=== PATIENT | female | born 1940 | race Two or more races ===

== ENCOUNTER → 2016-06-13 | Outpatient (CLI) | payer OTHER, MEDICAID ==
[~2016-06-13] MED LIST: IOPAMIDOL (ISOVUE 370) 75 ML BTL IV ONE
--- NOTE | 2016-06-13 10:14 | CT ---
CT Pulmonary Angiogram History: Chest pain. Comparison: PA and lateral chest, April 17, 2016, CT angiogram chest, July 29, 2015 and September 12, 2014. Technique: Axial contrast-enhanced images were obtained through the chest following the uneventful in travenous administration of 95 mL Isovue-370. Creatinine is 0.9. Multiplanar reformations were perfo rmed through the pulmonary arteries. Dose reduction techniques were utilized. Findings: This is a good quality study with visualization of the vessels to the subsegmental level. T here is no pulmonary embolus. Mild centrilobular emphysema, diffuse peribronchial thickening, scatter ed peripheral linear opacities suggesting scarring/atelectasis, with volume loss in the left lung, pl eural thickening and pleural calcifications, most prominent in the left lung, are again noted. A 5 mm noncalcified left lower lobe nodule (series 5 image 112) is unchanged since 2008. Heart size is uppe r normal. Coronary artery atherosclerosis is again noted. Dense mitral annular calcifications are pre sent. The aorta is normal caliber without dissection. Scattered mildly prominent mediastinal lymph no vandana are minimally increased in size since the comparison, including a 1.0 x 1.3 cm AP window node (se carmine 5 image 54). The bones are normal. Visualized structures in the upper abdomen are normal. Impression: 1. No visible pulmonary embolus. 2. Minimal increase in size of mildly prominent mediastinal lymph nodes, which may be reactive but ar e nonspecific. Follow up chest CT could be performed at 3-6 months. 3. Stable pleural thickening and pleural calcifications which could be related to previous asbestos e xposure, trauma, or pleurodesis. 4. Additional findings, as above. Findings discussed with Dana Rodgers today at 0954 hours.
== END ==
LOC: FIMAGING 08:37
PROVIDERS: ATTEND Family Medicine
DX: J94.8 Other specified pleural conditions (principal); R91.1 Solitary pulmonary nodule; I25.10 Atherosclerotic heart disease of native coronary artery without angina pectoris
CPT/HCPCS: Q9967

== ENCOUNTER → 2016-08-24 | Outpatient (CLI) | payer OTHER, MEDICAID | LOC: FIMAGING 09:02 | PROVIDERS: ATTEND Internal Medicine Gastroenterology | DX: R10.84 Generalized abdominal pain (principal); I70.0 Atherosclerosis of aorta ==

== ENCOUNTER 2016-09-07 00:40 | Observation (INO) | payer OTHER, MEDICAID ==
[2016-09-07] MEDS ORDERED: NS 1,000 ML IV ONE (00:51)
--- NOTE | 2016-09-07 00:56 | EDPHY ---
H & P HPI/ROS: HPI CHIEF COMPLAINT: Lightheadedness, nausea, slurring of her speech HISTORY OF PRESENT ILLNESS: This patient very pleasant 76-year-old female significant medical history for asthma, GERD, migraine headaches, TIA, sleep apnea, hypertension arthritis carotid endarterectomy on the left, and cardiac ablation, she presents emergency room at 1 o'clock in the morning by ambulance after she woke up this evening and felt very lightheaded no dizziness. No chest pain or shortness of breath. However she felt lightheaded as if she was going to pass out. Her took her blood pressure blood pressure was in the systolic of 70s/50s. She decided to take caffeine pills which she normally does of her blood pressure gets low she took multiple caffeine pills this did not help her blood pressure. 911 was called after she was talking to her daughter. On the 2nd phone call to her daughter daughter noticed that her speech was slightly off. Upon arrival to the emergency room the patient appears well nontoxic in no acute distress blood pressure is currently 103/81. Heart rate 65. Pulse ox 94% on room air. She did take her lisinopril and metoprolol around 8:00 p.m. this evening. She recently had an EGD and colonoscopy yesterday. She has not been vomiting. She has been eating appropriately. Currently at this time in the emergency room upon arrival 1:00 a.m. she has no chest pain or shortness of breath denies headache. Does complain of lightheadedness. Does complain of nausea. Upon arrival to the emergency room due to complain of slight slurred speech described as a "heavy tongue" by the daughter I did call a stroke alert. Time of stroke alert 100AM. Time of onset of Symptoms 1200AM, or one hour prior NIHSS Upon arrival 1.0 (due to slight slurr in speech) 0103AM: I did speak with [facility] specifically spoke with Dr. Saab we did go over this case extensively. He does not feel this patient is a tPA candidate. Reason for not giving tPA is very low NIH stroke scale, very mild symptoms. Risk would outweigh the benefit. Also patient has other acute medical conditions going on and lightheadedness and hypotension prior to arrival. Most likely cause of lightheadedness and hypertension is volume depletion from recent colonoscopy and EGD and taking her nightly blood pressure medications however patient be worked up extensively in the emergency room. Past Medical History: Includes asthma, hypertension, sleep apnea my gastritis, arthritis, TIA, SVT, carotid endarterectomy 2016, migraine headaches Past Surgical History: Left-sided carotid artery inject me in 2016, cardiac ablation bunion surgery, appendicitis, hysterectomy Social History: lives in [facility], at bedside, daughter at bedside, patient is Cambodian-speaking only, daughter speaks Lebanese and Cambodian. Family History: Noncontributory ROS REVIEW OF SYSTEMS: A comprehensive 10 point review of systems is otherwise negative aside from elements mentioned in the history of present illness. Exam Constitutional appears well nontoxic, triage nursing summary reviewed, vital signs reviewed, awake/alert. ( vital signs are stable with a normotensive blood pressure) Eyes normal conjunctivae and sclera, EOMI, PERRLA. HENT normal inspection, atraumatic, moist mucus membranes, no epistaxis, neck supple/ no meningismus, no raccoon eyes. Respiratory clear to auscultation bilaterally, normal breath sounds, no respiratory distress, no wheezing. Cardiovascular rate normal, regular rhythm, no murmur, no edema, distal pulses normal. Gastrointestinal soft, non-tender, no rebound, no guarding, normal bowel sounds, no distension, no pulsatile mass. Genitourinary no CVA tenderness. Musculoskeletal no midline vertebral tenderness, full range of motion, no calf swelling, no tenderness of extremities, no meningismus, good pulses, neurovascularly intact. Skin pink, warm, & dry, no rash, skin atraumatic. Neurologic no focal neuro deficit appreciate on exam however, awake, alert and oriented x 3, AAOx3, moves all 4 extremities equally, motor intact, sensory intact, CN II-XII intact, normal cerebellar, normal vision, speech according to daughter at bedside is slightly slurred minimal. Psychiatric normal mood/affect. Heme/Lymph/Immune no lymphadenopathy. Differential Diagnosis: Includes but is not limited to in a particular order electrolyte disturbance, dehydration, volume depletion, hypotension from volume depletion given recent endoscopy colonoscopy and taking her nightly blood pressure medication including metoprolol and lisinopril, ACS, CVA, TIA Medical Decision Making: Plan for this patient workup for lightheadedness and hypotension, IV hydration, check EKG, troponin, blood work, CT scan head without contrast for slurred speech placed on full telemetry monitor. And most likely patient will need admission for TIA versus CVA workup and monitoring of hypotension. Re-evaluation: EKG interpretation by me on record in [facility] system. Impression time of EKG 10/05/1999 this is sinus rhythm rate of 65 MS interval noted to be 204 otherwise no acute ischemic seen on EKG. Specifically no ST elevation, ST depression T-wave abnormalities. when compared to previous EKGs dated 01/03/[address] scan of the head without IV contrast The results of the study are negative for acute infarct or bleed. Unremarkable noncontrast head CT The study was read by Dr. Hawley. I viewed the images myself on the PACS system. 0149AM: Spoke with Dr. Duran who agrees to admit this patient. Reason for admission: dehydration, acute kidney injury, possible TIA, transient hypertension 0150AM: Re-evaluation at this time I did update the family daughter at bedside understands patient is agreeable for admission for observation IV hydration. She understands 1 she has an acute kidney injury 2 is dehydrated, 3 had transient hypertension and possible TIA. Currently this time when I speak to her daughter at bedside and patient they tell me the slurred speech has resolved. The patient is feeling much better after 1 L of fluid and bolused. She is hemodynamically stable I will admit her to the hospitalist service. Source: Patient, EMS - Personal History Tetanus Vaccine Date: 3 years - Medical/Surgical History Hx Asthma: Yes Hx Chronic Respiratory Disease: Yes Hx Diabetes: No Hx Cardiac Disease: Yes Hx Renal Disease: No Hx Cirrhosis: No Hx Alcoholism: No Hx HIV/AIDS: No Hx Splenectomy or Spleen Trauma: No Other PMH: Hysterectomy, appendectomy, foot surgery CARDIAC ABLATION/?SVT,sleep apnea,hypertension, L sided carotid endarterectomy, TIA, asthma, - Social History Smoking Status: Former smoker Constitutional: Initial Vital Signs Temperature (C) 36.5 C 09/07/16 00:53 Heart Rate 69 09/07/16 00:53 Respiratory Rate 17 09/07/16 00:53 Blood Pressure 103/61 09/07/16 00:53 O2 Sat (%) 95 09/07/16 00:53 O2 Delivery Mode Room Air Allergies/Adverse Reactions: Penicillins Allergy (Severe, Verified 08/29/15 15:38) Swelling/neck,face,throat Home Medications: Medication Instructions Recorded Aspirin [Aspir-Low] 81 mg PO DAILY 12/04/11 Cyclobenzaprine [Flexeril 10 MG 10 mg PO BID 12/04/11 (*)] Diclofenac Sodium [Voltaren Gel 1 clyde TP DAILY PRN 12/04/11 (*)] Fluticasone Nasal [Flonase Nasal 1 sprays NASAL DAILY 12/04/11 [place]] Furosemide [Lasix] 20 mg PO DAILY PRN 12/04/11 Hydrocodone Bit/Acetaminophen 0.5 - 1 tab PO Q4 PRN 12/04/11 [Vicodin 5/500] Ibuprofen [Motrin (*)] 600 mg PO Q8H PRN 12/04/11 Omeprazole [Prilosec 20 mg] 40 mg PO DAILY 12/04/11 Sucralfate 1 gm PO HS 12/04/11 Budesonide/Formoterol 160/4.5 2 inh IH BID 09/11/14 [Symbicort 160-4.5 Mcg Inh (*)] Montelukast Sodium [Singulair 10 10 mg PO HS 09/11/14 mg (*)] Acyclovir 5% [Zovirax 5% Cream 2gm 1 clyde TP Q3WA PRN 07/29/15 (RX)] Albuterol [Proventil Inhaler HFA 2 puffs IH BID PRN 07/29/15 (*)] Albuterol [Proventil Neb] 3 ml IH QID PRN 07/29/15 Polyethylene Glycol 3350 [Miralax 17 gm PO TID 07/29/15 17 gm (*)] SUMAtriptan [Imitrex 50 MG (*)] 50 mg PO DAILY PRN 07/29/15 Topiramate [Topamax 25MG (*)] 50 mg PO BID 07/29/15 Valacyclovir HCl [Valtrex] 2,000 mg PO Q12 PRN 07/29/15 Gabapentin [Neurontin 400 MG (*)] 800 mg PO HS 09/12/15 Lubiprostone [Amitiza 24 mcg (*)] 24 mcg PO BID 09/12/15 Atorvastatin Calcium [Lipitor 20 20 mg PO HS 01/03/16 mg (*)] Herbals/Supplements -Info Only 1 ea PO DAILY 01/03/16 Metoprolol Succinate 50 mg PO HS 01/03/16 oxyCODONE IR [Oxycodone Ir (*)] 5 mg PO Q3 PRN 01/03/16 Amlodipine Besylate 09/07/16 Klor-Con 20 meq (*) 09/07/16 Lipitor 20 mg (*) 09/07/16 Losartan Potassium 09/07/16 Metamucil Powder 09/07/16 Medical Decision Making - Data Points Laboratory Results: Laboratory Results 09/07/16 00:45 09/07/16 00:45 09/07/16 09/07/16 09/07/16 01:04 00:45 00:45 WBC RBC Hgb POC Hgb 13.9 gm/dL gm/dL (12.3-15.9) Hct POC Hct 41 % % (35.5-47.5) MCV MCH MCHC RDW Plt Count MPV Neut % (Auto) Lymph % (Auto) [place] % (Auto) Eos % (Auto) Baso % (Auto) Nucleat RBC Rel Count Absolute Neuts (auto) Absolute Lymphs (auto) Absolute Monos (auto) Absolute Eos (auto) Absolute Basos (auto) Absolute Nucleated RBC Immature Gran % Immature Gran # RBC/WBC/PLT Morphology Platelet Estimate PT 14.4 SEC SEC (12.0-15.0) INR 1.13 (0.83-1.16) APTT 30.6 SEC SEC (23.0-38.0) POC Sodium 139 mEq/L mEq/L (134-144) Sodium 137 mEq/L mEq/L (134-144) POC Potassium 3.9 mEq/L mEq/L (3.3-5.0) Potassium 4.4 mEq/L mEq/L (3.5-5.2) POC Chloride 106 mEq/L mEq/L (96-108) Chloride 106 mEq/L mEq/L (97-110) Carbon Dioxide 21 mEq/l L mEq/l (22-31) Anion Gap 10 mEq/L mEq/L (8-16) POC BUN 20 mg/dL mg/dL (7-23) BUN 20 mg/dL mg/dL (7-23) Creatinine 2.4 mg/dL H mg/dL (0.6-1.0) POC Creatinine 2.3 mg/dL H mg/dL (0.6-1.2) Estimated GFR 20 Glucose 107 mg/dL H mg/dL (70-100) POC Glucose 105 mg/dL H mg/dL (70-100) Calcium 9.6 mg/dL mg/dL (8.5-10.4) Troponin I < 0.012 ng/mL ng/mL (0-0.034) 09/07/16 00:45 WBC 13.83 10^3/uL H 10^3/uL (3.80-9.50) RBC 4.99 10^6/uL 10^6/uL (4.18-5.33) Hgb 13.6 g/dL g/dL (12.6-16.3) POC Hgb Hct 43.6 % % (38.0-47.0) POC Hct MCV 87.4 fL fL (81.5-99.8) MCH 27.3 pg L pg (27.9-34.1) MCHC 31.2 g/dL L g/dL (32.4-36.7) RDW 21.8 % H % (11.5-15.2) Plt Count 197 10^3/uL 10^3/uL (150-400) MPV 12.4 fL H fL (8.7-11.7) Neut % (Auto) 48.1 % % (39.3-74.2) Lymph % (Auto) 32.1 % % (15.0-45.0) [place] % (Auto) 11.3 % % (4.5-13.0) Eos % (Auto) 7.3 % % (0.6-7.6) Baso % (Auto) 0.9 % % (0.3-1.7) Nucleat RBC Rel Count 0.0 % % (0.0-0.2) Absolute Neuts (auto) 6.66 10^3/uL H 10^3/uL (1.70-6.50) Absolute Lymphs (auto) 4.44 10^3/uL H 10^3/uL (1.00-3.00) Absolute Monos (auto) 1.56 10^3/uL H 10^3/uL (0.30-0.80) Absolute Eos (auto) 1.01 10^3/uL H 10^3/uL (0.03-0.40) Absolute Basos (auto) 0.12 10^3/uL H 10^3/uL (0.02-0.10) Absolute Nucleated RBC 0.00 10^3/uL 10^3/uL (0-0.01) Immature Gran % 0.3 % % (0.0-1.1) Immature Gran # 0.04 10^3/uL 10^3/uL (0.00-0.10) RBC/WBC/PLT Morphology NORMAL (NORMAL) Platelet Estimate ADEQUATE (ADEQ) PT INR APTT POC Sodium Sodium POC Potassium Potassium POC Chloride Chloride Carbon Dioxide Anion Gap POC BUN BUN Creatinine POC Creatinine Estimated GFR Glucose POC Glucose Calcium Troponin I Point of Care Test Results: 09/07/16 01:04 POC Sodium 139 POC Potassium 3.9 POC Chloride 106 POC BUN 20 POC Creatinine 2.3 H POC Glucose 105 H Departure - Departure Disposition: [facility] Inpatient Acute Clinical Impression: Transient hypotension, ALICIA (acute kidney injury) TIA (transient ischemic attack) Qualifiers: Transient cerebral ischemia type: unspecified Qualified Code(s): G45.9 - Transient cerebral ischemic attack, unspecified Condition: Good Referrals: Patient,NotPresent [Unknown] - As per Instructions
[2016-09-07 00:57] LABS: % IMMATURE GRANULYOCYTES 0.3 % (0.0-1.1); ABSOLUTE IMMATURE GRANULOCYTES 0.04 10^3/uL (0.00-0.10); ADD DIFF? NO; ADD MORPH? YES; ADD SCAN? NO; ATYPICAL LYMPHOCYTE FLAG 20 (0-99); FRAGMENT RBC FLAG 40 (0-99); HEMATOCRIT 43.6 % (38.0-47.0); HEMOGLOBIN 13.6 g/dL (12.6-16.3); LEFT SHIFT FLG 0 (0-99); LIPEMIA HEMOLYSIS FLAG 80 (0-99); MEAN CELL HEMOGLOBIN 27.3 pg (27.9-34.1); MEAN CELL HEMOGLOBIN CONCENTR. 31.2 g/dL (32.4-36.7); MEAN CELL VOLUME 87.4 fL (81.5-99.8); MEAN PLATELET VOLUME 12.4 fL (8.7-11.7); PLATELET CLUMPS FLAG 0 (0-99); PLATELET COUNT 197 10^3/uL (150-400); RED BLOOD CELL COUNT 4.99 10^6/uL (4.18-5.33)
[2016-09-07 00:58] LABS: RED CELL DISTRIBUTION WIDTH 21.8 % (11.5-15.2)
[2016-09-07 01:02] LABS: ANION GAP 10 mEq/L (8-16); CALCIUM 9.6 mg/dL (8.5-10.4); CARBON DIOXIDE 21 mEq/l (22-31); CHLORIDE 106 mEq/L (97-110); CREATININE 2.4 mg/dL (0.6-1.0); GLOMERULAR FILTRATION RATE 20; GLUCOSE 107 mg/dL (70-100); POTASSIUM 4.4 mEq/L (3.5-5.2); SODIUM 137 mEq/L (134-144)
[2016-09-07 01:05] LABS: APTT 30.6 SEC (23.0-38.0); INR 1.13 (0.83-1.16); PROTIME(PATIENT) 14.4 SEC (12.0-15.0)
[2016-09-07 01:14] LABS: TROPONIN I < 0.012 ng/mL (0-0.034)
[2016-09-07 01:25] LABS: PLATELET ESTIMATE ADEQUATE (ADEQ)
[2016-09-07 02:12] VITALS: RESP 16
[2016-09-07] MEDS ORDERED: ACETAMINOPHEN 325 MG TAB PO PRN (02:16)
[2016-09-07] MEDS ORDERED: ALBUTEROL 60 PUFFS/8 GM MDI IH PRN ×2 (02:16→09:30)
[2016-09-07] MEDS ORDERED: ONDANSETRON 4 MG/2 ML VIAL IVP PRN (02:16)
[2016-09-07] MEDS ORDERED: HYDROCODONE/APAP 5/325 TAB PO PRN (02:16)
[2016-09-07] MEDS ORDERED: ONDANSETRON DISINTEGRATING 4 MG TAB PO PRN (02:16)
--- NOTE | 2016-09-07 02:28 | PDGENHP ---
History and Physical - Chief Complaint dizziness, hypotension - History of Present Illness Patient is a 76 year old female with HTN, diastolic CHF, history of a TIA due to carotid artery stenosis, asthma who presented to the ED with complaint of dizziness and low BP. The day prior to presentation, the patient underwent EGD/ colonoscopy. She did not have any major complications from this procedure, came home and ate dinner without event. The following morning, however, she felt fatigued and slept longer than she normally does. She then did not eat or drink much the rest of the day, took her BP meds at 8pm and then went to bed. She woke up at around midnight and felt dizzy and nauseous, without chest pain, palpitations or headache. She then measured her BP and it was in the 70/50 range. She reports she occasionally suffers from low BP and so she took a caffeine tablet, but she continued to feel unwell, so she called her daughter. Daughter states her mother sounded slightly dysarthric and was complaining of feeling dizzy, so she called EMS and the patient was transported to the ED. Patient denies any recent fevers, chills, cough, congestion, abdominal pain, vomiting, diarrhea or dysuria. On arrival to the ED, patient was afebrile and hemodynamically stable. Patient still had some dysarthria noticed by her daughter, but this improved and symptoms completely subsided over ED course. CT head did not show any acute abnormalities. She was ruled out of tPA given her minimal symptoms (NIH stroke scale 1) and due to normalization of symptoms. Labs revealed acute elevated Cr, but were largely unremarkable and EKG showed normal sinus rhythm. She was given NS hydration and admitted to the hospitalist service for further management. History Information - Allergies/Home Medication List Allergies/Adverse Reactions: Penicillins Allergy (Severe, Verified 08/29/15 15:38) Swelling/neck,face,throat Home Medications: Aspirin [Aspir-Low] 81 mg PO DAILY 12/04/11 [Last Taken 01/03/16 08:00] Cyclobenzaprine [Flexeril 10 MG (*)] 10 mg PO BID 12/04/11 [Last Taken 01/03/16 08:00] Diclofenac Sodium [Voltaren Gel (*)] 1 clyde TP DAILY PRN 12/04/11 [Last Taken 03/18] Fluticasone Nasal [Flonase Nasal Novice] 1 sprays NASAL DAILY 12/04/11 [Last Taken 01/03/16] Furosemide [Lasix] 20 mg PO DAILY PRN 12/04/11 [Last Taken 09/11/15] Hydrocodone Bit/Acetaminophen [Vicodin 5/500] 0.5 - 1 tab PO Q4 PRN 12/04/11 [ Last Taken 12/03/11] Ibuprofen [Motrin (*)] 600 mg PO Q8H PRN 12/04/11 [Last Taken 09/11/15] Omeprazole [Prilosec 20 mg] 40 mg PO DAILY 12/04/11 [Last Taken 01/03/16] Sucralfate 1 gm PO HS 12/04/11 [Last Taken 01/02/16] Budesonide/Formoterol 160/4.5 [Symbicort 160-4.5 Mcg Inh (*)] 2 inh IH BID 09/11 [Last Taken 01/03/16 08:00] Montelukast Sodium [Singulair 10 mg (*)] 10 mg PO HS 09/11/14 [Last Taken ] Acyclovir 5% [Zovirax 5% Cream 2gm (RX)] 1 clyde TP Q3WA PRN 07/29/15 [Last Taken 09/11/15] Albuterol [Proventil Inhaler HFA (*)] 2 puffs IH BID PRN 07/29/15 [Last Taken ] Albuterol [Proventil Neb] 3 ml IH QID PRN 07/29/15 [Last Taken 01/03/16] Polyethylene Glycol 3350 [Miralax 17 gm (*)] 17 gm PO TID 07/29/15 [Last Taken 01/03/16 12:00] SUMAtriptan [Imitrex 50 MG (*)] 50 mg PO DAILY PRN 07/29/15 [Last Taken 01/02/16 ] Topiramate [Topamax 25MG (*)] 50 mg PO BID 07/29/15 [Last Taken 01/03/16 08:00] Valacyclovir HCl [Valtrex] 2,000 mg PO Q12 PRN 07/29/15 [Last Taken 09/11/15] Gabapentin [Neurontin 400 MG (*)] 800 mg PO HS 09/12/15 [Last Taken 01/02/16] Lubiprostone [Amitiza 24 mcg (*)] 24 mcg PO BID 09/12/15 [Last Taken 01/03/16 08 :00] Atorvastatin Calcium [Lipitor 20 mg (*)] 20 mg PO HS 01/03/16 [Last Taken ] Herbals/Supplements -Info Only 1 ea PO DAILY 01/03/16 [Last Taken Unknown] Metoprolol Succinate 50 mg PO HS 01/03/16 [Last Taken 01/02/16] oxyCODONE IR [Oxycodone Ir (*)] 5 mg PO Q3 PRN 01/03/16 [Last Taken Unknown] Amlodipine Besylate 09/07/16 [Last Taken Unknown] Klor-Con 20 meq (*) 09/07/16 [Last Taken Unknown] Lipitor 20 mg (*) 09/07/16 [Last Taken Unknown] Losartan Potassium 09/07/16 [Last Taken Unknown] Metamucil Powder 09/07/16 [Last Taken Unknown] I have personally reviewed and updated: family history, medical history, social history, surgical history - Past Medical History Additional medical history: hypertension. diastolic CHF. moderate mitral regurgitation, mitral stenosis. h/o TIA, 09/2015. carotid stenosis s/p CEA. Asthma. THUY. h/o SVT s/p ablation. chronic leukocytosis - Surgical History Additional surgical history: appendectomy. hysterectomy. SVT ablation. sinus surgery - Family History Additional family history: M, sisters: CVAs in 70s - Social History Smoking Status: Former smoker (quit 30 yrs ago) Alcohol Use: None Drug Use: None Additional social history: Patient lives with her in [place], has daughter who is active in her care. Walks independently, independent in ADLs. Review of Systems ROS: 10pt was reviewed & negative except for what was stated in HPI & below Physical Exam Temp Pulse Resp BP Pulse Ox 36.5 C 79 16 141/78 H 97 09/07/16 00:53 09/07/16 02:10 09/07/16 02:10 09/07/16 02:10 09/07/16 02:10 Constitutional: no apparent distress, appears nourished, not in pain Eyes: PERRL, anicteric sclera, EOMI Ears, Nose, Mouth, Throat: moist mucous membranes, hearing normal, ears appear normal, no oral mucosal ulcers Cardiovascular: regular rate and rhythym, no murmur, rub, or gallop, pulses symmetric bilaterally, No JVD, No edema Peripheral Pulses: 2+: dorsalis-pedis (R), dorsalis-pedis (L) Respiratory: no respiratory distress, no rales or rhonchi, clear to auscultation Gastrointestinal: normoactive bowel sounds, soft, non-tender abdomen, no palpable masses, No guarding, No rebound Genitourinary: no bladder fullness, no bladder tenderness Skin: warm, normal color, no rashes or abrasions, no fluctuance, no induration, No mottled Musculoskeletal: full muscle strength, no muscle tenderness, normal joint ROM, no joint effusions Neurologic: AAOx3, sensation intact bilaterally, CN II-XII Intact, No weakness, No numbness Psychiatric: interacting appropriately, not anxious, not encephalopathic, thought process linear Lab Data & Imaging Review 09/07/16 00:45 09/07/16 00:45 WBC 13.83 10^3/uL (3.80-9.50) H 09/07/16 00:45 RBC 4.99 10^6/uL (4.18-5.33) 09/07/16 00:45 Hgb 13.6 g/dL (12.6-16.3) 04 00:45 POC Hgb 13.9 gm/dL (12.3-15.9) 09/07/16 01:04 Hct 43.6 % (38.0-47.0) 09/07/16 00:45 POC Hct 41 % (35.5-47.5) 09/07/16 01:04 MCV 87.4 fL (81.5-99.8) 09/07/16 00:45 MCH 27.3 pg (27.9-34.1) L 09/07/16 00:45 MCHC 31.2 g/dL (32.4-36.7) L 09/07/16 00:45 RDW 21.8 % (11.5-15.2) H 09/07/16 00:45 Plt Count 197 10^3/uL (150-400) 09/07/16 00:45 MPV 12.4 fL (8.7-11.7) H 09/07/16 00:45 Neut % (Auto) 48.1 % (39.3-74.2) 09/07/16 00:45 Lymph % (Auto) 32.1 % (15.0-45.0) 09/07/16 00:45 Laporte % (Auto) 11.3 % (4.5-13.0) 09/07/16 00:45 Eos % (Auto) 7.3 % (0.6-7.6) 09/07/16 00:45 Baso % (Auto) 0.9 % (0.3-1.7) 09/07/16 00:45 Nucleat RBC Rel Count 0.0 % (0.0-0.2) 09/07/16 00:45 Absolute Neuts (auto) 6.66 10^3/uL (1.70-6.50) H 09/07/16 00:45 Absolute Lymphs (auto) 4.44 10^3/uL (1.00-3.00) H 09/07/16 00:45 Absolute Monos (auto) 1.56 10^3/uL (0.30-0.80) H 09/07/16 00:45 Absolute Eos (auto) 1.01 10^3/uL (0.03-0.40) H 09/07/16 00:45 Absolute Basos (auto) 0.12 10^3/uL (0.02-0.10) H 09/07/16 00:45 Absolute Nucleated RBC 0.00 10^3/uL (0-0.01) 09/07/16 00:45 Immature Gran % 0.3 % (0.0-1.1) 09/07/16 00:45 Immature Gran # 0.04 10^3/uL (0.00-0.10) 09/07/16 00:45 RBC/WBC/PLT Morphology NORMAL (NORMAL) 09/07/16 00:45 Platelet Estimate ADEQUATE (ADEQ) 09/07/16 00:45 PT 14.4 SEC (12.0-15.0) 09/07/16 00:45 INR 1.13 (0.83-1.16) 09/07/16 00:45 APTT 30.6 SEC (23.0-38.0) 09/07/16 00:45 POC Sodium 139 mEq/L (134-144) 09/07/16 01:04 Sodium 137 mEq/L (134-144) 09/07/16 00:45 POC Potassium 3.9 mEq/L (3.3-5.0) 09/07/16 01:04 Potassium 4.4 mEq/L (3.5-5.2) 09/07/16 00:45 POC Chloride 106 mEq/L (96-108) 09/07/16 01:04 Chloride 106 mEq/L (97-110) 09/07/16 00:45 Carbon Dioxide 21 mEq/l (22-31) L 09/07/16 00:45 Anion Gap 10 mEq/L (8-16) 09/07/16 00:45 POC BUN 20 mg/dL (7-23) 09/07/16 01:04 BUN 20 mg/dL (7-23) 09/07/16 00:45 Creatinine 2.4 mg/dL (0.6-1.0) H 09/07/16 00:45 POC Creatinine 2.3 mg/dL (0.6-1.2) H 09/07/16 01:04 Estimated GFR 20 09/07/16 00:45 Glucose 107 mg/dL (70-100) H 09/07/16 00:45 POC Glucose 105 mg/dL (70-100) H 09/07/16 01:04 Calcium 9.6 mg/dL (8.5-10.4) 09/07/16 00:45 Troponin I < 0.012 ng/mL (0-0.034) 09/07/16 00:45 Visualized and Interpreted Chest x-ray results: Yes Chest X-Ray results: no infiltrate Visualized and Interpreted imaging results: Yes Interpretation: CT head: no acute changes Visualized and Interpreted EKG results: Yes EKG Interpretation: Positive for: normal sinsus rhythm (no st/t wave changes) Assessment & Plan Assessment: Patient is a 76 year old female with previous history of TIA, HTN, diastolic CHF, valvular heart disease who presents to the ED after an episode of hypotension, dizziness and dysarthria, all of which have resolved over ED course. Symptoms appear consistent with TIA vs pre-syncope and labs revealed evidence of dehydration with ALICIA. Plan: # acute encephalopathy Patient presented to the ED with complaint of dizziness, hypotension and dysarthria. Initial ED VS showed normal BP and dysarthria symptoms resolved over ED course. Episode appears consistent with a TIA vs a pre-syncopal episode. Will also rule out infection, CXR is unremarkable, will check UA. CT head did not show any acute abnormalities. Labs did show acute kidney injury. Will complete TIA work up with TTE, carotid dopplers, lipid and TSH check. Will also obtain neurology consult and monitor telemetry for any arrhythmia. # acute renal failure Likely prerenal in etiology given recent colonoscopy/NPO status and decreased PO intake after procedure. Patient did receive 1 L of NS in the ED, will continue gentle IV hydration overnight and reassess BMP in AM. If no improvement in Cr, will check US kidney/bladder. Patient denies any excessive NSAID use recently. # leukocytosis Patient appears to have chronic leukocytosis and current levels are near her previous baseline. Patient is afebrile and without any complaint of infectious symptoms. Will check UA to complete infectious work up and continue to trend CBC. # chronic hypertension Patient reports hypotension when BP measured at home, has been normotensive since arrival to the ED. Given the ALICIA, will hold ARB and restart other antihypertensives as needed. # diastolic CHF, valvular heart disease, h/o SVT Patient denies any chest pain or palpitations associated with presenting symptoms. EKG shows normal sinus rhythm. Patient also is clinically hypovolemic , no evidence of edema on exam or in CXR. Will continue gentle IVF hydration, monitor volume status closely. # Asthma, THUY Respiratory status stable on presentation. Will cont home meds and provide nebs prn. # GERD Cont PPI. # dispo: admit to observation status for TIA work up # gen: Cardiac diet DVT ppx: HSQ q8h Full code
[2016-09-07] MEDS ORDERED: NS 1,000 ML IV SCH (02:30)
--- NOTE | 2016-09-07 02:42 | CPEKG ---
Heart Rate: 65 RR Interval: 923 P-R Interval: 204 QRSD Interval: 78 QT Interval: 468 QTC Interval: 487 P Jeane[place]: 41 QRS [place]: -2 T Wave [place]: 27 EKG Severity - BORDERLINE ECG - EKG Impression: SINUS RHYTHM Electronically Signed By: Jean Pace 07-Sep-2016 11:56:00
[2016-09-07] MEDS ORDERED: LIDOCAINE 2% VISCOUS 15 ML UDCUP PO ONE (02:48)
[2016-09-07] MEDS ORDERED: MAG HYDROX/AL HYDROX/SIMETH 30 ML UDCUP PO PRN (02:49)
[2016-09-07 04:21] LABS: COLOR COLORLESS; LEUKOCYTE ESTERASE,URINE NEGATIVE (NEGATIVE); NITRITE,URINE NEGATIVE (NEGATIVE)
[2016-09-07 05:22] LABS: % IMMATURE GRANULYOCYTES 0.3 % (0.0-1.1); ABSOLUTE IMMATURE GRANULOCYTES 0.04 10^3/uL (0.00-0.10); ADD DIFF? NO; ADD MORPH? YES; ADD SCAN? NO; ATYPICAL LYMPHOCYTE FLAG 20 (0-99); FRAGMENT RBC FLAG 40 (0-99); HEMATOCRIT 44.7 % (38.0-47.0); LEFT SHIFT FLG 0 (0-99); LIPEMIA HEMOLYSIS FLAG 80 (0-99); MEAN CELL HEMOGLOBIN 27.7 pg (27.9-34.1); MEAN CELL HEMOGLOBIN CONCENTR. 31.3 g/dL (32.4-36.7); MEAN CELL VOLUME 88.5 fL (81.5-99.8); MEAN PLATELET VOLUME 12.1 fL (8.7-11.7); PLATELET CLUMPS FLAG 30 (0-99); PLATELET COUNT 182 10^3/uL (150-400); RED BLOOD CELL COUNT 5.05 10^6/uL (4.18-5.33)
[2016-09-07 05:31] LABS: APTT 31.3 SEC (23.0-38.0); INR 1.15 (0.83-1.16); PROTIME(PATIENT) 14.6 SEC (12.0-15.0)
[2016-09-07 05:32] LABS: ANION GAP 9 mEq/L (8-16); CALCIUM 9.1 mg/dL (8.5-10.4); CARBON DIOXIDE 22 mEq/l (22-31); CHLORIDE 109 mEq/L (97-110); CHOLESTEROL 105 mg/dL (140-220); CHOLESTEROL/HDL RATIO 2.69 RATIO (1.00-4.44); CREATININE 1.9 mg/dL (0.6-1.0); GLOMERULAR FILTRATION RATE 26; GLUCOSE 125 mg/dL (70-100); HIGH DENSITY LIPOPROTEIN 39 mg/dL (40-85); LOW DENSITY LIPOPROTEIN 39 mg/dL (80-100); NON-HIGH DENSITY LIPOPROTEIN 66 mg/dL (90-129); POTASSIUM 4.5 mEq/L (3.5-5.2); SODIUM 140 mEq/L (134-144); TRIGLYCERIDE 138 mg/dL (35-135); VERY LOW DENSITY LIPOPROTEINS 27 mg/dL (8-25)
[2016-09-07 05:35] LABS: RED CELL DISTRIBUTION WIDTH 21.6 % (11.5-15.2)
[2016-09-07 05:41] LABS: TROPONIN I < 0.012 ng/mL (0-0.034)
[2016-09-07] MEDS ORDERED: HEPARIN 5,000 UNIT/0.5 ML SYR SC SCH (06:00)
[2016-09-07 06:45] LABS: LARGE PLATELETS PRESENT; MACROCYTES 1+; MICROCYTES 1+; PLATELET ESTIMATE ADEQUATE (ADEQ)
[2016-09-07 07:17] VITALS: BP 156/79; PULSE 72; TEMP 98.4; O2SAT 98
--- NOTE | 2016-09-07 08:57 | CPEKG ---
Heart Rate: 67 RR Interval: 896 P-R Interval: 204 QRSD Interval: 80 QT Interval: 452 QTC Interval: 478 P [place]: 43 QRS [place]: -1 T Wave [place]: 31 EKG Severity - NORMAL ECG - EKG Impression: SINUS RHYTHM Electronically Signed By: Jean Pace 07-Sep-2016 11:55:48
[2016-09-07] MEDS ORDERED: ENOXAPARIN 40 MG/0.4 ML SYR SC SCH (09:00)
[2016-09-07] MEDS ORDERED: oxyCODONE IR 5 MG TAB PO PRN (09:30)
[2016-09-07] MEDS ORDERED: POLYETHYLENE GLYCOL 3350 17 GM PKT PO PRN (09:30)
[2016-09-07] MEDS ORDERED: ACYCLOVIR 5% TP PRN (09:30)
[2016-09-07] MEDS ORDERED: ALBUTEROL 3 ML DEYVIAL IH PRN (09:30)
[2016-09-07] MEDS ORDERED: VALACYCLOVIR HCL 2000 MG PO PRN (09:30)
[2016-09-07] MEDS ORDERED: Diclofenac Sodium [Voltaren Gel (*)] 1 APP) TP PRN (09:30)
[2016-09-07] MEDS ORDERED: valACYclovir 500 MG TAB PO PRN (10:04)
--- NOTE | 2016-09-07 11:54 | ECHO ---
[id number] + + [address] : : [place] [address] : : [phone] + Adult Echocardiographic Report + ---+ :Name: Lori VILCHIS Date: 09/07/2016 08:14 AM : : Hospital Admission Number: [id number] Location: 340: :: 1940 Gender: Female Height: 64 in : :Age: 76 yrs Race: [facility] Weight: 173 lb : :Reason For Study: Eval for LV Fx : : BSA: 1.8 meters2 : :History: Near Syncope, Possible TIA : + ---+ MMode/2D Measurements \T\ Calculations IVSd: 1.1 cm LVIDd: 3.0 cm FS: 38.6 % MV Diam: 3.0 cm LVPWd: 1.3 cm LVIDs: 1.8 cm EDV(Teich): 34.8 ml ESV(Teich): 10.2 ml EF(Teich): 70.6 % Ao root diam: 3.1 cm LVOT diam: 1.9 cm ACS: 1.8 cm LVOT area: 2.8 cm2 Normal Measurement Values: + + :LVIDd (3.5-5.7cm) IVSd (0.6-1.1cm) LVPWd (0.6-1.1cm) Aortic Root (2.0-3.7cm)Left Atrium (1.5-4.0cm): :LV Vol(d) (76-115ml) LV Vol(s) (29-48ml) Ejec Fraction (50-65%)PV Philip (0.6- 1.2m/s) TV Philip (0.4-1.0m/s) : :MV E Philip (0.8-1.0m/s)MV A Philip (0.3-1.0m/s)LVOT Philip (0.7-1.2m/s) Asc Ao Philip ( 0.9-1.8m/s) : + + Doppler Measurements \T\ Calculations MV E max philip: MV V2 mean: MV P1/2t max philip: Ao V2 max: 205.4 cm/sec 145.5 cm/sec 230.8 cm/sec 173.7 cm/sec MV A max philip: MV mean PG: MV P1/2t: 115.2 msec Ao max P.2 cm/sec 9.6 mmHg 12.1 mmHg MV E/A: 1.2 MV V2 VTI: 67.8 cm MVA(P1/2t): 1.9 cm2 Ao mean PG: MV dec time: MV area (1 diam): MV dec slope: 8.1 mmHg 0.38 sec 586.8 cm/sec2 Ao V2 mean: 7.1 cm2 133.7 cm/sec MVA(VTI): 1.3 cm2 Ao V2 VTI: 43.3 cm MV Flow area (1diam): 7.1 cm2 YOHANA(I,D): 2.1 cm2 YOHANA(V,D): 2.2 cm2 LV V1 max: MR max philip: MR(RF 1 diam): 2.8 % SV(MV 1 diam): 135.0 cm/sec 482.0 cm/sec 480.1 ml LV V1 max PG: MR max PG: SI(MV 1 diam): 7.3 mmHg 92.9 mmHg 261.0 ml/m2 LV V1 mean PG: SV(LVOT): 90.2 ml 4.5 mmHg LV V1 mean: 97.1 cm/sec LV V1 VTI: 31.8 cm PA V2 max: RF(MV,Ao)(1 diam): 78.7 cm/sec 0.33 PA max PG: RF(MV,LVOT)(1diam): 2.5 mmHg 0.81 Left Ventricle The left ventricle is normal in size. There is moderate concentric left ventricular hypertrophy. An intracavitary gradient is suspected. The left ventricular ejection fraction is normal. Ejection Fraction = 75%. There is Doppler evidence for diastolic dysfunction. The LV mid gradient is 23 mmHg. Right Ventricle The right ventricle is normal size. Atria The left atrium is mildly dilated. Right atrial size is normal. Mitral Valve There is moderate to severe mitral annular calcification. There is moderate to severe mitral stenosis. There is mild to moderate mitral regurgitation. The mean PG is 9 mmHg. Aortic Valve The aortic valve is trileaflet. Mild valvular aortic stenosis. There is no aortic insufficiency. Pulmonic Valve The pulmonic valve is not well visualized. There is no pulmonic valvular regurgitation. Great Vessels The aortic root is normal size. Pericardium/Pleural There is no pericardial effusion. Conclusion A complete two-dimensional transthoracic echocardiogram was performed (2D, M-mode, Doppler and color flow Doppler). 1. The left ventricle is normal in size. There is moderate concentric left ventricular hypertrophy. The Ejection Fraction = 75%. There is an intracavitary gradient of 23 mmHg. 2. The left atrium is mildly dilated. 3. There is moderate to severe mitral annular calcification. There is moderate to severe mitral stenosis. The mean PG is 9 mmHg. There is mild to moderate mitral regurgitation. 4. The aortic valve is trileaflet. Mild valvular aortic stenosis. There is no aortic insufficiency. 5. Compared to the 01/04/16 study. There is no significant change. Final Reading Physician: Attila Ray MD electronically signed on 09/07/2016 11:52 AM Ordering Physician: Angeles Duran Performed By: Osmany Falcon, RDCS
--- NOTE | 2016-09-07 20:30 | GDS ---
[f rep st] DISCHARGE SUMMARY DISCHARGE DIAGNOSES: 1. Hypotension and dizziness to due to hypovolemia. 2. Resolved acute encephalopathy due to hypovolemia. 3. Improving acute renal failure due to hypovolemia. 4. History of chronic diastolic congestive heart failure with valvular heart disease, compensated. 5. Controlled asthma. 6. Gastroesophageal reflux disease. CONSULTANTS: None. HOSPITAL COURSE AND STAY BY PROBLEM: Hypotension with resulting dizziness and confusion: The patie nt was placed on observation, initially out of concerns for TIA. The patient tells me that she was noted to be extremely hypotensive which she attributes to taking her multiple blood pressure medicat ions and undergoing an EGD and colonoscopy the day prior to admission. During the patient's stay, she received 2 L of saline. On the morning of discharge, she tells me sh luis feels well and denies any further dizziness. She has not had any focal neurologic deficits. PHYSICAL EXAMINATION: VITAL SIGNS: On day of discharge, blood pressure 156/79. GENERAL: No acute d istress. HEART: S1, S2. LUNGS: Clear. ABDOMEN: Soft. NEUROLOGIC: Face is symmetric. Cranial ne rves 2-12 grossly intact. No pronator drift. No focal motor or sensory deficits. DIAGNOSTICS DONE THIS HOSPITAL STAY: Echocardiogram done 09/07/2016: Ejection fraction was 75% wit h moderate concentric LVH. There was moderate to severe mitral annular calcification, as well as mo derate to severe mitral stenosis. Refer to report for full details. Head CT done 09/07/2016: Refer to report. Carotid Doppler done 09/07/2016: Refer to report. DISCHARGE MEDICATIONS: Please refer to discharge medication reconciliation in [facility] for full det ails. Below is a preliminary list. Home medications that were held: 1. Motrin. 2. Cozaar 25 mg daily. All other home medications were continued at her usual home dosages. DISCHARGE INSTRUCTIONS: The patient was discharged from the hospital where she was instructed to fo llow up with her primary care provider, Dr. Rodgers, next week. She was given a slip to have her metabo lic panel checked on September 10 or to ensure her creatinine is normalizing. She was instructed to seek medical attention if her symptoms return. /[id number]/MODL
[2016-09-07] MEDS ORDERED: METOPROLOL SUCCINATE XR 25 MG TAB PO SCH (21:00)
[2016-09-07] MEDS ORDERED: GABAPENTIN 400 MG CAP PO SCH (21:00)
[2016-09-07] MEDS ORDERED: SUCRALFATE 1 GM TAB PO SCH (21:00)
[2016-09-07] MEDS ORDERED: PSYLLIUM METAMUCIL 1 PKT PO SCH (21:00)
[2016-09-07] MEDS ORDERED: LUBIPROSTONE 24 MCG CAP PO SCH (21:00)
[2016-09-07] MEDS ORDERED: TOPIRAMATE 25 MG TAB PO SCH (21:00)
[2016-09-07] MEDS ORDERED: MONTELUKAST SODIUM 10 MG TAB PO SCH (21:00)
[2016-09-07] MEDS ORDERED: BUDESONIDE/FORMOTEROL 160/4.5 60 PUFFS/MDI IH SCH (21:00)
[2016-09-07] MEDS ORDERED: FLUTICASONE NASAL 120 SPRAYS/16 GM MDI EACHNARE SCH (21:00)
[2016-09-07] MEDS ORDERED: POTASSIUM CL 20 MEQ TAB PO SCH (21:00)
[2016-09-07] MEDS ORDERED: ATORVASTATIN CALCIUM 20 MG TAB PO SCH (21:00)
[2016-09-08] MEDS ORDERED: PANTOPRAZOLE SODIUM 40 MG TAB PO SCH (09:00)
[2016-09-08] MEDS ORDERED: LOSARTAN POTASSIUM 25 MG TAB PO SCH (09:00)
[2016-09-08] MEDS ORDERED: NON-FORMULARY NEW DRUG (Omeprazole [Prilosec 20 Mg] 40 MG) PO SCH (09:00)
[2016-09-08] MEDS ORDERED: ASPIRIN EC 81 MG TAB PO SCH (09:00)
== END 2016-09-07 12:33 | disposition home or self-care (01) ==
LOC: EDUNIT# → INTOOBSV 01:50 → F3N 03:27
PROVIDERS: ADMIT Internal Medicine; ATTEND Family Medicine
DX: E86.1 Hypovolemia (principal); G93.40 Encephalopathy, unspecified; N17.9 Acute kidney failure, unspecified; I10 Essential (primary) hypertension; I50.32 Chronic diastolic (congestive) heart failure; I38 Endocarditis, valve unspecified; J45.909 Unspecified asthma, uncomplicated; K21.9 Gastro-esophageal reflux disease without esophagitis; G43.909 Migraine, unspecified, not intractable, without status migrainosus
CPT/HCPCS: 70450; 71010; 93005; 93306; 93880; G0378; 82947-QW

== ENCOUNTER 2016-11-02 01:03 | Emergency (ER) | payer OTHER, MEDICAID ==
[2016-11-02] MEDS ORDERED: NS 1,000 ML IV ONE ×2 (01:12→02:52)
--- NOTE | 2016-11-02 01:19 | EDPHY ---
H & P HPI/ROS: HPI CHIEF COMPLAINT: Lightheadedness, dizziness, low blood pressure, chest palpitations HISTORY OF PRESENT ILLNESS: This patient very pleasant 76-year-old female she presents emergency room by EMS with a multitude of symptoms and complaints. She states that she was seen by her pin drafter today for acute asthma attack and was started on prednisone as well as DuoNeb breathing treatments as well as ciprofloxacin, she has had all these medications in the past, she presents emergency room at 1 o'clock in the morning after she states she felt lightheaded , dizzy, chest palpitations after she gave herself a breathing treatment at home. Her daughter reports that after she gave herself a breathing treatment she got lightheaded, had some chest palpitations, and took her blood pressure noticed it was 90s over 50s. Upon arrival here to the emergency room she is hemodynamically stable no acute distress her main complaint is dry mouth at this time, and lightheadedness. Past Medical History: Multiple medical problems including recent hospitalization for hypovolemia causing dizziness, acute kidney injury, she does have asthma she has had a TIA in the past migraine headaches obstructive sleep apnea, valvular heart disease, diastolic heart failure Past Surgical History: No recent surgical history Social History: Denies daily use of drugs alcohol tobacco Family History: Noncontributory ROS REVIEW OF SYSTEMS: A comprehensive 10 point review of systems is otherwise negative aside from elements mentioned in the history of present illness. Exam Constitutional appears well nontoxic, does appear dry, triage nursing summary reviewed, vital signs reviewed, awake/alert. Eyes normal conjunctivae and sclera, EOMI, PERRLA. HENT normal inspection, atraumatic, dry mucous membranes , no epistaxis, neck supple/ no meningismus, no raccoon eyes. Respiratory clear to auscultation bilaterally, normal breath sounds, no respiratory distress, no wheezing. Cardiovascular rate normal, regular rhythm, no murmur, no edema, distal pulses normal. Gastrointestinal soft, non-tender, no rebound, no guarding, normal bowel sounds, no distension, no pulsatile mass. Genitourinary no CVA tenderness. Musculoskeletal no midline vertebral tenderness, full range of motion, no calf swelling, no tenderness of extremities, no meningismus, good pulses, neurovascularly intact. Skin pink, warm, & dry, no rash, skin atraumatic. Neurologic awake, alert and oriented x 3, AAOx3, moves all 4 extremities equally, motor intact, sensory intact, CN II-XII intact, normal cerebellar, normal vision, normal speech. Psychiatric normal mood/affect. Heme/Lymph/Immune no lymphadenopathy. Differential Diagnosis: Includes but is not limited to in a particular order dehydration, electrolyte disturbance, adverse medication reaction including prednisone Cipro DuoNeb breathing treatment, cardiac arrhythmia, acute coronary syndrome, pneumonia, infection Medical Decision Making: Plan for this patient she will have an EKG should be placed on full threat monitoring analyst will check a troponin, check a BNP, she will need a chest x-ray, will hydrate her with IV fluids as clinically on exam she appears dehydrated. Her constellation of symptoms of lightheadedness, dizziness , low blood pressure and chest palpitations may be medication induced in the setting of dehydration hypovolemia. Re-evaluation: EKG interpretation by me on record in [facility] system. Impression time of EKG 1:40 a.m., this is sinus rhythm rate of 78 no acute ischemic changes appreciated this EKG looks very similar to previous EKGs dated back 10/07/16 ED x-ray chest one view: Negative for acute cardiopulmonary disease. Image interpreted by myself. Stable chest when compared to previous x-rays. 0354: Re-examination at this time patient feels much better after IV fluids. She did receive 1.5 L of normal saline. She has been up to the bathroom multiple times urinating without any difficulty she denies any chest pain or shortness of breath denies dizziness. It is noted that when she arrived her blood pressure was somewhat soft in the 90 systolic she is afebrile no evidence of sepsis. Most likely she has hypovolemic and dehydrated. Her blood pressure has normalized after IV fluids. Plan for her she would like to go home. Again she has no chest pain or shortness of breath she denies abdominal pain nausea vomiting or dizziness at this time. Plan will be repeat troponin repeat EKG if these are unchanged I will allow her to go home. I do encourage her to increase her p.o. intake of fluids especially why she has been dealing with a recent illness of asthma. She does understand as well as her daughter at bedside to return emergency room if she has any worsening symptoms includes chest pain, shortness of breath, syncope, dizziness or lightheadedness. Repeat EKG time: 4 3:00 a.m., this is sinus rhythm rate of 62 no acute ischemia appreciated specifically no ST elevation, ST depression. EKG is similar to previous EKG. Repeat troponin is normal. It is 2-troponins 2 nonischemic EKGs. She has no chest pain or shortness of breath she feels well she would like to go home family is in agreement. Feels much better after IV fluids soft blood pressures improved with IV fluids. She does understand return if she has worsening symptoms questions or concerns. Final diagnosis dehydration, hypovolemia. Source: Patient, Family, EMS - Personal History Tetanus Vaccine Date: 3 years - Medical/Surgical History Hx Asthma: Yes Hx Chronic Respiratory Disease: Yes Hx Diabetes: No Hx Cardiac Disease: Yes Hx Renal Disease: No Hx Cirrhosis: No Hx Alcoholism: No Hx HIV/AIDS: No Hx Splenectomy or Spleen Trauma: No Other PMH: Hysterectomy, appendectomy, foot surgery, CARDIAC ABLATION/?SVT, sleep apnea, hypertension, L sided carotid endarterectomy, TIA, asthma, migraine - Social History Smoking Status: Former smoker (quit 30 yrs ago) Constitutional: Initial Vital Signs O2 Sat (%) 96 11/02/16 01:12 O2 Delivery Mode Nasal Cannula O2 (L/minute) 2 Allergies/Adverse Reactions: Penicillins Allergy (Severe, Verified 08/29/15 15:38) Swelling/neck,face,throat Home Medications: Medication Instructions Recorded Aspirin [Aspir-Low] 81 mg PO DAILY 12/04/11 Cyclobenzaprine [Flexeril 10 MG 10 mg PO BID 12/04/11 (*)] Diclofenac Sodium [Voltaren Gel 1 clyde TP DAILY PRN 12/04/11 (*)] Fluticasone Nasal [Flonase Nasal 2 sprays NASAL BID 12/04/11 [place]] Furosemide [Lasix] 20 mg PO DAILY PRN 12/04/11 Hydrocodone Bit/Acetaminophen 1 tab PO DAILY PRN 12/04/11 [Vicodin 5/500] Omeprazole [Prilosec 20 mg] 40 mg PO DAILY 12/04/11 Sucralfate 1 gm PO HS 12/04/11 Budesonide/Formoterol 160/4.5 2 inh IH BID 09/11/14 [Symbicort 160-4.5 Mcg Inh (*)] Montelukast Sodium [Singulair 10 10 mg PO HS 09/11/14 mg (*)] Acyclovir 5% [Zovirax 5% Cream 2gm 1 clyde TP Q2H PRN 07/29/15 (RX)] Albuterol [Proventil Inhaler HFA 2 puffs IH BID PRN 07/29/15 (*)] Albuterol [Proventil Neb] 3 ml IH QID PRN 07/29/15 Polyethylene Glycol 3350 [Miralax 17 gm PO TID PRN 07/29/15 17 gm (*)] SUMAtriptan [Imitrex 50 MG (*)] 50 mg PO DAILY PRN 07/29/15 Topiramate [Topamax 25MG (*)] 50 mg PO BID 07/29/15 Valacyclovir HCl [Valtrex] 2,000 mg PO Q12 PRN 07/29/15 Gabapentin [Neurontin 400 MG (*)] 800 mg PO HS 09/12/15 Lubiprostone [Amitiza 24 mcg (*)] 24 mcg PO BID 09/12/15 Atorvastatin Calcium [Lipitor 20 20 mg PO HS 01/03/16 mg (*)] Herbals/Supplements -Info Only 1 ea PO DAILY 01/03/16 oxyCODONE IR [Oxycodone Ir (*)] 5 mg PO Q3 PRN 01/03/16 Metoprolol Succinate 50 mg PO HS 09/07/16 Potassium Cl [Klor-Con 20 meq (*)] 20 meq PO HS 09/07/16 Psyllium Husk (with Sugar) 1 each PO BID 09/07/16 [Metamucil Packet] amLODIPine BESYLATE [Norvasc 2.5 2.5 mg PO DAILY 09/07/16 mg (*)] Medical Decision Making - Data Points Laboratory Results: Laboratory Results 11/02/16 01:00 11/02/16 01:00 11/02/16 11/02/16 11/02/16 04:00 01:00 01:00 WBC RBC Hgb Hct MCV MCH MCHC RDW Plt Count MPV Neut % (Auto) Lymph % (Auto) [place] % (Auto) Eos % (Auto) Baso % (Auto) Nucleat RBC Rel Count Absolute Neuts (auto) Absolute Lymphs (auto) Absolute Monos (auto) Absolute Eos (auto) Absolute Basos (auto) Absolute Nucleated RBC Immature Gran % Immature Gran # PT 14.7 SEC SEC (12.0-15.0) INR 1.15 (0.83-1.16) APTT 29.8 SEC SEC (23.0-38.0) Sodium 141 mEq/L mEq/L (134-144) Potassium 4.5 mEq/L mEq/L (3.5-5.2) Chloride 110 mEq/L mEq/L (97-110) Carbon Dioxide 19 mEq/l L mEq/l (22-31) Anion Gap 12 mEq/L mEq/L (8-16) BUN 17 mg/dL mg/dL (7-23) Creatinine 0.7 mg/dL mg/dL (0.6-1.0) Estimated GFR > 60 Glucose 279 mg/dL H mg/dL (70-100) Calcium 9.6 mg/dL mg/dL (8.5-10.4) Magnesium 2.2 mg/dL mg/dL (1.6-2.3) Total Bilirubin 0.5 mg/dL mg/dL (0.1-1.4) Conjugated Bilirubin 0.4 mg/dL mg/dL (0.0-0.5) Unconjugated Bilirubin 0.1 mg/dL mg/dL (0.0-1.1) AST 22 IU/L IU/L (14-46) ALT 23 IU/L IU/L (9-52) Alkaline Phosphatase 80 IU/L IU/L (38-126) Creatine Kinase 118 IU/L IU/L (0-156) CK-MB (CK-2) Fraction 2.46 ng/mL ng/mL (0-3.19) Troponin I 0.025 ng/mL ng/mL < 0.012 ng/mL ng/mL (0-0.034) (0-0.034) NT-Pro-B Natriuret Pep 703 pg/mL H pg/mL (0-125) Total Protein 6.9 g/dL g/dL (6.3-8.2) Albumin 4.0 g/dL g/dL (3.5-5.0) Lipase 104.0 IU/L IU/L (23-300) 11/02/16 01:00 WBC 10.21 10^3/uL H 10^3/uL (3.80-9.50) RBC 4.50 10^6/uL 10^6/uL (4.18-5.33) Hgb 13.6 g/dL g/dL (12.6-16.3) Hct 40.8 % % (38.0-47.0) MCV 90.7 fL fL (81.5-99.8) MCH 30.2 pg pg (27.9-34.1) MCHC 33.3 g/dL g/dL (32.4-36.7) RDW 14.6 % % (11.5-15.2) Plt Count 159 10^3/uL 10^3/uL (150-400) MPV 13.4 fL H fL (8.7-11.7) Neut % (Auto) 83.8 % H % (39.3-74.2) Lymph % (Auto) 12.9 % L % (15.0-45.0) [place] % (Auto) 2.3 % L % (4.5-13.0) Eos % (Auto) 0.0 % L % (0.6-7.6) Baso % (Auto) 0.4 % % (0.3-1.7) Nucleat RBC Rel Count 0.0 % % (0.0-0.2) Absolute Neuts (auto) 8.56 10^3/uL H 10^3/uL (1.70-6.50) Absolute Lymphs (auto) 1.32 10^3/uL 10^3/uL (1.00-3.00) Absolute Monos (auto) 0.23 10^3/uL L 10^3/uL (0.30-0.80) Absolute Eos (auto) 0.00 10^3/uL L 10^3/uL (0.03-0.40) Absolute Basos (auto) 0.04 10^3/uL 10^3/uL (0.02-0.10) Absolute Nucleated RBC 0.00 10^3/uL 10^3/uL (0-0.01) Immature Gran % 0.6 % % (0.0-1.1) Immature Gran # 0.06 10^3/uL 10^3/uL (0.00-0.10) PT INR APTT Sodium Potassium Chloride Carbon Dioxide Anion Gap BUN Creatinine Estimated GFR Glucose Calcium Magnesium Total Bilirubin Conjugated Bilirubin Unconjugated Bilirubin AST ALT Alkaline Phosphatase Creatine Kinase CK-MB (CK-2) Fraction Troponin I NT-Pro-B Natriuret Pep Total Protein Albumin Lipase Medications Given: Discontinued Medications Sodium Chloride (Ns) 1,000 mls @ 0 mls/hr IV ONCE ONE PRN Reason: Wide Open Stop: 11/02/16 01:13 Last Admin: 11/02/16 01:45 Dose: 1,000 mls Sodium Chloride (Ns) 1,000 mls @ 0 mls/hr IV ONCE ONE PRN Reason: Wide Open Stop: 11/02/16 02:53 Last Admin: 11/02/16 02:54 Dose: Not Given Departure - Departure Disposition: Home, Routine, Self-Care Clinical Impression: Dehydration, Hypovolemia Condition: Good Instructions: Dehydration (ED) Additional Instructions: 1. I encouraged her to drink more fluids. 2. Return to the emergency room immediately if he develops worsening symptoms includes chest pain, shortness of breath, syncope, dizziness or vomiting. Referrals: Patient,NotPresent [Unknown] - As per Instructions
[2016-11-02 01:23] LABS: % IMMATURE GRANULYOCYTES 0.6 % (0.0-1.1); ABSOLUTE IMMATURE GRANULOCYTES 0.06 10^3/uL (0.00-0.10); ADD DIFF? NO; ADD MORPH? NO; ADD SCAN? NO; ATYPICAL LYMPHOCYTE FLAG 10 (0-99); FRAGMENT RBC FLAG 20 (0-99); HEMATOCRIT 40.8 % (38.0-47.0); HEMOGLOBIN 13.6 g/dL (12.6-16.3); LEFT SHIFT FLG 10 (0-99); LIPEMIA HEMOLYSIS FLAG 80 (0-99); MEAN CELL HEMOGLOBIN 30.2 pg (27.9-34.1); MEAN CELL HEMOGLOBIN CONCENTR. 33.3 g/dL (32.4-36.7); MEAN CELL VOLUME 90.7 fL (81.5-99.8); MEAN PLATELET VOLUME 13.4 fL (8.7-11.7); PLATELET CLUMPS FLAG 0 (0-99); PLATELET COUNT 159 10^3/uL (150-400); RED CELL DISTRIBUTION WIDTH 14.6 % (11.5-15.2)
[2016-11-02 01:39] LABS: ALANINE AMINOTRANSFERASE 23 IU/L (9-52); ALKALINE PHOSPHATASE 80 IU/L (38-126); ANION GAP 12 mEq/L (8-16); ASPARTATE AMINOTRANSFERASE 22 IU/L (14-46); BILIRUBIN,TOTAL 0.5 mg/dL (0.1-1.4); BILIRUBIN-CONJUGATED 0.4 mg/dL (0.0-0.5); BILIRUBIN-UNCONJUGATED 0.1 mg/dL (0.0-1.1); CALCIUM 9.6 mg/dL (8.5-10.4); CARBON DIOXIDE 19 mEq/l (22-31); CHLORIDE 110 mEq/L (97-110); CREATININE 0.7 mg/dL (0.6-1.0); GLOMERULAR FILTRATION RATE > 60; GLUCOSE 279 mg/dL (70-100); INR 1.15 (0.83-1.16); MAGNESIUM 2.2 mg/dL (1.6-2.3); POTASSIUM 4.5 mEq/L (3.5-5.2); PROTIME(PATIENT) 14.7 SEC (12.0-15.0); SODIUM 141 mEq/L (134-144); TOTAL PROTEIN 6.9 g/dL (6.3-8.2)
[2016-11-02 01:40] LABS: APTT 29.8 SEC (23.0-38.0)
--- NOTE | 2016-11-02 01:42 | CPEKG ---
Heart Rate: 78 RR Interval: 769 P-R Interval: 188 QRSD Interval: 82 QT Interval: 440 QTC Interval: 502 P [place]: 44 QRS [place]: -1 T Wave [place]: 31 EKG Severity - BORDERLINE ECG - EKG Impression: SINUS RHYTHM EKG Impression: BORDERLINE R WAVE PROGRESSION, ANTERIOR LEADS EKG Impression: BORDERLINE PROLONGED QT INTERVAL Electronically Signed By: José Fields 02-Nov-2016 07:11:53
[2016-11-02 01:49] LABS: CREATINE KINASE-MB FRACTION 2.46 ng/mL (0-3.19); TROPONIN I < 0.012 ng/mL (0-0.034)
--- NOTE | 2016-11-02 04:52 | CPEKG ---
Heart Rate: 62 RR Interval: 968 P-R Interval: 196 QRSD Interval: 94 QT Interval: 452 QTC Interval: 459 P [place]: 39 QRS [place]: 9 T Wave [place]: 45 EKG Severity - OTHERWISE NORMAL ECG - EKG Impression: SINUS RHYTHM EKG Impression: ATRIAL PREMATURE COMPLEX Electronically Signed By: José Fields 02-Nov-2016 07:11:53
[2016-11-02 05:05] VITALS: BP 101/55; PULSE 66; RESP 14; TEMP 97.9; O2SAT 92
== END 2016-11-02 05:05 | disposition home or self-care (01) ==
LOC: EDUNIT#
DX: E86.1 Hypovolemia (principal); E86.0 Dehydration; J45.909 Unspecified asthma, uncomplicated; I10 Essential (primary) hypertension; Z79.82 Long term (current) use of aspirin; Z87.891 Personal history of nicotine dependence

== ENCOUNTER → 2017-01-24 | Outpatient (CLI) | payer OTHER, MEDICAID | LOC: CIMAGING 15:05 | PROVIDERS: ATTEND Family Medicine | DX: M51.36 Other intervertebral disc degeneration, lumbar region (principal); M43.16 Spondylolisthesis, lumbar region | CPT/HCPCS: 72100-PO ==

== ENCOUNTER → 2017-03-18 | Outpatient (CLI) | payer OTHER, MEDICAID | LOC: CIMAGING 13:46 | PROVIDERS: ATTEND Family Medicine | DX: Z12.31 Encounter for screening mammogram for malignant neoplasm of breast (principal) | CPT/HCPCS: G0202 ==

== ENCOUNTER 2017-05-29 14:49 | Inpatient (IN) | payer OTHER, MEDICAID ==
--- NOTE | 2017-05-29 15:15 | EDPHY ---
H & P Time Seen by Provider: 05/29/17 15:15 HPI/ROS: Chief complaint. Chest pain HPI. Patient is a 76-year-old female with 4 days of intermittent chest discomfort and trouble breathing. She has a cough. Really no fever. Cough is productive green sputum. She has chest pressure that comes and goes and is worse especially with walking. She also gets shortness of breath with walking. She has been using her 's oxygen which has helped her quite a bit and relieve sore chest pressure. There is no radiation of the chest pressure. Her symptoms are also relieved by deep breathing. No increased pain with deep breathing. She saw her pad machine feeder several days ago and has been on Zithromax and prednisone for 4 days without improvement. She has had similar symptoms in the past and this combination of prednisone Zithromax as always helped her however this time she says it is not helping. She has no unusual leg pain or swelling. No recent travel. ROS Constitutional. no fever/chills, no weakness Eyes. no problems with vision ENT. no sore throat, no nasal drainage Cardiovascular. Chest pressure Respiratory. Shortness of breath especially with exertion and productive cough Abdominal. no abdominal pain, no nausea/vomiting, no diarrhea . no problems urinating MS. no calf pain/swelling, no neck/back pain, no joint pain Skin. no rash Lymph. no swollen glands Neuro. no headache, no dizziness, no difficulty walking or with speech Past Medical/Surgical History: Past medical history is significant for hysterectomy, appendectomy, cardiac ablation for probable SVT. She has had sleep apnea, hypertension, left-sided carotid endarterectomy, TIA, asthma, coronary artery disease, mitral stenosis Social History: Patient is . She speaks [place] and is from [place]. Nonsmoker. No alcohol Smoking Status: Former smoker Physical Exam: General Appearance: Alert well-developed female moderate distress vital signs show temp 37.3degrees and heart rate 101 Eyes: Pupils equal and round no pallor or injection. ENT, Mouth: Mucous membranes are moist. Respiratory: No retractions. Inspiratory expiratory rhonchi and end-expiratory wheezing Cardiovascular: Regular rate and rhythm. Gastrointestinal: Abdomen is soft and nontender, no masses, bowel sounds normal. Neurological: Awake and alert, sensory and motor exams grossly normal. Skin: Warm and dry, no rashes. Musculoskeletal: Neck is supple nontender. Extremities symmetrical, full range of motion. Psychiatric: Patient is oriented X 3, there is no agitation. Constitutional: Initial Vital Signs Temperature (C) 37.3 C 05/29/17 15:05 Heart Rate 101 H 05/29/17 15:05 Respiratory Rate 16 05/29/17 15:05 Blood Pressure 153/93 H 05/29/17 15:05 O2 Sat (%) 93 05/29/17 15:05 O2 Delivery Mode Nasal Cannula O2 (L/minute) 2 Allergies/Adverse Reactions: Penicillins Allergy (Severe, Verified 05/29/17 15:04) Swelling/neck,face,throat Home Medications: Medication Instructions Recorded Aspirin [Aspir-Low] 81 mg PO DAILY 12/04/11 Cyclobenzaprine [Flexeril 10 MG 10 mg PO BID 12/04/11 (*)] Diclofenac Sodium 1% [Voltaren Gel 1 clyde TP DAILY PRN 12/04/11 (*)] Fluticasone Nasal [Flonase Nasal 2 sprays NASAL BID 12/04/11 [place]] Furosemide [Lasix] 20 mg PO DAILY PRN 12/04/11 Hydrocodone Bit/Acetaminophen 1 tab PO DAILY PRN 12/04/11 [Vicodin 5/500] Omeprazole [Prilosec 20 mg] 40 mg PO DAILY 12/04/11 Sucralfate 1 gm PO HS 12/04/11 Budesonide/Formoterol 160/4.5 2 inh IH BID 09/11/14 [Symbicort 160-4.5 Mcg Inh (*)] Montelukast Sodium [Singulair 10 10 mg PO HS 09/11/14 mg (*)] Acyclovir 5% [Zovirax 5% Cream 2gm 1 clyde TP Q2H PRN 07/29/15 (RX)] Albuterol [Proventil Inhaler HFA 2 puffs IH BID PRN 07/29/15 (*)] Albuterol [Proventil Neb] 3 ml IH QID PRN 07/29/15 Polyethylene Glycol 3350 [Miralax 17 gm PO TID PRN 07/29/15 17 gm (*)] SUMAtriptan [Imitrex 50 MG (*)] 50 mg PO DAILY PRN 07/29/15 Topiramate [Topamax 25MG (*)] 50 mg PO BID 07/29/15 Valacyclovir HCl [Valtrex] 2,000 mg PO Q12 PRN 07/29/15 Gabapentin [Neurontin 400 MG (*)] 800 mg PO HS 09/12/15 Lubiprostone [Amitiza 24 mcg (*)] 24 mcg PO BID 09/12/15 Atorvastatin Calcium [Lipitor 20 20 mg PO HS 01/03/16 mg (*)] Herbals/Supplements -Info Only 1 ea PO DAILY 01/03/16 oxyCODONE IR [Oxycodone Ir (*)] 5 mg PO Q3 PRN 01/03/16 Metoprolol Succinate 50 mg PO HS 09/07/16 Potassium Cl [Klor-Con 20 meq (*)] 20 meq PO HS 09/07/16 Psyllium Husk (with Sugar) 1 each PO BID 09/07/16 [Metamucil Packet] amLODIPine BESYLATE [Norvasc 2.5 2.5 mg PO DAILY 09/07/16 mg (*)] Medical Decision Making - Diagnostics EKG Interpretation: EKG interpreted by me shows normal sinus rhythm normal interval. There is left axis deviation. QRS is normal. No significant ST elevation or depression. There is some flattening of the T-waves in aVL. No arrhythmia. The rate is 84 There appears to be more T-wave flattening in the lateral leads then comparing with previous EKG in November 2016 Imaging Results: Imaging Impressions Chest X-Ray 05/29/17 15:19 Impression: 1. Findings suggestive of acute congestive heart failure. 2. Increasing left pleural density, pleural effusion versus pleural scar. Chest x-ray reviewed by me consistent with acute congestive heart failure Procedures: IV normal saline, monitor . Aspirin in the emergency department. [facility] Course/Re-evaluation: IV Lasix in the emergency department The patient, her , and I discussed imaging lab EKG findings. We discussed treatment plan including recommendation for admission. She expresses understanding and agreement foreign language interpreter is Nelson I consulted and discussed the case with Dr. Felix, hospitalist, who agrees to the admission Differential Diagnosis: I considered pneumonia, influenza, acute coronary syndrome. Patient has evidence of acute congestive heart failure - Data Points Laboratory Results: Laboratory Results 05/29/17 15:49 05/29/17 15:49 05/29/17 05/29/17 05/29/17 16:10 15:49 15:49 WBC RBC Hgb Hct MCV MCH MCHC RDW Plt Count MPV Neut % (Auto) Lymph % (Auto) [place] % (Auto) Eos % (Auto) Baso % (Auto) Nucleat RBC Rel Count Absolute Neuts (auto) Absolute Lymphs (auto) Absolute Monos (auto) Absolute Eos (auto) Absolute Basos (auto) Absolute Nucleated RBC Immature Gran % Immature Gran # Sodium 146 mEq/L H mEq/L (134-144) Potassium 4.0 mEq/L mEq/L (3.5-5.2) Chloride 110 mEq/L mEq/L (97-110) Carbon Dioxide 23 mEq/l mEq/l (22-31) Anion Gap 13 mEq/L mEq/L (8-16) BUN 10 mg/dL mg/dL (7-23) Creatinine 0.7 mg/dL mg/dL (0.6-1.0) Estimated GFR > 60 Glucose 110 mg/dL H mg/dL (70-100) Calcium 9.2 mg/dL mg/dL (8.5-10.4) Troponin I < 0.012 ng/mL ng/mL (0.000-0.034) NT-Pro-B Natriuret Pep Pending Nasal Influenza A PCR NEGATIVE FOR FLU A (NEGATIVE) Nasal Influenza B PCR NEGATIVE FOR FLU B (NEGATIVE) 05/29/17 15:49 WBC 18.83 10^3/uL H 10^3/uL (3.80-9.50) RBC 3.48 10^6/uL L 10^6/uL (4.18-5.33) Hgb 8.4 g/dL L g/dL (12.6-16.3) Hct 28.7 % L % (38.0-47.0) MCV 82.5 fL fL (81.5-99.8) MCH 24.1 pg L pg (27.9-34.1) MCHC 29.3 g/dL L g/dL (32.4-36.7) RDW 16.4 % H % (11.5-15.2) Plt Count 163 10^3/uL 10^3/uL (150-400) MPV 11.9 fL H fL (8.7-11.7) Neut % (Auto) 72.1 % % (39.3-74.2) Lymph % (Auto) 17.2 % % (15.0-45.0) [place] % (Auto) 8.1 % % (4.5-13.0) Eos % (Auto) 1.2 % % (0.6-7.6) Baso % (Auto) 0.6 % % (0.3-1.7) Nucleat RBC Rel Count 0.2 % % (0.0-0.2) Absolute Neuts (auto) 13.58 10^3/uL H 10^3/uL (1.70-6.50) Absolute Lymphs (auto) 3.23 10^3/uL H 10^3/uL (1.00-3.00) Absolute Monos (auto) 1.52 10^3/uL H 10^3/uL (0.30-0.80) Absolute Eos (auto) 0.23 10^3/uL 10^3/uL (0.03-0.40) Absolute Basos (auto) 0.12 10^3/uL H 10^3/uL (0.02-0.10) Absolute Nucleated RBC 0.03 10^3/uL H 10^3/uL (0-0.01) Immature Gran % 0.8 % % (0.0-1.1) Immature Gran # 0.15 10^3/uL H 10^3/uL (0.00-0.10) Sodium Potassium Chloride Carbon Dioxide Anion Gap BUN Creatinine Estimated GFR Glucose Calcium Troponin I NT-Pro-B Natriuret Pep Nasal Influenza A PCR Nasal Influenza B PCR Medications Given: Discontinued Medications Albuterol/Ipratropium (Duoneb) 3 ml IH EDNOW ONE Stop: 05/29/17 15:29 Last Admin: 05/29/17 16:05 Dose: 3 ml Aspirin (Aspirin) 324 mg PO EDNOW ONE Stop: 05/29/17 15:20 Last Admin: 05/29/17 16:05 Dose: 324 mg Furosemide (Lasix Injection) 40 mg IVP EDNOW ONE Stop: 05/29/17 17:00 Last Admin: 05/29/17 17:06 Dose: 40 mg Sodium Chloride (Ns) 500 mls @ 0 mls/hr IV EDNOW ONE; Wide Open PRN Reason: Protocol Stop: 05/29/17 15:20 Last Admin: 05/29/17 16:05 Dose: 500 mls Morphine Sulfate (Morphine) 2 mg IVP EDNOW ONE Stop: 05/29/17 17:03 Last Admin: 05/29/17 17:06 Dose: 2 mg Departure - Departure Disposition: [facility] Inpatient Acute Clinical Impression: Congestive heart failure Qualifiers: Congestive heart failure type: unspecified congestive heart failure type Congestive heart failure chronicity: acute Qualified Code(s): I50.9 - Heart failure, unspecified Condition: Fair Referrals: Dana Rodgers MD [Primary Care Provider] - As per Instructions
[2017-05-29] MEDS ORDERED: NS 500 ML IV ONE (15:19)
[2017-05-29] MEDS ORDERED: ASPIRIN 81 MG CHEWABLE TAB PO ONE (15:19)
--- NOTE | 2017-05-29 15:26 | CPEKG ---
Heart Rate: 84 RR Interval: 714 P-R Interval: 148 QRSD Interval: 78 QT Interval: 356 QTC Interval: 421 P [place]: 53 QRS [place]: 13 T Wave [place]: 86 EKG Severity - ABNORMAL ECG - EKG Impression: SINUS RHYTHM EKG Impression: NONSPECIFIC T ABNORMALITIES, LATERAL LEADS Electronically Signed By: Sergey Agosto 29-May-2017 15:47:14
[2017-05-29] MEDS ORDERED: IPRATROPIUM/ALBUTEROL 3 ML DEYVIAL IH ONE (15:28)
[2017-05-29 15:56] LABS: PLATELET COUNT 163 10^3/uL (150-400)
[2017-05-29] MEDS ORDERED: FUROSEMIDE 40 MG/4 ML VIAL IVP ONE (16:59)
[2017-05-29] MEDS ORDERED: ONDANSETRON 4 MG/2 ML VIAL IVP PRN (18:23)
[2017-05-29] MEDS ORDERED: ONDANSETRON DISINTEGRATING 4 MG TAB PO PRN (18:23)
[2017-05-29] MEDS ORDERED: TEMAZEPAM 15 MG CAP PO PRN (18:23)
[2017-05-29] MEDS ORDERED: POLYETHYLENE GLYCOL 3350 17 GM PKT PO PRN (18:28)
[2017-05-29] MEDS ORDERED: DICLOFENAC SODIUM 1% 100 GM GEL TP PRN ×2 (18:28→21:02)
[2017-05-29] MEDS ORDERED: ACYCLOVIR 5% TP PRN (18:28)
--- NOTE | 2017-05-29 18:59 | GHP ---
[f rep st] HISTORY AND PHYSICAL DATE OF ADMISSION: 05/29/2017 CHIEF COMPLAINT: Shortness of breath. HISTORY OF PRESENT ILLNESS: This is a 76-year-old female with a 4-day history of shortness of breath . She has a prior known history of valvular heart disease with mitral stenosis and mitral regurgitat ion. Diastolic CHF, a history of a TIA due to a carotid artery stenosis, and a long history of asthm a. 4 days [employer]OR [employer], she noted increasing shortness of breath with chest heaviness and some chest pain without the pain radiating to the back, shoulders, neck, or arms. The shortness of breath was worse with dy spnea and she used her 's oxygen with some relief but not complete relief. The pain was rated at about a 3 to 4/10 and would gain intensity and slightly worsen with exertion. At no time was she diaphoretic, did she have nausea or vomiting. She did have a cough which was nonproductive. Nay smith she has a long history of asthma and probably COPD, treated by Dr. Jaison Evans, she began a prescr iption 4 days ago of prednisone and azithromycin. This did not improve her symptoms. She has now pr esented for shortness of breath. PAST MEDICAL HISTORY: Known hypertension, diastolic CHF. History of a TIA with carotid stenosis and a long history of asthma. Additionally, she has some low back pain for which she takes antispasmodi cs and a history of migraine headaches. There was additionally a history of obstructive sleep apnea syndrome and she is status post a cardiac ablation for an SVT. Noted in the chart that she has a chr onic leukocytosis. PAST SURGICAL HISTORY: Appendectomy, hysterectomy, SVT ablation, and sinus surgery. FAMILY HISTORY: She has sisters who had CVAs in 70s. SOCIAL HISTORY: She is a former smoker. Quit 30 years ago. Alcohol: None. Drugs: None. The patient lives with her here in [place]. Has a daughter who is active in her care. She normally walks independently, is independent of ADLs. The daughter was present during the ED visit a nd interpreted along with the proof plate maker for me. REVIEW OF SYSTEMS: A 10-point review of systems is otherwise negative. PHYSICAL EXAM: GENERAL: She is well-developed, alert, slightly overweight and at this time appears in no distress. VITAL SIGNS: Her blood pressure was elevated initially at 153/93, with an elevated heart rate of 101. She is afebrile at 37.3. HEENT: TMs are gupta bilaterally. The throat is not in jected. Showing no purulence or erythema. Tongue and buccal mucosa are normal. NECK: Supple witho ut meningismus. CHEST WALL: Nontender to palpation and the anterior sternum is nontender. She has normal inspiratory excursion. LUNGS: Diminished breath sounds overall with also a few scattered ral es and harsh breath sounds overall without inspiratory or expiratory wheezing. HEART: Singular S1 a nd S2. No murmur could be appreciated, although the body habitus is large and would diminish her hea rt sounds. JVP could not be assessed. ABDOMEN: Overweight. Normoactive bowel sounds. No masses, tenderness, organomegaly. EXTREMITIES: No edema, cyanosis, or clubbing. LABORATORY: WBC is elevated at 18,800. Hemoglobin low at 8.4 with a hematocrit of 28.8. Chemistry panel shows slight hypernatremia with a sodium of 146 with normal renal function and initial troponi n normal and BNP elevated at 1170. Her influenza A and B by PCR are negative. Chest x-ray shows cardiomegaly and pulmonary congestion, to my reading. It was reviewed on the PACS system. The ECG showed normal sinus rhythm at 84. CA and QRS intervals were normal. There is a nonspecific T-wave abnormality noted in the lateral leads, yet no acute changes. ASSESSMENT: 1. Acute congestive heart failure with evidence of pulmonary congestion on chest x-ray. There could be a pneumonia behind the congestion which would account for her leukocytosis at 18,000, although th e patient has been afebrile and does not describe any signs or symptoms of a febrile illness. It is more likely this represents decompensation of her diastolic dysfunction. Thus, she will receive 1 do se of Levaquin here in the emergency department. I will obtain a procalcitonin but also treat her wi th Lasix to obtain some diuresis. We can then clinically assess whether diuresis has improved matter s and then follow her vital signs for fever and her leukocytosis. In addition, of course, she will b e treated for her pulmonary care with bronchodilators and continued dose of steroids that she started herself. 2. Acute asthma with chronic obstructive pulmonary disease. It is possible there is a concomitant e xacerbation. She does have harsh breath sounds overall and certainly congestive heart failure will e xacerbate her underlying asthma condition. Thus, we will treat also with bronchodilators and continu e her steroids. She will receive 1 dose of Levaquin and that can be assessed after 24 hours as to wh ether it should be continued. 3. Valvular heart disease with known mitral stenosis and mitral regurgitation. The exact quantitati on of this is unclear at this dictation, though I will obtain another echocardiogram to follow this a nd assess if there has been any significant anatomical changes to account for her acute exacerbation of congestive heart failure. 4. Anemia with a hemoglobin of 8.4. This is new for this lady and we will recheck her hemoglobin as it may just simply represent dilution but also check stools. She does have a history of gastroesoph ageal reflux disease symptoms and her medications include sucralfate, so it is likely there is some d egree of either esophagitis or reflux. 5. Deep venous thrombosis prophylaxis will be done with Lovenox and sequential compression devices. 6. Code status is full. 7. Her billing status will be inpatient as it will require greater than 2 midnights' to resolve her multiple medical problems and sort out congestive heart failure versus asthma exacerbation. 8. Patient's power of civil rights attorney will be her at this time. Time this admission required: 55 minutes. /[id number]/MODL
[2017-05-29] MEDS ORDERED: valACYclovir 500 MG TAB PO PRN (19:00)
[2017-05-29] MEDS: LOSARTAN POTASSIUM 25 MG TAB PO SCH (20:00)
[2017-05-29] MEDS: PSYLLIUM METAMUCIL 1 PKT PO SCH (20:05)
[2017-05-29] MEDS: ATORVASTATIN CALCIUM 20 MG TAB PO SCH (20:09)
[2017-05-29] MEDS: MONTELUKAST SODIUM 10 MG TAB PO SCH (20:10)
[2017-05-29] MEDS: GABAPENTIN 400 MG CAP PO SCH (20:10)
[2017-05-29] MEDS: SUCRALFATE 1 GM TAB PO SCH (20:11)
[2017-05-29] MEDS: IPRATROPIUM/ALBUTEROL 3 ML DEYVIAL IH SCH (20:25)
[2017-05-29] MEDS ORDERED: BUDESONIDE/FORMOTEROL 160/4.5 60 PUFFS/MDI IH SCH (21:00)
[2017-05-29] MEDS ORDERED: METOPROLOL SUCCINATE XR 25 MG TAB PO SCH (21:00)
[2017-05-29] MEDS ORDERED: POTASSIUM CL 20 MEQ TAB PO SCH (21:00)
[2017-05-29] MEDS: LUBIPROSTONE 24 MCG CAP PO SCH (21:18)
[2017-05-29] MEDS: TOPIRAMATE 25 MG TAB PO SCH (21:18)
[2017-05-29] MEDS: FLUTICASONE NASAL 120 SPRAYS/16 GM MDI EACHNARE SCH (21:19)
[2017-05-30 04:04] LABS: PLATELET COUNT 145 10^3/uL (150-400)
[2017-05-30] MEDS: ACETAMINOPHEN 325 MG TAB PO PRN ×2 (04:45→17:09)
[2017-05-30] MEDS: SUMAtriptan 50 MG TAB PO PRN ×2 (04:45→17:20)
[2017-05-30] MEDS: IPRATROPIUM/ALBUTEROL 3 ML DEYVIAL IH SCH ×4 (05:30→20:55)
[2017-05-30] MEDS ORDERED: FUROSEMIDE 100 MG/10 ML VIAL IVP SCH (09:00)
--- NOTE | 2017-05-30 09:26 | ASMTCASEMG ---
Living Arrangements What is your living Answers: With Spouse arrangement? Who do you live with? Type Of Residence What kind of residence do Answers: House you live in? Discharge Plan Comments Coordination Status Comments Notes: Pt is a 76 y/o female admitted for shortness of breath. Therapies have been ordered and awaiting recommendations. Needs are TBD at this time. CM to follow. Plan: TBD Date Signed: 05/30/2017 09:26 AM Electronically Signed By:DORYS Hood
[2017-05-30] MEDS: BUDESONIDE/FORMOTEROL 160/4.5 60 PUFFS/MDI IH SCH ×2 (09:35→20:56)
--- NOTE | 2017-05-30 09:39 | PDMN ---
Medical Necessity Medical necessity: Pt meets IP criteria per MD; est los >2 mn for eval/tx of acute CHF w/evidence of pulmonary congestion possibly r/t pneumonia, acute asthma exacerbation w/COPD & anemia; admit for further workup/monitoring, Cardiology consult, IV diuresis, blood cxs, bronchodilators & steroids; hx valvular heart disease w/mitral stenosis/mitral regurgitation, HTN, diastolic CHF, TIA w/carotid stenosis, asthma, THUY, SVT ablation, chronic leukocytosis, GERD; per H&P & order 05/29/17
[2017-05-30] MEDS: POTASSIUM CL 20 MEQ TAB PO SCH (09:51)
[2017-05-30] MEDS: SUCRALFATE 1 GM TAB PO SCH ×2 (09:51→20:08)
[2017-05-30] MEDS: ASPIRIN EC 81 MG TAB PO SCH (09:51)
[2017-05-30] MEDS: LUBIPROSTONE 24 MCG CAP PO SCH ×2 (09:51→20:17)
[2017-05-30] MEDS: TOPIRAMATE 25 MG TAB PO SCH ×2 (09:51→20:10)
[2017-05-30] MEDS: LOSARTAN POTASSIUM 25 MG TAB PO SCH (09:52)
[2017-05-30] MEDS: ENOXAPARIN 40 MG/0.4 ML SYR SC SCH (09:52)
[2017-05-30] MEDS: predniSONE 20 MG TAB PO SCH ×2 (09:53→17:10)
[2017-05-30] MEDS: PSYLLIUM METAMUCIL 1 PKT PO SCH ×2 (09:54→20:07)
--- NOTE | 2017-05-30 09:58 | ECHO ---
[email or web address] [address] [address] Main: [phone] Fax: Transthoracic Echocardiogram Name: THOMPSON VILCHIS MR#: [id number] Study Date: 05/30/2017 Study Time: 08:24 AM Date of : 1940 Age: 76 year(s) Height: 165.1 cm (65 in.) Weight: 77.11 kg (170 lb.) BSA: 1.85 m2 Gender: Female Examination: Echo Indication: new onset CHF, Shortness of breath Image Quality: Adequate Contrast: Requested by: Ismael Felix BP: 140 mmHg/77 mmHg Heart Rate: Rhythm: Normal sinus rhythm Indication: new onset CHF, Shortness of breath Procedure Staff Optical Sales Associate: Hillary Turner Physician: Sergio Balderrama Requesting Provider: Conclusions: No pericardial effusion. Concentric left ventricular hypertrophy with preserved systolic function. Ejection fraction 67%. Left atrial enlargement with moderate to severe mitral regurgitation. Right ventricular systolic pressure of 30 mm of mercury. Measurements: Chambers Valvular Assessment AV/MV Valvular Assessment TV/PV Normal Normal Normal Name Value Range Name Value Range Name Value Range Ao Bianca (MM): 2.4 cm (2.2 cm-3.7 AV Vmax: 1.48 m/s (1 m/s-1.7 TR Vmax: 2.52 mm/s ( - ) cm) m/s) TR PGmax: 25 mmHg ( - ) IVSd (2D): 1.3 cm (0.6 cm-1.1 AV maxP mmHg ( - ) syst. PAP: 30 mmHg ( - ) cm) AV meanP mmHg ( - ) PV Vmax: 0.94 m/s (0.6 m/s-0.9 LVDd (2D): 4.2 cm (3.9 cm-5.3 LVOT Vmax: 1.17 m/s (0.7 m/s-1.1 m/s) cm) m/s) PV PGmax: 4 mmHg ( - ) LVDs (2D): 2.4 cm (2.1 cm-4 YOHANA (Vmax): 2.2 cm2 ( - ) cm) YOHANA (VTI): 2.5 cm ( - ) LVPWd (2D): 1.1 cm ( - ) MV meanP mmHg ( - ) LVOTd 1.9 cm 1.9 cm mm MV PHT: 0.110 s ( - ) LVEF (BP): 67 % (>=55 %) MVA (Vmax): 1.3 m/s ( - ) RVDd(2D): 3.5 cm (1.9 cm-3.8 MVA (PHT): 2.0 s ( - ) cmmm) Continued Measurements: Chambers Valvular Assessment AV/MV Valvular Assessment TV/PV Name Value Name Value Name Value LADs Lon.9 cm MV VTI: 62.60 cm CVP (est.): 5 mmHg LA Area: 26.7 cm2 MR Vena Contracta: 0.6 cm LA Volume: 90 ml LA Volume Index: 48.6 ml/m2 Patient: THOMPSON VILCHIS Study Date: 05/30/2017 Page 1 of 2 08:24 AM RA Area: 16.2 cm2 Additional Vessels Name Value Ao Ascendin.5 cm Findings: Left Ventricle: Normal size left ventricle. Mild to moderate LVH. Normal global systolic LV function. EF is 67 %. No regional wall motion abnormality. Unable to assess diastolic dysfunction. There is a LVOT gradient of 9mmHg at rest and 51mmHg with valsalva.. Right Ventricle: Normal size right ventricle. Normal RV function. Left Atrium: The left atrium is moderately to severely dilated. Right Atrium: The right atrium is borderline dilated. Mitral Valve: Severe mitral annular calcification. There is moderate thickening of the mitral valve leaflets. Moderate to severe mitral regurgitation. Aortic Valve: The aortic valve is tri-leaflet and functions normally. Mild aortic cusp calcification is noted. There is no aortic valve regurgitation. No aortic valve stenosis is present. Tricuspid Valve: The tricuspid valve appears normal. The pulmonary artery pressure is mildly increased. Right ventricular systolic pressure measures 30mmHg. Pulmonic Valve: Pulmonary valve not well visualized. Aorta: Normal size aortic root measuring 2.4 cm. Normal size ascending aorta measuring 3.5 cm. IVC: The IVC is normal sized. Pericardium: No pericardial effusion. (No Signature Object) Patient: THOMPSON VILCHIS Study Date: 05/30/2017 Page 2 of 2 08:24 AM [id number]
--- NOTE | 2017-05-30 10:32 | HOSPPROG ---
Hospitalist Progress Note Assessment/Plan: This is 76 y/o female with h/o of DHF and asthma presening with #AHRF (improving) suspect multifactorial in the setting Acute Diastolic HF and asthma exacerbation -cont diuresis and prednisone -cards consult pending #valvular heart disease with mod to severe mitral regurg on echo #Possible PNA -She received one dose of Levaquin in the ED. Will send PCT prior to continuing abx. #leukocytosis -possibly secondary to demargination in the setting of outpatient prednisone use vs active infection (see plan as per above) #Anemia with worsening h/h -no obvious active bleeding -check iron studies and await stool guaiac continue inpatient status. Will need further hospitalization given persistent hypoxemia and wheezing Subjective: improving shortness of breath, but still wheezing. No chest pain Objective: Vital Signs Temp Pulse Resp BP Pulse Ox 36.9 C 81 13 140/77 H 100 05/30/17 08:02 05/30/17 08:02 05/30/17 08:02 05/30/17 08:02 05/30/17 08:02 Laboratory Results 05/30/17 03:46 05/30/17 03:46 05/29/17 05/30/17 05/31/17 05:59 05:59 05:59 Intake Total 600 Output Total 2500 Balance -1900 - Physical Exam Constitutional: no apparent distress, appears nourished, not in pain Ears, Nose, Mouth, Throat: moist mucous membranes, hearing normal, ears appear normal, no oral mucosal ulcers Cardiovascular: regular rate and rhythym, no murmur, rub, or gallop Respiratory: no respiratory distress, reduced air movement, expiratory wheeze, No rhonchi Gastrointestinal: normoactive bowel sounds, soft, non-tender abdomen, no palpable masses, No guarding, No rebound Skin: no rashes or abrasions, no fluctuance, no induration ICD10 Worksheet Patient Problems: Problems Problem Status Onset Sinus tachycardia Acute Chest pain Acute Pre-syncope Acute Hypotension Acute Dyspnea Acute Transient hypotension Acute TIA (transient ischemic attack) Acute ALICIA (acute kidney injury) Acute Congestive heart failure Acute
[2017-05-30] MEDS: KETOROLAC 0.5% 5 ML OPHT.BTL EACHEYE SCH (10:43)
[2017-05-30] MEDS: FLUTICASONE NASAL 120 SPRAYS/16 GM MDI EACHNARE SCH ×2 (10:44→20:13)
[2017-05-30] MEDS ORDERED: CAFFEINE 200 MG PO PRN (13:37)
[2017-05-30] MEDS: FUROSEMIDE 40 MG/4 ML VIAL IVP SCH (15:49)
[2017-05-30] MEDS: GABAPENTIN 400 MG CAP PO SCH (20:07)
[2017-05-30] MEDS: METOPROLOL SUCCINATE XR 25 MG TAB PO SCH (20:08)
[2017-05-30] MEDS: MONTELUKAST SODIUM 10 MG TAB PO SCH (20:09)
[2017-05-30] MEDS: ATORVASTATIN CALCIUM 20 MG TAB PO SCH (20:10)
--- NOTE | 2017-05-30 20:40 | GCON ---
[f rep st] CONSULTATION DATE OF CONSULTATION: 05/30/2017 PRIMARY CARE PHYSICIAN: Dana Rodgers MD PRIMARY CONSUMER MARKETING ANALYST: Sergio Balderrama MD. REFERRING PHYSICIAN: Harry Santos DO for evaluation of diastolic heart failure. HISTORY OF PRESENT ILLNESS: The patient is a 76-year-old female, well known to us from previous clinic visits, who presents with worsening shortness of breath and chest pain. She has a past medical history of SVT, status post ablation in 2014; hypertension; asthma; COPD; previous stroke, status post left carotid endarterectomy; moderate MR; hypoxemia on CPAP and nocturnal oxygen; nonobstructive CAD; known left subclavian artery stenosis and occlusion, who reports 4 days of worsening shortness of breath and chest pain She describes having heaviness in her chest and then very severe pressure in her chest, worsened with minimal exertion. This is associated with dyspnea. She has not noted any nausea, diaphoresis or vomiting. The symptoms would resolve with using her 's oxygen. Over the past 2 days, her symptoms became severe enough that she presented to the emergency department and has now been admitted. She reports no symptoms today but yesterday when she got up to the bathroom she did have her symptoms. Prior to admission, she assumed that she was having a COPD exacerbation, and so she did self-treat at home with prednisone and some antibiotics. She did not get any significant relief and therefore is currently admitted. PAST MEDICAL HISTORY: 1. Carotid artery disease. 2. Nonobstructive CAD. 3. Mitral stenosis and mitral regurgitation. 4. Hypertension. 5. Fibromyalgia. 6. History of headaches. 7. COPD/asthma. 8. Sleep apnea. 9. SVT, status post ablation. 10. PVD, status post carotid endarterectomy and known left subclavian stenosis. PAST SURGICAL HISTORY: Appendectomy, bunion surgery, cardiac ablation, carotid endarterectomy, hysterectomy, sinus surgery. FAMILY HISTORY: Asthma, CVA, and heart disease. SOCIAL HISTORY: Patient is . She has 4 adult children. She is a former smoker. She does not consume alcohol. OUTPATIENT MEDICATIONS: These include Neurontin, diclofenac, Losartan, Symbicort, albuterol, Valtrex, Topamax, sucralfate, Imitrex, Metamucil, potassium, MiraLax, Oxy IR, Singulair, metoprolol succinate, Amitiza, amlodipine , atorvastatin, aspirin, and albuterol. ALLERGIES: Penicillins. REVIEW OF SYSTEMS: As per HPI. The only other Review of Systems is she has noted a mild nonproductive cough. PHYSICAL EXAM: VITAL SIGNS: BP of 99/55, heart rate of 85, respirations 14, O2 saturation 100% on 2 L/minute, temp of 98.6 degrees Fahrenheit. GENERAL: She is a very pleasant female in no apparent distress. HEENT: Normocephalic, atraumatic. Eyes are without scleral icterus. NECK: Without JVD. HEART: Regular rate and rhythm with a 2/6 systolic ejection murmur heard best at the left sternal border. LUNGS: With significant wheezing in the bilateral bases. ABDOMEN: Soft with normoactive bowel sounds. SKIN: Warm and dry. PSYCH: Normal mood and affect for given situation. NEURO: No focal deficits detected. LABORATORY DATA: CBC with WBC 15.85, hemoglobin 7.4, hematocrit 25, platelet count 145. BMP with sodium 146, potassium 4.3, chloride 111, CO2 23, BUN 14, creatinine 0.7, glucose 92. Iron of 17. NT proBNP of 1170. TSH of 0.468. Telemetry review shows sinus rhythm. Echo from today shows EF of 67 with concentric LVH, left atrial enlargement, [id number] MR, RVSP of 30. EKG from 05/29/2017, personally interpreted, demonstrates sinus rhythm with mild nonspecific ST-T wave abnormalities. Chest x-ray: Suggestive of CHF, personally reviewed images. I have discussed the case with Dr. Santos and Dr. Balderrama. IMPRESSION AND PLAN: The patient is a 76-year-old female admitted with chest pain and shortness of breath. 1. Chest pain. Her enzymes have been negative x3. EKG does not show any significant ischemic changes. We will defer further workup pending clinical course. 2. Dyspnea. Likely related to her chronic obstructive pulmonary disease and asthma. This is being addressed by our internal medicine service. 3. Diastolic heart failure. She has responded well to intravenous Lasix with an output of negative 1900 overnight. However, she is having some low blood pressure currently which is causing her to feel dizzy. We will decrease her metoprolol dosing to allow for more blood pressure in order to be able to continue diuresis. 4. Known coronary artery disease. Last cardiac catheterization from 2014 reviewed. This does not show any obstructive disease. She can be medically managed. 5. Anemia. This may certainly be contributing to her current symptoms. 6. Leukocytosis. This is in the setting of recent prednisone but may also indicate possible infectious etiology. /[id number]/MODL MTDD
[2017-05-31 04:07] LABS: PLATELET COUNT 156 10^3/uL (150-400)
[2017-05-31] MEDS: IPRATROPIUM/ALBUTEROL 3 ML DEYVIAL IH SCH ×4 (06:10→20:34)
[2017-05-31] MEDS: FUROSEMIDE 40 MG/4 ML VIAL IVP SCH ×2 (07:58→17:11)
[2017-05-31] MEDS: POTASSIUM CL 20 MEQ TAB PO SCH (08:02)
[2017-05-31] MEDS: TOPIRAMATE 25 MG TAB PO SCH ×2 (08:02→20:15)
[2017-05-31] MEDS: SUCRALFATE 1 GM TAB PO SCH ×2 (08:02→20:14)
[2017-05-31] MEDS: ENOXAPARIN 40 MG/0.4 ML SYR SC SCH (08:02)
[2017-05-31] MEDS: GABAPENTIN 300 MG CAP PO SCH (08:02)
[2017-05-31] MEDS: ASPIRIN EC 81 MG TAB PO SCH (08:02)
[2017-05-31] MEDS: predniSONE 20 MG TAB PO SCH ×2 (08:02→17:11)
[2017-05-31] MEDS: PSYLLIUM METAMUCIL 1 PKT PO SCH ×2 (08:03→20:13)
[2017-05-31] MEDS: LUBIPROSTONE 24 MCG CAP PO SCH ×2 (08:04→20:59)
[2017-05-31] MEDS: FLUTICASONE NASAL 120 SPRAYS/16 GM MDI EACHNARE SCH ×2 (08:05→20:17)
[2017-05-31] MEDS: KETOROLAC 0.5% 5 ML OPHT.BTL EACHEYE SCH (08:05)
[2017-05-31] MEDS: BUDESONIDE/FORMOTEROL 160/4.5 60 PUFFS/MDI IH SCH ×2 (08:12→20:34)
[2017-05-31] MEDS: ACETAMINOPHEN 325 MG TAB PO PRN (08:23)
[2017-05-31] MEDS: SUMAtriptan 50 MG TAB PO PRN (08:29)
[2017-05-31] MEDS: LOSARTAN POTASSIUM 25 MG TAB PO SCH ×2 (09:54→10:03)
--- NOTE | 2017-05-31 10:45 | HOSPPROG ---
Hospitalist Progress Note Assessment/Plan: This is 76 y/o female with h/o of DHF and asthma presening with #AHRF (improving) suspect multifactorial in the setting Acute Diastolic HF and asthma exacerbation -cont diuresis and prednisone -cards consult appreciated #valvular heart disease with mod to severe mitral regurg on echo #Doubtful PNA -She received one dose of Levaquin in the ED. PCT was normal. continue to monitor off antibiotics #leukocytosis -likely secondary to demargination in the setting of outpatient prednisone #Anemia of chronic disease (symptomatic) -no obvious active bleeding -transfuse 1 units of prbc -stool guaiac positive. reports being scoped within the past 6 months. -start ppi continue inpatient status. Will need further hospitalization given persistent hypoxemia and wheezing Subjective: episode of chest discomfort with exertion. improved work of brathing and wheezing today. denies obvious bleeding Objective: Vital Signs Temp Pulse Resp BP Pulse Ox 36.9 C 72 18 114/53 L 100 05/31/17 07:27 05/31/17 07:27 05/31/17 07:27 05/31/17 07:27 05/31/17 07:27 Laboratory Results 05/31/17 03:14 05/31/17 03:14 05/30/17 05/31/17 06/01/17 05:59 05:59 05:59 Intake Total 600 1100 320 Output Total 2500 2300 600 Balance -1900 -1200 -280 - Physical Exam Constitutional: no apparent distress, appears nourished, not in pain Cardiovascular: regular rate and rhythym, no murmur, rub, or gallop, No edema Respiratory: no respiratory distress, no rales or rhonchi, clear to auscultation Gastrointestinal: normoactive bowel sounds, soft, non-tender abdomen, no palpable masses, No guarding, No rebound Musculoskeletal: full muscle strength, no muscle tenderness, normal joint ROM ICD10 Worksheet Patient Problems: Problems Problem Status Onset Sinus tachycardia Acute Chest pain Acute Pre-syncope Acute Hypotension Acute Dyspnea Acute Transient hypotension Acute TIA (transient ischemic attack) Acute ALICIA (acute kidney injury) Acute Congestive heart failure Acute
[2017-05-31] MEDS: HYDROCODONE/APAP 5/325 TAB PO PRN ×4 (13:10→21:33)
[2017-05-31] MEDS: PANTOPRAZOLE SODIUM 40 MG TAB PO SCH (17:11)
[2017-05-31] MEDS: MONTELUKAST SODIUM 10 MG TAB PO SCH (20:14)
[2017-05-31] MEDS: GABAPENTIN 400 MG CAP PO SCH (20:14)
[2017-05-31] MEDS: METOPROLOL SUCCINATE XR 25 MG TAB PO SCH (20:15)
[2017-05-31] MEDS: ATORVASTATIN CALCIUM 20 MG TAB PO SCH (20:16)
[2017-06-01 04:18] LABS: PLATELET COUNT 162 10^3/uL (150-400)
[2017-06-01] MEDS: IPRATROPIUM/ALBUTEROL 3 ML DEYVIAL IH SCH ×4 (05:29→20:35)
[2017-06-01] MEDS: ACETAMINOPHEN 325 MG TAB PO PRN (08:04)
[2017-06-01] MEDS: PANTOPRAZOLE SODIUM 40 MG TAB PO SCH (08:09)
[2017-06-01] MEDS: LOSARTAN POTASSIUM 25 MG TAB PO SCH (08:09)
[2017-06-01] MEDS: GABAPENTIN 300 MG CAP PO SCH (08:09)
[2017-06-01] MEDS: ASPIRIN EC 81 MG TAB PO SCH (08:09)
[2017-06-01] MEDS: POTASSIUM CL 20 MEQ TAB PO SCH (08:09)
[2017-06-01] MEDS: TOPIRAMATE 25 MG TAB PO SCH ×2 (08:10→20:01)
[2017-06-01] MEDS: SUCRALFATE 1 GM TAB PO SCH ×2 (08:10→20:01)
[2017-06-01] MEDS: ENOXAPARIN 40 MG/0.4 ML SYR SC SCH (08:10)
[2017-06-01] MEDS: PSYLLIUM METAMUCIL 1 PKT PO SCH ×2 (08:10→20:07)
[2017-06-01] MEDS: predniSONE 20 MG TAB PO SCH (08:10)
[2017-06-01] MEDS: FUROSEMIDE 40 MG/4 ML VIAL IVP SCH (08:11)
[2017-06-01] MEDS: LUBIPROSTONE 24 MCG CAP PO SCH ×2 (08:11→20:05)
[2017-06-01] MEDS: SUMAtriptan 50 MG TAB PO PRN (08:31)
[2017-06-01] MEDS: FLUTICASONE NASAL 120 SPRAYS/16 GM MDI EACHNARE SCH ×2 (09:00→20:02)
[2017-06-01] MEDS: BUDESONIDE/FORMOTEROL 160/4.5 60 PUFFS/MDI IH SCH ×2 (09:16→20:35)
[2017-06-01] MEDS ORDERED: FUROSEMIDE 20 MG TAB PO PRN (10:39)
--- NOTE | 2017-06-01 10:45 | HOSPPROG ---
Hospitalist Progress Note Assessment/Plan: This is 76 y/o female with h/o of DHF and asthma presening with #AHRF (improving) suspect multifactorial in the setting Acute Diastolic HF and asthma exacerbation (wheezing resolved) -will hold iv diuretics today and resume home dose of lasix tomorrow -decrease prednisone to 20mg daily for 2 days then 10mg x 2 days then off -cards consult appreciated #Headache possibly due to fluid shits from diuretics and possibly caffeine withdrawal -take 1/2 tab of caffeine today #resolved chest pain possibly angina in the setting of anemia/hypoxemia vs gerd -ppi started yesterday #Anemia of chronic disease (symptomatic) s/p 1 unit of PRBCs 05/31 -no obvious active bleeding (stool guaiac was positive but reports recent scope) -cont ppi -recommend further monitoring and outpt gi followup #valvular heart disease with mod to severe mitral regurg on echo #Doubtful PNA -She received one dose of Levaquin in the ED. PCT was normal. continue to monitor off antibiotics #leukocytosis -likely secondary to demargination in the setting of outpatient prednisone may dc later today if headache resolves and feels well. Other pineda will keep in house until headache is resolved and feels ready for DC Subjective: feels better after blood transfusion yesterday. no chest pain. does have a throbbing 6/10 headache today. Improved wheezing Objective: Vital Signs Temp Pulse Resp BP Pulse Ox 37.0 C 70 16 113/60 100 06/01/17 07:30 06/01/17 07:30 06/01/17 07:30 06/01/17 07:30 06/01/17 07:30 Laboratory Results 06/01/17 03:08 06/01/17 03:08 05/31/17 06/01/17 06/02/17 05:59 05:59 05:59 Intake Total 1100 2680 Output Total 2300 2200 Balance -1200 480 - Physical Exam Constitutional: no apparent distress, appears nourished, not in pain Ears, Nose, Mouth, Throat: moist mucous membranes, hearing normal, ears appear normal, no oral mucosal ulcers Cardiovascular: regular rate and rhythym, no murmur, rub, or gallop Respiratory: no respiratory distress, no rales or rhonchi, clear to auscultation , No expiratory wheeze Gastrointestinal: normoactive bowel sounds, soft, non-tender abdomen, no palpable masses, No guarding, No rebound Neurologic: AAOx3, sensation intact bilaterally ICD10 Worksheet Patient Problems: Problems Problem Status Onset chronic disease mgmt/transitional Care Acute Sinus tachycardia Acute Chest pain Acute Pre-syncope Acute Hypotension Acute Dyspnea Acute Transient hypotension Acute TIA (transient ischemic attack) Acute ALICIA (acute kidney injury) Acute Congestive heart failure Acute
--- NOTE | 2017-06-01 13:32 | SOAPPROG ---
[facility] Progress Note Assessment/Plan: Assessment: Number heart failure with preserved ejection fraction 2. Headache 3. Chest pain 4. Anemia 5. Valvular heart disease 6. Nonobstructive coronary disease. She is feeling stronger today. She has had a recent angiogram less than 2 years ago that showed nonobstructive coronary disease. She has not been here to do another angiogram at this point. She does have some chest discomfort with exertion and she is going to try walking around today to see what is going on with the nature of her pain. Her troponins have been negative and she has had nothing to suggest an acute coronary syndrome. On she is feeling better and looking better and would like to stay in the hospital 1 more night but feels stronger. Her blood pressure is controlled and her Lasix is going to be held she has had good diuresis on the IV Lasix and we will push quite hard right now. We can add a beta-rodger at a stronger dose if we think that would help her chest pain but let's see what happens today and then we can do that tomorrow. I have answered all her questions. I have discussed her with her nursing staff. Patient is happy with this plan as of now. Plan: 06/01/17 13:33 Subjective: She tells me she is feeling much better. She has had some chest pain when she walked around and she is going to try again today. She is not having chest pain at rest. She has had this pain for quite a while and is not getting worse. It actually appears that her pain is improving. She has no cough or sputum production she has no jaw tightness arm tightness. She has no radiation of the pain. She has no chills. At time she feels warm. Objective: Vital Signs Temp Pulse Resp BP Pulse Ox 36.8 C 70 16 127/63 H 100 06/01/17 11:15 06/01/17 11:15 06/01/17 11:15 06/01/17 12:30 06/01/17 12:30 Laboratory Results 06/01/17 03:08 06/01/17 03:08 05/31/17 06/01/17 06/02/17 05:59 05:59 05:59 Intake Total 1100 2680 320 Output Total 2300 2200 Balance -1200 480 320 Physical Exam - Physical Exam General Appearance: alert, no apparent distress ([facility] Werner cardiology surgery just call me amy a day cervical spine procedure on and on day 2 ICM happening about) Neck: non-tender, full range of motion Respiratory: chest non-tender, lungs clear, decreased breath sounds, rhonchi Cardiac/Chest: regular rate, rhythm, systolic murmur, No JVD, No friction rub Abdomen: non-tender, soft, No organomegaly Skin: warm/dry Extremities: non-tender, No pedal edema, No calf tenderness ICD10 Worksheet Patient Problems: Problems Problem Status Onset Congestive heart failure Acute chronic disease mgmt/transitional Care Acute ALICIA (acute kidney injury) Acute Chest pain Acute Dyspnea Acute Hypotension Acute Pre-syncope Acute Sinus tachycardia Acute TIA (transient ischemic attack) Acute Transient hypotension Acute
[2017-06-01] MEDS ORDERED: HYOSCYAMINE SULFATE 0.125 MG TAB PO ONE (15:00)
[2017-06-01] MEDS ORDERED: MAG HYDROX/AL HYDROX/SIMETH 30 ML UDCUP PO ONE (15:00)
[2017-06-01] MEDS ORDERED: LIDOCAINE 2% VISCOUS 15 ML UDCUP PO ONE (15:00)
--- NOTE | 2017-06-01 15:28 | CPEKG ---
Heart Rate: 81 RR Interval: 741 P-R Interval: 156 QRSD Interval: 82 QT Interval: 376 QTC Interval: 437 P Villanova: 43 QRS Villanova: 14 T Wave Villanova: 38 EKG Severity - NORMAL ECG - EKG Impression: SINUS RHYTHM Electronically Signed By: Iam Rosen 02-Jun-2017 07:29:29
[2017-06-01] MEDS: KETOROLAC 0.5% 5 ML OPHT.BTL EACHEYE SCH (15:31)
[2017-06-01] MEDS ORDERED: NITROGLYCERIN 0.4 MG BTL SL ONE (15:40)
[2017-06-01] MEDS ORDERED: NITROGLYCERIN 0.4 MG BTL SL PRN (15:47)
[2017-06-01] MEDS: HYDROCODONE/APAP 5/325 TAB PO PRN (19:59)
[2017-06-01] MEDS: GABAPENTIN 400 MG CAP PO SCH (20:00)
[2017-06-01] MEDS: METOPROLOL SUCCINATE XR 25 MG TAB PO SCH (20:01)
[2017-06-01] MEDS: MONTELUKAST SODIUM 10 MG TAB PO SCH (20:01)
[2017-06-01] MEDS: ATORVASTATIN CALCIUM 20 MG TAB PO SCH (20:02)
[2017-06-02] MEDS: IPRATROPIUM/ALBUTEROL 3 ML DEYVIAL IH SCH ×3 (06:15→10:43)
[2017-06-02 07:49] LABS: PLATELET COUNT 150 10^3/uL (150-400)
[2017-06-02] MEDS: BUDESONIDE/FORMOTEROL 160/4.5 60 PUFFS/MDI IH SCH ×2 (08:54→20:38)
[2017-06-02] MEDS ORDERED: REGADENOSON 0.4 MG/5 ML SYR IVP ONE (09:01)
--- NOTE | 2017-06-02 09:04 | SOAPPROG ---
[facility] Progress Note Assessment/Plan: Assessment: Plan: 06/01/17 13:33 06/02/17 09:23 1. Heart failure with preserved ejection fraction 2. Chest pain 3. Anemia 4. Nonobstructive coronary disease 5. Valvular heart disease The patient has now had 6 troponins are negative in the face of ongoing 4 to 6/ 10 chest pain and EKGs did that do not change. She is known to have nonobstructive coronary disease. I do not feel that her pain is secondary to acute ischemia. She is getting a Lexiscan today and can follow up with her own parts washer afterwards unless it shows very high risk scan result. Her daughter tells me that she has frightening to go home because she feels she is going to get her pain again. I have told her that since we do not know what the pain is caused by she certainly might be getting again she needs to follow with her primary care doctors as well as her GI physicians. She has been ruled out for significant pulmonary embolic disease with a negative D-dimer. I have not checked her for pancreatitis but there does not seem to be much that goes along with that diagnosis at this time. All her questions have been answered. Her Lexiscan is pending Subjective: she is feeling well. She had a good sleep last night. She is having no fever chills or cough She is having no chest pain or abdominal pain. She has a history of GI issues in she has told that her anemia is due to her GI problems. Daughter thinks the GI problems and the anemia are due to the medications mother is taking. She has no headache no stiff neck is no sore throat no pleuritic chest pain no orthopnea PND No cough no sputum production no palpitations. No new weakness. Objective: Vital Signs Temp Pulse Resp BP Pulse Ox 36.6 C 78 15 107/58 L 100 06/02/17 08:00 06/02/17 08:00 06/02/17 08:00 06/02/17 08:00 06/02/17 08:00 Laboratory Results 06/02/17 07:43 06/02/17 07:43 06/01/17 06/02/17 06/03/17 05:59 05:59 05:59 Intake Total 2680 2020 Output Total 2200 1700 Balance 480 320 Laboratory Tests 05/29/17 05/29/17 05/29/17 15:49 15:49 15:49 WBC 18.83 H Hct 28.7 L Plt Count 163 Absolute Neuts (auto) Absolute Lymphs (auto) Absolute Monos (auto) D-Dimer Sodium Potassium Chloride Carbon Dioxide BUN Creatinine Troponin I < 0.012 NT-Pro-B Natriuret Pep 1170 H Procalcitonin 05/29/17 05/30/17 05/30/17 23:30 03:46 03:46 WBC 15.85 H Hct Plt Count Absolute Neuts (auto) Absolute Lymphs (auto) Absolute Monos (auto) D-Dimer Sodium Potassium Chloride Carbon Dioxide BUN Creatinine Troponin I < 0.012 < 0.012 NT-Pro-B Natriuret Pep Procalcitonin 05/30/17 05/31/17 06/01/17 03:57 03:14 03:08 WBC 14.05 H 15.02 H Hct Plt Count Absolute Neuts (auto) Absolute Lymphs (auto) Absolute Monos (auto) D-Dimer Sodium Potassium Chloride Carbon Dioxide BUN Creatinine Troponin I NT-Pro-B Natriuret Pep Procalcitonin 0.07 06/01/17 06/01/17 06/01/17 15:30 17:23 19:35 WBC Hct Plt Count Absolute Neuts (auto) Absolute Lymphs (auto) Absolute Monos (auto) D-Dimer < 0.27 Sodium Potassium Chloride Carbon Dioxide BUN Creatinine Troponin I < 0.012 < 0.012 NT-Pro-B Natriuret Pep Procalcitonin 06/02/17 06/02/17 07:43 07:43 WBC 15.91 H Hct 29.6 L Plt Count 150 Absolute Neuts (auto) 7.18 H Absolute Lymphs (auto) 6.73 H Absolute Monos (auto) 1.73 H D-Dimer Sodium 144 Potassium 4.1 Chloride 108 Carbon Dioxide 25 BUN 21 Creatinine 0.7 Troponin I < 0.012 NT-Pro-B Natriuret Pep Procalcitonin Physical Exam - Physical Exam General Appearance: alert, no apparent distress Neck: supple Respiratory: rhonchi Cardiac/Chest: systolic murmur Abdomen: non-tender, soft, No organomegaly Skin: pallor Extremities: No pedal edema, No calf tenderness ICD10 Worksheet Patient Problems: Problems Problem Status Onset Congestive heart failure Acute chronic disease mgmt/transitional Care Acute ALICIA (acute kidney injury) Acute Chest pain Acute Dyspnea Acute Hypotension Acute Pre-syncope Acute Sinus tachycardia Acute TIA (transient ischemic attack) Acute Transient hypotension Acute
[2017-06-02] MEDS: ENOXAPARIN 40 MG/0.4 ML SYR SC SCH (09:51)
[2017-06-02] MEDS: SUCRALFATE 1 GM TAB PO SCH ×2 (09:51→20:48)
[2017-06-02] MEDS: FLUTICASONE NASAL 120 SPRAYS/16 GM MDI EACHNARE SCH ×2 (09:54→20:53)
[2017-06-02] MEDS: KETOROLAC 0.5% 5 ML OPHT.BTL EACHEYE SCH (09:55)
--- NOTE | 2017-06-02 09:55 | CPIP ---
[f rep st] INVASIVE CARDIAC PROCEDURE The patient received Lexiscan protocol, had no problems with that. Had a little chest discomfort at the end of the test. Went away very quickly. She had no diagnostic EKG changes. Nuclear images pending. COMPLICATIONS: None. CONDITION AT END OF STUDY: Excellent. All questions have been answered. /[id number]/MODL
[2017-06-02] MEDS: PSYLLIUM METAMUCIL 1 PKT PO SCH ×2 (09:56→20:50)
[2017-06-02] MEDS: PANTOPRAZOLE SODIUM 40 MG TAB PO SCH (10:28)
[2017-06-02] MEDS: TOPIRAMATE 25 MG TAB PO SCH ×2 (10:28→20:48)
[2017-06-02] MEDS: LOSARTAN POTASSIUM 25 MG TAB PO SCH (10:29)
[2017-06-02] MEDS: POTASSIUM CL 20 MEQ TAB PO SCH (10:29)
[2017-06-02] MEDS: GABAPENTIN 300 MG CAP PO SCH (10:29)
[2017-06-02] MEDS: ASPIRIN EC 81 MG TAB PO SCH (10:29)
[2017-06-02] MEDS: LUBIPROSTONE 24 MCG CAP PO SCH ×2 (12:27→21:14)
[2017-06-02] MEDS: HYDROCODONE/APAP 5/325 TAB PO PRN ×2 (13:21→20:51)
--- NOTE | 2017-06-02 15:26 | HOSPPROG ---
Hospitalist Progress Note Assessment/Plan: * Acute on chronic diastolic CHF -improved - back to PO lasix * Asthma/COPD - suspect cardiac asthma -rapid prednisone taper - now off * Chest pain -stress test - rest images needed in am -ddimer negative * Anemia s/p 1 units PRBC -guaiac positive - outpatient GI work-up (iron deficient anemia) -empiric PPI * Chronic leukocytosis * THUY * TIA with carotid stenosis * s/p SVT ablation Subjective: NO new complaints Objective: Vital Signs Temp Pulse Resp BP Pulse Ox 36.8 C 75 16 122/68 H 100 06/02/17 14:39 06/02/17 14:39 06/02/17 14:39 06/02/17 14:39 06/02/17 14:39 Laboratory Results 06/02/17 07:43 06/02/17 07:43 06/01/17 06/02/17 06/03/17 05:59 05:59 05:59 Intake Total 2680 2020 Output Total 2200 1700 Balance 480 320 CXR viewed, my personal interpretation is - CHF with CM ECHO - EF 67% - Physical Exam Constitutional: no apparent distress, appears nourished, not in pain Cardiovascular: regular rate and rhythym, no murmur, rub, or gallop Respiratory: no respiratory distress, no rales or rhonchi, clear to auscultation Gastrointestinal: normoactive bowel sounds, soft, non-tender abdomen, no palpable masses Skin: no rashes or abrasions, no fluctuance, no induration Neurologic: AAOx3, sensation intact bilaterally Psychiatric: interacting appropriately, not anxious, not encephalopathic, thought process linear ICD10 Worksheet Patient Problems: Problems Problem Status Onset Congestive heart failure Acute chronic disease mgmt/transitional Care Acute ALICIA (acute kidney injury) Acute Chest pain Acute Dyspnea Acute Hypotension Acute Pre-syncope Acute Sinus tachycardia Acute TIA (transient ischemic attack) Acute Transient hypotension Acute
--- NOTE | 2017-06-02 16:14 | ASMTCMCOM ---
CM Note CM Note Notes: 06/02/2017 Case Management Note Pt declined PT eval today d/t pending stress test. Case Management d/c poc: TBD. Previous hospital stays pt has d/c independent. Anticipating independent d/c with family support but will wait for PT evals for guidance before determing final d/c plan. Case Management to follow. Date Signed: 06/02/2017 04:13 PM Electronically Signed By:Chayito Adams RN
[2017-06-02] MEDS: ATORVASTATIN CALCIUM 20 MG TAB PO SCH (20:48)
[2017-06-02] MEDS: GABAPENTIN 400 MG CAP PO SCH (20:49)
[2017-06-02] MEDS: METOPROLOL SUCCINATE XR 25 MG TAB PO SCH (20:49)
[2017-06-02] MEDS: MONTELUKAST SODIUM 10 MG TAB PO SCH (20:49)
[2017-06-03 04:07] LABS: PLATELET COUNT 160 10^3/uL (150-400)
--- NOTE | 2017-06-03 08:50 | SOAPPROG ---
[facility] Progress Note Assessment/Plan: Assessment: Plan: 06/01/17 13:33 06/02/17 09:23 Her Lexiscan is pending 06/03/17 08:48 1. Heart failure with preserved ejection fraction 2. Chest pain 3. Anemia 4. Nonobstructive coronary disease 5. Valvular heart disease She does seem to be feeling better today. We are waiting for nuclear resting images. Unless her stress test is markedly abnormal and a high risk test I would say that she does not need to have coronary angiography today. We will await those studies and she will follow up with her own primary care doctor and her artificial fly tier. She has very big issue about being anxious about leaving the hospital could she think she is going to just have pain again she comes in the hospital her daughter said quite frequently and they tell her in the emergency room it is not her heart and send her home she also has been told that maybe it is her stomach and nothing seems to help her pain so she feels very isolated and scared and the pain is quite uncomfortable. She is going to try to address this with her other providers. All their questions have been answered. Case discussed with hospitalist Subjective: She feels well today. By 8 o'clock she had had no chest pain and she has been up for a while. She has no other significant complaints No nausea vomiting She is not short of breath Objective: Vital Signs Temp Pulse Resp BP Pulse Ox 36.8 C 84 15 115/55 L 99 06/03/17 08:00 06/03/17 08:00 06/03/17 08:00 06/03/17 08:00 06/03/17 08:00 Laboratory Results 06/03/17 03:40 06/03/17 03:40 06/02/17 06/03/17 06/04/17 05:59 05:59 05:59 Intake Total 2019 250 Output Total 0961 322 3249 Balance 320 -250 -1400 Physical Exam - Physical Exam General Appearance: alert, no apparent distress Neuro/Psych: alert (I have spoken with the patient and seen her however I have not done a cardiovascular exam on her today as she was predisposed on multiple occasions.), normal mood/affect ICD10 Worksheet Patient Problems: Problems Problem Status Onset Congestive heart failure Acute chronic disease mgmt/transitional Care Acute ALICIA (acute kidney injury) Acute Chest pain Acute Dyspnea Acute Hypotension Acute Pre-syncope Acute Sinus tachycardia Acute TIA (transient ischemic attack) Acute Transient hypotension Acute
[2017-06-03] MEDS: ENOXAPARIN 40 MG/0.4 ML SYR SC SCH (09:56)
[2017-06-03] MEDS: SUCRALFATE 1 GM TAB PO SCH ×2 (09:57→21:20)
[2017-06-03] MEDS: KETOROLAC 0.5% 5 ML OPHT.BTL EACHEYE SCH (09:59)
[2017-06-03] MEDS: FLUTICASONE NASAL 120 SPRAYS/16 GM MDI EACHNARE SCH ×2 (09:59→21:26)
[2017-06-03] MEDS: PSYLLIUM METAMUCIL 1 PKT PO SCH ×2 (10:24→21:21)
[2017-06-03] MEDS: LUBIPROSTONE 24 MCG CAP PO SCH ×2 (10:24→21:22)
[2017-06-03] MEDS: TOPIRAMATE 25 MG TAB PO SCH ×2 (10:25→21:21)
[2017-06-03] MEDS: ASPIRIN EC 81 MG TAB PO SCH (10:25)
[2017-06-03] MEDS: PANTOPRAZOLE SODIUM 40 MG TAB PO SCH (10:25)
[2017-06-03] MEDS: POTASSIUM CL 20 MEQ TAB PO SCH (10:26)
[2017-06-03] MEDS: GABAPENTIN 300 MG CAP PO SCH (10:26)
[2017-06-03] MEDS: FUROSEMIDE 20 MG TAB PO SCH (10:31)
[2017-06-03] MEDS: BUDESONIDE/FORMOTEROL 160/4.5 60 PUFFS/MDI IH SCH ×2 (11:20→20:05)
[2017-06-03] MEDS: LOSARTAN POTASSIUM 25 MG TAB PO SCH (11:23)
[2017-06-03] MEDS: SUMAtriptan 50 MG TAB PO PRN (14:29)
[2017-06-03] MEDS: ACETAMINOPHEN 325 MG TAB PO PRN ×2 (14:29→23:28)
--- NOTE | 2017-06-03 16:15 | HOSPPROG ---
Hospitalist Progress Note Assessment/Plan: * Acute on chronic diastolic CHF -improved - back to PO lasix * CAD - cath 2014 with 50% left main disease * Chest pain - positive stress test -cardiac cath in am * Asthma/COPD - suspect cardiac asthma due to pulmonary edema -rapid prednisone taper - now off * Anemia s/p 1 units PRBC -guaiac positive - outpatient GI work-up (iron deficient anemia) -empiric PPI * Chronic leukocytosis * THUY * TIA with carotid stenosis * s/p SVT ablation Subjective: Chest pain today during PT after walking 20 feet, better with rest Objective: Vital Signs Temp Pulse Resp BP Pulse Ox 36.8 C 85 16 102/53 L 100 06/03/17 15:24 06/03/17 15:24 06/03/17 15:24 06/03/17 15:24 06/03/17 15:24 Laboratory Results 06/03/17 03:40 06/03/17 03:40 06/02/17 06/03/17 06/04/17 05:59 05:59 05:59 Intake Total 2019 Output Total 9779 340 1750 Balance 320 -250 -700 d/w Dr. Wilder - stress test abnormal - cath in am Nuc med stress - increased reversible ischemia anterior wall - Physical Exam Constitutional: no apparent distress, appears nourished, not in pain Cardiovascular: regular rate and rhythym, no murmur, rub, or gallop Respiratory: no respiratory distress, no rales or rhonchi, clear to auscultation Gastrointestinal: normoactive bowel sounds, soft, non-tender abdomen, no palpable masses Skin: no rashes or abrasions, no fluctuance, no induration Neurologic: AAOx3, sensation intact bilaterally Psychiatric: interacting appropriately, not anxious, not encephalopathic, thought process linear ICD10 Worksheet Patient Problems: Problems Problem Status Onset Congestive heart failure Acute chronic disease mgmt/transitional Care Acute ALICIA (acute kidney injury) Acute Chest pain Acute Dyspnea Acute Hypotension Acute Pre-syncope Acute Sinus tachycardia Acute TIA (transient ischemic attack) Acute Transient hypotension Acute
--- NOTE | 2017-06-03 16:22 | ASMTCMCOM ---
CM Note CM Note Notes: CM met w/ pt for dispo planning. PT is recommending HC at this time. Pt reports that she will decide if she needs it after her procedure tomorrow. Pt is having a CATH. CM to follow. Plan: TBD Date Signed: 06/03/2017 04:22 PM Electronically Signed By:DORYS Hood
[2017-06-03] MEDS: ATORVASTATIN CALCIUM 20 MG TAB PO SCH (21:20)
[2017-06-03] MEDS: METOPROLOL SUCCINATE XR 25 MG TAB PO SCH (21:20)
[2017-06-03] MEDS: MONTELUKAST SODIUM 10 MG TAB PO SCH (21:20)
[2017-06-03] MEDS: GABAPENTIN 400 MG CAP PO SCH (21:21)
[2017-06-04] MEDS: SUMAtriptan 50 MG TAB PO PRN (00:07)
[2017-06-04] MEDS: BUDESONIDE/FORMOTEROL 160/4.5 60 PUFFS/MDI IH SCH ×2 (08:38→22:03)
[2017-06-04] MEDS: TOPIRAMATE 25 MG TAB PO SCH ×2 (09:25→21:00)
[2017-06-04] MEDS: GABAPENTIN 300 MG CAP PO SCH (09:25)
[2017-06-04] MEDS: SUCRALFATE 1 GM TAB PO SCH ×2 (09:26→21:00)
[2017-06-04] MEDS: POTASSIUM CL 20 MEQ TAB PO SCH (09:26)
[2017-06-04] MEDS: ASPIRIN EC 81 MG TAB PO SCH (09:26)
[2017-06-04] MEDS: PANTOPRAZOLE SODIUM 40 MG TAB PO SCH (09:26)
[2017-06-04] MEDS: KETOROLAC 0.5% 5 ML OPHT.BTL EACHEYE SCH (09:38)
[2017-06-04] MEDS: FLUTICASONE NASAL 120 SPRAYS/16 GM MDI EACHNARE SCH ×2 (09:39→21:08)
--- NOTE | 2017-06-04 09:53 | PDPROPOC ---
Sedation Plan of Care ASA Classification: ASA 1 Planned drugs: fentanyl, midazolam Mallampati Score: Class 1 Mallampati Reference Image: Patient passed 3-3-2 rule?: Yes
[2017-06-04] MEDS ORDERED: diphenhydrAMINE 25 MG CAP PO ONE ×2 (09:57→09:58)
[2017-06-04] MEDS ORDERED: FAMOTIDINE 20 MG TAB PO ONE (09:58)
[2017-06-04] MEDS ORDERED: DIAZEPAM 5 MG TAB PO ONE (09:58)
[2017-06-04] MEDS ORDERED: ASPIRIN 81 MG CHEWABLE TAB ONE (09:58)
[2017-06-04] MEDS ORDERED: ASPIRIN EC 325 MG TAB PO ONE (09:58)
[2017-06-04] MEDS ORDERED: DIAZEPAM 5 MG TAB ONE (09:58)
[2017-06-04] MEDS ORDERED: NS 1,000 ML IV ONE (09:58)
[2017-06-04] MEDS ORDERED: fentaNYL 100 MCG/2 ML INJ ONE (09:59)
[2017-06-04] MEDS ORDERED: MIDAZOLAM 2 MG/2 ML VIAL ONE (09:59)
[2017-06-04] MEDS ORDERED: LIDOCAINE 1% 300 MG/30 ML SDV ONE (09:59)
[2017-06-04] MEDS ORDERED: IOPAMIDOL (ISOVUE-370) 150 ML BTL IV ONE (09:59)
--- NOTE | 2017-06-04 10:16 | SOAPPROG ---
[facility] Progress Note Assessment/Plan: Assessment: Plan: 06/01/17 13:33 06/02/17 09:23 Her Lexiscan is pending 06/03/17 08:48 1. Heart failure with preserved ejection fraction 2. Chest pain 3. Anemia 4. Nonobstructive coronary disease 5. Valvular heart disease 06/04/17 10:17 She has an abnormal nuclear stress test and we will proceed with coronary angiography she understands the options and risks and wants to proceed at this time. Her questions have been answered I have talked Subjective: she feels well today. The she has no chest pain She wants a coronary angiogram she knows all the risks and options and wants to proceed. She has an abnormal nuke. We can certainly fine coronary disease watch her closely. Objective: Vital Signs Temp Pulse Resp BP Pulse Ox 37.1 C 80 12 110/53 L 99 06/04/17 08:48 06/04/17 08:48 06/04/17 08:48 06/04/17 08:48 06/04/17 08:48 Microbiology 05/29/17 18:20 Blood Culture - Final Blood 05/29/17 18:05 Blood Culture - Final Blood Laboratory Results 06/03/17 03:40 06/03/17 03:40 06/03/17 06/04/17 06/05/17 05:59 05:59 05:59 Intake Total 250 1400 Output Total 500 3500 Balance -250 -2100 Physical Exam - Physical Exam General Appearance: no apparent distress Neck: supple Respiratory: rhonchi Cardiac/Chest: regular rate, rhythm, systolic murmur Abdomen: non-tender, soft, No organomegaly Extremities: normal range of motion, non-tender ICD10 Worksheet Patient Problems: Problems Problem Status Onset Congestive heart failure Acute chronic disease mgmt/transitional Care Acute ALICIA (acute kidney injury) Acute Chest pain Acute Dyspnea Acute Hypotension Acute Pre-syncope Acute Sinus tachycardia Acute TIA (transient ischemic attack) Acute Transient hypotension Acute
[2017-06-04] MEDS: LOSARTAN POTASSIUM 25 MG TAB PO SCH (10:54)
[2017-06-04] MEDS ORDERED: ONDANSETRON 4 MG/2 ML VIAL IVP PRN (11:25)
[2017-06-04] MEDS ORDERED: NITROGLYCERIN 0.4 MG BTL SL PRN (11:25)
[2017-06-04] MEDS ORDERED: HYDROCODONE/APAP 5/325 TAB PO PRN (11:25)
[2017-06-04] MEDS ORDERED: ATROPINE SULFATE 1 MG/10 ML SYR IVP PRN (11:25)
[2017-06-04] MEDS ORDERED: OXYCODONE/APAP 5/325 TAB PO PRN (11:25)
--- NOTE | 2017-06-04 12:13 | CPIP ---
[f rep st] INVASIVE CARDIAC PROCEDURE PROCEDURE: Left heart catheterization, left ventriculogram, right and left coronary arteriogram. INDICATIONS FOR PROCEDURE: The patient had this left heart catheterization, left ventriculogram, rig ht and left coronary arteriogram via the right femoral artery after giving informed consent. The indication is a significant abnormal defect on her nuclear medicine scan, and chest pain. The patient gave informed consent. She knew the options and risks and wanted to proceed. FINDINGS: ANGIOGRAPHY: Left main coronary artery appears to have a shelf and a significant stenosis present right at the ost ium. I have reviewed the old S[facility] with the Interventional Service and it looks like there was signif icant disease there 2 years ago. The left anterior descending artery then has calcified plaque present and there is some dilatation of the vessel and a 40% proximal stenosis at least, that could be 65%. The mid LAD has 35% to 40% stenosis present. The 1st high diagonal branch of the LAD, which could be a ramus intermedius, has a 95% complex stenosis involving the proximal segment and has good distal v essel that is wide and long. The circumflex coronary artery has a good-sized OM1, an OM2, and no significant obstructive disease. The right coronary artery has an 80% PDA lesion and is dominant. LEFT VENTRICULOGRAM: Normal left ventricular systolic function with no regional wall motion abnormalities and an ejection fraction over 70%. Left heart catheterization, left ventricular end-diastolic pressure 12 mmHg. No aortic stenosis. CONCLUSION: Left main coronary artery disease, left anterior descending artery disease, high diagona l/ramus significant obstructive stenosis. Distal right coronary artery disease. Preserved LV systolic function. DISCUSSION: The sheath was placed using the ultrasound-guided needle placement, which was especially helpful because of the patient's significant adiposity. It was an excellent clean stick and significant blood flow returned. However, in the iliac artery, t here seemed to be some difficulty passing the wire and so we did some imaging and then passed with a J-tipped Glidewire up into the aorta without any complications. So, at the end of study, we had Dr. Attila Ray from the peripheral service come and do an abdominal aortic injection which was obtained and he is going to dictate that result. The patient has significant iliac disease on the right side and some infrarenal aortic disease. COMPLICATIONS: None. The recommendation from Dr. Ray and myself is that she undergo coronary artery bypass grafting and the bypass surgery team has been notified. /[id number]/MODL
--- NOTE | 2017-06-04 12:33 | CPIP ---
[f rep st] INVASIVE CARDIAC PROCEDURE DATE OF PROCEDURE: 06/04/2017 PROCEDURE: Abdominal aortography. INDICATION: 1. Probable peripheral vascular disease resulting in difficulty passing catheters up during diagnost ic coronary angiography. 2. Potential need for intra-aortic balloon pump placement with open heart surgery. 3. Access and coronary angiography were performed by Dr. Ramu Moss. During coronary angiograph y, there was some difficulty passing catheters from the right common femoral artery through the right common iliac artery. I was asked to perform peripheral angiography to further evaluate this area. ABDOMINAL AORTOGRAPHY: Following left ventriculography, the 6-Malawian pigtail catheter was placed in the distal abdominal aorta and position verified by angiography. Images were obtained via [employer] via the [employer] system. The distal abdominal aorta was diffusely diseased. The aorta gave rise to a single right renal artery and a single left renal artery. The right renal artery appeared free of any significant disease. The left renal artery was not well visualized but appeared to have an o stial 50% stenosis present. In the abdominal aorta at the level of the renal arteries, there was an eccentric plaque surrounding the left renal artery, superior and inferior to it. The inferior segmen t was much more severely diseased and approached 50% in severity. There was [id number] plaque burden below the renal arteries. The distal abdominal aorta then bifurcated into the left and right common iliac arteries. The right common iliac artery appeared to have an ostial 50% stenosis present . The mid right common iliac artery appeared to have a 70% stenosis present. The left common iliac artery had mild plaque burden but appeared free of any significant disease. COMPLICATIONS: None. CONCLUSIONS: 1. Eccentric plaque superior and inferior to the left renal artery. The inferior portion of the suman que approaches 50% in severity. 2. The left renal artery is not well visualized but appears to have an ostial 50% stenosis present. 3. The right common iliac artery is diffusely diseased. There is a 50% ostial stenosis as well as a 70% mid stenosis. 4. There is mild plaque burden of the left common iliac artery. 5. If intra-aortic balloon pump or support equipment is needed with surgery, would use a left common femoral artery approach. /[id number]/MODL
--- NOTE | 2017-06-04 13:46 | ASMTCMCOM ---
CM Note CM Note Notes: 06/04/2017 Case Management Note Pt to have bypass tomorrow. Case Management d/c poc: to be determined. Case Management will continue to follow. Date Signed: 06/04/2017 01:45 PM Electronically Signed By:Chayito Adams RN
--- NOTE | 2017-06-04 14:05 | ASMTCMCOM ---
CM Note CM Note Notes: 06/04/[address] Victoria Arrieta's PA, bypass is planned for . Date Signed: 06/04/2017 02:05 PM Electronically Signed By:Chayito Adams RN
[2017-06-04] MEDS: PSYLLIUM METAMUCIL 1 PKT PO SCH ×2 (14:10→21:00)
[2017-06-04] MEDS: FUROSEMIDE 20 MG TAB PO SCH (14:11)
[2017-06-04] MEDS: ACETAMINOPHEN 325 MG TAB PO PRN ×2 (14:15→21:05)
[2017-06-04] MEDS: LUBIPROSTONE 24 MCG CAP PO SCH ×2 (14:17→21:07)
--- NOTE | 2017-06-04 15:52 | HOSPPROG ---
Hospitalist Progress Note Assessment/Plan: * Acute on chronic diastolic CHF -PO lasix * CAD with unstable angina - left main disease + tight ramus -needs CABG - CT surgery to see * Asthma/COPD - suspect cardiac asthma due to pulmonary edema -rapid prednisone taper - now off * Anemia s/p 1 units PRBC -guaiac positive - outpatient GI work-up (iron deficient anemia) -empiric PPI * Chronic leukocytosis * THUY * TIA with carotid stenosis * PVD - significant stenosis of iliac and renal artery * s/p SVT ablation Subjective: No new complaints. Objective: Vital Signs Temp Pulse Resp BP Pulse Ox 36.7 C 93 12 109/68 98 06/04/17 15:15 06/04/17 15:15 06/04/17 15:15 06/04/17 15:15 06/04/17 15:15 Microbiology 05/29/17 18:20 Blood Culture - Final Blood 05/29/17 18:05 Blood Culture - Final Blood Laboratory Results 06/03/17 03:40 06/03/17 03:40 06/03/17 06/04/17 06/05/17 05:59 05:59 05:59 Intake Total 250 1400 300 Output Total 500 3500 Balance -250 -2100 300 d/w Dr. Moss - CABG recommended cath report reviewed - left main dz + 90% ramus intermedius off LAD -significant PVD of renal artery and iliac - Physical Exam Constitutional: no apparent distress, appears nourished, not in pain Cardiovascular: regular rate and rhythym, no murmur, rub, or gallop Respiratory: no respiratory distress, no rales or rhonchi, clear to auscultation Gastrointestinal: normoactive bowel sounds, soft, non-tender abdomen, no palpable masses Skin: no rashes or abrasions, no fluctuance, no induration Neurologic: AAOx3, sensation intact bilaterally Psychiatric: interacting appropriately, not anxious, not encephalopathic, thought process linear ICD10 Worksheet Patient Problems: Problems Problem Status Onset Congestive heart failure Acute chronic disease mgmt/transitional Care Acute ALICIA (acute kidney injury) Acute Chest pain Acute Dyspnea Acute Hypotension Acute Pre-syncope Acute Sinus tachycardia Acute TIA (transient ischemic attack) Acute Transient hypotension Acute
[2017-06-04] MEDS: SUMAtriptan 25 MG TAB PO PRN (16:04)
[2017-06-04] MEDS ORDERED: NS 500 ML IV PRN (16:57)
[2017-06-04] MEDS: GABAPENTIN 400 MG CAP PO SCH (21:00)
[2017-06-04] MEDS: METOPROLOL SUCCINATE XR 25 MG TAB PO SCH (21:00)
[2017-06-04] MEDS: MONTELUKAST SODIUM 10 MG TAB PO SCH (21:00)
[2017-06-04] MEDS: ATORVASTATIN CALCIUM 20 MG TAB PO SCH (21:00)
[2017-06-04] MEDS: HYDROCODONE/APAP 5/325 TAB PO PRN (21:05)
[2017-06-05 04:28] LABS: PLATELET COUNT 179 10^3/uL (150-400)
[2017-06-05] MEDS: POTASSIUM CL 20 MEQ TAB PO SCH (09:23)
[2017-06-05] MEDS: ASPIRIN EC 81 MG TAB PO SCH (09:23)
[2017-06-05] MEDS: LOSARTAN POTASSIUM 25 MG TAB PO SCH (09:23)
[2017-06-05] MEDS: SUCRALFATE 1 GM TAB PO SCH ×2 (09:24→21:32)
[2017-06-05] MEDS: PANTOPRAZOLE SODIUM 40 MG TAB PO SCH (09:24)
[2017-06-05] MEDS: TOPIRAMATE 25 MG TAB PO SCH ×2 (09:24→21:31)
[2017-06-05] MEDS: FUROSEMIDE 20 MG TAB PO SCH (09:24)
[2017-06-05] MEDS: GABAPENTIN 300 MG CAP PO SCH (09:24)
[2017-06-05] MEDS: PSYLLIUM METAMUCIL 1 PKT PO SCH ×2 (09:24→21:38)
[2017-06-05] MEDS: FLUTICASONE NASAL 120 SPRAYS/16 GM MDI EACHNARE SCH ×2 (09:28→21:36)
[2017-06-05] MEDS: HYDROCODONE/APAP 5/325 TAB PO PRN (09:31)
[2017-06-05] MEDS: LUBIPROSTONE 24 MCG CAP PO SCH ×2 (09:32→21:37)
[2017-06-05] MEDS: KETOROLAC 0.5% 5 ML OPHT.BTL EACHEYE SCH (09:33)
[2017-06-05] MEDS: BUDESONIDE/FORMOTEROL 160/4.5 60 PUFFS/MDI IH SCH ×2 (09:39→20:41)
--- NOTE | 2017-06-05 10:29 | SOAPPROG ---
[facility] Progress Note Assessment/Plan: Assessment: Plan: 06/01/17 13:33 06/02/17 09:23 Her Lexiscan is pending 06/03/17 08:48 06/05/17 10:27 1 heart failure with preserved ejection fraction 2 chest pain 3 anemia 4. Coronary artery disease 5. Mitral regurgitation She was found to have very significant coronary disease at catheterization that is not amenable to percutaneous intervention. She is going to have her undergo bypass surgery as soon as that is available to her. she is not having any chest pain today her groin is excellent. She did have very significant peripheral vascular disease with significant iliac stenosis and some moderate disease below the renal arteries as well as a disease involving the left renal artery. Her right iliac it is in good shape. At this point time I will do a carotid study. will watch her closely. all her questions have been answered talked to her and her daughter today and their nurse. 06/05/17 10:29 Subjective: She is doing well today. she has no chest pain or shortness of breath she is not having orthopnea. the right groin is excellent She has no nausea vomiting diarrhea she has no fever chills She is tolerating her medications. Objective: Vital Signs Temp Pulse Resp BP Pulse Ox 36.6 C 82 12 103/56 L 100 06/05/17 08:00 06/05/17 09:41 06/05/17 09:41 06/05/17 08:00 06/05/17 09:41 Microbiology 05/29/17 18:20 Blood Culture - Final Blood 05/29/17 18:05 Blood Culture - Final Blood Laboratory Results 06/05/17 03:06 06/03/17 03:40 06/04/17 06/05/17 06/06/17 05:59 05:59 05:59 Intake Total 1400 2500 Output Total 3500 1875 Balance -2100 625 Physical Exam - Physical Exam General Appearance: alert, no apparent distress Neck: supple Respiratory: normal breath sounds Cardiac/Chest: regular rate, rhythm, systolic murmur Abdomen: non-tender, soft Skin: warm/dry Extremities: non-tender, No swelling Neuro/Psych: alert, normal mood/affect, oriented x 3 ICD10 Worksheet Patient Problems: Problems Problem Status Onset Congestive heart failure Acute chronic disease mgmt/transitional Care Acute ALICIA (acute kidney injury) Acute Chest pain Acute Dyspnea Acute Hypotension Acute Pre-syncope Acute Sinus tachycardia Acute TIA (transient ischemic attack) Acute Transient hypotension Acute
--- NOTE | 2017-06-05 13:43 | GCON ---
[f rep st] CONSULTATION DATE OF CONSULTATION: 06/05/2017 REFERRING PHYSICIAN: Ramu Moss MD Patient is seen at the request of Dr. Moss with the patient's permission. IMPRESSION: 1. Class IV congestive heart failure on admission secondary to hypertrophic cardiomyopathy. 2. Diastolic dysfunction. 3. Moderate mitral insufficiency with calcified mitral annular calcification. 4. Arteriosclerotic heart disease with severe 3-vessel disease. 5. History of occluded left subclavian. 6. History of severe peripheral vascular disease. a. Occluded left subclavian. b. Status post left carotid endarterectomy. c. Right iliac artery stenosis. 7. Fibromyalgia. 8. Hypertension. 9. Chronic obstructive pulmonary disease. 10. Sleep apnea. 11. Supraventricular tachycardia status post ablation. 12. Recent evaluation for Hemoccult-positive stools as an outpatient revealed gastritis. Medication resumed in hospital. RECOMMENDATIONS: This patient represents a moderate to high risk for surgical intervention. She has left main and severe 3-vessel disease with preserved LV function with severe left ventricular hypert rophy. She has a heavily calcified mitral anulus with minimal stenosis, but moderate to severe insuf ficiency. Given her comorbidities with peripheral vascular disease, her risk for stroke approaches 3 % to 5%. Risk of mortality approaches 5% or 6%. Particularly in light of her mitral annular calcifi cation, this may present challenges for mitral valve repair or replacement. Detailed with the family , is that in rare circumstances we are unable to address the mitral valve and given the fact that it is moderate MR, we may leave that alone. However, with her presentation of congestive heart failure, I believe it warrants replacement. She also has some evidence of outflow tract obstruction with vas odilation on echo and again I feel that her best option would be mitral valve replacement with a low- profile valve. Family were present. The daughter and sons were all present, understood, and detaile d at length with the mother. All questions were answered. We will proceed with surgery in the [facility]. HISTORY: 76-year-old female, known to the medical practice, and presented with congestive heart fail ure. She has previous medical history as stated. She underwent diagnostic left heart catheterizatio n after being diuresed and heart failure was controlled; is noted to have severe 3-vessel disease. E cho suggested moderate to severe mitral insufficiency with heavy MAC. PAST SURGICAL HISTORY: Includes appendectomy, bunion surgery, cardiac ablation, carotid endarterecto my, hysterectomy, and sinus surgery. FAMILY HISTORY: Noncontributory. SOCIAL HISTORY: She is a former smoker. She does not drink. REVIEW OF SYSTEMS: At the present time she is sitting comfortably in a chair. She has no further sh ortness of breath since being medically stabilized. OUTPATIENT MEDICATIONS: Neurontin, diclofenac, losartan, Symbicort, albuterol, Valtrex, Topamax, suc ralfate, Imitrex, Metamucil, potassium, MiraLAX, Oxy IR, Singulair, metoprolol succinate, Amitiza, am lodipine, atorvastatin, aspirin, and albuterol. ALLERGIES: Penicillins. PHYSICAL EXAMINATION: GENERAL: This is a moderately overweight elderly female, quite pleasant, aler t, sitting in a chair, in no apparent distress. VITAL SIGNS: 100/60, pulse 80, respirations 14, O2 s aturation was 98% on 2 L. HEENT: Normocephalic. PERRLA. EOMI. NECK: Bilateral carotid bruits. H EART: Rate is regular with a murmur of mitral regurg in the left apex. LUNGS: Clear. ABDOMEN: Pr otuberant, nontender. Bowel sounds are active. RECTAL AND GENITAL: Exams were deferred. EXTREMITI ES: Pedal pulses are 1+ and symmetrical. She has 1+ edema. No varicosities. LABORATORY DATA: Hemoglobin was 7.4. She since has received 1 transfusion. Hemoccult of stool was positive. And again, she had a complete GI workup. Her gastritis medications were resumed. /[id number]/MODL
[2017-06-05] MEDS ORDERED: *INFUSION*TRANEX ACID 1,000 MG/NS 100 ML IV ONE ×2 (14:30→15:00)
--- NOTE | 2017-06-05 16:29 | HOSPPROG ---
Hospitalist Progress Note Assessment/Plan: * Acute on chronic diastolic CHF -PO lasix * CAD with unstable angina - left main disease + 3 vessel dz -needs CABG + MVR - possible surgery in am * Hypotension -not tolerating usual BP meds - holding * Asthma/COPD - suspect cardiac asthma due to pulmonary edema -rapid prednisone taper - now off * Anemia s/p 1 units PRBC -guaiac positive - recent outpatient GI work-up (iron deficient anemia) - negative -empiric PPI * Chronic leukocytosis * THUY * TIA with carotid stenosis * PVD - significant stenosis of iliac and renal artery * s/p SVT ablation Possible CT surgery in am. Hospitalist medicine will sign off when she goes to surgery. Subjective: Feels well Objective: Vital Signs Temp Pulse Resp BP Pulse Ox 36.9 C 82 16 80/40 L 100 06/05/17 11:13 06/05/17 11:13 06/05/17 11:13 06/05/17 11:13 06/05/17 11:13 Laboratory Results 06/05/17 03:06 06/03/17 03:40 06/04/17 06/05/17 06/06/17 05:59 05:59 05:59 Intake Total 1400 2500 Output Total 3500 1875 Balance -2100 625 d/w Dr. Kessler - timing of surgery being determined Carotid us - no stenosis - Physical Exam Constitutional: no apparent distress, appears nourished, not in pain Cardiovascular: regular rate and rhythym, no murmur, rub, or gallop Respiratory: no respiratory distress, no rales or rhonchi, clear to auscultation Gastrointestinal: normoactive bowel sounds, soft, non-tender abdomen, no palpable masses Skin: no rashes or abrasions, no fluctuance, no induration Neurologic: AAOx3, sensation intact bilaterally Psychiatric: interacting appropriately, not anxious, not encephalopathic, thought process linear ICD10 Worksheet Patient Problems: Problems Problem Status Onset Congestive heart failure Acute chronic disease mgmt/transitional Care Acute ALICIA (acute kidney injury) Acute Chest pain Acute Dyspnea Acute Hypotension Acute Pre-syncope Acute Sinus tachycardia Acute TIA (transient ischemic attack) Acute Transient hypotension Acute
[2017-06-05] MEDS ORDERED: CHLORHEXIDINE GLUC HIBICLENS 118 ML BTL TP SCH (21:00)
[2017-06-05] MEDS: METOPROLOL SUCCINATE XR 25 MG TAB PO SCH (21:32)
[2017-06-05] MEDS: ATORVASTATIN CALCIUM 20 MG TAB PO SCH (21:32)
[2017-06-05] MEDS: GABAPENTIN 400 MG CAP PO SCH (21:32)
[2017-06-05] MEDS: MONTELUKAST SODIUM 10 MG TAB PO SCH (21:32)
[2017-06-05] MEDS: SENNOSIDES/DOCUSATE SODIUM TAB PO SCH (21:32)
[2017-06-05] MEDS: MUPIROCIN 2% 22 GM OINT NS SCH (21:36)
[2017-06-06 04:35] LABS: PLATELET COUNT 167 10^3/uL (150-400)
[2017-06-06] MEDS ORDERED: VANCOMYCIN PHARMACY TO DOSE MISC ONE (06:00)
[2017-06-06] MEDS ORDERED: SODIUM BICARBONATE 20 MEQ, LIDOCAINE 1% 10 ML in NORMOSOL-R 1,000 ML MISC ONE (06:00)
[2017-06-06] MEDS ORDERED: VANCOMYCIN 1.25 GM in D5W 250 ML IV ONE (06:00)
[2017-06-06] MEDS ORDERED: NOREPINEPHRINE BITARTRATE 16 MG in NS 250 ML IV ONE (06:00)
[2017-06-06] MEDS ORDERED: AMINOCAPROIC ACID 5 GM/20 ML VIAL IV ONE (06:00)
[2017-06-06] MEDS ORDERED: PHENYLEPHRINE HCL 50 MG in NS 250 ML IV ONE (06:00)
[2017-06-06] MEDS ORDERED: DOBUTamine/DEXTROSE 250 ML IV ONE (06:00)
[2017-06-06] MEDS ORDERED: INSULIN REGULAR HUMAN 100 UNIT in NS 100 ML IV ONE (06:00)
[2017-06-06] MEDS ORDERED: *INFUSION*TRANEX ACID 1,000 MG/NS 100 ML IV ONE ×2 (06:00)
[2017-06-06] MEDS ORDERED: CITRATE DEXTROSE SOLN 500 ML BAG MISC ONE (06:00)
[2017-06-06] MEDS ORDERED: MANNITOL 25% 12.5 GM/50 ML VIAL IVP ONE (06:00)
[2017-06-06] MEDS ORDERED: VERAPAMIL 5 MG, NITROGLYCERIN 2.5 MG, HEPARIN 500 UNIT, SODIUM BICARBONATE 0.2 MEQ in L... MISC ONE (06:00)
[2017-06-06] MEDS ORDERED: PROTAMINE SULFATE 50 MG/5 ML VIAL IVP ONE (06:37)
[2017-06-06] MEDS ORDERED: ALBUMIN 5% 250 ML BOTTLE IV ONE ×2 (06:38→14:47)
[2017-06-06] MEDS ORDERED: MILRINONE/DEXTROSE/100 ML BAG IV ONE (06:38)
[2017-06-06] MEDS ORDERED: NA BICARBONATE 50 MEQ/50 ML VIAL ONE (06:38)
[2017-06-06] MEDS ORDERED: LIDOCAINE 2% 100 MG/5 ML SYR ONE (06:38)
[2017-06-06] MEDS ORDERED: CALCIUM CHLORIDE 1 GM/10 ML INJ ONE (06:38)
[2017-06-06] MEDS ORDERED: CITRATE DEXTROSE SOLN 500 ML BAG ONE (06:39)
[2017-06-06] MEDS ORDERED: HEPARIN 10,000 UNIT/10 ML MDV (1,000 UNIT/ML) ONE (06:39)
[2017-06-06] MEDS ORDERED: ceFAZolin 1 GM VIAL ONE (06:39)
[2017-06-06] MEDS ORDERED: methylPREDNISolone SOD SUCC 1 GM/8 ML VIAL ONE (06:39)
[2017-06-06] MEDS ORDERED: AMIODARONE HCL 150 MG/3 ML VIAL ONE (06:39)
[2017-06-06] MEDS ORDERED: niCARdipine/NACL/200 ML BAG IV ONE (06:39)
[2017-06-06] MEDS ORDERED: DOPamine/DEXTROSE/250 ML BAG IV ONE (06:39)
[2017-06-06] MEDS ORDERED: ADENOSINE 6 MG/2 ML VIAL ONE (06:39)
[2017-06-06] MEDS ORDERED: MAGNESIUM SULFATE 1 GM/2 ML VIAL ONE (06:39)
[2017-06-06] MEDS ORDERED: VERAPAMIL 5 MG/2 ML VIAL ONE (07:17)
[2017-06-06] MEDS ORDERED: MINERAL OIL 10 ML VIAL ONE (07:17)
[2017-06-06] MEDS ORDERED: PAPAVERINE HCL 60 MG/2 ML SDV ONE (07:17)
[2017-06-06] MEDS ORDERED: LIDOCAINE 1% 2 ML INJ ID PRN (07:25)
[2017-06-06] MEDS ORDERED: LR 1,000 ML IV ONE (07:25)
[2017-06-06] MEDS ORDERED: ceFAZolin 2 GM/SWFI 20 ML SYR IVP ONE (08:11)
[2017-06-06] MEDS ORDERED: MIDAZOLAM 2 MG/2 ML VIAL IVP ONE (08:16)
--- NOTE | 2017-06-06 08:16 | PDANEPAE ---
ANE History of Present Illness 76 yo for cabg/mvr ANE Past Medical History - Cardiovascular History Hx Hypertension: Yes Hx Chest Pain: Yes Hx Coronary Artery / Peripheral Vascular Disease: Yes Hx CHF / Valvular Disease: Yes - Pulmonary History Hx Oxygen in Use at Home: Yes O2 in Use at Home (L/minute): 2.5 Hx Sleep Apnea: Yes Sleep Apnea Screening Result - Last Documented: Positive - Endocrine History Hx Diabetes: No - Chronic Pain History Chronic Pain: Yes (back) ANE Review of Systems Review of Systems: ANE Patient History - Allergies Allergies/Adverse Reactions: Penicillins Allergy (Severe, Verified 05/29/17 15:04) Swelling/neck,face,throat - Home Medications Home medications: home medication list seen and reviewed Home Medications: Aspirin [Aspir-Low] 81 mg PO DAILY 12/04/11 [Last Taken 09/06/16] Diclofenac Sodium 1% [Voltaren Gel (*)] 1 clyde TP DAILY PRN 12/04/11 [Last Taken 09/11/15] Fluticasone Nasal [Flonase Nasal [place]] 2 sprays NASAL BID 12/04/11 [Last Taken 01/03/16] Furosemide [Lasix] 20 mg PO DAILY PRN 12/04/11 [Last Taken 09/11/15] Hydrocodone Bit/Acetaminophen [Vicodin 5/500] 1 tab PO DAILY PRN 12/04/11 [Last Taken 12/03/11] Sucralfate 1 gm PO BID 12/04/11 [Last Taken 09/06/16] Budesonide/Formoterol 160/4.5 [Symbicort 160-4.5 Mcg Inh (*)] 2 inh IH BID 09/11 [Last Taken 09/06/16] Montelukast Sodium [Singulair 10 mg (*)] 10 mg PO HS 09/11/14 [Last Taken ] Acyclovir 5% [Zovirax 5% Cream 2gm (RX)] 1 clyde TP Q2H PRN 07/29/15 [Last Taken 09/11/15] Albuterol [Proventil Inhaler HFA (*)] 2 puffs IH BID PRN 07/29/15 [Last Taken ] Albuterol [Proventil Neb] 3 ml IH QID PRN 07/29/15 [Last Taken 01/03/16] Polyethylene Glycol 3350 [Miralax 17 gm (*)] 17 gm PO TID PRN 07/29/15 [Last Taken 01/03/16 12:00] SUMAtriptan [Imitrex 50 MG (*)] 50 mg PO DAILY PRN 07/29/15 [Last Taken 01/02/16 ] Topiramate [Topamax 25MG (*)] 25 - 50 mg PO BID 07/29/15 [Last Taken 09/06/16] Valacyclovir HCl [Valtrex] 2,000 mg PO Q12 PRN 07/29/15 [Last Taken 09/11/15] Gabapentin [Neurontin 400 MG (*)] 800 mg PO HS 09/12/15 [Last Taken 09/06/16] Lubiprostone [Amitiza 24 mcg (*)] 24 mcg PO BID 09/12/15 [Last Taken 09/06/16] Atorvastatin Calcium [Lipitor 20 mg (*)] 20 mg PO HS 01/03/16 [Last Taken ] Herbals/Supplements -Info Only 1 ea PO DAILY 01/03/16 [Last Taken 09/06/16] oxyCODONE IR [Oxycodone Ir (*)] 5 mg PO Q3 PRN 01/03/16 [Last Taken Unknown] Metoprolol Succinate 50 mg PO HS 09/07/16 [Last Taken 09/06/16] Potassium Cl [Klor-Con 20 meq (*)] 20 meq PO HS 09/07/16 [Last Taken 09/06/16] Psyllium Husk (with Sugar) [Metamucil Packet] 1 each PO BID 09/07/16 [Last Taken 09/06/16] amLODIPine BESYLATE [Norvasc 2.5 mg (*)] 2.5 mg PO DAILY 09/07/16 [Last Taken ] Diclofenac Sodium [Diclofenac Sodium] 1 clyde TD QID PRN 05/29/17 [Last Taken Unknown] Diclofenac Sodium [Diclofenac Sodium] 4 gm TP QID PRN 05/29/17 [Last Taken Unknown] Ketorolac 0.5% [Acular 0.5% Opht Drops (*)] 1 drops EACHEYE DAILY 05/29/17 [ Last Taken Unknown] Losartan Potassium [Cozaar 25 mg (*)] 12.5 mg PO DAILY 05/29/17 [Last Taken Unknown] Caffeine 200 mg PO BID PRN 05/30/17 [Last Taken Unknown] Gabapentin [Neurontin 300 MG (*)] 300 mg PO DAILY 05/30/17 [Last Taken Unknown] - NPO status NPO Status: no food or drink >8 hours NPO Since - Liquids (Date): 06/06/17 NPO Since - Liquids (Time): 00:00 NPO Since - Solids (Date): 06/06/17 NPO Since - Solids (Time): 00:00 - Anes Hx Anes Hx: no prior problems - Smoking Hx Smoking Status: Former smoker ANE Labs/Vital Signs - Labs Result Diagrams: 06/06/17 04:20 06/06/17 04:20 - Vital Signs Blood Pressure: 104/46 Heart Rate: 69 Respiratory Rate: 16 O2 Sat (%): 100 Height: 5 ft 5 in Weight: 78.3 kg ANE Physical Exam - Airway Neck exam: FROM Mallampati Score: Class 2 - Pulmonary Pulmonary: no respiratory distress - Cardiovascular Cardiovascular: regular rate and rhythym - ASA Status ASA Status: IV ANE Anesthesia Plan Anesthesia Plan: general endotracheal anesthesia Lines/Monitors: arterial line, central line, SILVIA
[2017-06-06] MEDS ORDERED: MIDAZOLAM 2 MG/2 ML VIAL ONE (08:18)
[2017-06-06] MEDS ORDERED: PROPOFOL/EMULSION 500 MG/50 ML BOTTLE IV ONE ×2 (08:24→12:11)
[2017-06-06] MEDS ORDERED: REMIFENTANIL HCL 1 MG VIAL ONE (08:24)
[2017-06-06] MEDS ORDERED: fentaNYL 250 MCG/5 ML INJ ONE (08:24)
[2017-06-06] MEDS: BUDESONIDE/FORMOTEROL 160/4.5 60 PUFFS/MDI IH SCH (09:41)
[2017-06-06] MEDS ORDERED: HYDROmorphONE/DILAUDID 2 MG/ML INJ ONE (12:39)
[2017-06-06] MEDS ORDERED: MAGNESIUM SULF 1 GM/DEXTROSE 100 ML BAG IV ONE (13:42)
[2017-06-06] MEDS ORDERED: MAGNESIUM SULF 2 GM/WATER 50 ML IV ONE (14:31)
[2017-06-06] MEDS ORDERED: POTASSIUM Cl (KCl) 50 ML IV PRN (14:31)
[2017-06-06] MEDS ORDERED: BISACODYL 10 MG SUPP PR PRN (14:31)
[2017-06-06] MEDS ORDERED: MEPERIDINE 25 MG/ML SYR IVP PRN (14:31)
[2017-06-06] MEDS ORDERED: MAGNESIUM HYDROXIDE 30 ML UDCUP PO PRN (14:31)
[2017-06-06] MEDS ORDERED: ONDANSETRON 4 MG/2 ML VIAL IVP PRN (14:31)
[2017-06-06] MEDS ORDERED: PANTOPRAZOLE SODIUM 40 MG VIAL IVP ONE (14:31)
[2017-06-06] MEDS ORDERED: D50W 25 GM/50 ML SYR IVP PRN (14:31)
[2017-06-06] MEDS ORDERED: METOCLOPRAMIDE 10 MG/2 ML VIAL IVP PRN (14:31)
[2017-06-06] MEDS ORDERED: CEPACOL LOZENGE PO PRN (14:31)
[2017-06-06] MEDS ORDERED: SODIUM CL NASAL 45 ML BTL EACHNARE PRN (14:31)
[2017-06-06] MEDS ORDERED: LACTULOSE 20 GM/30 ML UDCUP PO PRN (14:31)
[2017-06-06] MEDS ORDERED: ACETAMINOPHEN 650 MG SUPP PR PRN (14:31)
[2017-06-06] MEDS ORDERED: ONDANSETRON DISINTEGRATING 4 MG TAB PO PRN (14:31)
[2017-06-06] MEDS ORDERED: POLYETHYLENE GLYCOL 3350 17 GM PKT PO PRN (14:31)
[2017-06-06] MEDS ORDERED: fentaNYL 100 MCG/2 ML INJ IVP PRN (14:31)
[2017-06-06] MEDS ORDERED: NS 1,000 ML IV SCH (14:45)
[2017-06-06] MEDS ORDERED: INSULIN REGULAR HUMAN 100 UNIT in NS 100 ML IV SCH (15:00)
--- NOTE | 2017-06-06 15:08 | CPEKG ---
Heart Rate: 85 RR Interval: 706 P-R Interval: 164 QRSD Interval: 86 QT Interval: 428 QTC Interval: 509 P [place]: -52 QRS Morris: 80 T Wave Morris: 54 EKG Severity - ABNORMAL ECG - EKG Impression: SINUS OR ECTOPIC ATRIAL RHYTHM EKG Impression: Diffuse ST segment elevation EKG Impression: BORDERLINE PROLONGED QT INTERVAL Electronically Signed By: Ramu Moss 06-Jun-2017 16:02:05
[2017-06-06] MEDS: GABAPENTIN 300 MG CAP PO SCH (15:29)
[2017-06-06] MEDS: FLUTICASONE NASAL 120 SPRAYS/16 GM MDI EACHNARE SCH (15:29)
[2017-06-06] MEDS: ASPIRIN EC 81 MG TAB PO SCH (15:29)
[2017-06-06] MEDS: POTASSIUM CL 20 MEQ TAB PO SCH (15:30)
[2017-06-06] MEDS: KETOROLAC 0.5% 5 ML OPHT.BTL EACHEYE SCH (15:30)
[2017-06-06] MEDS: LUBIPROSTONE 24 MCG CAP PO SCH (15:30)
[2017-06-06] MEDS: MUPIROCIN 2% 22 GM OINT NS SCH ×2 (15:30→21:00)
[2017-06-06] MEDS: SUCRALFATE 1 GM TAB PO SCH (15:31)
[2017-06-06] MEDS: TOPIRAMATE 25 MG TAB PO SCH (15:31)
[2017-06-06] MEDS: PSYLLIUM METAMUCIL 1 PKT PO SCH (15:31)
[2017-06-06] MEDS: ALBUMIN 5% 250 ML IV PRN ×2 (15:32→19:45)
[2017-06-06] MEDS: PANTOPRAZOLE SODIUM 40 MG TAB PO SCH (15:39)
[2017-06-06] MEDS: SENNOSIDES/DOCUSATE SODIUM TAB PO SCH ×2 (15:39→23:47)
--- NOTE | 2017-06-06 15:48 | GOP ---
[f rep st] OPERATIVE REPORT DATE OF OPERATION: 06/06/2017 SURGEON: Salvador Kessler DO GEOLOGICAL ENGINEERING TEACHER: 1. Kim Heredia, PAC. 2. Jean Feldman PA-C. ANESTHESIA: Intravenous. ANESTHESIOLOGIST: Dr. Alicia PREOPERATIVE DIAGNOSIS: 1. Congestive heart failure, class 4 with severe 3-vessel coronary artery disease. 2. Hypertensive heart disease. 3. Calcific mitral stenosis, mitral regurgitation. 4. Obesity. 5. Chronic obstructive pulmonary disease with bronchospasm. POSTOPERATIVE DIAGNOSIS: 1. Congestive heart failure, class 4 with severe 3-vessel coronary artery disease. 2. Hypertensive heart disease. 3. Calcific mitral stenosis, mitral regurgitation. 4. Obesity. 5. Chronic obstructive pulmonary disease with bronchospasm. PROCEDURE PERFORMED: 1. Coronary artery bypass grafting x4 with the saphenous vein graft to the left anterior descending, 1st diagonal, 2nd diagonal, and the posterior descending artery. 2. Atrial clip to the left atrial appendage. 3. Endoscopic vein harvest of both legs. 4. Mitral valve exploration with debridement. No replacement made because of circumferential calcif ication extending into the posterior myocardium, and the aortic root felt to be inoperable. FINDINGS: DESCRIPTION OF PROCEDURE: Patient was brought to the operating room, intubated and monitoring lines were placed. Transesophageal echo was placed. Endoscopic vein was harvested from both legs, being u tilized was 3.5 mm, excellent quality vein. The patient had a known left subclavian occlusion; there fore, mammary was not harvested. She had a previous left carotid endarterectomy and had high-grade i liac artery disease, as well as evidence of three-vessel coronary disease. Sternotomy was performed. The aorta was interrogated. There was no significant calcification. It was mildly enlarged at 3.5 cm. She was cannulated in the standard fashion with bicaval cannulas. Cardiopulmonary bypass was b egun. The cross-clamp was applied with retrograde and antegrade cardioplegia administered. We then proceeded with grafting the distal targets. The 1st OM/ramus/1st diagonal was a 2.5 to 2.7 m m good quality, deeply intramuscular vessel which was grafted end-to-side with excellent vein, porfirio t off the ascending aorta with a cross-clamp on. We then grafted the second diagonal which was a 1.5 mm to 1.7 mm vessel with diffuse disease, with a proximal anastomosis brought off the ascending aort a. We then grafted the distal 3rd of the LAD, which was a 2.5 mm to 2.7 mm vessel with significant p osterior plaquing. The proximal anastomosis was completed to the ascending aorta as well. We then g rafted the proximal PDA which was a 1.5 mm vessel with excellent quality vein graft. That anastomosi s proximally was not completed at that time. The patient was noted to have severe hypertrophic cardiomyopathy with an obliterative chamber on corley sesophageal echo pre pump, with some evidence of outflow tract obstruction with vasodilation during e cho. As stated, she had a heavily calcified mitral annular calcification which was circumferential, extending into the mitral leaflet/aortic anulus junction and deep into the posterior wall of the left ventricle, which I felt was not resectable. For that reason, we did explore the mitral valve throug h the right superior pulmonary vein, we went inner atrial septal, extending onto the dome of the left atrium, exposing the mitral valve and as per echo and fluoro findings, I felt that the muscle bar wa s far too extended into the left ventricle to be safely repairable with patch. For that reason, as I discussed with the family, I aborted any mitral valve replacement. I did debride heavy calcificatio n on the anterior leaflet in the initial attempt to try to identify whether it was repairable or repl aceable. However, again, the entire anterior leaflet was calcified, extending into the septum and in to the aortic anulus, and involving all the fibrous skeleton. I therefore aborted replacing the valv e. The interatrial septum and the right atrium were closed. We then completed the proximal right coronary anastomosis. A 35 mm clip was placed across the base o f the left atrial appendage. The cross-clamp was removed with suction on the ascending aortic vent. Spontaneous cardiac activity was noted to resume. The patient was weaned from bypass after being de-aired through the apex and as cending aorta in Trendelenburg, when no further air was identified; she was easily weaned from bypass . The heparin was reversed with protamine. Cannula was removed and oversewn. The echo revealed goo d LV wall function, which was again noted to be extremely thick and with an obliterative cavity, and moderate to severe mitral regurgitation, unchanged. The heparin was reversed with protamine. The ca nnula was removed and oversewn. Two ventricular pacing wires, 1 left pleural and 2 mediastinal drain s were placed. We partially closed the pericardium, although because of her air trapping underlying COPD, I was concerned about tamponade physiology with the lungs as they were, so I left the lower por tion of the pericardium open to the right, to avoid any cardiac compromise. She remained stable. Th e chest was closed in standard fashion. She was returned to ICU in stable condition. /[id number]/MODL
[2017-06-06] MEDS ORDERED: SODIUM BICARBONATE 50 MEQ/50 ML SYR ONE (17:08)
[2017-06-06] MEDS ORDERED: NA BICARBONATE 50 MEQ/50 ML VIAL IV ONE (17:15)
--- NOTE | 2017-06-06 17:19 | POSTANESTH ---
Post Anesthetic Evaluation Cardiovascular Status: Normal, Stable Respiratory Status: Other, See Comment Level of Consciousness/Mental Status: Moderately Sleepy Pain Control: Adequate, Prn Tx Ordered Nausea/Vomiting Control: Adequate, Prn Tx Ordered Complications Possibly Related to Anesthesia: None Noted (on vent/sedated)
[2017-06-06] MEDS ORDERED: ALBUTEROL 200 PUFFS/18 GM MDI IH PRN (17:24)
[2017-06-06] MEDS ORDERED: IPRATROPIUM/ALBUTEROL 3 ML DEYVIAL IH PRN (17:25)
[2017-06-06] MEDS: VANCOMYCIN HCL/NORMAL SALINE 250 ML IV SCH (17:36)
[2017-06-06] MEDS ORDERED: DEXMEDETOMIDINE IN 0.9 % NACL 50 ML IV SCH (18:00)
[2017-06-07] MEDS: VANCOMYCIN HCL/NORMAL SALINE 250 ML IV SCH ×2 (05:38→18:15)
[2017-06-07] MEDS: HEPARIN 5,000 UNIT/0.5 ML SYR SC SCH ×3 (05:38→20:37)
[2017-06-07 06:06] LABS: PLATELET COUNT 77 10^3/uL (150-400)
--- NOTE | 2017-06-07 06:57 | SOAPPROG ---
SOAP Progress Note Assessment/Plan: Assessment: POD#1 CABG x 4 (SV-LAD, SV-RI, SV-D2, SV-PDA), EVH bilat LEs, mitral annular debridement, prophylactic AtriClip LLAA Sx multivessel CAD with preserved LV systolic fx - Known occl of left subclavian artery with poor SAL pulse intraop resulting in all vein revascularization. Secondary prevention with ASA as allowed by plt count, BB as allowed by BP, and statin when eating well. Acute on chronic dCHF - Class IV at admission. Echo notable for moderate concentric LVH. Off CPB without pressor support. No tachyarrhythmias, prolonged backup pacing or sig fluid overload. Staggered reintro of HF meds when appropriate. 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 Degree of calcification too extensive for consideration MVR. Eccentric plaques debrided. No significant change post revasc. Surveillance per cards. Acute on chronic respiratory insufficiency - Hx RAD/COPD, THUY/CPAP w O2. Rested overnoc on vent. Min support this am and extubation anticipated. Acute expected blood loss anemia with thrombocytopenia - Stable s/p 4u PRBC. Care with VTE prophylaxis while platelets depressed. Chronic leukocytosis - Stable. PVD - Carotid, subclavian and aortoiliac disease. No apparent postop neurologic or vascular deficits. BP cks RUE only. Secondary prevention as per CAD. Plan: Routine POD#1 orders re lines and TCPWs. Extubation per pulm. Convert blakes to bulb if no air leak once extubated and OOB. GLAZING DEPARTMENT SUPERVISOR clearance for orals. 06/07/17 06:51 Subjective: Lightly sedated on vent. Eyes open, nodding head and following commands appropriately. MAEE. Endorses adequate analgesia. Objective: Vital Signs Temp Pulse Resp BP Pulse Ox 37.9 C 85 13 113/53 L 40 L 06/07/17 06:00 06/07/17 06:00 06/07/17 06:00 06/07/17 06:00 06/07/17 06:00 Laboratory Results 06/07/17 05:55 06/07/17 05:55 06/06/17 06/07/17 06/08/17 05:59 05:59 05:59 Intake Total 900 1369.2 Output Total 2075 1790 40 Balance -1175 -420.8 -40 NSR, MAPs generally > 70 overnoc. Stable sats on vent/CPAP FIO2 40%. CXR -> No PTX, mild pulm vasc congestion, small residual left pleural effusion, suboptimal course of left pl tube secondary to adhesions. No sig CTOP. Adequate fluid balance. Labs as expected. Physical Exam - Physical Exam General Appearance: alert, no apparent distress Respiratory: lungs clear (vent), other (blakes x 3 y-d to pleurovac, serosang drainage, no air leak) Cardiac/Chest: regular rate, rhythm, other (Sternotomy CDI. Vwires intact. ) Abdomen: normal bowel sounds, non-tender, soft Skin: warm/dry Extremities: swelling (1+ gen), other (leg wraps intact) ICD10 Worksheet Patient Problems: Problems Problem Status Onset Acute blood loss anemia Acute CAD in hoopa artery Acute Congestive heart failure Acute Mitral valve regurgitation Acute S/P CABG x 4 Acute ~06/06/17 chronic disease mgmt/transitional Care Acute ALICIA (acute kidney injury) Acute Chest pain Acute Dyspnea Acute Hypotension Acute Pre-syncope Acute Sinus tachycardia Acute TIA (transient ischemic attack) Acute Transient hypotension Acute
[2017-06-07] MEDS: MUPIROCIN 2% 22 GM OINT NS SCH ×2 (08:35→20:36)
[2017-06-07] MEDS: SENNOSIDES/DOCUSATE SODIUM TAB PO SCH ×2 (08:43→20:34)
[2017-06-07] MEDS: ASPIRIN EC 81 MG TAB PO SCH (08:43)
[2017-06-07] MEDS ORDERED: ASPIRIN 81 MG CHEWABLE TAB PO SCH (09:00)
[2017-06-07] MEDS ORDERED: PANTOPRAZOLE SODIUM 40 MG TAB PO SCH (09:00)
[2017-06-07] MEDS ORDERED: ASPIRIN 81 MG CHEWABLE TAB TUBE PRN (09:00)
[2017-06-07] MEDS: HYDROCODONE/APAP 5/325 TAB PO PRN ×4 (09:50→22:42)
[2017-06-07] MEDS: KETOROLAC 0.5% 5 ML OPHT.BTL EACHEYE SCH (10:14)
--- NOTE | 2017-06-07 15:03 | ASMTCMCOM ---
CM Note CM Note Notes: Patient underwent coronary artery bypass grafting x4 yesterday. OT/PT were ordered. Both are recommending home care. Patient was asleep and unable to talk. Notified [facility] to keep patient on their referral list. Patient will most likely need the weekend for recovery and will be ready for d/c Saturday-Saturday. CM will follow. Date Signed: 06/07/2017 03:03 PM Electronically Signed By:Ashleigh Ahmadi LCSW
--- NOTE | 2017-06-07 15:47 | CPEKG ---
Heart Rate: 103 RR Interval: 583 P-R Interval: 184 QRSD Interval: 74 QT Interval: 348 QTC Interval: 456 P [place]: -39 QRS [place]: 55 T Wave [place]: 9 EKG Severity - BORDERLINE ECG - EKG Impression: SINUS TACHYCARDIA EKG Impression: BORDERLINE R WAVE PROGRESSION, ANTERIOR LEADS EKG Impression: BORDERLINE T WAVE ABNORMALITIES Electronically Signed By: Hayes Trevino 08-Jun-2017 12:03:07
[2017-06-07] MEDS: MONTELUKAST SODIUM 10 MG TAB PO SCH (15:51)
--- NOTE | 2017-06-07 16:33 | PDINTPN ---
Director Of Events Progress Note Assessment/Plan: Assessment: Asthma: Clinically quiescent. THUY: Severe. On CPAP, and she has her unit here. Anemia: Likely due to expected acute blood loss. Hyperglycemia: Controlled with insulin Gtt. Plan: Wean off insulin gtt. Advance diet as tolerated. Increase activity. Resume Symbicort. CPAP/oxygen with sleep. 06/07/17 16:39 Subjective: Feels very minimal dyspnea. Doesn't feel that her asthma is active. Objective: Vital Signs Temp Pulse Resp BP Pulse Ox 37.8 C 97 18 129/63 H 95 06/07/17 14:00 06/07/17 15:57 06/07/17 15:57 06/07/17 15:57 06/07/17 15:57 Laboratory Results 06/07/17 05:55 06/07/17 14:30 06/06/17 06/07/17 06/08/17 05:59 05:59 05:59 Intake Total 900 1369.2 350 Output Total 2075 1790 500 Balance -1175 -420.8 -150 CXR: ETT OK. Pulmonary edema. Images reviewed by me. Physical Exam - Physical Exam General Appearance: alert, no apparent distress EENT: normal ENT inspection Neck: normal inspection Respiratory: lungs clear, normal breath sounds Cardiac/Chest: regular rate, rhythm, edema Abdomen: normal bowel sounds, non-tender Skin: normal color, warm/dry Extremities: normal inspection Neuro/Psych: no motor/sensory deficits, alert, normal mood/affect ICD10 Worksheet Patient Problems: Problems Problem Status Onset Acute blood loss anemia Acute CAD in [place] artery Acute Congestive heart failure Acute Mitral valve regurgitation Acute S/P CABG x 4 Acute ~06/06/17 chronic disease mgmt/transitional Care Acute ALICIA (acute kidney injury) Acute Chest pain Acute Dyspnea Acute Hypotension Acute Pre-syncope Acute Sinus tachycardia Acute TIA (transient ischemic attack) Acute Transient hypotension Acute
--- NOTE | 2017-06-07 17:09 | GCON ---
[f rep st] CONSULTATION PULMONARY/CRITICAL CARE CONSULTATION DATE OF CONSULTATION: 06/06/2017 REFERRING PHYSICIAN: Salvador Kessler DO REASON FOR REFERRAL: Evaluation and management of respiratory failure, asthma, and sleep apnea histo ry. The patient is a 76-year-old woman with a longstanding history of asthma and obstructive sleep a pnea. She sees Dr. Evans for her asthma and is currently treated with Singulair and Symbicort. She has both a fixed and reversible obstructive component, with a most recent FEV1 of 55% of predicted. She was admitted to the hospital on 05/29 with increased shortness of breath, and was felt to be in c ongestive heart failure. She was treated with diuresis and a left heart catheterization was performe d, and she was found to have severe 3-vessel disease with preserved LV systolic function with severe left ventricular hypertrophy. She also had a heavily calcified mitral valve. She was referred to Dr Ramon Kessler, who performed a 4-vessel CABG. Her mitral valve was debrided but calcifications were too ex tensive to safely proceed with replacement. Intraoperatively, she had hyperinflation of her lungs. She remains intubated. PAST MEDICAL HISTORY: 1. Hypertension. 2. Diastolic congestive heart failure. 3. Severe obstructive sleep apnea with an AHI of 33. She is treated with CPAP and supplemental oxyg en. 4. Asthma. As above, her most recent FEV1 was 55% of predicted. 5. Chronic low back pain. 6. Carotid stenosis. MEDICATIONS: At the time of admission include furosemide, Vicodin, aspirin, Flonase, Singulair, Symb icort 160 two puffs twice daily, albuterol nebulizer, Imitrex, albuterol inhaler, Topamax, Valtrex, g abapentin, Amitiza, atorvastatin, oxycodone, amlodipine, metoprolol, losartan. ALLERGIES: Penicillin. SOCIAL HISTORY: The patient is a former smoker who stopped 30 years ago. She denies alcohol or drug s. FAMILY HISTORY: Positive for CVAs in her sisters. REVIEW OF SYSTEMS: Unobtainable. PHYSICAL EXAMINATION: GENERAL: The patient is intubated and sedated. VITAL SIGNS: A blood pressur e is 131/58. Her heart rate is 88. She is afebrile. Oxygen saturations are 100% on the ventilator, 40% oxygen. HEENT: Normocephalic and atraumatic. No icterus. NECK: No adenopathy. Trachea is m idline. CHEST: Clear to auscultation. CARDIAC: Regular rate and rhythm, without murmur. ABDOMEN: Soft, nontender. Bowel sounds are pres ent. EXTREMITIES: No clubbing, cyanosis, or edema. NEURO: The patient weakly moves all extremitie s to noxious stimuli. She is not following commands. LABORATORY: Hemoglobin is 8.8. White blood count is 13.8 this morning. A chemistry group is unrema rkable. Her glucose is 173. A chest x-ray shows a small left pleural effusion and pulmonary edema. The endotracheal tube is in t he appropriate position. Images are reviewed by me. ASSESSMENT: 1. Status post coronary artery bypass grafting. The patient is hemodynamically stable, not on any p ressors. 2. Asthma. This delayed extubation, the patient had hyperinflation of her lungs intraoperatively. Currently, her airway pressures are not significantly elevated, and she is oxygenating/ventilating we ll. 3. Obstructive sleep apnea. The patient uses continuous positive airway pressure and oxygen at home . This will need to be continued in the hospital once she is extubated. 4. Hyperglycemia. 5. Hypertrophic cardiomyopathy. RECOMMENDATIONS: Continue intubation for now. If the patient wakes up more, she can be extubated la ter today but certainly I would expect her to be extubated by tomorrow. CPAP and oxygen will be used with sleep when she is extubated. Symbicort and Singulair will be continued. The patient will be g iven bronchodilators as needed for wheezing/dyspnea. /[id number]/MODL
[2017-06-07] MEDS: oxyCODONE IR 5 MG TAB PO PRN (20:34)
[2017-06-07] MEDS: METOPROLOL TARTRATE 25 MG TAB PO SCH (20:34)
[2017-06-07] MEDS: LUBIPROSTONE 24 MCG CAP PO SCH (21:19)
[2017-06-07] MEDS: GABAPENTIN 400 MG CAP PO SCH (21:20)
[2017-06-07] MEDS: TOPIRAMATE 25 MG TAB PO SCH (21:20)
[2017-06-07] MEDS: FLUTICASONE NASAL 120 SPRAYS/16 GM MDI EACHNARE SCH (21:21)
[2017-06-07] MEDS: SUCRALFATE 1 GM TAB PO SCH (21:22)
[2017-06-07] MEDS: BUDESONIDE/FORMOTEROL 160/4.5 60 PUFFS/MDI IH SCH (21:42)
[2017-06-08] MEDS: HYDROCODONE/APAP 5/325 TAB PO PRN ×2 (04:41→20:29)
[2017-06-08] MEDS: HEPARIN 5,000 UNIT/0.5 ML SYR SC SCH ×3 (06:11→23:44)
--- NOTE | 2017-06-08 08:26 | SOAPPROG ---
SOAP Progress Note Assessment/Plan: Assessment: POD#2 CABG x 4 (SV-LAD, SV-RI, SV-D2, SV-PDA), EVH bilat LEs, mitral annular debridement, prophylactic AtriClip LLAA Sx multivessel CAD with preserved LV systolic fx - Known occl of left subclavian artery with poor SAL pulse intraop resulting in all vein revascularization. Secondary prevention with ASA as allowed by plt count, BB as allowed by BP, and statin when eating well. Acute on chronic dCHF - Class IV at admission. Echo notable for moderate concentric LVH. Off CPB without pressor support. No tachyarrhythmias, prolonged backup pacing or sig fluid overload. Staggered reintro of HF meds when appropriate. 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 Degree of calcification too extensive for consideration MVR. Eccentric plaques debrided. No significant change post revasc. Surveillance per cards. Acute on chronic respiratory insufficiency - Hx RAD/COPD, THUY/CPAP w O2. Rested overnoc on vent. Min support this am and extubation anticipated. Acute expected blood loss anemia with thrombocytopenia - Stable s/p 4u PRBC. Care with VTE prophylaxis while platelets depressed. Chronic leukocytosis - Stable. PVD - Carotid, subclavian and aortoiliac disease. No apparent postop neurologic or vascular deficits. BP cks RUE only. Secondary prevention as per CAD. Plan: Cont metoprolol 12.5 mg BID with conservative hold parameters. Begin gentle diuresis. Remove TCPWs and mediastinal drains. Inc activity as tolerated. Dispo - Anticipate SNF in 2-3 days. 06/08/17 08:26 Subjective: Feels weak. Fatigues easily. Agrees will likely need SNF at discharge. Objective: Vital Signs Temp Pulse Resp BP Pulse Ox 37.9 C 102 H 18 93/53 L 93 06/08/17 04:00 06/08/17 04:00 06/08/17 04:00 06/08/17 04:00 06/08/17 04:00 Laboratory Results 06/08/17 06:20 06/08/17 06:20 06/07/17 06/08/17 06/09/17 05:59 05:59 05:59 Intake Total 1369.2 1400 Output Total 1790 1225 280 Balance -420.8 175 -280 Holding SR/ST. No hypotension. Stable sats on 2 Lpm O2. CXR -> improved aeration, mild pulm vasc congestion, small left pl eff. Mediastinal CTOP below removal criteria. Balanced I/Os. +8 kg overall. Plt rebounding. Other labs as expected. Physical Exam - Physical Exam General Appearance: alert, no apparent distress Respiratory: decreased breath sounds (bases), other (blakes x 3 to bulb suction , serosang drainage) Cardiac/Chest: regular rate, rhythm, other (Sternotomy and LLE venotomy CDI. Vwires intact.) Abdomen: non-tender, soft Skin: warm/dry Extremities: swelling (1-2+) ICD10 Worksheet Patient Problems: Problems Problem Status Onset Acute blood loss anemia Acute CAD in [place] artery Acute Congestive heart failure Acute Mitral valve regurgitation Acute S/P CABG x 4 Acute ~06/06/17 chronic disease mgmt/transitional Care Acute ALICIA (acute kidney injury) Acute Chest pain Acute Dyspnea Acute Hypotension Acute Pre-syncope Acute Sinus tachycardia Acute TIA (transient ischemic attack) Acute Transient hypotension Acute
[2017-06-08] MEDS ORDERED: FUROSEMIDE 20 MG TAB PO SCH (09:00)
[2017-06-08] MEDS: BUDESONIDE/FORMOTEROL 160/4.5 60 PUFFS/MDI IH SCH ×2 (09:13→21:37)
[2017-06-08] MEDS: oxyCODONE IR 5 MG TAB PO PRN (10:26)
[2017-06-08] MEDS: TOPIRAMATE 25 MG TAB PO SCH ×2 (10:27→20:30)
[2017-06-08] MEDS: SUCRALFATE 1 GM TAB PO SCH ×2 (10:27→20:31)
[2017-06-08] MEDS: METOPROLOL TARTRATE 25 MG TAB PO SCH ×3 (10:27→23:59)
[2017-06-08] MEDS: ASPIRIN EC 81 MG TAB PO SCH (10:27)
[2017-06-08] MEDS: SENNOSIDES/DOCUSATE SODIUM TAB PO SCH ×2 (10:28→20:30)
[2017-06-08] MEDS: LUBIPROSTONE 24 MCG CAP PO SCH ×2 (10:29→20:30)
[2017-06-08] MEDS: GABAPENTIN 300 MG CAP PO SCH (10:30)
[2017-06-08] MEDS: FLUTICASONE NASAL 120 SPRAYS/16 GM MDI EACHNARE SCH ×2 (10:31→20:35)
[2017-06-08] MEDS: MUPIROCIN 2% 22 GM OINT NS SCH (10:31)
[2017-06-08] MEDS: KETOROLAC 0.5% 5 ML OPHT.BTL EACHEYE SCH (10:32)
[2017-06-08] MEDS: POTASSIUM CL 20 MEQ TAB PO SCH (10:40)
[2017-06-08] MEDS: PSYLLIUM METAMUCIL 1 PKT PO SCH ×2 (10:40→20:30)
--- NOTE | 2017-06-08 16:34 | ASMTCMCOM ---
CM Note CM Note Notes: Reviewed chart regarding discharge plan, pt's progress. Per MD notes, pt POD # 2 s/p CABG x 4 w/ mitral annular debridement. CT's disrupted while working w/ OT today; drains out. Pt transferred from ICU. Per MD, pt will likely need SNF in 2-3 days. OT recommend home care, PT recommend home care w/ front wheel walker. CM will discuss discharge plan w/ doctor and pt on Saturday06/09/17; will cont to follow. Current discharge plan: To be determined Date Signed: 06/08/2017 04:34 PM Electronically Signed By:Florence Montgomery RN
[2017-06-08] MEDS: GABAPENTIN 400 MG CAP PO SCH (20:30)
[2017-06-08] MEDS ORDERED: NS BOLUS 500 ML IV PRN (23:10)
[2017-06-08] MEDS ORDERED: ALBUMIN 5% 250 ML IV ONE (23:24)
[2017-06-08] MEDS ORDERED: AMIODARONE A.FIB-6HR INFSN (ORDER 2/3) PREMIX IV ONE (23:30)
[2017-06-08] MEDS ORDERED: AMIODARONE A.FIB-LOAD DOSE(ORDER 1/3) PREMIX IV ONE (23:30)
[2017-06-09] MEDS ORDERED: AMIODARONE A.FIB-18HR INFSN (ORDER 3/3) IV ONE (06:00)
[2017-06-09] MEDS: HEPARIN 5,000 UNIT/0.5 ML SYR SC SCH ×3 (06:10→22:41)
[2017-06-09] MEDS: METOPROLOL TARTRATE 25 MG TAB PO SCH ×2 (07:53→20:06)
[2017-06-09] MEDS: ASPIRIN EC 81 MG TAB PO SCH (07:53)
[2017-06-09] MEDS: TOPIRAMATE 25 MG TAB PO SCH ×2 (07:54→20:05)
[2017-06-09] MEDS: SENNOSIDES/DOCUSATE SODIUM TAB PO SCH ×2 (07:55→20:05)
[2017-06-09] MEDS: LUBIPROSTONE 24 MCG CAP PO SCH ×2 (07:55→20:26)
[2017-06-09] MEDS: SUCRALFATE 1 GM TAB PO SCH ×2 (07:55→20:06)
[2017-06-09] MEDS: POTASSIUM CL 20 MEQ TAB PO SCH (07:55)
[2017-06-09] MEDS: GABAPENTIN 300 MG CAP PO SCH (07:56)
[2017-06-09] MEDS: PSYLLIUM METAMUCIL 1 PKT PO SCH ×2 (07:56→20:06)
[2017-06-09] MEDS: FLUTICASONE NASAL 120 SPRAYS/16 GM MDI EACHNARE SCH ×2 (07:58→20:21)
[2017-06-09] MEDS: BUDESONIDE/FORMOTEROL 160/4.5 60 PUFFS/MDI IH SCH ×2 (08:00→20:00)
--- NOTE | 2017-06-09 08:31 | SOAPPROG ---
SOAP Progress Note Assessment/Plan: Assessment: POD#3 CABG x 4 (SV-LAD, SV-RI, SV-D2, SV-PDA), EVH bilat LEs, mitral annular debridement, prophylactic AtriClip LLAA Sx multivessel CAD with preserved LV systolic fx - Known occl of left subclavian artery with poor SAL pulse intraop resulting in all vein revascularization. Secondary prevention with ASA, statin, and BB as allowed by BP. Acute on chronic dCHF - Class IV at admission. Echo notable for moderate concentric LVH. Off CPB without pressor support. Gradually diuresing sig fluid overload w stable renal fx. Chest tubes out. Staggered reintro of HF meds when appropriate. Cont care with preload. 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 Degree of calcification too extensive for consideration MVR. Eccentric plaques debrided. No significant change post revasc. Surveillance per cards. Acute on chronic respiratory insufficiency - Hx RAD/COPD, THUY/CPAP w O2. Extubated POD#1 without incident. Chronic MDIs and CPAP resumed. Acute expected blood loss anemia with thrombocytopenia - Stable s/p 6u PRBC. Platelet rebound noted. Postoperative paroxysmal atrial fibrillation - Converted to SR on amio. Adjunctive BB as allowed by BP. Antithrombotic prophylaxis with DOAC if recurrent or persistent. Chronic leukocytosis - Stable. PVD - Carotid, subclavian and aortoiliac disease. No apparent postop neurologic or vascular deficits. BP cks RUE only. Secondary prevention as per CAD. Plan: Cont metoprolol 12.5 mg BID with conservative hold parameters. Transition IV to oral amiodarone. Switch oral to IV lasix for now. Consider removal TCPWs tomorrow. Cont inc activity as tolerated. Dispo - Anticipate SNF in 2-3 days if medically stable. 06/09/17 08:27 Subjective: Generally tired. Improving mobility and stamina. Mobilizing thick secretions. Unaware of palpitations or irreg heart beat. Objective: Vital Signs Temp Pulse Resp BP Pulse Ox 37.3 C 87 18 122/67 H 95 06/09/17 08:00 06/09/17 08:00 06/09/17 08:00 06/09/17 08:00 06/09/17 08:00 Laboratory Results 06/08/17 06:20 06/09/17 06:15 06/08/17 06/09/1718 05:59 05:59 05:59 Intake Total 1400 1640 Output Total 1225 615 100 Balance 175 1025 -100 In and out of AF overnoc. Improved rate control on amio, BB. Stable suppl O2 req. Positive fluid balance. +9kg overall. CXR-> small bilat pl eff, L>R Physical Exam - Physical Exam General Appearance: alert, no apparent distress Respiratory: crackles (bilat bases, o/w CTA), other Cardiac/Chest: regular rate, rhythm, other (Sternum grossly stable. Sternotomy and LE venots CDI) Abdomen: non-tender, soft Skin: warm/dry Extremities: swelling (2+ generalized) ICD10 Worksheet Patient Problems: Problems Problem Status Onset Acute blood loss anemia Acute CAD in [place] artery Acute Congestive heart failure Acute Mitral valve regurgitation Acute S/P CABG x 4 Acute ~06/06/17 chronic disease mgmt/transitional Care Acute ALICIA (acute kidney injury) Acute Chest pain Acute Dyspnea Acute Hypotension Acute Pre-syncope Acute Sinus tachycardia Acute TIA (transient ischemic attack) Acute Transient hypotension Acute
[2017-06-09] MEDS ORDERED: FUROSEMIDE 20 MG/2 ML VIAL IVP ONE (09:00)
[2017-06-09 10:48] LABS: INR 1.22 (0.83-1.16); PROTIME(PATIENT) 15.6 SEC (12.0-15.0)
[2017-06-09] MEDS ORDERED: LIDOCAINE 1% 300 MG/30 ML SDV ONE (12:39)
--- NOTE | 2017-06-09 16:09 | ASMTCMCOM ---
CM Note CM Note Notes: Met with patient's daughter Ev who reports the plan has been for her mother to go for some rehab post hospitalization after her CABG. They live in [place] and would prefer a facility in that general area. Referrals [facility] to [facility]. Family has been invited to go for drop in tours to see facilities. CM to follow. Date Signed: 06/09/2017 04:09 PM Electronically Signed By:Devorah Baptiste RN
[2017-06-09] MEDS: HYDROCODONE/APAP 5/325 TAB PO PRN (20:05)
[2017-06-09] MEDS: AMIODARONE HCL 200 MG TAB PO SCH (20:06)
[2017-06-09] MEDS: GABAPENTIN 400 MG CAP PO SCH (20:06)
[2017-06-10] MEDS: ATORVASTATIN CALCIUM 20 MG TAB PO SCH ×2 (03:14→20:28)
[2017-06-10] MEDS: MONTELUKAST SODIUM 10 MG TAB PO SCH ×2 (03:14→20:28)
[2017-06-10] MEDS: HYDROCODONE/APAP 5/325 TAB PO PRN ×2 (05:35→10:15)
[2017-06-10] MEDS: HEPARIN 5,000 UNIT/0.5 ML SYR SC SCH (05:37)
--- NOTE | 2017-06-10 06:31 | SOAPPROG ---
SOAP Progress Note Assessment/Plan: POD#4 CABG x 4 (SV-LAD, SV-RI, SV-D2, SV-PDA), EVH bilat LEs, mitral annular debridement, prophylactic AtriClip LLAA Sx multivessel CAD with preserved LV systolic fx - Known occl of left subclavian artery with poor SAL pulse intraop resulting in all vein revascularization. Secondary prevention with ASA, statin, and BB as allowed by BP. Acute on chronic dCHF - Class IV at admission. Echo notable for moderate concentric LVH. Staggered reintro of HF meds when appropriate. Cont care with preload. 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 Degree of calcification too extensive for consideration MVR. Eccentric plaques debrided. No significant change post revasc. Surveillance per cards. Acute on chronic respiratory insufficiency - Hx RAD/COPD, THUY/CPAP w O2. Extubated POD#1 without incident. Chronic MDIs and CPAP resumed. Acute expected blood loss anemia with thrombocytopenia - Stable s/p 6u PRBC. Platelet rebound noted. Postoperative paroxysmal atrial fibrillation - Continue amiodarone. Adjunctive BB as allowed by BP. Antithrombotic prophylaxis with DOAC if recurrent or persistent. Chronic leukocytosis - Stable. PVD - Carotid, subclavian and aortoiliac disease. No apparent postop neurologic or vascular deficits. BP cks RUE only. Secondary prevention as per CAD. Subjective: Feels SOB. Denies pain. Legs are swollen. Objective: Vital Signs Temp Pulse Resp BP Pulse Ox 36.8 C 100 18 134/81 H 91 L 06/09/17 23:09 06/09/17 23:09 06/09/17 23:09 06/09/17 23:09 06/10/17 05:59 Laboratory Results 06/10/17 05:45 06/10/17 05:45 06/09/17 06/10/17 06/11/17 05:59 05:59 05:59 Intake Total 1640 1055 Output Total 615 950 Balance 1025 105 PT 15.6 SEC (12.0-15.0) H 06/09/17 10:30 INR 1.22 (0.83-1.16) H 06/09/17 10:30 Physical Exam - Physical Exam General Appearance: WD/WN, alert, no apparent distress EENT: No scleral icterus (R), No scleral icterus (L) Neck: normal inspection Respiratory: No respiratory distress Cardiac/Chest: tachycardia, irregularly irregular Abdomen: non-tender, soft, No distended Skin: normal color, warm/dry Extremities: pedal edema Neuro/Psych: no motor/sensory deficits, alert, normal mood/affect, oriented x 3 ICD10 Worksheet Patient Problems: Problems Problem Status Onset Acute blood loss anemia Acute CAD in [place] artery Acute Congestive heart failure Acute Mitral valve regurgitation Acute S/P CABG x 4 Acute ~06/06/17 chronic disease mgmt/transitional Care Acute ALICIA (acute kidney injury) Acute Chest pain Acute Dyspnea Acute Hypotension Acute Pre-syncope Acute Sinus tachycardia Acute TIA (transient ischemic attack) Acute Transient hypotension Acute
[2017-06-10] MEDS ORDERED: FUROSEMIDE 40 MG/4 ML VIAL IVP ONE ×2 (07:19→17:42)
[2017-06-10] MEDS: BUDESONIDE/FORMOTEROL 160/4.5 60 PUFFS/MDI IH SCH ×3 (09:05→19:09)
[2017-06-10] MEDS: APIXABAN 2.5 MG TAB PO SCH ×2 (10:16→20:28)
[2017-06-10] MEDS: LUBIPROSTONE 24 MCG CAP PO SCH ×2 (10:16→21:20)
[2017-06-10] MEDS: AMIODARONE HCL 200 MG TAB PO SCH ×2 (10:16→20:28)
[2017-06-10] MEDS: GABAPENTIN 300 MG CAP PO SCH (10:17)
[2017-06-10] MEDS: SENNOSIDES/DOCUSATE SODIUM TAB PO SCH ×2 (10:18→21:00)
[2017-06-10] MEDS: PSYLLIUM METAMUCIL 1 PKT PO SCH ×2 (10:18→21:00)
[2017-06-10] MEDS: ASPIRIN EC 81 MG TAB PO SCH (10:18)
[2017-06-10] MEDS: TOPIRAMATE 25 MG TAB PO SCH ×2 (10:18→20:28)
[2017-06-10] MEDS: SUCRALFATE 1 GM TAB PO SCH ×2 (10:18→20:28)
[2017-06-10] MEDS: POTASSIUM CL 20 MEQ TAB PO SCH (10:19)
[2017-06-10] MEDS: METOPROLOL TARTRATE 25 MG TAB PO SCH ×4 (10:19→22:29)
[2017-06-10] MEDS: FLUTICASONE NASAL 120 SPRAYS/16 GM MDI EACHNARE SCH ×2 (10:24→20:33)
[2017-06-10] MEDS ORDERED: AMIODARONE HCL 100 ML IV ONE ×2 (12:00→20:48)
[2017-06-10] MEDS: GABAPENTIN 400 MG CAP PO SCH (20:27)
[2017-06-10] MEDS: ACETAMINOPHEN 325 MG TAB PO PRN (20:49)
[2017-06-10] MEDS: SUMAtriptan 25 MG TAB PO PRN (21:19)
[2017-06-11] MEDS: HYDROCODONE/APAP 5/325 TAB PO PRN ×4 (06:10→23:10)
--- NOTE | 2017-06-11 08:02 | SOAPPROG ---
SOAP Progress Note Assessment/Plan: Assessment: POD#5 CABG x 4 (SV-LAD, SV-RI, SV-D2, SV-PDA), EVH bilat LEs, mitral annular debridement, prophylactic AtriClip LLAA Sx multivessel CAD with preserved LV systolic fx - Known occl of left subclavian artery with poor SAL pulse intraop resulting in all vein revascularization. Secondary prevention with ASA, BB, and statin. Acute on chronic dCHF - Class IV at admission. Echo notable for moderate concentric LVH. Off CPB without pressor support. Gradually diuresing sig fluid overload w stable renal fx. Chest tubes out. Staggered reintro of HF meds when appropriate. Cont care with preload. 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 Degree of calcification too extensive for consideration MVR. Eccentric plaques debrided. No significant change in MR post revasc. Surveillance per cards. Acute on chronic respiratory insufficiency - Hx RAD/COPD, THUY/CPAP w O2. Extubated POD#1 without incident. Chronic MDIs and CPAP resumed. Acute expected blood loss anemia with thrombocytopenia - Stable s/p 6u PRBC. Platelet rebound noted. Postoperative paroxysmal atrial fibrillation - Converted to SR on amio. Adjunctive BB uptitrated as tolerated for recurrent PAF. Antithrombotic prophylaxis with Eliquis. Chronic leukocytosis - Stable. PVD - Carotid, subclavian and aortoiliac disease. No apparent postop neurologic or vascular deficits. BP cks RUE only. Secondary prevention as per CAD. Plan: Clip TCPWs. Cont metoprolol 37.5 mg BID. Cont amiodarone 200 mg BID. Cont Eliquis 2.5 mg BID. Cont IV lasix 40 mg today. Cont inc activity as tolerated. Dispo - Anticipate SNF ([facility]) on 06/11/17 07:59 Subjective: Best day yet. Slept well. Feels peppier and less swollen. Satisfactory analgesia. Objective: Vital Signs Temp Pulse Resp BP Pulse Ox 36.7 C 82 19 120/61 100 06/11/17 04:00 06/11/17 04:00 06/11/17 04:00 06/11/17 04:00 06/11/17 04:00 Laboratory Results 06/10/17 05:45 06/11/17 05:15 06/10/17 06/11/17 06/12/17 05:59 05:59 05:59 Intake Total 1055 1930 Output Total 1250 2300 Balance -195 -370 PT 15.6 SEC (12.0-15.0) H 06/09/17 10:30 INR 1.22 (0.83-1.16) H 06/09/17 10:30 Intermittent AF w CVR yest. BB uptitrated to 37.5 mg and well tolerated. No AF overnoc. Stable sats on 2.5 lpm O2. Improving fluid balance. Losing ~ 1kg/daily. 7 kg to go. Cr remains stable. Await 2 view CXR. Physical Exam - Physical Exam General Appearance: alert, no apparent distress Respiratory: lungs clear (grossly), other (improved insp effort) Cardiac/Chest: regular rate, rhythm, other (Sternotomy, CT sites, and bilat venots CDI. Vwires intact.) Abdomen: non-tender, soft Skin: warm/dry Extremities: swelling (1+ gen) ICD10 Worksheet Patient Problems: Problems Problem Status Onset Acute blood loss anemia Acute CAD in [place] artery Acute Congestive heart failure Acute Mitral valve regurgitation Acute S/P CABG x 4 Acute ~06/06/17 chronic disease mgmt/transitional Care Acute ALICIA (acute kidney injury) Acute Chest pain Acute Dyspnea Acute Hypotension Acute Pre-syncope Acute Sinus tachycardia Acute TIA (transient ischemic attack) Acute Transient hypotension Acute
[2017-06-11] MEDS ORDERED: POTASSIUM CL 20 MEQ TAB PO ONE (09:00)
[2017-06-11] MEDS ORDERED: FUROSEMIDE 40 MG/4 ML VIAL IVP ONE (09:00)
[2017-06-11] MEDS: BUDESONIDE/FORMOTEROL 160/4.5 60 PUFFS/MDI IH SCH ×2 (09:04→20:05)
[2017-06-11] MEDS: SUCRALFATE 1 GM TAB PO SCH ×2 (09:06→21:55)
[2017-06-11] MEDS: METOPROLOL TARTRATE 25 MG TAB PO SCH ×2 (09:06→21:56)
[2017-06-11] MEDS: AMIODARONE HCL 200 MG TAB PO SCH ×2 (09:06→21:56)
[2017-06-11] MEDS: ASPIRIN EC 81 MG TAB PO SCH (09:06)
[2017-06-11] MEDS: APIXABAN 2.5 MG TAB PO SCH ×2 (09:06→21:56)
[2017-06-11] MEDS: GABAPENTIN 300 MG CAP PO SCH (09:06)
[2017-06-11] MEDS: POTASSIUM CL 20 MEQ TAB PO SCH (09:08)
[2017-06-11] MEDS: SENNOSIDES/DOCUSATE SODIUM TAB PO SCH (09:09)
[2017-06-11] MEDS: PSYLLIUM METAMUCIL 1 PKT PO SCH ×2 (09:09→22:28)
[2017-06-11] MEDS: TOPIRAMATE 25 MG TAB PO SCH ×2 (10:23→21:55)
[2017-06-11] MEDS: LUBIPROSTONE 24 MCG CAP PO SCH ×2 (10:31→22:28)
--- NOTE | 2017-06-11 11:21 | ASMTCMCOM ---
CM Note CM Note Notes: 06/11/2017 Case Management Note Family prefers [facility] rehab. Pt has not been accepted yet to [facility], spoke darcy/Shayna and she will make a decision closer to d[facility] Faxed updates to both facilities today. Case Management d/c poc: to SNF rehab Case Management to follow. Date Signed: 06/11/2017 11:21 AM Electronically Signed By:Chayito Adams RN
[2017-06-11] MEDS: FLUTICASONE NASAL 120 SPRAYS/16 GM MDI EACHNARE SCH ×2 (15:34→22:28)
[2017-06-11] MEDS: ACETAMINOPHEN 325 MG TAB PO PRN (20:09)
[2017-06-11] MEDS: SUMAtriptan 25 MG TAB PO PRN (20:10)
[2017-06-11] MEDS: MONTELUKAST SODIUM 10 MG TAB PO SCH (21:55)
[2017-06-11] MEDS: GABAPENTIN 400 MG CAP PO SCH (21:55)
[2017-06-11] MEDS: ATORVASTATIN CALCIUM 20 MG TAB PO SCH (21:56)
[2017-06-12] MEDS: HYDROCODONE/APAP 5/325 TAB PO PRN ×4 (05:25→22:21)
--- NOTE | 2017-06-12 06:37 | SOAPPROG ---
SOAP Progress Note Assessment/Plan: POD#6 CABG x 4 (SV-LAD, SV-RI, SV-D2, SV-PDA), EVH bilat LEs, mitral annular debridement, prophylactic AtriClip LLAA Sx multivessel CAD with preserved LV systolic fx - Known occl of left subclavian artery with poor SAL pulse intraop resulting in all vein revascularization. Secondary prevention with ASA, statin, and BB as allowed by BP. Acute on chronic dCHF - Class IV at admission. Echo notable for moderate concentric LVH. Staggered reintro of HF meds when appropriate. Cont care with preload. 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 Degree of calcification too extensive for consideration MVR. Eccentric plaques debrided. No significant change post revasc. Surveillance per cards. Acute on chronic respiratory insufficiency - Hx RAD/COPD, THUY/CPAP w O2. Extubated POD#1 without incident. Chronic MDIs and CPAP resumed. Acute expected blood loss anemia with thrombocytopenia - Stable s/p 6u PRBC. Platelet rebound noted. Postoperative paroxysmal atrial fibrillation - Continue amiodarone/beta- clocker. Antithrombotic prophylaxis with Eliquis. Chronic leukocytosis - Stable. PVD - Carotid, subclavian and aortoiliac disease. No apparent postop neurologic or vascular deficits. BP cks RUE only. Secondary prevention as per CAD. Disposition - plan for SNF Saturday Subjective: Feels better today. Pain well-controlled. Denies SOB. LE edema has improved. Objective: Vital Signs Temp Pulse Resp BP Pulse Ox 37.1 C 83 18 104/52 L 96 06/12/17 04:00 06/12/17 04:00 06/12/17 04:00 06/12/17 04:00 06/12/17 04:00 Laboratory Results 06/12/17 05:25 06/12/17 05:25 06/11/17 06/12/17 06/13/17 05:59 05:59 05:59 Intake Total 1930 1160 Output Total 2300 1950 Balance -370 -790 PT 15.6 SEC (12.0-15.0) H 06/09/17 10:30 INR 1.22 (0.83-1.16) H 06/09/17 10:30 Physical Exam - Physical Exam General Appearance: WD/WN, alert, no apparent distress EENT: No scleral icterus (R), No scleral icterus (L) Neck: normal inspection Respiratory: No respiratory distress Cardiac/Chest: regular rate, rhythm Abdomen: non-tender, soft, No distended Skin: normal color, warm/dry Extremities: pedal edema Neuro/Psych: no motor/sensory deficits, alert, normal mood/affect, oriented x 3 ICD10 Worksheet Patient Problems: Problems Problem Status Onset Acute blood loss anemia Acute CAD in [place] artery Acute Congestive heart failure Acute Mitral valve regurgitation Acute S/P CABG x 4 Acute ~06/06/17 chronic disease mgmt/transitional Care Acute ALICIA (acute kidney injury) Acute Chest pain Acute Dyspnea Acute Hypotension Acute Pre-syncope Acute Sinus tachycardia Acute TIA (transient ischemic attack) Acute Transient hypotension Acute
[2017-06-12] MEDS: FUROSEMIDE 40 MG/4 ML VIAL IVP SCH ×2 (08:26→14:57)
[2017-06-12] MEDS: APIXABAN 2.5 MG TAB PO SCH ×2 (08:27→21:55)
[2017-06-12] MEDS: METOPROLOL TARTRATE 25 MG TAB PO SCH ×2 (08:27→22:23)
[2017-06-12] MEDS: POTASSIUM CL 20 MEQ TAB PO SCH (08:27)
[2017-06-12] MEDS: ASPIRIN EC 81 MG TAB PO SCH (08:27)
[2017-06-12] MEDS: TOPIRAMATE 25 MG TAB PO SCH ×2 (08:28→21:54)
[2017-06-12] MEDS: SUCRALFATE 1 GM TAB PO SCH ×2 (08:28→21:54)
[2017-06-12] MEDS: AMIODARONE HCL 200 MG TAB PO SCH ×2 (08:28→21:54)
[2017-06-12] MEDS: GABAPENTIN 300 MG CAP PO SCH (08:28)
[2017-06-12] MEDS: FLUTICASONE NASAL 120 SPRAYS/16 GM MDI EACHNARE SCH ×2 (08:32→22:22)
[2017-06-12] MEDS: LUBIPROSTONE 24 MCG CAP PO SCH ×2 (08:48→22:22)
[2017-06-12] MEDS: BUDESONIDE/FORMOTEROL 160/4.5 60 PUFFS/MDI IH SCH ×2 (09:50→20:28)
[2017-06-12] MEDS: PSYLLIUM METAMUCIL 1 PKT PO SCH ×2 (11:11→22:23)
[2017-06-12] MEDS: ACETAMINOPHEN 325 MG TAB PO PRN (14:57)
[2017-06-12] MEDS: SUMAtriptan 25 MG TAB PO PRN (14:57)
[2017-06-12] MEDS ORDERED: POTASSIUM CL 20 MEQ TAB PO ONE (15:00)
--- NOTE | 2017-06-12 17:21 | SOAPPROG ---
SOAP Progress Note Assessment/Plan: Assessment: 1.) Known recurring Fe deficiency anemia- seen at our office , followed by Dr. Torres in our group, and has a requirement for parenteral Iron therapy . Last iron infusion was January,. Intolerant of enteral iron repletion. Fe def. thought to be due to chronic UGI blood loss from chronic gastritis. 2.) Reactive Leukocytosis, chronic Hospitalized on 05/29/17. Hospital course noted. S/P Cardiac surgery, with numerous units of PRBCs transfused through course of her hospitalization, as required. Will check serum Ferritin, so as to determine her iron stores. If Ferritin looks acceptable, then she should continue with outpt. prn follow up with our service. Plan: 1.) Ferritin ordered for 06/13/17. Will review lab. 06/12/17 17:16 Subjective: Feeling better post-op, notes some dark stools. Objective: Afebrile, VSS as noted here. elderly female, in NAD reclining in bedside chair HEENT- anicteric, no oral thrush Neck- supple Chest- clear anteriorly CVS- RR, S1, S2 ABD- soft, NT no mass or HSM EXT- minimal LE edema, pulses intact, skin intact Labs- Hgb 8.5, MCV 88.4, PLT 203, wbc 14.28 Vital Signs Temp Pulse Resp BP Pulse Ox 36.7 C 87 20 118/71 100 06/12/17 11:15 06/12/17 11:15 06/12/17 11:15 06/12/17 11:15 06/12/17 11:15 Laboratory Results 06/12/17 05:25 06/12/17 05:25 06/11/17 06/12/17 06/13/17 05:59 05:59 05:59 Intake Total 1930 1160 750 Output Total 2300 1950 1550 Balance -370 -790 -800 PT 15.6 SEC (12.0-15.0) H 06/09/17 10:30 INR 1.22 (0.83-1.16) H 06/09/17 10:30 ICD10 Worksheet Patient Problems: Problems Problem Status Onset Acute blood loss anemia Acute CAD in [place] artery Acute Congestive heart failure Acute Mitral valve regurgitation Acute S/P CABG x 4 Acute ~06/06/17 chronic disease mgmt/transitional Care Acute ALICIA (acute kidney injury) Acute Chest pain Acute Dyspnea Acute Hypotension Acute Pre-syncope Acute Sinus tachycardia Acute TIA (transient ischemic attack) Acute Transient hypotension Acute
[2017-06-12] MEDS: MONTELUKAST SODIUM 10 MG TAB PO SCH (21:54)
[2017-06-12] MEDS: GABAPENTIN 400 MG CAP PO SCH (21:54)
[2017-06-12] MEDS: ATORVASTATIN CALCIUM 20 MG TAB PO SCH (21:54)
[2017-06-12] MEDS ORDERED: SUMAtriptan 50 MG TAB PO ONE (22:15)
[2017-06-13] MEDS: HYDROCODONE/APAP 5/325 TAB PO PRN ×3 (06:07→17:53)
--- NOTE | 2017-06-13 07:25 | SOAPPROG ---
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 Secondary prevention with ASA, BB, and statin. Acute on chronic dCHF - Class IV at admission. Echo notable for moderate concentric LVH. Off CPB without pressor support. Gradually diuresing sig fluid overload w stable renal fx. Chest tubes out. Staggered reintro of HF meds when appropriate. Cont care with preload. 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 Degree of calcification too extensive for consideration MVR. Eccentric plaques debrided. No significant change in MR post revasc. Surveillance per cards. Acute on chronic respiratory insufficiency - Hx RAD/COPD, THUY/CPAP w O2. Extubated POD#1 without incident. Chronic MDIs and CPAP resumed. Acute expected blood loss anemia with thrombocytopenia - Stable s/p 6u PRBC. Platelet rebound noted. Hx Fe def anemia and periodic IV Fe infusion. Hematology consulted to eval benefit of IV Fe dose while hospitalized. Ferritin level pending. Postoperative paroxysmal atrial fibrillation - Converted to SR on amio. Adjunctive BB uptitrated as tolerated for recurrent PAF. Antithrombotic prophylaxis with Eliquis. Chronic leukocytosis - Stable. PVD - Carotid, subclavian and aortoiliac disease. No apparent postop neurologic or vascular deficits. BP cks RUE only. Secondary prevention as per CAD. Plan: Cont current meds. Dispo - Anticipate SNF ([facility]) tomorrow. 06/13/17 07:22 Subjective: Cont improvements in strength and stamina. Thigh harvest sites bruised but getting softer. Feels ready for discharge tomorrow. Objective: Vital Signs Temp Pulse Resp BP Pulse Ox 37.1 C 85 18 127/66 H 100 06/13/17 04:00 06/13/17 04:00 06/13/17 04:00 06/13/17 04:00 06/13/17 04:00 Laboratory Results 06/12/17 05:25 06/12/17 05:25 06/12/17 06/13/17 06/14/17 05:59 05:59 05:59 Intake Total 1160 1250 Output Total 1950 3150 Balance -790 -1900 PT 15.6 SEC (12.0-15.0) H 06/09/17 10:30 INR 1.22 (0.83-1.16) H 06/09/17 10:30 SR overnoc. Improved SBPs on lower dose metop. Resolving suppl O2 need during day. Excellent diuresis. Physical Exam - Physical Exam General Appearance: alert, no apparent distress Respiratory: lungs clear Cardiac/Chest: regular rate, rhythm, other (Sternum grossly stable. Sternotomy, CT sites and bilat thigh venots CDI) Abdomen: non-tender, soft Skin: warm/dry Extremities: swelling (1-2+ dependent) ICD10 Worksheet Patient Problems: Problems Problem Status Onset Acute blood loss anemia Acute CAD in [place] artery Acute Congestive heart failure Acute Mitral valve regurgitation Acute S/P CABG x 4 Acute ~06/06/17 chronic disease mgmt/transitional Care Acute ALICIA (acute kidney injury) Acute Chest pain Acute Dyspnea Acute Hypotension Acute Pre-syncope Acute Sinus tachycardia Acute TIA (transient ischemic attack) Acute Transient hypotension Acute
[2017-06-13] MEDS: BUDESONIDE/FORMOTEROL 160/4.5 60 PUFFS/MDI IH SCH ×2 (08:56→21:04)
[2017-06-13] MEDS ORDERED: FUROSEMIDE 40 MG/4 ML VIAL IVP ONE (09:00)
[2017-06-13] MEDS: PSYLLIUM METAMUCIL 1 PKT PO SCH ×2 (09:08→20:15)
[2017-06-13] MEDS: GABAPENTIN 300 MG CAP PO SCH (09:12)
[2017-06-13] MEDS: AMIODARONE HCL 200 MG TAB PO SCH ×2 (09:14→20:07)
[2017-06-13] MEDS: APIXABAN 2.5 MG TAB PO SCH ×2 (09:14→20:06)
[2017-06-13] MEDS: ASPIRIN EC 81 MG TAB PO SCH (09:14)
[2017-06-13] MEDS: METOPROLOL TARTRATE 25 MG TAB PO SCH ×2 (09:14→20:08)
[2017-06-13] MEDS: SUCRALFATE 1 GM TAB PO SCH ×2 (09:14→20:08)
[2017-06-13] MEDS: TOPIRAMATE 25 MG TAB PO SCH ×2 (09:14→20:07)
[2017-06-13] MEDS: POTASSIUM CL 20 MEQ TAB PO SCH ×2 (09:15→20:06)
[2017-06-13] MEDS: FLUTICASONE NASAL 120 SPRAYS/16 GM MDI EACHNARE SCH ×2 (09:16→23:17)
[2017-06-13] MEDS: LUBIPROSTONE 24 MCG CAP PO SCH ×2 (09:16→20:19)
[2017-06-13] MEDS ORDERED: FUROSEMIDE 40 MG TAB PO SCH (15:00)
--- NOTE | 2017-06-13 15:24 | SOAPPROG ---
[facility] Progress Note Assessment/Plan: Assessment: 1.) Known recurring Fe deficiency anemia- seen at our office , followed by Dr. Torres in our group, and has a requirement for parenteral Iron therapy . Last iron infusion was January,. Intolerant of enteral iron repletion. Fe def. thought to be due to chronic UGI blood loss from chronic gastritis. 2.) Reactive Leukocytosis, chronic Hospitalized on 05/29/17. Hospital course noted. S/P Cardiac surgery, with numerous units of PRBCs transfused through course of her hospitalization, as required. Since her Ferritin is 81 now, this is a normal, acceptable level of iron stores. With a stable H/H post op, I don't see need for transfusion support as of now. Plan: 1.) Ferritin is normal. No need for parenteral iron infusion now. Rajat has established follow up with our office, to return as needed in the future. Will sign off. 06/13/17 15:21 Subjective: Pt feeling well. at bedside Objective: VSS, Afebrile as noted here. Pt sitting up in bedside chair. Pt not formally examined Labs noted here: Hgb 8.5 Vital Signs Temp Pulse Resp BP Pulse Ox 36.6 C 98 17 113/61 98 06/13/17 12:35 06/13/17 12:35 06/13/17 12:35 06/13/17 12:35 06/13/17 12:35 Laboratory Results 06/12/17 05:25 06/12/17 05:25 06/12/17 06/13/17 06/14/17 05:59 05:59 05:59 Intake Total 1160 1250 440 Output Total 1950 3150 1500 Balance -790 -1900 -1060 PT 15.6 SEC (12.0-15.0) H 06/09/17 10:30 INR 1.22 (0.83-1.16) H 06/09/17 10:30 ICD10 Worksheet Patient Problems: Problems Problem Status Onset Acute blood loss anemia Acute CAD in [place] artery Acute Congestive heart failure Acute Mitral valve regurgitation Acute S/P CABG x 4 Acute ~06/06/17 chronic disease mgmt/transitional Care Acute ALICIA (acute kidney injury) Acute Chest pain Acute Dyspnea Acute Hypotension Acute Pre-syncope Acute Sinus tachycardia Acute TIA (transient ischemic attack) Acute Transient hypotension Acute
[2017-06-13] MEDS: MONTELUKAST SODIUM 10 MG TAB PO SCH (20:06)
[2017-06-13] MEDS: ATORVASTATIN CALCIUM 20 MG TAB PO SCH (20:07)
[2017-06-13] MEDS: GABAPENTIN 400 MG CAP PO SCH (20:08)
[2017-06-13] MEDS: ACETAMINOPHEN 325 MG TAB PO PRN (23:16)
[2017-06-13] MEDS: SUMAtriptan 25 MG TAB PO PRN (23:16)
[2017-06-14] MEDS: HYDROCODONE/APAP 5/325 TAB PO PRN (06:19)
--- NOTE | 2017-06-14 06:35 | SOAPPROG ---
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 Secondary prevention with ASA, statin, and BB.. Acute on chronic dCHF - Class IV at admission. Echo notable for moderate concentric LVH. Staggered reintro of HF meds when appropriate. Remains fluid overloaded. Continue BID Lasix. 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 Degree of calcification too extensive for consideration MVR. Eccentric plaques debrided. No significant change post revasc. Surveillance per cards. Acute on chronic respiratory insufficiency - Hx RAD/COPD, THUY/CPAP w O2. Extubated POD#1 without incident. Chronic MDIs and CPAP resumed. Acute expected blood loss anemia with thrombocytopenia and pre-op anemia - Stable s/p 6u PRBC. Platelet rebound noted. Hematology consulted for possible IV Fe infusion as pt was receiving them as an outpatient. Ferritin level was normal and plan is to continue outpatient management. Postoperative paroxysmal atrial fibrillation - Continue amiodarone/beta- rodger. Antithrombotic prophylaxis with Eliquis. Chronic leukocytosis - Stable. PVD - Carotid, subclavian and aortoiliac disease. No apparent postop neurologic or vascular deficits. BP cks RUE only. Secondary prevention as per CAD. Disposition - plan for SNF Saturday. Subjective: Denies pain/SOB. LE continue to be very swollen. Objective: Vital Signs Temp Pulse Resp BP Pulse Ox 36.7 C 91 15 125/70 H 100 06/14/17 04:00 06/14/17 04:00 06/14/17 04:00 06/14/17 04:00 06/14/17 04:00 Laboratory Results 06/12/17 05:25 06/12/17 05:25 06/13/17 06/14/17 06/15/17 05:59 05:59 05:59 Intake Total 1250 890 Output Total 3150 3550 Balance -1900 -2660 PT 15.6 SEC (12.0-15.0) H 06/09/17 10:30 INR 1.22 (0.83-1.16) H 06/09/17 10:30 Physical Exam - Physical Exam General Appearance: WD/WN, alert, no apparent distress EENT: No scleral icterus (R), No scleral icterus (L) Neck: normal inspection Respiratory: No respiratory distress Cardiac/Chest: regular rate, rhythm Abdomen: non-tender, soft, No distended Skin: normal color, warm/dry Extremities: pedal edema Neuro/Psych: no motor/sensory deficits, alert, normal mood/affect, oriented x 3 ICD10 Worksheet Patient Problems: Problems Problem Status Onset Acute blood loss anemia Acute CAD in [place] artery Acute Congestive heart failure Acute Mitral valve regurgitation Acute S/P CABG x 4 Acute ~06/06/17 chronic disease mgmt/transitional Care Acute ALICIA (acute kidney injury) Acute Chest pain Acute Dyspnea Acute Hypotension Acute Pre-syncope Acute Sinus tachycardia Acute TIA (transient ischemic attack) Acute Transient hypotension Acute
[2017-06-14] MEDS: BUDESONIDE/FORMOTEROL 160/4.5 60 PUFFS/MDI IH SCH ×2 (08:32→21:56)
[2017-06-14] MEDS: TOPIRAMATE 25 MG TAB PO SCH ×2 (10:17→20:18)
[2017-06-14] MEDS: ASPIRIN EC 81 MG TAB PO SCH (10:17)
[2017-06-14] MEDS: SUCRALFATE 1 GM TAB PO SCH ×2 (10:17→20:18)
[2017-06-14] MEDS: METOPROLOL TARTRATE 25 MG TAB PO SCH ×2 (10:18→20:17)
[2017-06-14] MEDS: GABAPENTIN 300 MG CAP PO SCH (10:18)
[2017-06-14] MEDS: FUROSEMIDE 40 MG/4 ML VIAL IVP SCH ×2 (10:18→16:27)
[2017-06-14] MEDS: AMIODARONE HCL 200 MG TAB PO SCH ×2 (10:18→20:18)
[2017-06-14] MEDS: POTASSIUM CL 20 MEQ TAB PO SCH ×2 (10:18→20:17)
[2017-06-14] MEDS: APIXABAN 2.5 MG TAB PO SCH ×2 (10:18→20:18)
[2017-06-14] MEDS: LUBIPROSTONE 24 MCG CAP PO SCH ×2 (10:19→20:24)
[2017-06-14] MEDS: FLUTICASONE NASAL 120 SPRAYS/16 GM MDI EACHNARE SCH ×2 (11:31→20:25)
[2017-06-14] MEDS: PSYLLIUM METAMUCIL 1 PKT PO SCH ×2 (11:31→20:25)
[2017-06-14] MEDS: ACETAMINOPHEN 325 MG TAB PO PRN ×2 (11:36→20:17)
--- NOTE | 2017-06-14 12:40 | ASMTCMCOM ---
CM Note CM Note Notes: CM spoke w/ Arabella RN regarding d/c POC. Pt is not medically stable to d/c at this time. CM sent updates to [facility]. CM to follow. Plan: [facility] Date Signed: 06/14/2017 12:39 PM Electronically Signed By:DORYS Hood
[2017-06-14] MEDS: MONTELUKAST SODIUM 10 MG TAB PO SCH (20:18)
[2017-06-14] MEDS: GABAPENTIN 400 MG CAP PO SCH (20:18)
[2017-06-14] MEDS: ATORVASTATIN CALCIUM 20 MG TAB PO SCH (20:18)
[2017-06-14] MEDS: SUMAtriptan 25 MG TAB PO PRN (20:18)
[2017-06-15] MEDS: HYDROCODONE/APAP 5/325 TAB PO PRN (06:30)
--- NOTE | 2017-06-15 08:41 | SOAPPROG ---
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 Secondary prevention with ASA, statin, and BB. Acute on chronic dCHF - Class IV at admission. Echo notable for moderate concentric LVH. On BB and IV Lasix. 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 Degree of calcification too extensive for consideration MVR. Eccentric plaques debrided. No significant change post revasc. Surveillance per cards. Acute on chronic respiratory insufficiency - Hx RAD/COPD, THUY/CPAP w O2. Extubated POD#1 without incident. Chronic MDIs and CPAP resumed. Left pleural effusion- US performed today showed minimal effusion with thoracentesis not indicated. Acute expected blood loss anemia with thrombocytopenia and pre-op anemia - Stable s/p 6u PRBC. Platelet rebound noted. Hematology consulted for possible IV Fe infusion as pt was receiving them as an outpatient. Ferritin level was normal and plan is to continue outpatient management. Postoperative paroxysmal atrial fibrillation - Continue amiodarone/beta- rodger. Antithrombotic prophylaxis with Eliquis. Chronic leukocytosis - Stable. PVD - Carotid, subclavian and aortoiliac disease. No apparent postop neurologic or vascular deficits. BP cks RUE only. Secondary prevention as per CAD. Disposition - plan for SNF Saturday. Subjective: Patient reports feeling more short of breath today despite wearing oxygen. Reports good pain control. Objective: Vital Signs Temp Pulse Resp BP Pulse Ox 36.6 C 89 18 109/67 94 06/15/17 07:52 06/15/17 07:52 06/15/17 07:52 06/15/17 07:52 06/15/17 07:52 Laboratory Results 06/14/17 06:40 06/15/17 07:40 06/14/17 06/15/17 06/16/17 05:59 05:59 05:59 Intake Total 890 1330 Output Total 3550 1500 Balance -2660 -170 PT 15.6 SEC (12.0-15.0) H 06/09/17 10:30 INR 1.22 (0.83-1.16) H 06/09/17 10:30 Physical Exam - Physical Exam General Appearance: WD/WN, alert, no apparent distress Respiratory: lungs clear, decreased breath sounds (bases L>R) Cardiac/Chest: regular rate, rhythm, other (Sternum stable, sternotomy c/d/i.) Abdomen: normal bowel sounds, non-tender, soft Skin: warm/dry Extremities: other (1-2+ pitting edema lower extremities) Neuro/Psych: alert, normal mood/affect, oriented x 3 ICD10 Worksheet Patient Problems: Problems Problem Status Onset Acute blood loss anemia Acute CAD in [place] artery Acute Congestive heart failure Acute Mitral valve regurgitation Acute S/P CABG x 4 Acute ~06/06/17 chronic disease mgmt/transitional Care Acute ALICIA (acute kidney injury) Acute Chest pain Acute Dyspnea Acute Hypotension Acute Pre-syncope Acute Sinus tachycardia Acute TIA (transient ischemic attack) Acute Transient hypotension Acute
[2017-06-15] MEDS: BUDESONIDE/FORMOTEROL 160/4.5 60 PUFFS/MDI IH SCH ×2 (08:52→21:49)
[2017-06-15] MEDS: METOPROLOL TARTRATE 25 MG TAB PO SCH ×2 (08:59→21:21)
[2017-06-15] MEDS: GABAPENTIN 300 MG CAP PO SCH (08:59)
[2017-06-15] MEDS: POTASSIUM CL 20 MEQ TAB PO SCH ×2 (08:59→21:20)
[2017-06-15] MEDS: SUCRALFATE 1 GM TAB PO SCH ×2 (08:59→21:20)
[2017-06-15] MEDS: AMIODARONE HCL 200 MG TAB PO SCH ×2 (08:59→21:21)
[2017-06-15] MEDS: TOPIRAMATE 25 MG TAB PO SCH ×2 (09:00→21:20)
[2017-06-15] MEDS: ASPIRIN EC 81 MG TAB PO SCH (09:00)
[2017-06-15] MEDS: APIXABAN 2.5 MG TAB PO SCH ×2 (09:00→21:20)
[2017-06-15] MEDS: FLUTICASONE NASAL 120 SPRAYS/16 GM MDI EACHNARE SCH ×2 (09:02→21:22)
[2017-06-15] MEDS: FUROSEMIDE 40 MG/4 ML VIAL IVP SCH ×2 (09:06→15:03)
[2017-06-15] MEDS: LUBIPROSTONE 24 MCG CAP PO SCH ×3 (09:07→22:15)
[2017-06-15] MEDS: PSYLLIUM METAMUCIL 1 PKT PO SCH ×2 (09:08→22:15)
[2017-06-15] MEDS: MONTELUKAST SODIUM 10 MG TAB PO SCH (21:20)
[2017-06-15] MEDS: SUMAtriptan 25 MG TAB PO PRN (21:20)
[2017-06-15] MEDS: ACETAMINOPHEN 325 MG TAB PO PRN (21:20)
[2017-06-15] MEDS: ATORVASTATIN CALCIUM 20 MG TAB PO SCH (21:21)
[2017-06-15] MEDS: GABAPENTIN 400 MG CAP PO SCH (21:21)
[2017-06-16] MEDS: APIXABAN 2.5 MG TAB PO SCH ×2 (08:09→20:25)
[2017-06-16] MEDS: METOPROLOL TARTRATE 25 MG TAB PO SCH ×2 (08:09→20:25)
[2017-06-16] MEDS: ASPIRIN EC 81 MG TAB PO SCH (08:09)
[2017-06-16] MEDS: GABAPENTIN 300 MG CAP PO SCH (08:09)
[2017-06-16] MEDS: POTASSIUM CL 20 MEQ TAB PO SCH (08:10)
[2017-06-16] MEDS: AMIODARONE HCL 200 MG TAB PO SCH ×2 (08:10→20:25)
[2017-06-16] MEDS: HYDROCODONE/APAP 5/325 TAB PO PRN (08:10)
[2017-06-16] MEDS: TOPIRAMATE 25 MG TAB PO SCH ×2 (08:10→20:25)
[2017-06-16] MEDS: SUCRALFATE 1 GM TAB PO SCH ×2 (08:10→20:24)
[2017-06-16] MEDS: LUBIPROSTONE 24 MCG CAP PO SCH ×2 (08:11→20:27)
[2017-06-16] MEDS: FUROSEMIDE 40 MG/4 ML VIAL IVP SCH (08:11)
[2017-06-16] MEDS: PSYLLIUM METAMUCIL 1 PKT PO SCH ×2 (08:11→20:27)
[2017-06-16] MEDS: FLUTICASONE NASAL 120 SPRAYS/16 GM MDI EACHNARE SCH ×2 (08:11→20:27)
--- NOTE | 2017-06-16 08:16 | SOAPPROG ---
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 Secondary prevention with ASA, statin, and BB. Acute on chronic dCHF - Class IV at admission. Echo notable for moderate concentric LVH. On BB and IV Lasix. Lasix dose doubled today due to continued significant lower extremity pitting edema. 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 Degree of calcification too extensive for consideration MVR. Eccentric plaques debrided. No significant change post revasc. Surveillance per cards. Acute on chronic respiratory insufficiency - Hx RAD/COPD, THUY/CPAP w O2. Extubated POD#1 without incident. Chronic MDIs and CPAP resumed. Left pleural effusion- Repeat US showed minimal effusion and thoracentesis not indicated. CT chest performed today showed trace left effusion with small loculated fluid collection on the left as well as pleural scarring on the left. Acute expected blood loss anemia with thrombocytopenia and pre-op anemia - Stable s/p 6u PRBC. Platelet rebound noted. Hematology consulted for possible IV Fe infusion as pt was receiving them as an outpatient. Ferritin level was normal and plan is to continue outpatient management. Postoperative paroxysmal atrial fibrillation - Continue amiodarone/beta- rodger. Antithrombotic prophylaxis with Eliquis. Chronic leukocytosis - Stable. Place PIV then d/c TLC today. PVD - Carotid, subclavian and aortoiliac disease. No apparent postop neurologic or vascular deficits. BP cks RUE only. Secondary prevention as per CAD. Disposition - Plan for d/c to home with HC and FWW tomorrow. Subjective: Patient reports improved SOB today. Good pain control. Objective: Vital Signs Temp Pulse Resp BP Pulse Ox 36.8 C 81 17 114/61 98 06/16/17 04:00 06/16/17 04:00 06/16/17 04:00 06/16/17 04:00 06/16/17 04:00 Laboratory Results 06/14/17 06:40 06/15/17 07:40 06/15/17 06/16/17 06/17/17 05:59 05:59 05:59 Intake Total 1330 900 Output Total 1500 1580 Balance -170 -680 PT 15.6 SEC (12.0-15.0) H 06/09/17 10:30 INR 1.22 (0.83-1.16) H 06/09/17 10:30 Physical Exam - Physical Exam General Appearance: WD/WN, alert, no apparent distress Respiratory: lungs clear, decreased breath sounds (bases) Cardiac/Chest: other (No murmurs or rub. Sternum stable, sternotomy c/d/i. ) Abdomen: normal bowel sounds, non-tender, soft Skin: warm/dry Extremities: other (2+ lower extremity pitting edema) Neuro/Psych: alert, normal mood/affect, oriented x 3 ICD10 Worksheet Patient Problems: Problems Problem Status Onset Acute blood loss anemia Acute CAD in [place] artery Acute Congestive heart failure Acute Mitral valve regurgitation Acute S/P CABG x 4 Acute ~06/06/17 chronic disease mgmt/transitional Care Acute ALICIA (acute kidney injury) Acute Chest pain Acute Dyspnea Acute Hypotension Acute Pre-syncope Acute Sinus tachycardia Acute TIA (transient ischemic attack) Acute Transient hypotension Acute
[2017-06-16] MEDS: BUDESONIDE/FORMOTEROL 160/4.5 60 PUFFS/MDI IH SCH ×2 (08:52→20:41)
[2017-06-16] MEDS ORDERED: POTASSIUM CL 20 MEQ TAB PO ONE ×2 (10:34→13:45)
[2017-06-16] MEDS: SUMAtriptan 25 MG TAB PO PRN (13:46)
[2017-06-16] MEDS: ACETAMINOPHEN 325 MG TAB PO PRN (13:47)
--- NOTE | 2017-06-16 14:59 | ASMTCMCOM ---
CM Note CM Note Notes: Spoke with patient about discharge planning. Per therapies, she has been making great progress and has been cleared to return home with home care. I spoke with patient and her daughter Ev ([phone]). Ev feels that home with home care is a good plan. She provides some care for patient (who lives with ) and requests home care with [facility]. I sent a referral to [facility] for PT/OT/RN. Current CM Discharge plan: home with [facility] Date Signed: 06/16/2017 02:58 PM Electronically Signed By:Karly Rosa RN
[2017-06-16] MEDS: FUROSEMIDE 100 MG/10 ML VIAL IVP SCH (15:05)
[2017-06-16] MEDS: GABAPENTIN 400 MG CAP PO SCH (20:25)
[2017-06-16] MEDS: MONTELUKAST SODIUM 10 MG TAB PO SCH (20:25)
[2017-06-16] MEDS: ATORVASTATIN CALCIUM 20 MG TAB PO SCH (20:25)
[2017-06-17] MEDS: ACETAMINOPHEN 325 MG TAB PO PRN ×2 (03:47→17:36)
--- NOTE | 2017-06-17 07:55 | SOAPPROG ---
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 Secondary prevention with ASA, BB, and statin. Acute on chronic dCHF - Class IV at admission. Echo notable for moderate concentric LVH. Off CPB without pressor support. Chest tubes out. Gradually diuresing sig fluid overload w stable renal fx. Lasix dose steadily increased as tolerated. 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 Degree of calcification too extensive for consideration MVR. Eccentric plaques debrided. No significant change in MR post revasc. Surveillance per cards. Acute on chronic respiratory insufficiency - Hx RAD/COPD, THUY/CPAP w O2. Extubated POD#1 without incident. Chronic MDIs and CPAP resumed. Acute expected blood loss anemia with thrombocytopenia - Stable s/p 6u PRBC. Platelet rebound noted. Hx Fe def anemia and periodic IV Fe infusion. Hematology consulted to eval benefit of IV Fe dose while hospitalized. Ferritin level WNL and further surveillance deferred to primary inspector mechanical. Postoperative paroxysmal atrial fibrillation - Converted to SR on amio. Adjunctive BB uptitrated as tolerated for recurrent PAF. Antithrombotic prophylaxis with Eliquis. Chronic leukocytosis - Stable. PVD - Carotid, subclavian and aortoiliac disease. No apparent postop neurologic or vascular deficits. BP cks RUE only. Secondary prevention as per CAD. Plan: Cont lasix 80 mg IV BID. Cont inc activity and pulm toilet. Dispo - Home with [facility] when successfully transitioned to oral diuresis. 06/17/17 07:55 Subjective: Feels well. Cont gains in ambulatory capacity. Stairs well tolerated. Admits to prolonged dangling with progressive low leg edema by day's end. Objective: Vital Signs Temp Pulse Resp BP Pulse Ox 36.6 C 89 16 112/60 96 06/17/17 04:00 06/17/17 04:00 06/17/17 04:00 06/17/17 04:00 06/17/17 04:00 Laboratory Results 06/14/17 06:40 06/17/17 03:30 06/16/17 06/17/17 06/18/17 05:59 05:59 05:59 Intake Total 900 1540 Output Total 1580 2100 Balance -680 -560 PT 15.6 SEC (12.0-15.0) H 06/09/17 10:30 INR 1.22 (0.83-1.16) H 06/09/17 10:30 Cardioresp status stable. CXR stable LLL haziness (CT chest yest notable for trace loculated left effusion posteriorly with pleural scarring). Improved diuresis on high dose lasix. Remains +4.4 kg. Labs as expected. - Pending Discharge Pending Discharge Within 24 Hours: Yes Pending Discharge Date: 06/18/17 Pending Discharge Time: 11:00 Physical Exam - Physical Exam General Appearance: alert, no apparent distress Respiratory: lungs clear Cardiac/Chest: regular rate, rhythm, other (Sternum grossly stable. Sternotomy and CT sites healing well.) Abdomen: non-tender, soft Skin: warm/dry Extremities: swelling (1-2+ dependent) ICD10 Worksheet Patient Problems: Problems Problem Status Onset Acute blood loss anemia Acute CAD in [place] artery Acute Congestive heart failure Acute Mitral valve regurgitation Acute S/P CABG x 4 Acute ~06/06/17 chronic disease mgmt/transitional Care Acute ALICIA (acute kidney injury) Acute Chest pain Acute Dyspnea Acute Hypotension Acute Pre-syncope Acute Sinus tachycardia Acute TIA (transient ischemic attack) Acute Transient hypotension Acute
[2017-06-17] MEDS: FUROSEMIDE 100 MG/10 ML VIAL IVP SCH ×2 (08:27→15:10)
[2017-06-17] MEDS: HYDROCODONE/APAP 5/325 TAB PO PRN (08:35)
[2017-06-17] MEDS: SUCRALFATE 1 GM TAB PO SCH ×2 (08:36→20:04)
[2017-06-17] MEDS: METOPROLOL TARTRATE 25 MG TAB PO SCH ×2 (08:36→20:04)
[2017-06-17] MEDS: ASPIRIN EC 81 MG TAB PO SCH (08:37)
[2017-06-17] MEDS: TOPIRAMATE 25 MG TAB PO SCH ×2 (08:37→20:04)
[2017-06-17] MEDS: APIXABAN 2.5 MG TAB PO SCH ×2 (08:37→20:03)
[2017-06-17] MEDS: GABAPENTIN 300 MG CAP PO SCH (08:37)
[2017-06-17] MEDS: AMIODARONE HCL 200 MG TAB PO SCH ×2 (08:37→20:04)
[2017-06-17] MEDS: PSYLLIUM METAMUCIL 1 PKT PO SCH ×2 (08:40→20:05)
[2017-06-17] MEDS: LUBIPROSTONE 24 MCG CAP PO SCH ×2 (08:40→20:05)
[2017-06-17] MEDS: FLUTICASONE NASAL 120 SPRAYS/16 GM MDI EACHNARE SCH ×2 (08:41→20:15)
[2017-06-17] MEDS: BUDESONIDE/FORMOTEROL 160/4.5 60 PUFFS/MDI IH SCH ×2 (09:54→20:15)
[2017-06-17] MEDS: POTASSIUM CL 20 MEQ TAB PO SCH ×2 (16:18→20:04)
[2017-06-17] MEDS ORDERED: traMADol 50 MG TAB PO PRN (18:00)
[2017-06-17] MEDS: MONTELUKAST SODIUM 10 MG TAB PO SCH (20:04)
[2017-06-17] MEDS: ATORVASTATIN CALCIUM 20 MG TAB PO SCH (20:04)
[2017-06-17] MEDS: GABAPENTIN 400 MG CAP PO SCH (20:05)
[2017-06-17] MEDS: SUMAtriptan 25 MG TAB PO PRN (20:13)
--- NOTE | 2017-06-18 07:06 | SOAPPROG ---
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 Secondary prevention with ASA, BB, and statin. Acute on chronic dCHF - Class IV at admission. Echo notable for moderate concentric LVH. Off CPB without pressor support. Chest tubes out. Gradually diuresing sig fluid overload w stable renal fx. Lasix dose steadily increased as tolerated. 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 Degree of calcification too extensive for consideration MVR. Eccentric plaques debrided. No significant change in MR post revasc. Surveillance per cards. Acute on chronic respiratory insufficiency - Hx RAD/COPD, THUY/CPAP w O2. Extubated POD#1 without incident. Chronic MDIs and CPAP resumed. Acute expected blood loss anemia with thrombocytopenia - Stable s/p 6u PRBC. Platelet rebound noted. Hx Fe def anemia and periodic IV Fe infusion. Hematology consulted to eval benefit of IV Fe dose while hospitalized. Ferritin level WNL and further surveillance deferred to primary caramel coloring operator. Postoperative paroxysmal atrial fibrillation - Converted to SR on amio. Adjunctive BB uptitrated as tolerated for recurrent PAF. Antithrombotic prophylaxis with Eliquis. Chronic leukocytosis - Stable. PVD - Carotid, subclavian and aortoiliac disease. No apparent postop neurologic or vascular deficits. BP cks RUE only. Secondary prevention as per CAD. Plan: Trial Demadex 40mg BID. Add Metolazone if am UOP suboptimal. Cont inc activity and pulm toilet. Dispo - Home with [facility] this afternoon. 06/18/17 07:04 Subjective: Feels well. Copious voiding last noc and does note less leg swelling. Objective: Vital Signs Temp Pulse Resp BP Pulse Ox 36.8 C 98 16 101/53 L 94 06/18/17 04:00 06/18/17 04:00 06/18/17 04:00 06/18/17 04:00 06/18/17 04:00 Laboratory Results 06/18/17 03:52 06/18/17 03:52 06/17/17 06/18/17 06/19/17 05:59 05:59 05:59 Intake Total 1540 1120 Output Total 2100 2285 Balance -560 -1255 PT 15.6 SEC (12.0-15.0) H 06/09/17 10:30 INR 1.22 (0.83-1.16) H 06/09/17 10:30 Intermittent AF. No hypotension. Adequate fluid balance. Physical Exam - Physical Exam General Appearance: alert, no apparent distress Respiratory: lungs clear Cardiac/Chest: regular rate, rhythm, other (Sternotomy, CT sites, and venotomies CDI) Abdomen: non-tender, soft Skin: warm/dry Extremities: swelling (1+ gen) ICD10 Worksheet Patient Problems: Problems Problem Status Onset Acute blood loss anemia Acute CAD in [place] artery Acute Congestive heart failure Acute Mitral valve regurgitation Acute S/P CABG x 4 Acute ~06/06/17 chronic disease mgmt/transitional Care Acute ALICIA (acute kidney injury) Acute Chest pain Acute Dyspnea Acute Hypotension Acute Pre-syncope Acute Sinus tachycardia Acute TIA (transient ischemic attack) Acute Transient hypotension Acute
[2017-06-18] MEDS: AMIODARONE HCL 200 MG TAB PO SCH (08:00)
[2017-06-18] MEDS: PSYLLIUM METAMUCIL 1 PKT PO SCH (08:01)
[2017-06-18] MEDS: ASPIRIN EC 81 MG TAB PO SCH (08:01)
[2017-06-18] MEDS: SUCRALFATE 1 GM TAB PO SCH (08:01)
[2017-06-18] MEDS: APIXABAN 2.5 MG TAB PO SCH (08:01)
[2017-06-18] MEDS: TOPIRAMATE 25 MG TAB PO SCH (08:01)
[2017-06-18] MEDS: METOPROLOL TARTRATE 25 MG TAB PO SCH (08:02)
[2017-06-18] MEDS: HYDROCODONE/APAP 5/325 TAB PO PRN (08:03)
[2017-06-18] MEDS: GABAPENTIN 300 MG CAP PO SCH (08:03)
[2017-06-18] MEDS: BUDESONIDE/FORMOTEROL 160/4.5 60 PUFFS/MDI IH SCH (08:24)
[2017-06-18] MEDS ORDERED: TORSEMIDE 20 MG TAB PO SCH (09:00)
[2017-06-18] MEDS ORDERED: POTASSIUM CL 20 MEQ TAB PO SCH (09:00)
[2017-06-18] MEDS: FLUTICASONE NASAL 120 SPRAYS/16 GM MDI EACHNARE SCH (10:10)
[2017-06-18] MEDS: ACETAMINOPHEN 325 MG TAB PO PRN (10:11)
[2017-06-18] MEDS: LUBIPROSTONE 24 MCG CAP PO SCH (10:11)
[2017-06-18 11:32] VITALS: BP 86/60; PULSE 107; RESP 20; TEMP 99.3; O2SAT 98
--- NOTE | 2017-06-18 13:30 | PDHOMEO2F ---
Home Oxygen Face to Face Home Orders: I certify that a physician or a nurse practitioner or physician's compliance assistant has had a [id number] encounter with this patient on the date of this order due to the diagnosis listed, which relates to the primary reason the patient requires home oxygen. Alternative treatments have been tried, or considered, and deemed ineffective. It is anticipated that supplemental oxygen will result in improvement with treatment. Home oxygen qualifying diagnosis: CAD Home oxygen secondary diagnosis: THUY SpO2 on room air (%): 83 Frequency of home oxygen needed: continuous Home oxygen liters per minute: 2 Home oxygen delivery device: nasal cannula Concentrator: Yes E-tanks for mobility and back up: Yes If ordering portable O2, is the patient mobile in the home?: Yes I certify that, based on these findings, the home oxygen is medically necessary for this patient for the following length of time. Length of time home oxygen needed: 1 month (unknown duration, at least 1 mo)
--- NOTE | 2017-06-18 13:53 | PDIAF ---
- Diagnosis Diagnosis: CAD s/p CABG; postop PAF Code Status: Full Code - Medication Management Discharge Medications: Medications to Continue on Transfer Aspirin [Aspir-Low] 81 mg PO DAILY 12/04/11 [Last Taken 09/06/16] Diclofenac Sodium 1% [Voltaren Gel (*)] 1 clyde TP DAILY PRN 12/04/11 [Last Taken 09/11/15] Fluticasone Nasal [Flonase Nasal Rector] 2 sprays NASAL BID 12/04/11 [Last Taken 01/03/16] Hydrocodone Bit/Acetaminophen [Vicodin 5/500] 1 tab PO DAILY PRN 12/04/11 [Last Taken 12/03/11] Sucralfate 1 gm PO BID 12/04/11 [Last Taken 09/06/16] Budesonide/Formoterol 160/4.5 [Symbicort 160-4.5 Mcg Inh (*)] 2 inh IH BID 09/11 [Last Taken 09/06/16] Montelukast Sodium [Singulair 10 mg (*)] 10 mg PO HS 09/11/14 [Last Taken ] Acyclovir 5% [Zovirax 5% Cream 2gm (RX)] 1 clyde TP Q2H PRN 07/29/15 [Last Taken 09/11/15] Albuterol [Proventil Inhaler HFA (*)] 2 puffs IH BID PRN 07/29/15 [Last Taken ] Albuterol [Proventil Neb] 3 ml IH QID PRN 07/29/15 [Last Taken 01/03/16] Polyethylene Glycol 3350 [Miralax 17 gm (*)] 17 gm PO TID PRN 07/29/15 [Last Taken 01/03/16 12:00] SUMAtriptan [Imitrex 50 MG (*)] 50 mg PO DAILY PRN 07/29/15 [Last Taken 01/02/16 ] Topiramate [Topamax 25MG (*)] 25 - 50 mg PO BID 07/29/15 [Last Taken 09/06/16] Valacyclovir HCl [Valtrex] 2,000 mg PO Q12 PRN 07/29/15 [Last Taken 09/11/15] Gabapentin [Neurontin 400 MG (*)] 800 mg PO HS 09/12/15 [Last Taken 09/06/16] Lubiprostone [Amitiza 24 mcg (*)] 24 mcg PO BID 09/12/15 [Last Taken 09/06/16] Atorvastatin Calcium [Lipitor 20 mg (*)] 20 mg PO HS 01/03/16 [Last Taken ] Herbals/Supplements -Info Only 1 ea PO DAILY 01/03/16 [Last Taken 09/06/16] oxyCODONE IR [Oxycodone Ir (*)] 5 mg PO Q3 PRN 01/03/16 [Last Taken Unknown] Potassium Cl [Klor-Con 20 meq (*)] 20 meq PO HS 09/07/16 [Last Taken 09/06/16] Psyllium Husk (with Sugar) [Metamucil Packet] 1 each PO BID 09/07/16 [Last Taken 09/06/16] Diclofenac Sodium 1 clyde TD QID PRN 05/29/17 [Last Taken Unknown] Diclofenac Sodium 4 gm TP QID PRN 05/29/17 [Last Taken Unknown] Ketorolac 0.5% [Acular 0.5% Opht Drops (*)] 1 drops EACHEYE DAILY 05/29/17 [ Last Taken Unknown] Caffeine 200 mg PO BID PRN 05/30/17 [Last Taken Unknown] Gabapentin [Neurontin 300 MG (*)] 300 mg PO DAILY 05/30/17 [Last Taken Unknown] Acetaminophen [Tylenol 325mg (*)] 325 - 650 mg PO Q4HRS PRN tab 06/18/17 [Last Taken Unknown] Amiodarone HCl [Pacerone (*)] 200 mg PO BID #40 tab 06/18/17 [Last Taken Unknown ] Apixaban [Eliquis] 2.5 mg PO BID #60 tab 06/18/17 [Last Taken Unknown] Metoprolol Tartrate [Lopressor 25 mg (*)] 25 mg PO BID #60 tab 06/18/17 [Last Taken Unknown] Torsemide [Demadex] 30 mg PO DAILY AT 10AM #30 tab 06/18/17 [Last Taken Unknown] traMADol [Ultram 50 mg (*)] 50 mg PO Q6HRS PRN #30 tab 06/18/17 [Last Taken Unknown] Discharge Medications: Refer to the Discharge Home Medication list for PRN reason. PICC Care - Routine: N/A - Orders Services needed: Registered Nurse (cardiorespiratory monitoring), Physical Therapy (sternal precautions x 2 more weeks) Isolation Type: None Oxygen: 2 lpm cont or as directed by SpO2; titrate to sat > 90% Diet Recommendation: cardiac -low fat low salt, fluid restriction (use comment for amount) (1800 ml daily until back to baseline weight) Diet Texture: Regular Texture Diet Weigh Patient: daily Rosario: Not applicable Wound Care Instructions: Daily soap and water. Ok to leave open to air. Avoid underwater immersion or ointments until scabs off Activity/Weight Bearing Restrictions: Sternal precautions x 3 more weeks. Avoid lifting > 10 lbs with an outstretched arm. Avoid push pull activities Additional: Call [employer] (Victoria) for wt gain > 2 lbs overnight, absolute wt gain > 5 lbs, progressive leg swelling, resting HR < 60 or > 120, SBP consistently < 90 or > 150, suppl O2 req > 4 lpm, or any wound concerns - Labs/Radiology BMP Date: 06/24/17 (results to LATONIA Weaver for [facility]) Imaging Orders: CXR prior to surgical appointment - Follow Up Care Current Providers and Referrals: Leyla Bliss PA [Physician Interline Clerk] - Dana Rodgers MD [Primary Care Provider] - As per Instructions Salvador Kessler DO [Doctor of Osteopathy] - 06/25/17 11:45 am
--- NOTE | 2017-06-18 19:32 | PDDCSUM ---
Discharge Summary Discharge Summary: DATE OF ADMISSION: 05/29/17 DATE OF DISCHARGE: 06/18/17 DISPOSITION: Home with home healthcare, RN and PT PRINCIPAL ADMISSION DIAGNOSIS: Acute on chronic diastolic congestive heart failure PRINCIPAL DISCHARGE DIAGNOSES: 1. Left ventricular diastolic dysfunction exacerbated by hypertrophic cardiomyopathy 2. Severe mitral annular calcification with mild mitral stenosis and moderate insufficiency 3. Severe multivessel coronary artery disease 4. Moderate aortoiliac disease 5. Status post coronary artery bypass grafting x 4 6. Status post mitral annular debridement 7. Status post prophylactic clip ligation of the left atrial appendage 8. Acute on chronic respiratory insufficiency with continuous supplemental oxygen requirement 9. Acute expected blood loss anemia 10. Postoperative paroxysmal atrial fibrillation HISTORY OF PRESENT ILLNESS: 76 yo female luxembourgish only speaker with a long history of asthma/COPD evaluated in the ER for worsening dyspnea and chest pressure refractory to prednisone and azithromycin and found to be in diastolic heart failure with echo evidence of HOCM, LVOT obstruction, heavy mitral annular calcification and moderate MR. Additional cardiac workup revelatory of severe multivessel CAD and referred for surgical revascularization with possible mitral valve replacement. PERTINENT PAST MEDICAL HISTORY: Cardiac ablation for SVT, Carotid artery disease s/p LCEA, Occluded left subclavian artery, Nonobstructive CAD by cath in 2014, Severe THUY on CPAP and nocturnal O2, HTN, PVD, calcific mitral stenosis and regurgitation, Chronic diastolic CHF, Chronic reactive leukocytosis, Chronic iron deficiency anemia due to chronic gastritis and requiring parenteral iron therapy, Chronic low back pain and fibromyalgia controlled with narcotics, Narcotic induced constipation, Migraine headaches, Obesity MEDICATIONS ON ADMISSION: ASA 81 mg daily, Losartan 12.5 mg daily, Amlodipine 2.5 mg daily, Metoprolol succinate 50 mg hs, Lasix 20 mg daily prn, Lipitor 20 mg hs, sucralfate 1 gm BID , Vicodin 5/500 prn, Oxycodone IR 5 mg prn, Lubiprostone 24 mcg BID, Metamucil packet 3.4 gm BID, Miralax prn, Gabapentin 300 mg qam and 800 mg hs, Topamax 25- 50 mg BID, Flonase nasal sprays BID, Singulair 10 mg hs, Symbicort MDI 2 inh BID , Proventil MDI and nebs prn, Klor-Con 20 meq hs, Acular 0.5% opht one drop each eye daily, Voltaren gel prn, Acyclovir cream prn, Valtrex prn, Imitrex prn , caffeine 200 mg BID prn ALLERGIES/SENSITIVITIES: Penicillins causing swelling of the face, neck and throat CONSULTANTS: Cardiology (Ruthy), CV surgery (Victoria), Pulmonology/critical care (Ritesh), Hematology (Luis Miguel) PROCEDURES/IMAGIN/27 (Tacos): Transthoracic echocardiogram: Moderate concentric LVH with LVEF 67%. Moderate LAE with severe MAC, thickened mitral leaflets, mild MS and moderate MR. RVSP 30. 06/02 Nuclear medicine myocardial perfusion stress and rest imaging with Lexiscan: anteroapical and septal ischemia, mild hypokinesia of anterior wall. 06/04 (Ajay): Left heart catheterization with selective coronary angiography and left ventriculogram. Access right common femoral artery. Findings: right dominant coronary system, 50% left main stenosis, 60% LAD stenoses, 90% D1/RI stenosis, 80% PDA stenosis. 06/04 (Flor): Abdominal aortography for difficulty passing catheters during diagnostic LHC. Findings: diffusely diseased distal abdominal aorta, 50% ostial stenosis left renal artery, 50-70% stenoses right common iliac artery, mild plaquing left common iliac artery. 06/05 Carotid Ultrasound: No flow limiting carotid stenosis. Antegrade vertebral flow bilaterally. 06/06 (Victoria): Coronary artery bypass grafting x 4 (SV-LAD, SV-RI, SV-D2, SV-PDA) . Endoscopic vein harvest bilateral thighs. Mitral annular debridement. Prophylactic AtriClip ligation of the left atrial appendage. 06/09 Chest ultrasound: No drainable left pleural effusion. 06/15 Chest ultrasound: Minimal left pleural effusion. 06/[address]: Small loculated left pleural effusion posteriorly, hypoventilation in the left lung assoc with pleuroparenchymal scarring throughout the left upper and lower lobes. ABBREVIATED HOSPITAL COURSE BY ACTIVE PROBLEM LIST: 1. Sx multivessel CAD with preserved LV systolic fx - Known occl of left subclavian artery with poor SAL pulse intraop resulting in all vein revascularization. Secondary prevention with ASA, BB, and statin. 2. Acute on chronic dCHF - Class IV at admission. Echo suggestive of HOCM. Off CPB without pressor support. Significant fluid overload gradually diuresed w stable renal fx. Somewhat resistant to oral lasix and switched to demadex. Insufficient BP for ARB or CCB. 3. MV disease - MS/MR with severe circumferential MAC. Degree of calcification too extensive for consideration MVR. Eccentric plaques debrided. No significant change in MR post revascularization. Surveillance per cards. 4. Acute on chronic respiratory insufficiency - Hx RAD/COPD, THUY/CPAP w O2. Extubated POD#1 without incident. Chronic MDIs and CPAP resumed. Persistent haziness of left lung by CXR noted. Serial US neg for drainable effusion. F/U CT remarkable for hypoventilation in the left lung assoc with pleuroparenchymal scarring. 5. Acute expected blood loss anemia with thrombocytopenia - Preop H/H 9/. Stable s/p 6u periop PRBC. Platelet rebound noted. Hematology consulted to eval benefit of IV Fe dose while hospitalized. Ferritin level WNL and further surveillance deferred to primary patient account liaison. 6. Postoperative paroxysmal atrial fibrillation - Converted to SR on amio. Adjunctive BB uptitrated as tolerated for recurrent PAF. Intermittent AF w CVR by time of discharge. Antithrombotic prophylaxis with Eliquis for [id number] score of 7. 7. Chronic leukocytosis - Stable. 8. PVD - Carotid, subclavian and aortoiliac disease. No apparent postop neurologic or vascular deficits. BP cks RUE only. Secondary prevention as per CAD. DISCHARGE CLINICAL INFORMATION: Sternum grossly stable. Sternotomy and bilat venotomies CDI, sutured, + Dermabond. HR 80s-100s. SBP 90s-100s. SpO2 83% RA, correcting to > 92% on 2 lpm. Wt 3.8 kg above preop at 75.6 kilos. WBC 14.3, Hgb 8.7, HCT 30, Plt 203, Na 144, K 4.6, Cr 0.8 DISCHARGE MEDICATIONS: As on admission with the following adjustments: 1. Hold Lasix 2. Hold Amlodipine 3. Hold Metoprolol succinate 4. Hold Losartan NEW prescriptions: 1. Torsemide 30 mg daily 2. Metoprolol tartrate 25 mg BID 3. Amiodarone 200 mg BID thru 06/21/17, then 200 mg daily x 1 month 4. Eliquis 2.5 mg BID 5. Tramadol 50 mg q 6h prn milder pain 6. Oxygen @ 2 Lpm continuously or as directed by SpO2 FOLLOW UP APPOINTMENTS: 1. CV surgery: with Dr Kesselr at [facility] on 06/25 at 11:45 am. 2. Cardiology: with Leyla Bliss PA-C or Dr Balderrama at [facility] within 4 -6 weeks. Appointment to be established during surgical visit. FOLLOW UP TESTIN. BMP on 06/24. Results to [facility]. 2. CXR prior to surgical appointment.
[2017-06-19] MEDS ORDERED: POTASSIUM CL 20 MEQ TAB PO SCH (10:00)
[2017-06-19] MEDS ORDERED: TORSEMIDE 10 MG TAB PO SCH (10:00)
--- NOTE | 2017-06-19 15:57 | ASDISCHSUM ---
Discharge Information Plan Status:Home with Home Health Medically Cleared to Leave:06/17/2017 Discharge Date:06/18/2017 05:28 PM D/C Disposition:Assisted Facility ADT D/C Disposition:Home Health Service Projected Discharge Date:06/18/2017 11:00 AM Transportation at D/C:Family Discharge Delay Reason: Follow-Up Date:06/18/2017 11:00 AM Discharge Slot: Final Diagnosis: Placement Information Referral Type:*Custodial/SNF Referral ID:[id number] Provider Name: Address 1: Phone Number: Address 2: Fax Number: City: Selection Factors: State: Referral Type:*Home Health Care Services Referral ID:[id number] Provider Name:[facility] Address 1:[address] [address] Phone Number: Address 2: Fax Number: [facility]:[place] Selection Factors: State:[place] Patient Contact Information Contact Name:FAUSTINO Relationship: Address:[address] Work Phone: City:[facility] Alternate Phone: State/Zip Code:[place] [address] Email: Financial Information Financial Class: Primary Plan Desc:MEDICARE INPATIENT Primary Plan Number:[id number] Secondary Plan Desc:MEDICAID [place] Secondary Plan Number:[id number] Assessment Information [facility] Initial CM Assessment Living Arrangements What is your living Answers: With Spouse arrangement? Who do you live with? Type Of Residence What kind of residence do Answers: House you live in? Discharge Plan Comments Coordination Status Comments Notes: Pt is a 76 y/o female admitted for shortness of breath. Therapies have been ordered and awaiting recommendations. Needs are TBD at this time. CM to follow. Plan: TBD Date Signed: 05/30/2017 09:26 AM Electronically Signed By:DORYS Hood [facility] CM Progress Note CM Note CM Note Notes: 06/02/2017 Case Management Note Pt declined PT eval today d/t pending stress test. Case Management d/c poc: TBD. Previous hospital stays pt has d/c independent. Anticipating independent d/c with family support but will wait for PT evals for guidance before determing final d/c plan. Case Management to follow. Date Signed: 06/02/2017 04:13 PM Electronically Signed By:Chayito Adams RN [facility] CM Progress Note CM Note CM Note Notes: CM met w/ pt for dispo planning. PT is recommending HC at this time. Pt reports that she will decide if she needs it after her procedure tomorrow. Pt is having a CATH. CM to follow. Plan: TBD Date Signed: 06/03/2017 04:22 PM Electronically Signed By:DORYS Hood [facility] CM Progress Note CM Note CM Note Notes: 06/04/2017 Case Management Note Pt to have bypass tomorrow. Case Management d/c poc: to be determined. Case Management will continue to follow. Date Signed: 06/04/2017 01:45 PM Electronically Signed By:Chayito Adams RN [facility] CM Progress Note CM Note CM Note Notes: 06/04/[address] Victoria Arrieta's PA, bypass is planned for . Date Signed: 06/04/2017 02:05 PM Electronically Signed By:Chayito Adams RN [facility] CM Progress Note CM Note CM Note Notes: Patient underwent coronary artery bypass grafting x4 yesterday. OT/PT were ordered. Both are recommending home care. Patient was asleep and unable to talk. Notified [facility] to keep patient on their referral list. Patient will most likely need the weekend for recovery and will be ready for d/c Saturday-Saturday. CM will follow. Date Signed: 06/07/2017 03:03 PM Electronically Signed By:Ashleigh Ahmadi LCSW [facility] CM Progress Note CM Note CM Note Notes: Reviewed chart regarding discharge plan, pt's progress. Per MD notes, pt POD # 2 s/p CABG x 4 w/ mitral annular debridement. CT's disrupted while working w/ OT today; drains out. Pt transferred from ICU. Per MD, pt will likely need SNF in 2-3 days. OT recommend home care, PT recommend home care w/ front wheel walker. CM will discuss discharge plan w/ doctor and pt on Saturday06/09/17; will cont to follow. Current discharge plan: To be determined Date Signed: 06/08/2017 04:34 PM Electronically Signed By:Florence Montgomery RN [facility] CM Progress Note CM Note CM Note Notes: Met with patient's daughter Ev who reports the plan has been for her mother to go for some rehab post hospitalization after her CABG. They live in [place] and would prefer a facility in that general area. [facility] Family has been invited to go for drop in tours to see facilities. CM to follow. Date Signed: 06/09/2017 04:09 PM Electronically Signed By:Devorah Baptiste RN [facility] CM Progress Note CM Note CM Note Notes: 06/11/2017 Case Management Note Family prefers [facility] rehab. Pt has not been accepted yet to [facility], spoke w/Shayna and she will make a decision closer to d/c. [facility] has accepted pt. Faxed updates to both facilities today. Case Management d/c poc: to SNF rehab Case Management to follow. Date Signed: 06/11/2017 11:21 AM Electronically Signed By:Chayito Adams RN [facility] Progress Note CM Note CM Note Notes: spoke w/ LATONIA Bell regarding d/c POC. Pt is not medically stable to d/c at this time. sent updates to [facility]. to follow. Plan: [facility] Date Signed: 06/14/2017 12:39 PM Electronically Signed By:DORYS Hood [facility] Progress Note CM Note CM Note Notes: Spoke with patient about discharge planning. Per therapies, she has been making great progress and has been cleared to return home with home care. I spoke with patient and her daughter Ev ([phone]). Ev feels that home with home care is a good plan. She provides some care for patient (who lives with ) and requests home care with [facility]. I sent a referral to [facility] for PT/OT/RN. Current CM Discharge plan: home with [facility] Date Signed: 06/16/2017 02:58 PM Electronically Signed By:Karly Rosa RN Case Management Discharge Plan Note Case Management Discharge Discharge Order Complete? Answers: Yes Patient to Obtain Answers: via Family Medications Transportation Arranged Answers: Family/Friends [facility] Answers: No Case Management Transport Answers: No Form Complete Faxed Final Orders Answers: Yes Agency/Facility Transfer Answers: Yes Report Printed & Faxed to Receiving Agency Family Notified Answers: No Discharge Comments Notes: CM spoke w/ Rebekah, RN regarding d/c POC. Pt is being discharged today. DC orders sent to [facility]. CM avaialble for changes. Plan: [facility], PT and RN Date Signed: 06/18/2017 02:15 PM Electronically Signed By:DORYS Hood Intervention Information
== END 2017-06-18 17:28 | disposition home health service (06) | DRG 233 ==
LOC: F2W 18:28 → F2N 06-06 09:45 → F2W 06-07 16:44
PROVIDERS: ADMIT Internal Medicine Pulmonary Disease; ATTEND Thoracic Surgery (Cardiothoracic Vascular Surgery)
PROC: 30233N1 Transfusion of Nonautologous Red Blood Cells into Peripheral Vein, Percutaneous Approach (ICD-10-PCS; 2017-05-29)
PROC: B2151ZZ Fluoroscopy of Left Heart using Low Osmolar Contrast (ICD-10-PCS; 2017-06-04)
PROC: B2111ZZ Fluoroscopy of Multiple Coronary Arteries using Low Osmolar Contrast (ICD-10-PCS; 2017-06-04)
PROC: 4A023N7 Measurement of Cardiac Sampling and Pressure, Left Heart, Percutaneous Approach (ICD-10-PCS; 2017-06-04)
PROC: B3101ZZ Fluoroscopy of Thoracic Aorta using Low Osmolar Contrast (ICD-10-PCS; 2017-06-04)
PROC: 02C Heart and Great Vessels, Extirpation (ICD-10-PCS; principal; 2017-06-06 08:30)
PROC: 5A1221Z Performance of Cardiac Output, Continuous (ICD-10-PCS; principal; 2017-06-06 08:30)
PROC: 06BQ4ZZ Excision of Left Saphenous Vein, Percutaneous Endoscopic Approach (ICD-10-PCS; principal; 2017-06-06 08:30)
PROC: 021309W Bypass Coronary Artery, Four or More Arteries from Aorta with Autologous Venous Tissue, Open Approach (ICD-10-PCS; principal; 2017-06-06 08:30)
PROC: 02L70CK Occlusion of Left Atrial Appendage with Extraluminal Device, Open Approach (ICD-10-PCS; principal; 2017-06-06 08:30)
PROC: 06BP4ZZ Excision of Right Saphenous Vein, Percutaneous Endoscopic Approach (ICD-10-PCS; principal; 2017-06-06 08:30)
DX: I25.110 Atherosclerotic heart disease of native coronary artery with unstable angina pectoris (principal); I11.0 Hypertensive heart disease with heart failure; I50.33 Acute on chronic diastolic (congestive) heart failure; I42.2 Other hypertrophic cardiomyopathy; D62 Acute posthemorrhagic anemia; I48.0 Paroxysmal atrial fibrillation; I05.2 Rheumatic mitral stenosis with insufficiency; R06.89 Other abnormalities of breathing; D50.9 Iron deficiency anemia, unspecified; I73.9 Peripheral vascular disease, unspecified; M54.2 Cervicalgia; J45.909 Unspecified asthma, uncomplicated; G47.33 Obstructive sleep apnea (adult) (pediatric); G43.909 Migraine, unspecified, not intractable, without status migrainosus; E66.9 Obesity, unspecified; Z68.27 Body mass index [BMI] 27.0-27.9, adult; Z86.73 Personal history of transient ischemic attack (TIA), and cerebral infarction without residual deficits; Z87.891 Personal history of nicotine dependence
CPT/HCPCS: 82947-QW; 96374; 97110-GP; 97112-GP; 97116-GP; 97161-GP; 97164-GP; 97166-GO; 97168-GO; 97530-GP; 97535-GO; A9500; C1769; G8978-GP-CJ; G8978-GP-CL; G8979-GP-CI; G8979-GP-CJ; G8980-GP-CJ; G8987-GO-CI; G8987-GO-CL; G8988-GO-CI; G8988-GO-CJ; G8989-GO-CI; J0153; J0171; J0282; J0690; J1170; J1250; J1265; J1644; J1650; J1815; J1940; J1956; J2001; J2150; J2250; J2260; J2370; J2440; J2704; J2720; J2785; J2930; J3010; J3370; J3475; J7060; P9016; P9041; Q9967

== ENCOUNTER → 2017-06-25 | Outpatient (CLI) | payer OTHER, MEDICAID | LOC: FIMAGING 10:20 | PROVIDERS: ATTEND Thoracic Surgery (Cardiothoracic Vascular Surgery) | DX: J90 Pleural effusion, not elsewhere classified (principal); J98.4 Other disorders of lung; I51.7 Cardiomegaly; Z95.1 Presence of aortocoronary bypass graft; Z95.2 Presence of prosthetic heart valve ==

== ENCOUNTER → 2017-07-02 | Outpatient (CLI) | payer OTHER, MEDICAID | LOC: FIMAGING 12:23 | PROVIDERS: ATTEND Thoracic Surgery (Cardiothoracic Vascular Surgery) | DX: Z48.812 Encounter for surgical aftercare following surgery on the circulatory system (principal); J90 Pleural effusion, not elsewhere classified ==

== ENCOUNTER → 2017-08-06 | Outpatient (CLI) | payer OTHER, MEDICAID | LOC: BHFA 11:00 | PROVIDERS: ATTEND Internal Medicine Cardiovascular Disease | DX: I48.91 Unspecified atrial fibrillation (principal) ==

== ENCOUNTER → 2017-08-07 | Outpatient (CLI) | payer OTHER, MEDICAID | LOC: BHFA 14:00 | PROVIDERS: ATTEND Internal Medicine Cardiovascular Disease | DX: I05.2 Rheumatic mitral stenosis with insufficiency (principal) ==

== ENCOUNTER → 2017-10-11 | Outpatient (CLI) | payer OTHER, MEDICAID | LOC: FCPNEURO 21:00 | PROVIDERS: ATTEND Psychiatry & Neurology Sleep Medicine | DX: G47.33 Obstructive sleep apnea (adult) (pediatric) (principal) ==

== ENCOUNTER 2017-11-12 14:30 | Inpatient (IN) | payer OTHER, MEDICAID ==
[2017-11-12] MEDS ORDERED: HYDROCODONE/APAP 5/325 TAB PO PRN (20:00)
[2017-11-12] MEDS ORDERED: POLYETHYLENE GLYCOL 3350 17 GM PKT PO PRN (20:00)
[2017-11-12] MEDS ORDERED: IBUPROFEN 600 MG TAB PO PRN (20:00)
[2017-11-12] MEDS ORDERED: ALBUTEROL 60 PUFFS/8 GM MDI IH PRN (20:00)
[2017-11-12] MEDS ORDERED: ALBUTEROL 3 ML DEYVIAL IH PRN (20:00)
[2017-11-12] MEDS ORDERED: SUCRALFATE 1 GM TAB PO SCH (21:00)
--- NOTE | 2017-11-12 22:18 | EDPHY ---
H & P Time Seen by Provider: 11/12/17 15:15 HPI/ROS: CHIEF COMPLAINT: Dyspnea HISTORY OF PRESENT ILLNESS: This patient is a [place]-speaking 77-year-old female with extensive cardiac history including CABG (06/2017), CAD, hypertension, CVA, and carotid endarterectomy. She presents today with dyspnea. She was evaluated earlier today by her network support engineer, Dr. Moss and referred to the emergency department to facilitate outpatient workup including echocardiogram. She has had worsening dyspnea over the past five days, particularly when she is in the shower. She endorses a mild productive cough. She is unable to be very mobile at home and generally ambulates with a cane. The patient denies chest pain, fever, chills, pain or swelling in her calves, or other associated symptoms. Family history positive for unspecified cardiac events in both parents. Of note, the patient has history of iron-deficiency anemia and receives IV iron infusions every two months. Her next is scheduled for 11/26/17. She states she feels remarkably better after these infusions. HPI obtained partially through elevator repairer apprentice at bedside. REVIEW OF SYSTEMS: A comprehensive 10 point review of systems is otherwise negative aside from elements mentioned in the history of present illness. - Personal History Tetanus Vaccine Date: 3 years - Medical/Surgical History PMH: Quadruple bypass 6 months ago (06/2017). CAD. Carotid endarterectomy. History of CVA. Hypertension. Hx Asthma: Yes Hx Chronic Respiratory Disease: Yes Hx Diabetes: No Hx Cardiac Disease: Yes Hx Renal Disease: No Hx Cirrhosis: No Hx Alcoholism: No Hx HIV/AIDS: No Hx Splenectomy or Spleen Trauma: No Other PMH: Hysterectomy, appendectomy, foot surgery, CARDIAC ABLATION/?SVT, sleep apnea, hypertension, L sided carotid endarterectomy, TIA, asthma, migraine , asthma, gastritis,CAD, mitral regurg, mitral stenosis, - Social History Smoking Status: Former smoker Additional Social History: [place]-speaking. . Retired. Trouble Shooter: Dr. Moss. Previously followed by Dr. Balderrama. - Physical Exam Exam: General Appearance: Alert, no distress Eyes: Pupils equal and round no pallor or injection ENT, Mouth: Mucous membranes moist Respiratory: There are no retractions, lungs are clear to auscultation Cardiovascular: Regular rate and rhythm. 2/6 systolic ejection murmur. Gastrointestinal: Abdomen is soft and non-tender, no masses, bowel sounds normal Neurological: A&O, normal motor function, normal sensory exam, normal cranial nerves Skin: Warm and dry, no rashes Musculoskeletal: Neck is supple. Non-tender Extremities: Symmetrical, full range of motion Psychiatric: Patient is oriented X 3, there is no agitation Allergies/Adverse Reactions: Penicillins Allergy (Severe, Verified 05/29/17 15:04) Swelling/neck,face,throat Home Medications: Medication Instructions Recorded Diclofenac Sodium 1% [Voltaren Gel 1 clyde TP DAILY PRN 12/04/11 (*)] Fluticasone Nasal [Flonase Nasal 1 sprays NASAL BID 12/04/11 Addison] Sucralfate 2 gm PO DAILY 12/04/11 Budesonide/Formoterol 160/4.5 2 puffs IH BID 09/11/14 [Symbicort 160-4.5 Mcg Inh (*)] Montelukast Sodium [Singulair 10 10 mg PO HS 09/11/14 mg (*)] Acyclovir 5% [Zovirax 5% Cream 2gm 1 clyde TP Q2H PRN 07/29/15 (RX)] Albuterol [Proventil Inhaler HFA 2 puffs IH BID PRN 07/29/15 (*)] Albuterol [Proventil Neb] 3 ml IH QID PRN 07/29/15 Polyethylene Glycol 3350 [Miralax 17 gm PO TID PRN 07/29/15 17 gm (*)] SUMAtriptan [Imitrex 50 MG (*)] 50 mg PO DAILY PRN 07/29/15 Topiramate [Topamax 25MG (*)] 25 mg PO BID 07/29/15 Valacyclovir HCl [Valtrex] 2,000 mg PO Q12 PRN 07/29/15 Gabapentin [Neurontin 400 MG (*)] 800 mg PO HS 09/12/15 Atorvastatin Calcium [Lipitor 20 20 mg PO HS 01/03/16 mg (*)] Herbals/Supplements -Info Only 1 ea PO DAILY 01/03/16 oxyCODONE IR [Oxycodone Ir (*)] 5 mg PO Q3 PRN 01/03/16 Potassium Cl [Klor-Con 20 meq (*)] 20 meq PO HS 04/07/17 Psyllium Husk (with Sugar) 1 each PO BID 09/07/16 [Metamucil Packet] Aspirin EC [Aspirin EC 81 mg (*)] 81 mg PO DAILY 11/12/17 Furosemide [Lasix 20 MG (*)] 20 mg PO DAILY@1600 11/12/17 Furosemide [Lasix 20 MG (*)] 40 mg PO DAILY@07 11/12/17 Hydrocodone/Acetaminophen [Morven 1 tab PO DAILY PRN 11/12/17 5/325 (*)] Ibuprofen [Motrin (*)] 600 mg PO Q6H PRN 11/12/17 Metoprolol Succinate Xr [Toprol Xl 50 mg PO BID 11/12/17 50 mg (*)] Sucralfate [Carafate 1 GM (*)] 1 gm PO HS 11/12/17 oxyCODONE IR [Oxycodone Ir (*)] 5 mg PO Q3H PRN 11/12/17 Medical Decision Making - Diagnostics EKG Interpretation: Complete interpretation has been separately recorded in the [facility] archive. Summary impression: sinus rhythm. ED Course/Re-evaluation: This patient is a 77-year-old female with extensive cardiac history presenting at the request of her network support engineer, Dr. Moss, for evaluation of dyspnea. Plan for EKG, labs including CBC, chemistries, troponin. 15:20 Reviewed EKG. See interpretation above. Plan to reevaluate the patient when the translator and interpreter arrives. Ordered preliminary labs including CBC, chemistries, troponin. 15:30 Reassessed, received more complete history with medical insurance coding specialist present at bedside. Plan for echocardiogram, chest x-ray, additional labs including D- dimer. 16:09 Troponin 0.01. 16:[address] Wilder, network support engineer, regarding echocardiogram interpretation and the patients history. The patient has chronic dyspnea and bad valvular heart disease. She is not a surgical candidate. Dr. Wilder will review the patients echocardiogram when results are available. 16:30 Reviewed CBC. Hematocrit 26.4. I attempted to compare these to prior results on [facility], but am unable to access any patient records at this time. 16:38 Reviewed chemistries. Unremarkable. 16:[address] Wilder. The patients echocardiogram relatively stable. The patient is not tachycardic, tachypneic, hypoxemic, or hypertensive here in the emergency department. Discussed the patients anemia. Reviewed past medical records on [facility]. Hematocrit 10/23/17 was 34. Patient has monthly CBC results available. Dr. Wilder recommends setting this patient up for outpatient transfusion. Plan to consult with event producer recruiting operations consultant. 17:10 D-dimer elevated at 0.74. Given the patients anemia, elevated d-dimer, and complaints, plan to admit for further evaluation and for inpatient transfusion. 17:[address] Tovar, oncologist. 17:[address] Santos, hospitalist. He accepts admission for anemia, dyspnea. Differential Diagnosis: Differential diagnosis considered includes congestive heart failure, cardiomyopathy, myocardial infarction, critical anemia, metabolic abnormality, renal failure Departure - Departure Disposition: [facility] Inpatient Acute Clinical Impression: Mitral valve regurgitation, ALICIA (acute kidney injury), S/P CABG x 4 Dyspnea Qualifiers: Dyspnea type: shortness of breath Qualified Code(s): R06.02 - Shortness of breath Anemia Qualifiers: Anemia type: unspecified type Qualified Code(s): D64.9 - Anemia, unspecified Condition: Fair Report Scribed for: Jean Pace Report Scribed by: bAby Albright Date of Report: 11/12/17 Time of Report: 22:18
[2017-11-12] MEDS ORDERED: HYDROCODONE/APAP 5/325 TAB ONE (22:28)
--- NOTE | 2017-11-12 22:32 | GHP ---
[f rep st] HISTORY AND PHYSICAL DATE OF ADMISSION: 11/12/2017 CHIEF COMPLAINT: Shortness of breath. HISTORY OF PRESENT ILLNESS: This is a 77-year-old, Lao-speaking female with history of hypertension, diastolic heart failure, and iron deficiency anemia, presented to the emergency department today with 4 days of worsening shortness of breath and generalized weakness. She denies any chest pain. She did have some dark-colored stools a few days ago that resolved after she started taking Carafate. She currently denies any active bleeding. PAST MEDICAL HISTORY: 1. Hospitalization in May 2017, for acute asthma with COPD exacerbation. 2. Valvular heart disease with known mitral stenosis and mitral regurgitation. 3. Iron deficiency anemia. 4. TIA with carotid artery stenosis. 5. Asthma. 6. Low back pain. 7. Migraine headaches. 8. Obstructive sleep apnea. 9. Status post ablation for SVT. PAST SURGICAL HISTORY: 1. Appendectomy. 2. Hysterectomy. 3. SVT ablation. 4. Sinus surgery. 5. Status post prophylactic clip ligation of left atrial appendage. 6. Status post mitral annular debridement. 7. Status post coronary artery bypass grafting x4. HOME MEDICATIONS: Refer to medication reconciliation. ALLERGIES: Penicillin. SOCIAL HISTORY: Former smoker, quit 30 years ago. She denies any alcohol, tobacco or illicit drug use. She lives with her . FAMILY HISTORY: Reviewed and noncontributory. REVIEW OF SYSTEMS: Comprehensive 10-point review of systems was done and is negative, except for as mentioned in the HPI. PHYSICAL EXAMINATION: VITAL SIGNS: Blood pressure 134/71, pulse 76, respiratory rate 20, O2 sat 96% on room air. Temperature 37.1. GENERAL: No acute distress. HEAD: Normocephalic, atraumatic. EYES: PERRLA. Sclerae anicteric. MOUTH: Moist mucous membranes. NECK: Supple. No lymphadenopathy. CARDIOVASCULAR: S1, S2. No JVD. No lower extremity edema. PULMONARY: Diminished breath sounds bilateral bases. No wheezes or rales. ABDOMEN: Soft, nontender, nondistended. No guarding or rebound tenderness. Normoactive bowel sounds. EXTREMITIES: No clubbing or cyanosis. NEUROLOGIC: Cranial nerves 2 through 12 grossly intact. No focal motor or sensory deficits. SKIN: Clear. No rashes. DIAGNOSTICS: EKG which I visualized and personally interpreted shows sinus rhythm, 78 beats per minute, with no acute ischemic changes. WBC is 10.3, hemoglobin 7.9, hematocrit 26.4, platelets 210. Sodium 144, potassium 3.8, chloride 108, CO2 twenty-three, BUN 16, creatinine 0.7, glucose 83. An echo was done, the results are pending. I-STAT troponin was done; I did not hear the results. D-dimer was elevated at 0.74. ASSESSMENT AND PLAN: This is a 77-year-old, Lao-speaking female presenting with: 1. Increasing weakness and dyspnea on exertion possibly due to symptomatic anemia in the setting of valvular heart disease with known severe mitral annular calcification with mild mitral stenosis and moderate insufficiency with severe multivessel coronary artery disease. Plan: Patient will be admitted to PCU. We will order a unit of packed red blood cells to see if this helps. given her anemia. At this time, Weblance is down and I am unable to determine when her last esophagogastroduodenoscopy was. The patient tells me it was about a year ago. We will order iron studies and stool for occult blood. I will ask my colleagues to consult Gastroenterology as indicated in the morning. 2. Elevated D-dimer. Plan: We will proceed with a CT angio of the chest to rule out pulmonary embolism given her increasing shortness of breath. 3. History of valvular heart disease. Plan: Once again, an echocardiogram was done in the emergency room and which the results are currently pending. 4. Patient wants to be full code status. We will defer chemical deep vein thrombosis prophylaxis in light of anemia and possible bleeding. Chemical deep vein thrombosis prophylaxis should be started once hemoglobin and hematocrit are noted to be stable. We will order sequential compression devices for now. /[id number]/MODL MTDD
[2017-11-12] MEDS ORDERED: ACETAMINOPHEN 325 MG TAB PO PRN (22:43)
[2017-11-12] MEDS ORDERED: TOPIRAMATE 25 MG TAB ONE (23:22)
[2017-11-12] MEDS ORDERED: METOPROLOL SUCCINATE XR 50 MG TAB PO ONE (23:22)
[2017-11-12] MEDS ORDERED: MONTELUKAST SODIUM 10 MG TAB ONE (23:22)
[2017-11-12] MEDS ORDERED: GABAPENTIN 400 MG CAP ONE (23:23)
[2017-11-12] MEDS ORDERED: POTASSIUM CL 20 MEQ TAB ONE (23:23)
[2017-11-12] MEDS ORDERED: ATORVASTATIN CALCIUM 20 MG TAB ONE (23:23)
[2017-11-12] MEDS ORDERED: SUCRALFATE 1 GM/10 ML UDCUP ONE (23:24)
[2017-11-13 04:50] LABS: PLATELET COUNT 179 10^3/uL (150-400)
[2017-11-13] MEDS ORDERED: 1/2 NS 1,000 ML IV SCH (07:00)
[2017-11-13] MEDS: ATORVASTATIN CALCIUM 20 MG TAB PO SCH ×2 (07:58→21:45)
[2017-11-13] MEDS: GABAPENTIN 400 MG CAP PO SCH ×2 (07:59→21:44)
[2017-11-13] MEDS: METOPROLOL SUCCINATE XR 50 MG TAB PO SCH ×3 (07:59→21:45)
[2017-11-13] MEDS: BUDESONIDE/FORMOTEROL 160/4.5 60 PUFFS/MDI IH SCH ×3 (07:59→22:20)
[2017-11-13] MEDS: PSYLLIUM METAMUCIL 1 PKT PO SCH ×3 (07:59→22:53)
[2017-11-13] MEDS: POTASSIUM CL 20 MEQ TAB PO SCH ×2 (07:59→21:44)
[2017-11-13] MEDS: TOPIRAMATE 25 MG TAB PO SCH ×3 (08:00→21:45)
[2017-11-13] MEDS: valACYclovir 500 MG TAB PO SCH ×2 (08:00→08:20)
[2017-11-13] MEDS: FUROSEMIDE 20 MG TAB PO SCH (08:21)
[2017-11-13] MEDS ORDERED: SUCRALFATE 1 GM TAB PO SCH (09:00)
[2017-11-13] MEDS ORDERED: ASPIRIN EC 81 MG TAB PO SCH (09:00)
--- NOTE | 2017-11-13 10:28 | CPEKG ---
Heart Rate: 78 RR Interval: 769 P-R Interval: 168 QRSD Interval: 74 QT Interval: 416 QTC Interval: 474 P [place]: -51 QRS [place]: 25 T Wave [place]: 70 EKG Severity - OTHERWISE NORMAL ECG - EKG Impression: SINUS OR ECTOPIC ATRIAL RHYTHM Electronically Signed By: Attila Pinon 13-Nov-2017 20:28:03
--- NOTE | 2017-11-13 12:20 | ASMTCASEMG ---
Living Arrangements What is your living Answers: With Spouse arrangement? Who do you live with? Type Of Residence What kind of residence do Answers: House you live in? Discharge Plan Comments Coordination Status Comments Notes: Pts case discussed in morning rounds. Pt is a 77 y/o female admitted for dyspnea, anemia and weakness. Pt may require a scope. Pt will most likely d/c without any needs. No therapies ordered at this time. CM available for changes. Plan: Independent Date Signed: 11/13/2017 12:19 PM Electronically Signed By:DORYS Hood
[2017-11-13] MEDS ORDERED: PANTOPRAZOLE SODIUM 40 MG TAB PO SCH (13:30)
[2017-11-13] MEDS ORDERED: METOPROLOL TARTRATE 25 MG TAB PO ONE (13:53)
--- NOTE | 2017-11-13 13:53 | HOSPPROG ---
Hospitalist Progress Note Assessment/Plan: Dyspnea - suspect 2/2 anemia in setting of CAD and severe valve disease. Doubt anginal variant with recent cabg and negative trops. Discussed with cards. Echo showed normal EF, persistent severe MS. -plan for further evaluation and correction of anemia as below -consider small mid-day extra dose of metoprolol if BP tolerates as slower HR may improve her symptoms Symptomatic anemia - suspect ongoing blood loss from UGIB with recent h/o melena. On ASA, not currently on PPI. She had gastritis with e/o bleeding per her report on EGD 18 months ago. Hgb 7.9 --> 8.7. Also considered hemolysis with elevated bilirubin and valve disease, though h/o melena makes GI blood loss more likely etiology of anemia. -hold ASA -recheck h&h now, would transfuse if hgb <9 given symptoms and CAD hx -discussed case with Dr. Whitaker, GI, who will consult for consideration of repeat EGD -add Protonix 40 mg BID for presumed gastritis -cont sucralfate -check LDH, haptoglobin, retic count, peripheral smear to further evaluate for possibility of hemolysis CAD with h/o CABG - trops neg here, CABG done recently thus doubt ACS. Follow clinically. Severe MS - not a surgical candidate per cardiology. May not tolerate volume well so if she receives transfusion, will give very slowly. Elevated D dimer - normal if age adjusted rule applied. CTA neg for PE. Pleural effusion - unclear size, though mentioned on preliminary CTA report. -await final CTA read and consider therapeutic thoracentesis if large as could be contributing to dyspnea, though it's noted she is not requiring O2 Diastolic heart failure - chronic, appears compensated Dispo - cont inpt DVT PPLX - defer pharm with concern for GIB, SCD's for now Full code Subjective: Pt feels ok. She denies CP or SOB at rest. She gets dyspneic just walking across her room to the bathroom. No fevers/chills. Reports melanotic stools last week, none in past few days. No abdominal pain, N/V or hematemesis. Objective: Vital Signs Temp Pulse Resp BP Pulse Ox 37.2 C 86 20 101/44 L 91 L 11/13/17 11:11 11/13/17 11:11 11/13/17 11:11 11/13/17 11:15 11/13/17 11:11 Laboratory Results 11/13/17 03:24 11/13/17 03:24 11/12/17 11/13/17 11/14/17 05:59 05:59 05:59 Intake Total 700 480 Output Total 300 Balance 700 180 - Physical Exam Constitutional: no apparent distress Eyes: PERRL Ears, Nose, Mouth, Throat: moist mucous membranes Cardiovascular: regular rate and rhythym, systolic murmur Respiratory: no respiratory distress, clear to auscultation Gastrointestinal: normoactive bowel sounds, soft, non-tender abdomen Skin: warm Musculoskeletal: full muscle strength Neurologic: AAOx3 Psychiatric: interacting appropriately ICD10 Worksheet Patient Problems: Problems Problem Status Onset ALICIA (acute kidney injury) Acute Anemia Acute Dyspnea Acute Mitral valve regurgitation Acute S/P CABG x 4 Acute ~06/06/17 Acute blood loss anemia Acute CAD in [place] artery Acute Chest pain Acute Congestive heart failure Acute Hypotension Acute Pre-syncope Acute Sinus tachycardia Acute TIA (transient ischemic attack) Acute Transient hypotension Acute chronic disease mgmt/transitional Care Acute
--- NOTE | 2017-11-13 14:23 | ECHO ---
[email or web address] [address] [address] Main: [phone] Fax: Transthoracic Echocardiogram Name: JUN BOYD MR#: [id number] Study Date: 11/12/2017 Study Time: 04:11 PM Date of : 1940 Age: 77 year(s) Height: ( ) Weight: ( ) BSA: Gender: Female Examination: Echo Indication: Shortness of breath Image Quality: Technically Difficult Contrast: Requested by: Harry Santos BP: / Heart Rate: Rhythm: Indication: Shortness of breath Procedure Staff Order Filler: Edita Bates RDCS Reading Physician: Sangeetha Wilder MD Requesting Provider: Conclusions: Normal size left ventricle. Mild to moderate LVH. Global hypercontractility of the left ventricle. EF is 81 %. No regional wall motion abnormality. Normal size right ventricle. Normal RV function. Moderate mitral valve regurgitation is present. Severe mitral valve stenosis is present. Mild tricuspid regurgitation is present. Right ventricular systolic pressure measures 35mmHg. Measurements: Chambers Valvular Assessment AV/MV Valvular Assessment TV/PV Normal Normal Normal Name Value Range Name Value Range Name Value Range Ao Bianca (MM): 3.4 cm (2.2 cm-3.7 AV Vmax: 1.48 m/s (1 m/s-1.7 TR Vmax: 2.72 mm/s ( - ) cm) m/s) TR PGmax: 30 mmHg ( - ) IVSd (2D): 1.2 cm (0.6 cm-1.1 AV maxP mmHg ( - ) syst. PAP: 35 mmHg ( - ) cm) AV meanP mmHg ( - ) LVDd (2D): 3.7 cm (3.9 cm-5.3 LVOT Vmax: 0.96 m/s (0.7 m/s-1.1 cm) m/s) LVDs (2D): 1.9 cm (2.1 cm-4 YOHANA (Vmax): 1.5 cm2 ( - ) cm) YOHANA (VTI): 1.4 cm ( - ) LVPWd (2D): 1.1 cm ( - ) MV E Vmax: 2.23 m/s ( - ) LVOTd 1.7 cm 1.7 cm mm MV A Vmax: 1.67 m/s ( - ) LVEF (2D): 81 (>=54 %) MV E/A: 1.34 ( - ) MV maxP mmHg ( - ) MV meanP mmHg ( - ) MV PHT: 0.092 s ( - ) Patient: JUN BOYD Study Date: 11/12/2017 Page 1 of 2 04:11 PM MVA (Vmax): 0.6 m/s ( - ) MVA (PHT): 2.4 s ( - ) Continued Measurements: Chambers Valvular Assessment AV/MV Valvular Assessment TV/PV Name Value Name Value Name Value LADs: 4.7 cm MV Annulus: 3.1 cm CVP (est.): 5 mmHg LADs Lon.1 cm MV DecTime: 278 m/s LA Area: 24.2 cm2 MV E/E' Septal: 46.70 MV E/E' Lateral: 40.10 MV VTI: 77.60 cm MR Vena Contracta: 0.5 cm Findings: Left Ventricle: Normal size left ventricle. Mild to moderate LVH. Global hypercontractility of the left ventricle. EF is 81 %. No regional wall motion abnormality. Diastolic dysfunction is present. . Right Ventricle: Normal size right ventricle. Normal RV function. Left Atrium: The left atrium is normal in size. Right Atrium: The right atrium is normal in size. Mitral Valve: There is moderate thickening of the mitral valve leaflets. Severe mitral valve leaflet calcification is present. Moderate mitral valve regurgitation is present. Severe mitral valve stenosis is present. Aortic Valve: The aortic valve is tri-leaflet and functions normally. Aortic sclerosis is present. No aortic valve stenosis is present. There is no aortic valve regurgitation. Tricuspid Valve: The tricuspid valve is normal in appearance and function. Mild tricuspid regurgitation is present. Right ventricular systolic pressure measures 35mmHg. The pulmonary artery pressure is normal. Pulmonic Valve: The pulmonic valve is normal in appearance and function. Trivial pulmonic valve regurgitation. Aorta: Normal size aortic root measuring 3.4 cm. Pericardium: No pericardial effusion. (No Signature Object) Patient: JUN BOYD Study Date: 11/12/2017 Page 2 of 2 04:11 PM [id number]
--- NOTE | 2017-11-13 14:51 | GCON ---
[f rep st] CONSULTATION GI INPATIENT CONSULTATION DATE OF CONSULTATION: 11/13/2017 CHIEF COMPLAINT: I was kindly requested to see this patient by Dr. Sarah Monroe in consultation for a chief complaint of anemia. HISTORY OF PRESENT ILLNESS: She is a 77-year-old female who has had a chronic history of the above. She is followed by a potato grader, Dr. Torres. She has known iron deficiency anemia, etiology unclear, but felt possibly due to chronic gastritis. She is treated with IV iron infusions, as she is intolerant to oral iron. She has had otherwise an extensive, negative workup. This includes upper endoscopy and colonoscopy just last year. Upper endoscopy showed some mild chronic gastritis changes. No obvious arterial venous malformations. Small- bowel biopsies were negative for an iron deficiency celiac sprue. Colonoscopy was normal. She is now admitted to the hospital with dyspnea. She has an extensive cardiac history. Her hematocrit on this admission is 28.9%. In June, she had a similar hematocrit. She is on aspirin. As an outpatient, she is on Carafate. Besides her aspirin use, she also uses ibuprofen as needed. PAST MEDICAL HISTORY: 1. As above. 2. Coronary artery bypass surgery in June. 3. CAD. 4. Hypertension. 5. CVA. 6. Carotid endarterectomy. 7. Otherwise, noncontributory. ALLERGIES: Penicillin. MEDICATIONS: Outpatient medications include the above. Inpatient medications include pantoprazole 40 mg twice a day, Lasix, Neurontin, metoprolol, Singulair , aspirin, Lipitor, Carafate 2 g daily and 1 g at bedtime, IV fluids, Topamax. SOCIAL HISTORY: She is a former smoker. FAMILY HISTORY: Negative for similar anemia. REVIEW OF SYSTEMS: Positive pertinent review of systems as per my HPI. Otherwise, complete review of systems is negative. PHYSICAL EXAM: CONSTITUTIONAL: Alert, in no distress. EYES: Pupils equal, round, reactive to light and accommodation. EARS, NOSE, MOUTH AND THROAT: Oropharynx without masses, moist mucosa. CARDIOVASCULAR: Normal S2, normal PMI. RESPIRATORY: Lungs clear to auscultation and percussion anteriorly. ABDOMEN: Nontender, without any masses. NEUROLOGIC: Grossly nonfocal, cranial nerves grossly intact. PSYCHIATRIC: Orientation, insight appropriate. MUSCULOSKELETAL: Strength grossly normal throughout, normal station. LABORATORIES: Include normal liver function tests. Total bilirubin 2.6, but all essentially unconjugated. Iron saturation 87% (she receives IV iron infusions). Ferritin normal at 14. Past normal B12 level. Normal platelet count. Normal MCV. White blood cell count 10.6. ASSESSMENT: 1. Chronic anemia. Her hematocrit today is close to its baseline, with hematocrit in June being the same. Overall, she has had an extensive, relatively unremarkable workup for this. She is followed by Hematology and receives IV iron infusions. 2. Outpatient aspirin, ibuprofen use. Certainly, this could complicate the above, giving her some blood loss from chronic gastritis. She is on Carafate, but possibly the addition of a proton pump inhibitor would increase the protectiveness of the stomach. 3. Dyspnea. Being evaluated by Cardiology. 4. Gilbert's syndrome. PLAN: 1. No need for a repeat upper endoscopy, colonoscopy at this juncture. 2. Recommend continuing her outpatient Carafate, but will increase to correct active dose of 2 g twice a day. 3. As an outpatient, would use a generic proton pump inhibitor such as omeprazole 40 mg daily long-term, to increase the protection of her stomach with her aspirin, ibuprofen use, etc. I will sign off. Please let me know if we can be of further help in the future. Thanks! Copy requested to: DEBORAH [address] Berny Pace MD, Dr. Pawel Torres /[id number]/MODL MTDD
--- NOTE | 2017-11-13 15:37 | PDMN ---
Medical Necessity Medical necessity: change to IP; los>2mn for dyspnea r/t anemia, suspected ongoing blood loss from UGIB w/recent melena vs hemolysis w/elevated bili, and valve disease, pleural effusion; requires possible med adjustment, w/u and correction of anemia, GI consult; comorbid CAD/CABG, elevated D dimer, chronic diastolic HR, severe mitral stenosis; per order and progress note 11/13/17
[2017-11-13] MEDS ORDERED: FUROSEMIDE 20 MG TAB PO SCH (16:00)
[2017-11-13] MEDS ORDERED: SODIUM FERRIC GLUCONAT/SUCROSE 125 MG in NS 100 ML IV ONE (16:34)
--- NOTE | 2017-11-13 20:09 | GCON ---
[f rep st] CONSULTATION HEMATOLOGY INITIAL VISIT PRIMARY MUSEUM SPECIALIST: Dr. Torres. REASON FOR CONSULTATION: Iron deficiency anemia from chronic GI loss. HISTORY OF PRESENT ILLNESS: The patient is a 77-year-old woman, who speaks mostly Georgian, with significant valvular heart disease and diastolic heart failure who has been seen by Dr. Torres for iron replacement in the outpatient setting. She states that after getting an iron infusion she f eels much better. She came in with 4 days of worsening shortness of breath and weakness. Her hemoglob in was 7.9, so she received a unit of blood last night and feels a little bit better, but still dyspn eic with crossing the room. She denies any fever or chills. She denies any current chest pain. ALLERGIES: Penicillin. HOME MEDICATIONS: Include oxycodone as needed, furosemide, albuterol, Symbicort, atorvastatin, gabap entin, Flonase, MiraLAX, montelukast, sumatriptan, diclofenac gel, metoprolol, Metamucil, potassium, ibuprofen, [place], aspirin, Sucralfate , Topamax, and Valtrex. CHRONIC ILLNESSES: Include: 1. Asthma and COPD. 2. Valvular heart disease with severe mitral stenosis. 3. Iron deficiency anemia from chronic GI blood loss. 4. Gastritis. 5. History of TIA with carotid artery stenosis. 6. Migraine headaches. 7. Sleep apnea. SURGICAL HISTORY: Includes: 1. Ablation for SVT. 2. Appendectomy. 3. Hysterectomy. 4. Sinus surgery. 5. Coronary artery bypass x4. 6. Mitral annular debridement. SOCIAL HISTORY: Former smoker. She is , lives with her . Denies alcohol use. FAMILY HISTORY: Noncontributory. REVIEW OF SYSTEMS: 10-point review of systems performed. Pertinent positives per HPI, otherwise nega tive. PHYSICAL EXAM: VITAL SIGNS: Temperature is 37.2, pulse is 86, blood pressure is 101/44. GENERAL: She is sitting in a chair. She is in no distress, in reasonably good spirits. HEENT: Shows no sclerae ic terus. Oral mucosa is unremarkable. CARDIOVASCULAR: Regular with a systolic murmur. LUNGS: Clear. ABD OMEN: Soft. She was guaiac positive on the previous stool test. NEUROLOGICAL: Grossly intact. LABS: This morning, white count is 10,000 which is stable for her. Hemoglobin 8.7, platelet count 17 9,000. Retake is up a little bit at 4.36%. Chemistries: Bilirubin is up a little bit at 2.6, all of i t unconjugated, but other LFTs are normal. LDH is normal. IMPRESSION: 1. Severe cardiac disease. 2. Chronic gastritis with gastrointestinal bleed. 3. Iron deficiency anemia. Since she is still anemic and symptomatic, I recommend giving her some IV iron today to see if that helps her feel better. GI has seen her and recommended treating her sympto matically and supportively and is not going to do any further scoping. Unfortunately, there is not much that can be done with her heart valve. Some of her blood tests could be a little bit worrisome for hemolysis with increased bilirubin and retake, but this also could be reaction to the recent blood transfusion. I will send a Elan test and recommend checking it again i n the morning. I do not recommend any further workup at this time. /[id number]/MODL
[2017-11-13] MEDS ORDERED: MONTELUKAST SODIUM 10 MG TAB PO SCH (21:00)
[2017-11-13] MEDS: SUCRALFATE 1 GM TAB PO SCH (21:44)
[2017-11-14 06:34] LABS: PLATELET COUNT 212 10^3/uL (150-400)
[2017-11-14] MEDS: FUROSEMIDE 20 MG TAB PO SCH (06:39)
[2017-11-14] MEDS: BUDESONIDE/FORMOTEROL 160/4.5 60 PUFFS/MDI IH SCH (08:39)
[2017-11-14] MEDS ORDERED: PANTOPRAZOLE SODIUM 40 MG TAB PO SCH (09:00)
[2017-11-14] MEDS ORDERED: TIOTROPIUM INHALER 18 MCG/DOSE 5 DOSE/MDI IH SCH (09:00)
[2017-11-14] MEDS: SUCRALFATE 1 GM TAB PO SCH (10:26)
[2017-11-14] MEDS: METOPROLOL SUCCINATE XR 50 MG TAB PO SCH ×2 (10:26→10:43)
[2017-11-14] MEDS: TOPIRAMATE 25 MG TAB PO SCH (10:27)
[2017-11-14] MEDS: PSYLLIUM METAMUCIL 1 PKT PO SCH (10:27)
[2017-11-14 11:04] VITALS: BP 103/58
[2017-11-14] MEDS ORDERED: METOPROLOL SUCCINATE XR 50 MG TAB PO SCH (11:17)
[2017-11-14] MEDS ORDERED: HYDROCODONE/APAP 5/325 TAB PO PRN (11:20)
[2017-11-14 12:06] LABS: PLATELET COUNT 161 10^3/uL (150-400)
[2017-11-14] MEDS: METOPROLOL TARTRATE 25 MG TAB PO SCH ×3 (12:45→13:49)
[2017-11-14] MEDS ORDERED: METOPROLOL TARTRATE 25 MG TAB PO SCH (13:45)
--- NOTE | 2017-11-14 14:44 | SOAPPROG ---
[facility] Progress Note Assessment/Plan: E&M iron deficiency * Iron deficiency anemia due to chronic GI blood loss: better after transfusion and iv iron. Recommend she f/u with Dr. Torres for further iv iron infusions. Ok to go home per heme. 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 [place] much better after iron. Objective: Vital Signs Temp Pulse Resp BP Pulse Ox 36.7 C 93 20 103/58 L 9 L 11/14/17 08:00 11/14/17 14:01 11/14/17 11:04 11/14/17 11:04 11/14/17 11:04 Laboratory Results 11/14/17 03:04 11/13/17 11/14/17 11/15/17 05:59 05:59 05:59 Intake Total 500 Output Total 1550 1100 Balance -1050 -1100 Physical Exam - Physical Exam General Appearance: no apparent distress ICD10 Worksheet Patient Problems: Problems Problem Status Onset ALICIA (acute kidney injury) Acute Anemia Acute Dyspnea Acute Mitral valve regurgitation Acute S/P CABG x 4 Acute ~06/06/17 Acute blood loss anemia Acute CAD in [place] artery Acute Chest pain Acute Congestive heart failure Acute Hypotension Acute Pre-syncope Acute Sinus tachycardia Acute TIA (transient ischemic attack) Acute Transient hypotension Acute chronic disease mgmt/transitional Care Acute
--- NOTE | 2017-11-14 15:15 | GDS ---
[f rep st] DISCHARGE SUMMARY DISCHARGE DIAGNOSES: 1. Dyspnea, likely multifactorial secondary to anemia and severe mitral valve disease. 2. Acute on chronic anemia, likely secondary to slow blood loss, with a history of gastritis and rec ent melena, which is resolved. 3. Coronary artery disease, history of recent coronary artery bypass grafting. 4. Severe mitral stenosis. 5. Small pleural effusion. 6. Chronic diastolic heart failure, compensated. CONSULTANTS: 1. Dr. Edinson Whitaker, Gastroenterology. 2. Dr. Azul Tovar, Hematology. IMAGING/PROCEDURES: 1. Echocardiogram, November 12, 2017, showed persistent, severe mitral stenosis. Ejection fraction 81%. No wall motion abnormalities. Moderate MR. 2. CT pulmonary angiogram is negative for pulmonary embolism, and emphysema is noted. HISTORY: For details, please see the history and physical dated November 12, 2017. In brief, the diana bass is a 77-year-old Kinyarwanda-speaking female with a history of hypertension, diastolic heart failure, c oronary artery disease, who is status post CABG and chronic iron-deficiency anemia, presented to the emergency department with worsening dyspnea on exertion. She was admitted to the cardiac telemetry u [facility] for further management. HOSPITAL COURSE: The patient was admitted to the PCU. She was transfused 1 unit of packed red blood cells. It is thought her dyspnea was likely related to worsening anemia, as well as her severe mitr al valve disease. Consideration was given to hemolysis given her elevated bilirubin and increased re ticulocyte count on admission. However, her bilirubin normalized the following day, and her direct C oombs test is negative. She may have had a brief hemolysis event. However, it seems even more likel y that she has had some ongoing blood loss from gastritis. She has undergone an endoscopy [facility] 18 months ago, which showed bleeding source in her stomach in the setting of gastritis. She has not been taking any acid-blocking medications, but has been on sucralfate. A GI consult was obtained and did not recommend repeat EGD. She was restarted on Protonix. I recommend she discontinue ibupr ofen and all NSAIDs. After reviewing with Cardiology, she will be continued on her enteric-coated ba by aspirin given her recent CABG. Cardiology recommended the addition of a small dose of beta blocke r midday in an effort to slow her heart rate down as she may have improvement of symptoms with her se roula mitral valve disease if she can tolerate more beta rodger and slower heart rate. Her blood pre ssures have been stable. Unfortunately, there is no surgical option for her valve disease. She will have to continue with symptomatic management. Hopefully, the addition of the proton pump inhibitor and discontinuation of anti-inflammatory medications will minimize further blood loss. If she were t o have ongoing evidence of melenic stools and bleeding, we may need to hold her aspirin for a period of time. In addition, she received IV iron at the direction of Hematology, and this did improve her symptoms. There also may be a component of COPD contributing to her dyspnea, which is evident on her CT scan. I added Spiriva to her regimen to maximize management. She is actually feeling quite a bi t better on the day of discharge. DISPOSITION: Patient was discharged home in stable condition. FOLLOWUP: 1. Dr. Bobo Torres. 2. Dr. Ramsey Mccoy. 3. Primary care. DISCHARGE MEDICATIONS: Please see [facility] for completed outpatient medication list. New medications on discharge include Protonix 40 mg p.o. daily, #30, no refills; sucralfate 2 g p.o. b.i.d., #120, no refills; Spiriva 18 mcg inhaled daily, #1, no refills; metoprolol 12.5 mg p.o. at no on daily, in addition to her regular metoprolol 25 mg b.i.d. dose. She will continue all her other o utpatient medications as previously prescribed. Discontinued medications include ibuprofen and Imitrex. Changed medications: Sucralfate is increase d to 2 g b.i.d. /[id number]/MODL
== END 2017-11-14 16:35 | disposition home or self-care (01) | DRG 812 ==
LOC: F2W 19:00 → OBSVTOIN 11-13 14:13
PROVIDERS: ADMIT Family Medicine; ATTEND Family Medicine
PROC: 30233N1 Transfusion of Nonautologous Red Blood Cells into Peripheral Vein, Percutaneous Approach (ICD-10-PCS; principal; 2017-11-12)
DX: D50.0 Iron deficiency anemia secondary to blood loss (chronic) (principal); J90 Pleural effusion, not elsewhere classified; I11.0 Hypertensive heart disease with heart failure; I50.32 Chronic diastolic (congestive) heart failure; I34.2 Nonrheumatic mitral (valve) stenosis; K29.70 Gastritis, unspecified, without bleeding; I25.10 Atherosclerotic heart disease of native coronary artery without angina pectoris; J44.9 Chronic obstructive pulmonary disease, unspecified; E80.4 Gilbert syndrome; Z95.1 Presence of aortocoronary bypass graft
CPT/HCPCS: 83010-90; 84484-PO; 97161-GP; G0378; G8978-GP-CI; G8979-GP-CI; G8980-GP-CI; J1200; J2916; P9016

== ENCOUNTER 2017-11-15 14:03 | Emergency (ER) | payer OTHER, MEDICAID ==
[2017-11-15] MEDS ORDERED: NS 500 ML IV ONE (15:20)
[2017-11-15] MEDS ORDERED: PANTOPRAZOLE SODIUM 40 MG VIAL IVP ONE (15:20)
--- NOTE | 2017-11-15 15:23 | CPEKG ---
Heart Rate: 77 RR Interval: 779 P-R Interval: 180 QRSD Interval: 68 QT Interval: 416 QTC Interval: 471 P [place]: -53 QRS [place]: 25 T Wave [place]: 55 EKG Severity - ABNORMAL ECG - EKG Impression: SINUS OR ECTOPIC ATRIAL RHYTHM EKG Impression: PROBABLE POSTERIOR INFARCT Electronically Signed By: Jorge Garcia 15-Nov-2017 22:39:29
--- NOTE | 2017-11-15 15:27 | EDPHY ---
H & P Time Seen by Provider: 11/15/17 15:02 HPI/ROS: HPI Blood in stool. 77-year-old female by private vehicle with family. This patient was seen in the emergency department on November 13 and admitted for shortness of breath and recent history of melena. She was discharged same day. She was seen by her primary care physician, Dr. Dana Rodgers, today for follow-up. She had an episode of blood mixed with stool today and reports black stool yesterday. She reports that she still has some shortness of breath which was 1 of her initial complaints on her admission. She states that she feels fatigued as well. No abdominal pain. No diarrhea. She has had no nausea or vomiting. Last meal was this morning. She did not undergo endoscopy or colonoscopy during her admission. She takes an aspirin daily. She is not on any other antiplatelet or anticoagulant medications. ROS: Constitutional: No fever, no chills. No weakness. Eyes: No discharge. No changes in vision. ENT: No sore throat. No nasal congestion or rhinorrhea. Respiratory: No cough. No shortness of breath. Cardiac: No chest pain, no palpitations. Gastrointestinal: No abdominal pain, no vomiting, no diarrhea. As above. Genitourinary: No hematuria. No dysuria or increased frequency with urination. Musculoskeletal: No back pain. No neck pain. No myalgias or arthralgias. Skin: No rashes. Neurological: No headache. No focal weakness or altered sensation. Past medical history: Asthma and COPD, valvular heart disease with mitral valve stenosis and regurgitation, iron deficiency anemia, TIA with carotid artery stenosis, migraine headaches, SVT, obstructive sleep apnea, appendectomy , hysterectomy, ablation for SVT. Primary care physician currently is Dr. Dana Rodgers. Social history: Former smoker. Here with family. No alcohol. Physical Exam: General Appearance: Alert, no distress. This patient is responding to questions appropriately and in full sentences. This patient appears well- hydrated and well-nourished. Eyes: Pupils equal and round no pallor or injection. No lid edema, erythema or injection. Respiratory: There are no retractions, lungs are clear to auscultation with good air movement bilaterally. Cardiovascular: Regular rate and rhythm. No murmur. Gastrointestinal: Abdomen is soft and nontender, no masses, bowel sounds normal. No focal tenderness at McBurney's point. No Cm sign. Rectal exam: No gross bleeding, dark brown stool. Normal tone. No hemorrhoids. Neurological: Motor sensory function is grossly intact. Cranial nerves are normal. Gait is normal. Skin: Warm and dry, no rashes. Musculoskeletal: Neck is supple and nontender. Extremities are symmetrical. All joints range without pain or impingement. Psychiatric: No agitation. No depression. Database: EKG: EKG time is 3:20 p.m.; EKG shows a narrow complex normal sinus rhythm with a ventricular rate of 77. The [place], QRS, QT intervals are within normal limits. There are no ST-T wave changes indicative of ischemic or injury pattern. No evidence of right heart strain. Interpreted by me. Imaging: Procedures: Emergency department course: CTA chest thorax and echocardiogram from 11/12/2017 reviewed by myself. Triage vital signs reviewed and are normal. IV placed x2. Patient placed on a monitor. EKG obtained and reviewed by myself. She will be given 500 cc of IV normal saline over the next 1-2 hours. She will be started on IV Protonix as well. H&H on discharge November 13 was 8.2/26.3. Hemoglobin and hematocrit is 11.4 and 37.8. 4:15 p.m., patient re-evaluated. Resting comfortably at this time. Denies any abdominal pain. No gross rectal bleeding. Vital signs reviewed and are normal. Repeat abdominal exam she is soft, nontender nondistended. I discussed the results of her blood work. She has remained very stable in the emergency department. This time I do not think she requires readmission. I do feel she needs close follow-up with gastroenterology for colonoscopy and possible endoscopy. GI paged. The patient has seen Dr. Escalona with GI of the [facility] in the past. She reports last having a colonoscopy a year and half ago. 4:30 p.m., spoke with on-call photography colorist Dr. Edinson Whitaker. Case discussed in detail with him. He agrees with outpatient management. His office will contact the patient Saturday morning to set up follow-up appointment. 4:45 p.m., patient re-evaluated. Resting comfortably. Vital signs reviewed and are normal. Repeat abdominal exam she is soft, nontender nondistended. Follow-up with Gastroenterology discussed with her and her daughter. The patient does feel comfortable going home. The daughter feels comfortable taking her home. They understand the follow-up plan. Return to emergency department precautions were thoroughly reviewed with the 2 of them. All of their questions were answered. The patient was discharged home in good condition with her daughter. Differential Diagnosis: The differential diagnosis on this patient includes but is not limited to upper versus lower gastrointestinal hemorrhage, iron deficiency anemia. This represents a partial list of diagnoses considered. These considerations are based on history, physical exam, past history, reassessment and diagnostic testing. Smoking Status: Former smoker Constitutional: Initial Vital Signs Temperature (C) 36.9 C 11/15/17 14:16 Heart Rate 85 11/15/17 14:16 Respiratory Rate 16 11/15/17 14:16 Blood Pressure 113/70 11/15/17 14:16 O2 Sat (%) 95 11/15/17 14:16 O2 Delivery Mode Room Air Allergies/Adverse Reactions: Penicillins Allergy (Severe, Verified 11/15/17 14:21) Swelling/neck,face,throat Home Medications: Medication Instructions Recorded Diclofenac Sodium 1% [Voltaren Gel 1 clyde TP DAILY PRN 12/04/11 (*)] Fluticasone Nasal [Flonase Nasal 1 sprays NASAL BID 12/04/11 [place]] Budesonide/Formoterol 160/4.5 2 puffs IH BID 09/11/14 [Symbicort 160-4.5 Mcg Inh (*)] Montelukast Sodium [Singulair 10 10 mg PO HS 09/11/14 mg (*)] Acyclovir 5% [Zovirax 5% Cream 2gm 1 clyde TP Q2H PRN 07/29/15 (RX)] Albuterol [Proventil Inhaler HFA 2 puffs IH BID PRN 07/29/15 (*)] Albuterol [Proventil Neb] 3 ml IH QID PRN 07/29/15 Topiramate [Topamax 25MG (*)] 25 mg PO BID 07/29/15 Valacyclovir HCl [Valtrex] 2,000 mg PO Q12 PRN 07/29/15 Gabapentin [Neurontin 400 MG (*)] 800 mg PO HS 09/12/15 Atorvastatin Calcium [Lipitor 20 20 mg PO HS 01/03/16 mg (*)] Herbals/Supplements -Info Only 1 ea PO DAILY 01/03/16 Potassium Cl [Klor-Con 20 meq (*)] 20 meq PO BID 09/07/16 Psyllium Husk (with Sugar) 1 each PO DAILY 09/07/16 [Metamucil Packet] Aspirin EC [Aspirin EC 81 mg (*)] 81 mg PO DAILY 11/12/17 Furosemide [Lasix 20 MG (*)] 20 mg PO DAILY@1600 11/12/17 Furosemide [Lasix 20 MG (*)] 40 mg PO DAILY@07 11/12/17 Hydrocodone/Acetaminophen [[place] 1 tab PO QID PRN 11/12/17 5/325 (*)] Metoprolol Tartrate [Lopressor 25 12.5 mg PO 1200 #30 tab 11/14/17 mg (*)] Metoprolol Tartrate [Lopressor 25 25 mg PO BID 11/14/17 mg (*)] Pantoprazole Sodium [Protonix 40mg 40 mg PO DAILY #30 tab 11/14/17 (*)] Sucralfate [Carafate 1 GM (*)] 2 gm PO BID #120 tab 11/14/17 Tiotropium Inhaler [Spiriva 18 mcg IH DAILY #1 mdi 11/14/17 [place]] Gabapentin [Neurontin 300 MG (*)] 300 mg PO BID 11/15/17 Medical Decision Making - Data Points Laboratory Results: Laboratory Results 11/15/17 15:35 11/15/17 15:35 11/15/17 11/15/17 11/15/17 15:38 15:35 15:35 WBC RBC Hgb Hct MCV MCH MCHC RDW Plt Count MPV Neut % (Auto) Lymph % (Auto) [place] % (Auto) Eos % (Auto) Baso % (Auto) Nucleat RBC Rel Count Absolute Neuts (auto) Absolute Lymphs (auto) Absolute Monos (auto) Absolute Eos (auto) Absolute Basos (auto) Absolute Nucleated RBC Immature Gran % Immature Gran # PT 14.7 SEC SEC (12.0-15.0) INR 1.13 (0.83-1.16) APTT 30.5 SEC SEC (23.0-38.0) Sodium 144 mEq/L mEq/L (135-145) Potassium 3.7 mEq/L mEq/L (3.3-5.0) Chloride 108 mEq/L mEq/L (97-110) Carbon Dioxide 22 mEq/l mEq/l (22-31) Anion Gap 14 mEq/L mEq/L (8-16) BUN 16 mg/dL mg/dL (7-23) Creatinine 0.7 mg/dL mg/dL (0.6-1.0) Estimated GFR > 60 Glucose 83 mg/dL mg/dL (70-100) Calcium 9.2 mg/dL mg/dL (8.5-10.4) Total Bilirubin 0.7 mg/dL mg/dL (0.1-1.4) Conjugated Bilirubin 0.3 mg/dL mg/dL (0.0-0.5) Unconjugated Bilirubin 0.4 mg/dL mg/dL (0.0-1.1) AST 19 IU/L IU/L (14-46) ALT 23 IU/L IU/L (9-52) Alkaline Phosphatase 72 IU/L IU/L (38-126) Total Protein 6.9 g/dL g/dL (6.3-8.2) Albumin 4.0 g/dL g/dL (3.5-5.0) Stool Occult Bld Scrn POSITIVE H (NEGATIVE) 11/15/17 15:35 WBC 9.39 10^3/uL 10^3/uL (3.80-9.50) RBC 4.05 10^6/uL L 10^6/uL (4.18-5.33) Hgb 11.4 g/dL L g/dL (12.6-16.3) Hct 37.8 % L % (38.0-47.0) MCV 93.3 fL fL (81.5-99.8) MCH 28.1 pg pg (27.9-34.1) MCHC 30.2 g/dL L g/dL (32.4-36.7) RDW 17.5 % H % (11.5-15.2) Plt Count 167 10^3/uL 10^3/uL (150-400) MPV 12.2 fL H fL (8.7-11.7) Neut % (Auto) 56.4 % % (39.3-74.2) Lymph % (Auto) 25.1 % % (15.0-45.0) [place] % (Auto) 8.1 % % (4.5-13.0) Eos % (Auto) 9.3 % H % (0.6-7.6) Baso % (Auto) 0.7 % % (0.3-1.7) Nucleat RBC Rel Count 0.0 % % (0.0-0.2) Absolute Neuts (auto) 5.29 10^3/uL 10^3/uL (1.70-6.50) Absolute Lymphs (auto) 2.36 10^3/uL 10^3/uL (1.00-3.00) Absolute Monos (auto) 0.76 10^3/uL 10^3/uL (0.30-0.80) Absolute Eos (auto) 0.87 10^3/uL H 10^3/uL (0.03-0.40) Absolute Basos (auto) 0.07 10^3/uL 10^3/uL (0.02-0.10) Absolute Nucleated RBC 0.00 10^3/uL 10^3/uL (0-0.01) Immature Gran % 0.4 % % (0.0-1.1) Immature Gran # 0.04 10^3/uL 10^3/uL (0.00-0.10) PT INR APTT Sodium Potassium Chloride Carbon Dioxide Anion Gap BUN Creatinine Estimated GFR Glucose Calcium Total Bilirubin Conjugated Bilirubin Unconjugated Bilirubin AST ALT Alkaline Phosphatase Total Protein Albumin Stool Occult Bld Scrn Medications Given: Discontinued Medications Sodium Chloride (Ns) 500 mls @ 0 mls/hr IV EDNOW ONE; Wide Open PRN Reason: Protocol Stop: 11/15/17 15:21 Last Admin: 11/15/17 15:34 Dose: 500 mls Pantoprazole Sodium (Protonix) 80 mg IVP EDNOW ONE Stop: 11/15/17 15:21 Last Admin: 11/15/17 15:34 Dose: 80 mg Departure - Departure Disposition: [facility] In[facility] Acute Clinical Impression: Anemia, Blood in stool Condition: Good Instructions: Rectal Bleeding (ED) Additional Instructions: Read and follow provided instructions. I spoke with Dr. Edinson Whitaker, photography colorist, with GI of [facility] This is also the office of Dr. Youssef and [place] Blanca. They will contact you Saturday for appointment time. Take your medication as prescribed. Return to the emergency department persistent or worsening rectal bleeding, lightheadedness, abdominal pain or other serious concerns. Melyssa y siga las siguientes instruciones provistas. Hable con el Dr. Edinson Whitaker, gastroenterologo, con GI of [facility]. Ademas con le oficina de la Dra. Escalona y Yuko Blanca. Ellos la contactaran el Lun para anthony keely. [place] loera medicamento almaz se le receto. Regrese al departamento de emergencias si el sangrado rectal , aturdimiento, dolor abdominal empora o persiste u otra preocupacion seria. Referrals: Edinson Whitaker MD, FACG [Medical Doctor] - As per Instructions Dana Rodgers MD [Primary Care Provider] - As per Instructions
[2017-11-15 16:00] LABS: PLATELET COUNT 167 10^3/uL (150-400)
[2017-11-15 16:03] LABS: INR 1.13 (0.83-1.16); PROTIME(PATIENT) 14.7 SEC (12.0-15.0)
[2017-11-15 17:14] VITALS: BP 132/66
[2017-11-15] MEDS ORDERED: PANTOPRAZOLE SODIUM 40 MG VIAL IVP SCH (21:21)
== END 2017-11-15 17:12 | disposition still patient (30) ==
DX: R19.5 Other fecal abnormalities (principal); D64.9 Anemia, unspecified; E86.9 Volume depletion, unspecified; J44.9 Chronic obstructive pulmonary disease, unspecified; Z79.82 Long term (current) use of aspirin; Z87.891 Personal history of nicotine dependence
CPT/HCPCS: 96374

== ENCOUNTER 2017-11-26 22:19 | Inpatient (IN) | payer OTHER, MEDICAID ==
[2017-11-26 23:37] LABS: PLATELET COUNT 255 10^3/uL (150-400)
--- NOTE | 2017-11-27 00:22 | EDPHY ---
H & P Stated Complaint: SOB, generalize weakness Time Seen by Provider: 11/26/17 22:53 HPI/ROS: Chief Complaint: Shortness of breath HPI: 77-year-old woman with a history of coronary artery disease status post fairly recent coronary artery bypass graft. Patient also has significant mitral stenosis. She was admitted earlier this month with shortness of breath and anemia which was attributed to likely gastrointestinal cause. She has required transfusions with her prior hospitalization is currently being followed by Hematology. They are also giving her iron infusions. She is complaining of worsening shortness of breath over the last 3 days however states she has never felt well since her discharge from the hospital. She is only able to take 2-3 steps without feeling significantly fatigued. She was seen by her classified ad taker today and had blood drawn and is scheduled for a transfusion tomorrow however her shortness of breath is gotten significantly worse and she feels she cannot wait. She is also concerned that a single transfusion is not going to help as she had 1 unit while in the hospital which did not significantly improve her symptoms. Denies any cough. No fevers or chills. No nausea or vomiting. Was having some dark stools up until about 4 days ago. No melena or blood since that time. ROS: 10 point Review of Systems is negative except as noted in the HPI. Social History: No smoking, no alcohol, no recreational drug use Family History: non-contributory Physical Exam: Gen: Awake, Alert, No Distress HEENT: Nose: no rhinorrhea Eyes: PERRLA, EOMI, pale conjunctiva Mouth: Moist mucosa Neck: Supple, no JVD Chest: nontender, lungs clear to auscultation Heart: S1, S2 normal, no murmur Abd: Soft, non-tender, no guarding Back: no CVA tenderness, no midline tenderness Ext: no edema, non-tender Skin: no rash Neuro: CN II-XII intact, Sensation grossly intact, Strength 5/5 in bilateral upper and lower extremities - Personal History Current Tetanus/Diphtheria Vaccine: Yes Tetanus Vaccine Date: 3 years - Medical/Surgical History Hx Asthma: Yes Hx Chronic Respiratory Disease: Yes Hx Diabetes: No Hx Cardiac Disease: Yes Hx Renal Disease: No Hx Cirrhosis: No Hx Alcoholism: No Hx HIV/AIDS: No Hx Splenectomy or Spleen Trauma: No Other PMH: Hysterectomy, appendectomy, foot surgery, CARDIAC ABLATION/?SVT, sleep apnea, hypertension, L sided carotid endarterectomy, TIA, asthma, migraine , asthma, gastritis,CAD, mitral regurg, mitral stenosis, - Social History Smoking Status: Former smoker Constitutional: Initial Vital Signs Temperature (C) 37.0 C 11/26/17 22:21 Heart Rate 100 11/26/17 22:21 Respiratory Rate 20 11/26/17 22:21 Blood Pressure 113/64 11/26/17 22:21 O2 Sat (%) 93 11/26/17 22:21 O2 Delivery Mode Room Air O2 (L/minute) 2 Allergies/Adverse Reactions: Penicillins Allergy (Severe, Verified 11/15/17 14:21) Swelling/neck,face,throat Home Medications: Medication Instructions Recorded Diclofenac Sodium 1% [Voltaren Gel 1 clyde TP DAILY PRN 12/04/11 (*)] Fluticasone Nasal [Flonase Nasal 1 sprays NASAL BID 12/04/11 [place]] Budesonide/Formoterol 160/4.5 2 puffs IH BID 09/11/14 [Symbicort 160-4.5 Mcg Inh (*)] Montelukast Sodium [Singulair 10 10 mg PO HS 09/11/14 mg (*)] Acyclovir 5% [Zovirax 5% Cream 2gm 1 clyde TP Q2H PRN 07/29/15 (RX)] Albuterol [Proventil Inhaler HFA 2 puffs IH BID PRN 07/29/15 (*)] Albuterol [Proventil Neb] 3 ml IH QID PRN 07/29/15 Topiramate [Topamax 25MG (*)] 25 mg PO BID 07/29/15 Valacyclovir HCl [Valtrex] 2,000 mg PO Q12 PRN 07/29/15 Gabapentin [Neurontin 400 MG (*)] 800 mg PO HS 09/12/15 Atorvastatin Calcium [Lipitor 20 20 mg PO HS 01/03/16 mg (*)] Herbals/Supplements -Info Only 1 ea PO DAILY 01/03/16 Potassium Cl [Klor-Con 20 meq (*)] 20 meq PO BID 09/07/16 Psyllium Husk (with Sugar) 1 each PO DAILY 09/07/16 [Metamucil Packet] Aspirin EC [Aspirin EC 81 mg (*)] 81 mg PO DAILY 11/12/17 Furosemide [Lasix 20 MG (*)] 20 mg PO DAILY@1600 11/12/17 Furosemide [Lasix 20 MG (*)] 40 mg PO DAILY@07 11/12/17 Hydrocodone/Acetaminophen [[place] 1 tab PO QID PRN 11/12/17 5/325 (*)] Metoprolol Tartrate [Lopressor 25 12.5 mg PO 1200 #30 tab 11/14/17 mg (*)] Metoprolol Tartrate [Lopressor 25 25 mg PO BID 11/14/17 mg (*)] Pantoprazole Sodium [Protonix 40mg 40 mg PO DAILY #30 tab 11/14/17 (*)] Sucralfate [Carafate 1 GM (*)] 2 gm PO BID #120 tab 11/14/17 Tiotropium Inhaler [Spiriva 18 mcg IH DAILY #1 mdi 11/14/17 [place]] Gabapentin [Neurontin 300 MG (*)] 300 mg PO BID 11/15/17 Medical Decision Making ED Course/Re-evaluation: Patient's H&H are 8 and 27, down from her prior discharge. I have discussed with Dr. Hauser, hospitalist. She will admit to her service for transfusion and further evaluation. Patient's dyspnea is likely secondary to anemia compounded with her underlying cardiac disease. - Data Points Laboratory Results: Laboratory Results 11/26/17 22:40 11/26/17 22:40 11/26/17 11/26/17 22:40 22:40 WBC 11.68 10^3/uL H 10^3/uL (3.80-9.50) RBC 3.03 10^6/uL L 10^6/uL (4.18-5.33) Hgb 8.3 g/dL L g/dL (12.6-16.3) Hct 27.6 % L % (38.0-47.0) MCV 91.1 fL fL (81.5-99.8) MCH 27.4 pg L pg (27.9-34.1) MCHC 30.1 g/dL L g/dL (32.4-36.7) RDW 17.6 % H % (11.5-15.2) Plt Count 255 10^3/uL 10^3/uL (150-400) MPV 12.7 fL H fL (8.7-11.7) Neut % (Auto) 52.4 % % (39.3-74.2) Lymph % (Auto) 29.7 % % (15.0-45.0) [place] % (Auto) 9.2 % % (4.5-13.0) Eos % (Auto) 7.7 % H % (0.6-7.6) Baso % (Auto) 0.7 % % (0.3-1.7) Nucleat RBC Rel Count 0.2 % % (0.0-0.2) Absolute Neuts (auto) 6.12 10^3/uL 10^3/uL (1.70-6.50) Absolute Lymphs (auto) 3.47 10^3/uL H 10^3/uL (1.00-3.00) Absolute Monos (auto) 1.07 10^3/uL H 10^3/uL (0.30-0.80) Absolute Eos (auto) 0.90 10^3/uL H 10^3/uL (0.03-0.40) Absolute Basos (auto) 0.08 10^3/uL 10^3/uL (0.02-0.10) Absolute Nucleated RBC 0.02 10^3/uL H 10^3/uL (0-0.01) Immature Gran % 0.3 % % (0.0-1.1) Immature Gran # 0.04 10^3/uL 10^3/uL (0.00-0.10) Sodium 144 mEq/L mEq/L (135-145) Potassium 3.7 mEq/L mEq/L (3.3-5.0) Chloride 107 mEq/L mEq/L (97-110) Carbon Dioxide 25 mEq/l mEq/l (22-31) Anion Gap 12 mEq/L mEq/L (8-16) BUN 12 mg/dL mg/dL (7-23) Creatinine 0.8 mg/dL mg/dL (0.6-1.0) Estimated GFR > 60 Glucose 91 mg/dL mg/dL (70-100) Calcium 9.2 mg/dL mg/dL (8.5-10.4) Departure - Departure Disposition: [facility] Inpatient Acute Clinical Impression: Anemia, Dyspnea Condition: Fair Referrals: Dana Rodgers MD [Primary Care Provider] - As per Instructions
[2017-11-27] MEDS ORDERED: ONDANSETRON 4 MG/2 ML VIAL IVP PRN (00:49)
[2017-11-27] MEDS ORDERED: ACETAMINOPHEN 325 MG TAB PO PRN (00:49)
--- NOTE | 2017-11-27 03:42 | PDGENHP ---
History and Physical - Chief Complaint Shortness of breath - History of Present Illness Source- patient provides history and appears reliable. EMR was reviewed and case discussed with ED provider. I initially saw the patient shortly after arrival to the PCU floor however she had already fallen into a deep sleep but was difficult to wake. She did stir and returned back to sleep and so returned a little time later as patient has a vital signs and oxygenation were appropriate. HPI-this is a 77-year-old female with past medical history significant for diastolic CHF, asthma/COPD, history of moderate to severe mitral valve regurg and annular stenosis (she is not a surgical candidate), iron deficiency anemia with a history of GI bleeding, asthma and COPD, history CAD with status post CABG who was just recently hospitalized 11/12/2017-through 11/14/2017 for her dyspnea. She was found to be anemic and received 1 unit of PRBCs. GI was consulted but given that patient had just recently had an EGD they did not feel that additional endoscopy was warranted at that time. Additionally patient had been taking NSAID therapy but was continued on her aspirin given her recent history of a CABG. Oncology was consulted to assist with management of her iron deficiency anemia. She has been receiving iron infusions on outpatient basis. Patient reports that it had been discussed with Oncology Service that she would receive a unit of blood in the morning to see if this would alleviate her symptoms. Patient reports that since discharge she has at increasing cough occasionally 8th of production of clear sputum. She denies any fevers or chills. She reports some mild rhinorrhea and scratchy throat with hoarseness. She denies any sick contacts. Patient did report some bilateral chest tightness and pressure with her shortness of breath. She denies any orthopnea, PND, worsening lower extremity edema from her baseline. She reports that she takes a Lasix 2 tabs in the morning when the evening. History Information - Allergies/Home Medication List Allergies/Adverse Reactions: Penicillins Allergy (Severe, Verified 11/15/17 14:21) Swelling/neck,face,throat Home Medications: Diclofenac Sodium 1% [Voltaren Gel (*)] 1 clyde TP DAILY PRN 12/04/11 [Last Taken 11/11/17] Fluticasone Nasal [Flonase Nasal [place]] 1 sprays NASAL BID 12/04/11 [Last Taken 11/15/17] Budesonide/Formoterol 160/4.5 [Symbicort 160-4.5 Mcg Inh (*)] 2 puffs IH BID 04/17 [Last Taken 11/15/17] Montelukast Sodium [Singulair 10 mg (*)] 10 mg PO HS 09/11/14 [Last Taken ] Acyclovir 5% [Zovirax 5% Cream 2gm (RX)] 1 clyde TP Q2H PRN 07/29/15 [Last Taken 1 Month Ago ~10/12/17] Albuterol [Proventil Inhaler HFA (*)] 2 puffs IH BID PRN 07/29/15 [Last Taken 12:00] Albuterol [Proventil Neb] 3 ml IH QID PRN 07/29/15 [Last Taken 11/11/17] Topiramate [Topamax 25MG (*)] 25 mg PO BID 07/29/15 [Last Taken 11/15/17] Valacyclovir HCl [Valtrex] 2,000 mg PO Q12 PRN 07/29/15 [Last Taken 1 Month Ago ~10/12/17] Gabapentin [Neurontin 400 MG (*)] 800 mg PO HS 09/12/15 [Last Taken 11/14/17] Atorvastatin Calcium [Lipitor 20 mg (*)] 20 mg PO HS 01/03/16 [Last Taken ] Herbals/Supplements -Info Only 1 ea PO DAILY 01/03/16 [Last Taken 11/11/17] Potassium Cl [Klor-Con 20 meq (*)] 20 meq PO BID 09/07/16 [Last Taken 11/15/17] Psyllium Husk (with Sugar) [Metamucil Packet] 1 each PO DAILY 09/07/16 [Last Taken 11/15/17] Aspirin EC [Aspirin EC 81 mg (*)] 81 mg PO DAILY 11/12/17 [Last Taken 11/15/17] Furosemide [Lasix 20 MG (*)] 20 mg PO DAILY@1600 11/12/17 [Last Taken 11/14/17] Furosemide [Lasix 20 MG (*)] 40 mg PO DAILY@07 11/12/17 [Last Taken 11/15/17] Hydrocodone/Acetaminophen [[place] 5/325 (*)] 1 tab PO QID PRN 11/12/17 [Last Taken 11/15/17] Metoprolol Tartrate [Lopressor 25 mg (*)] 25 mg PO BID 11/14/17 [Last Taken ] Gabapentin [Neurontin 300 MG (*)] 300 mg PO BID 11/15/17 [Last Taken 11/15/17] I have personally reviewed and updated: family history, medical history, social history, surgical history - Past Medical History Additional medical history: hypertension. diastolic CHF. moderate mitral regurgitation, mitral stenosis. h/o TIA, 09/2015. carotid stenosis s/p CEA. Asthma/COPD. THUY. h/o SVT s/p ablation. chronic leukocytosis - Surgical History Additional surgical history: appendectomy. hysterectomy. SVT ablation. sinus surgery. CABG x4v. Prophylactic clip ligation of the left atrial appendage. Status post mitral annular debridement - Family History Additional family history: M, sisters: CVAs in 70s - Social History Smoking Status: Former smoker (Quit approximately 30 years ago.) Alcohol Use: None Drug Use: None Additional social history: Patient lives with her in [place], has daughter who is active in her care. Walks independently, independent in ADLs. Review of Systems Review of Systems: ROS: 10pt was reviewed & negative except for what was stated in HPI & below Constitutional: Reports: other (Fatigue). Denies: chills, fever EENMT: Reports: nose congestion, sore throat, other (Hoarseness). Denies: ear pain, blurred vision Cardiac: Reports: edema (Chronic lower extremity edema stable), other ( Bilateral chest tightness/pressure with dyspnea.). Denies: lightheadedness, palpitations Respiratory: Reports: shortness of breath, wheezing. Denies: orthopnea Gastrointestinal: Reports: no symptoms. Denies: vomitting, abdominal pain, diarrhea Genitourinary: Reports: no symptoms Muscolosketal: Reports: no symptoms Skin: Reports: no symptoms Neurological: Reports: headache (Patient reports chronic ongoing headache pounding in nature. No loss of vision. No numbness or tingling.). Denies: numbness, tingling, weakness Hematologic/Lymphatic: Reports: anemia Physical Exam Physical Exam: Selected Entries 11/26/17 22:21 Heart Rate 100 Respiratory 20 Rate O2 Sat (%) 93 Temperature (C) 37.0 C Blood Pressure 113/64 Mean Arterial 80 Pressure (MAP) O2 Delivery Room Air Mode Temperature Oral Source Temp Pulse Resp BP Pulse Ox 36.7 C 68 20 124/61 H 96 11/27/17 01:30 11/27/17 01:30 11/27/17 01:30 11/27/17 01:30 11/27/17 01:30 O2 (L/minute) 1 Constitutional: no apparent distress, obese, other (NAD. Pleasant adult obese female is lying quietly in bed asleep. Difficult to wake from rest. Upon return exam sometime later patient wakes easily and is pleasant and interactive. ) Eyes: PERRL, anicteric sclera, EOMI, No scleral injection Ears, Nose, Mouth, Throat: no oral mucosal ulcers, dry mucous membranes, other ( Nasal congestion no rhinorrhea.), No poor dentition Cardiovascular: regular rate and rhythym, systolic murmur, pulses symmetric bilaterally, edema (Trace lower extremity.) Peripheral Pulses: 2+: dorsalis-pedis (R), dorsalis-pedis (L) Respiratory: no respiratory distress, reduced air movement (Diminished air movement bibasilarly. Some limitations with body habitus.), expiratory wheeze ( Bilateral lung boles.), rhonchi (Bilateral lung boles.), No no rales or rhonchi, No inspiratory crackles Gastrointestinal: normoactive bowel sounds, soft, non-tender abdomen, no palpable masses, other (Obese abdomen), No guarding, No rebound, No distension Genitourinary: no bladder tenderness, No starr in urethra Skin: warm, normal color, no rashes or abrasions, No rash Musculoskeletal: full muscle strength, other (Patient moves all extremities able to rule independently.) Neurologic: AAOx3, sensation intact bilaterally, other (Grossly nonfocal exam.) , No facial droop Psychiatric: interacting appropriately, not anxious, not encephalopathic, thought process linear Lab Data & Imaging Review 11/26/17 22:40 11/26/17 22:40 WBC 11.68 10^3/uL (3.80-9.50) H 11/26/17 22:40 RBC 3.03 10^6/uL (4.18-5.33) L 11/26/17 22:40 Hgb 8.3 g/dL (12.6-16.3) L 11/26/17 22:40 Hct 27.6 % (38.0-47.0) L 11/26/17 22:40 MCV 91.1 fL (81.5-99.8) 11/26/17 22:40 MCH 27.4 pg (27.9-34.1) L 11/26/17 22:40 MCHC 30.1 g/dL (32.4-36.7) L 11/26/17 22:40 RDW 17.6 % (11.5-15.2) H 11/26/17 22:40 Plt Count 255 10^3/uL (150-400) 11/26/17:40 MPV 12.7 fL (8.7-11.7) H 11/26/17 22:40 Neut % (Auto) 52.4 % (39.3-74.2) 11/26/17 22:40 Lymph % (Auto) 29.7 % (15.0-45.0) 11/26/17 22:40 [place] % (Auto) 9.2 % (4.5-13.0) 11/26/17:40 Eos % (Auto) 7.7 % (0.6-7.6) H 11/26/17:40 Baso % (Auto) 0.7 % (0.3-1.7) 11/26/17:40 Nucleat RBC Rel Count 0.2 % (0.0-0.2) 11/26/17:40 Absolute Neuts (auto) 6.12 10^3/uL (1.70-6.50) 11/26/17 22:40 Absolute Lymphs (auto) 3.47 10^3/uL (1.00-3.00) H 11/26/17 22:40 Absolute Monos (auto) 1.07 10^3/uL (0.30-0.80) H 11/26/17 22:40 Absolute Eos (auto) 0.90 10^3/uL (0.03-0.40) H 11/26/17 22:40 Absolute Basos (auto) 0.08 10^3/uL (0.02-0.10) 06/26/18 22:40 Absolute Nucleated RBC 0.02 10^3/uL (0-0.01) H 11/26/17 22:40 Immature Gran % 0.3 % (0.0-1.1) 11/26/17 22:40 Immature Gran # 0.04 10^3/uL (0.00-0.10) 11/26/17 22:40 Sodium 144 mEq/L (135-145) 11/26/17 22:40 Potassium 3.7 mEq/L (3.3-5.0) 11/26/17 22:40 Chloride 107 mEq/L (97-110) 11/26/17 22:40 Carbon Dioxide 25 mEq/l (22-31) 11/26/17 22:40 Anion Gap 12 mEq/L (8-16) 11/26/17 22:40 BUN 12 mg/dL (7-23) 11/26/17 22:40 Creatinine 0.8 mg/dL (0.6-1.0) 11/26/17 22:40 Estimated GFR > 60 11/26/17 22:40 Glucose 91 mg/dL (70-100) 11/26/17 22:40 Calcium 9.2 mg/dL (8.5-10.4) 11/26/17 22:40 Patient ABO/Rh B POSITIVE 11/26/17 15:45 Antibody Screen NEGATIVE 11/26/17 15:45 Crossmatch IS Only See Detail 11/26/17 15:45 Imaging Review: Chest x-ray-image was reviewed myself. Report is still pending. Bilateral pleural effusions. Cardiomegaly with some pulmonary vascular prominence but unchanged from previous imaging. Visualized and Interpreted Chest x-ray results: Yes Chest X-Ray results: effusion (Stable bilateral effusions.) Assessment & Plan Assessment: Pleasant 77-year-old female with multiple medical issues including diastolic CHF , history SVT, history of moderate severe mitral regurg and stenosis, and iron deficiency anemia, history CAD status post four-vessel CABG, asthma/COPD who presents to the emergency department with complaints of worsening dyspnea. Dyspnea - chronic ongoing complaint of dyspnea likely multifactorial including her anemia, asthma/COPD, CHF, bilateral pleural effusions and potentially some component as well of anxiety. Patient was recently hospitalized as noted per HPI. She was found to be anemic and her H&H is on stable from her discharge but reported plans for transfusion in the morning as outpatient. 1 unit PRBCs was ordered from the emergency department. Time of my interview patient reports that she has some improvement in her record dyspnea. Head exam however reveals that she has bilateral wheezing and some rhonchi. Her chest x-ray does not reveal any acute infiltrates. She has some chronic stable appearing effusions bilaterally as well as cardiomegaly. She does not appear to be in CHF failure at this time. She did receive a unit of blood on but will plan to have patient continue with her usual home dosing of Lasix at this time and that she should decompensate. Suspect that patient will need some steroids and albuterol treatments for asthma exacerbation. She has been complaining of some rhinorrhea on and hoarseness that she may be developing a response to seasonal allergies versus early URI but at this time patient is afebrile home so will plan to also add on antihistamine therapy. Discussed with the nurse regarding patient had a appearing to be slightly anxious she was saturating 99% on supplemental oxygen and the nurse was trying to titrate down to maintain her sats appropriately however patient became anxious and requested that the O2 be turned up all the way so that she could feel it blowing into her face. O2 has been titrated downward as patient was sleeping quite comfortably and soundly and she has not noted any episodes of hypoxia or worsening dyspnea when she awoke. Anemia (Acute) - iron deficiency anemia due to GI bleed previously evaluated. She has been getting outpatient iron infusions. She received 1 unit PRBC from the emergency department. She has no evidence of active bleeding at this time. Will plan to monitor H&H status post transfusion. continue Chronic diastolic CHF compensated - continue patient's home dosing of Lasix when med rec is available. Mitral stenosis and regurg - patient previously evaluated not a candidate for any form of intervention. Asthma/COPD - as noted above. THUY - supplemental oxygen History SVT - patient has been in normal sinus rhythm monitor on tele FEN - saline lock IV. Will not placed on a fluid restriction at this time. Monitor ins and outs closely particularly after transfusion. Resume patient's Lasix. Cardiac diet has been ordered. Electrolyte monitoring and replacement if needed. PPX-SCDs, Lovenox if patient should stay additional day. Cor status-full Disposition-patient admitted to observation status on the PCU floor for monitoring of her respiratory status. She has not had any episodes of hypoxia. She was in process of receiving PRBCs from ordered from the ED on x1 unit. Will plan to repeat H&H. Mobilize patient. Give her a steroid burst and nebulizer treatment. Monitor for any change in fluid status and continue with diuresis.
[2017-11-27] MEDS ORDERED: ALBUTEROL 3 ML DEYVIAL IH PRN ×2 (06:40→13:18)
[2017-11-27] MEDS ORDERED: predniSONE 20 MG TAB PO ONE (06:40)
[2017-11-27 07:33] LABS: PLATELET COUNT 209 10^3/uL (150-400)
[2017-11-27] MEDS: FUROSEMIDE 40 MG TAB PO SCH ×2 (08:09)
[2017-11-27] MEDS: HYDROCODONE/APAP 5/325 TAB PO SCH ×2 (11:31→21:14)
[2017-11-27] MEDS: FUROSEMIDE 20 MG TAB PO SCH (11:31)
[2017-11-27] MEDS ORDERED: HYDROCODONE/APAP 5/325 TAB PO PRN (12:00)
[2017-11-27] MEDS ORDERED: ALBUTEROL 60 PUFFS/8 GM MDI IH PRN (13:18)
[2017-11-27] MEDS ORDERED: carBAMazepine ER 200 MG CAP PO PRN (13:18)
[2017-11-27] MEDS ORDERED: FLUCONAZOLE 100 MG TAB PO PRN (13:18)
[2017-11-27] MEDS ORDERED: traMADol 50 MG TAB PO PRN (13:18)
[2017-11-27] MEDS ORDERED: DICLOFENAC SODIUM 1% 100 GM GEL TP PRN (13:18)
[2017-11-27] MEDS ORDERED: KETOROLAC 0.5% 5 ML OPHT.BTL EACHEYE PRN (13:18)
[2017-11-27] MEDS ORDERED: ACYCLOVIR 5% TP PRN (13:18)
[2017-11-27] MEDS ORDERED: LIDOCAINE 4%/MENTHOL 1% PATCH TD PRN (13:45)
[2017-11-27] MEDS ORDERED: valACYclovir 500 MG TAB PO PRN (13:45)
--- NOTE | 2017-11-27 14:15 | HOSPPROG ---
Hospitalist Progress Note Assessment/Plan: # dyspnea - multifactorial; she feels strongly that this is d/t her anemia - suspect combination of MS with pulm edema, pleural effusions, COPD # mitral stenosis - not a surgical candidate - discussed with Leyla - she will evaluate whether she could be a percutaneous candidate for valvuloplasty # CAD s/p CABG # dCHF - CXR with mild pulm edema - cont lasix # lung disease - combined reversible and non-reversible obstructive, and restrictive - follow with Dr Evans - inhalers, steroids # anemia, Fe defic - likely d/t chronic gastritis - transfuse another unit today as she is symptomatic # chronic gastritis - recent GI eval did not recommend a repeat endoscopy - cont ppi # THUY Subjective: seen with dishing machine operator; still feels dyspneic; felt better after transfusion Objective: Vital Signs Temp Pulse Resp BP Pulse Ox 36.8 C 86 18 123/63 H 100 11/27/17 11:53 11/27/17 11:53 11/27/17 11:53 11/27/17 11:53 11/27/17 11:53 Laboratory Results 11/27/17 07:25 11/27/17 07:25 11/26/17 11/27/17 11/28/17 05:59 05:59 05:59 Intake Total 289 Output Total 500 Balance -211 35 minutes of prolonged, face to face visit for direct patient care from 1:30 to 2:05 - Physical Exam Constitutional: no apparent distress, appears nourished Cardiovascular: regular rate and rhythym, systolic murmur, diastolic murmur, No irregularly irregular Respiratory: no respiratory distress, expiratory wheeze (bilat), No inspiratory crackles, No bronchial breath sounds Gastrointestinal: soft, non-tender abdomen, no palpable masses, No guarding, No rebound, No distension ICD10 Worksheet Patient Problems: Problems Problem Status Onset Anemia Acute Dyspnea Acute ALICIA (acute kidney injury) Acute Acute blood loss anemia Acute CAD in ruby artery Acute Chest pain Acute Congestive heart failure Acute Hypotension Acute Mitral valve regurgitation Acute Pre-syncope Acute S/P CABG x 4 Acute ~06/06/17 Sinus tachycardia Acute TIA (transient ischemic attack) Acute Transient hypotension Acute chronic disease mgmt/transitional Care Acute
--- NOTE | 2017-11-27 15:55 | ASMTCMCOM ---
CM Note CM Note Notes: 11/27/2017 Case Management Note Discussed pt during rounds this morning. Pt admitted for treatment of dyspnea and anemia. Met w/pt and unemployment examiner this afternoon to discuss d/c needs. Pt lives with her supportive . She has 2 daughters that help with her daily cares including showers. [employer] provides lunch and members of her judaism provide additional meal support when needed. In the past pt has used [facility]. Pt is currently completing cardiac outpatient rehab and reports there are 2 visits left. There are no PT or OT evals ordered at this time. Discussed benefits of palliative care. Notified MD of pt interest. Attempting to find info in [place] on Palliative Care. Case Management d/c poc: anticipating independent with family support Case Management to follow. Date Signed: 11/27/2017 03:54 PM Electronically Signed By:Chayito Adams RN
[2017-11-27] MEDS ORDERED: FUROSEMIDE 20 MG TAB PO SCH (16:00)
--- NOTE | 2017-11-27 16:43 | PDMN ---
Medical Necessity Medical necessity: Change to IP, as of 11/27/17, per MD; los >2 mn for ongoing management of multifactorial dyspnea r/t pulmonary edema, pleural effusions, COPD, mitral stenosis & symptomatic anemia; admit for further workup/monitoring , Cardiology consult, med management & blood transfusion; hx HTN, CHF, TIA, COPD ; per progress note & order 11/27/17
--- NOTE | 2017-11-27 17:04 | PDCARPN ---
Cardiology Progress Note Chief Complaint: Mitral stenosis Assessment/Plan: Assessment: 77-year-old Polish-speaking only female with a history of SVT status post ablation, coronary disease and valvular heart disease status post 4 vessel CABG with mitral valve annular debridement along with AtriClip in June 2017. Her valve was so heavily calcified that a replacement was not possible. Other history includes sleep apnea treated with CPAP and nocturnal oxygen, asthma followed by Dr. Jaison Evans, hypertension, carotid disease with history of left CEA and stroke in 2016. She also has chronic iron deficiency anemia and elevated white blood cell count followed by Dr. Torres. #. dyspnea: likely multifactorial from her anemia, lung disease, VHD stable effusions that are loculated and would be difficult to tap we discussed increasing Lasix but pt prefers status quo as the effusions are not worsened #. MS: not a surgical candidate nor a candidate for valvuloplasty due to extensive calcification per Dr. Wilder #. CAD: atypical slight cp that has been previously reported not worsened continue medical management #. PAF: avoiding full AC due to her gastritis/anemia continue ASA no events noted on telemetry #. lung disease: agree with increased dose of Lasix 11/27/17 17:00 Subjective: Feels short of breath but improved wth O2. No palps, edema, pnd. Uses CPAP with supplemental O2. On daytime O2 as well. Reviewed/Discussed With: hospitalist (Dr. Lan) Objective: Vital Signs (8 Hrs) Temp Pulse Resp BP Pulse Ox 11/27/17 14:54 97.7 F 98 16 112/57 L 98 11/27/17 14:40 98.6 F 99 18 112/56 L 97 11/27/17 11:53 98.3 F 86 18 123/63 H 100 11/27/17 09:25 90 18 96 Intake/Output (24 Hrs) 11/26/17 11/27/17 11/28/17 05:59 05:59 05:59 Intake Total 289 Output Total 500 Balance -211 Intake: Packed Red Blood Cells ( 289 ml) Output: Urine (ml) 500 Toilet 500 Other: Weight 74.943 kg Number of Voids Toilet 1 Number of Stools Toilet 1 Result Diagrams: 11/27/17 07:25 11/27/17 07:25 Telemetry: reviewed- SR - Physical Exam Constitutional: no apparent distress Eyes: anicteric sclera Cardiovascular: regular rate and rhythm, systolic murmur Respiratory: no crackles, reduced air movement, expiratory wheeze, bronchial breath sounds Gastrointestinal: normoactive bowel sounds, no tenderness Neurologic: AAOx3 Psychiatric: cooperative, interactive ICD10 Worksheet Patient Problems: Problems Problem Status Onset Anemia Acute Dyspnea Acute ALICIA (acute kidney injury) Acute Acute blood loss anemia Acute CAD in [place] artery Acute Chest pain Acute Congestive heart failure Acute Hypotension Acute Mitral valve regurgitation Acute Pre-syncope Acute S/P CABG x 4 Acute ~06/06/17 Sinus tachycardia Acute TIA (transient ischemic attack) Acute Transient hypotension Acute chronic disease mgmt/transitional Care Acute
[2017-11-27] MEDS: ATORVASTATIN CALCIUM 20 MG TAB PO SCH (21:13)
[2017-11-27] MEDS: GABAPENTIN 300 MG CAP PO SCH (21:13)
[2017-11-27] MEDS: GABAPENTIN 400 MG CAP PO SCH (21:13)
[2017-11-27] MEDS: POTASSIUM CL 20 MEQ TAB PO SCH (21:13)
[2017-11-27] MEDS: METOPROLOL TARTRATE 25 MG TAB PO SCH (21:13)
[2017-11-27] MEDS: SUCRALFATE 1 GM TAB PO SCH (21:14)
[2017-11-27] MEDS: TOPIRAMATE 25 MG TAB PO SCH (21:14)
[2017-11-27] MEDS: MONTELUKAST SODIUM 10 MG TAB PO SCH (21:14)
[2017-11-27] MEDS: BUDESONIDE/FORMOTEROL 160/4.5 60 PUFFS/MDI IH SCH (21:37)
[2017-11-27] MEDS: FLUTICASONE NASAL 120 SPRAYS/16 GM MDI EACHNARE SCH (21:38)
[2017-11-28] MEDS ORDERED: FUROSEMIDE 20 MG TAB PO SCH (07:00)
[2017-11-28] MEDS: PSYLLIUM METAMUCIL 1 PKT PO SCH (08:25)
[2017-11-28] MEDS: predniSONE 20 MG TAB PO SCH (08:26)
[2017-11-28] MEDS: FUROSEMIDE 40 MG TAB PO SCH (08:26)
[2017-11-28] MEDS: GABAPENTIN 300 MG CAP PO SCH ×2 (08:26→21:24)
[2017-11-28] MEDS: SUCRALFATE 1 GM TAB PO SCH ×2 (08:26→21:27)
[2017-11-28] MEDS: PANTOPRAZOLE SODIUM 40 MG TAB PO SCH (08:26)
[2017-11-28] MEDS: METOPROLOL TARTRATE 25 MG TAB PO SCH ×3 (08:26→21:26)
[2017-11-28] MEDS: TOPIRAMATE 25 MG TAB PO SCH ×2 (08:27→21:27)
[2017-11-28] MEDS: ASPIRIN EC 81 MG TAB PO SCH (08:27)
[2017-11-28] MEDS: POTASSIUM CL 20 MEQ TAB PO SCH ×2 (08:27→21:23)
[2017-11-28] MEDS: FLUTICASONE NASAL 120 SPRAYS/16 GM MDI EACHNARE SCH ×2 (08:28→22:25)
[2017-11-28] MEDS: HYDROCODONE/APAP 5/325 TAB PO SCH ×2 (08:29→21:26)
[2017-11-28] MEDS: BUDESONIDE/FORMOTEROL 160/4.5 60 PUFFS/MDI IH SCH ×2 (08:29→21:33)
[2017-11-28] MEDS ORDERED: FUROSEMIDE 20 MG/2 ML VIAL IVP ONE (10:23)
--- NOTE | 2017-11-28 10:29 | HOSPPROG ---
Hospitalist Progress Note Assessment/Plan: 77F with severe MS (not amenable to treatment), CAD s/p CABG with second admission for dyspnea. She feels strongly that her anemia is to blame, but she understands this is multifactorial. Feels better after transfusion yesterday. Agreeable to trial of more aggressive diuresis today. # dyspnea - multifactorial; - suspect combination of MS with pulm edema, pleural effusions, lung disease # mitral stenosis - not a surgical candidate; Leyla will discuss with Dr Krishnamurthy however # CAD s/p CABG - asa/statin/BB # dCHF - CXR with mild pulm edema - will give her normal PO lasix and an additional dose of 20 IV today # lung disease - combined reversible and non-reversible obstructive, as well as restrictive per Dr Evans's last note - cont inhalers, steroids # anemia, Fe defic s/p 2U PRBC - recent heme eval - likely chronic gastritis, possibly d/t hemolysis from valve # chronic gastritis - recent GI eval did not recommend a repeat endoscopy - recent GI eval - did not recommend repeat EGD/colonoscopy (last done 1.5 years ago) - cont carafate, protonix # THUY # dispo - possibly tomorrow based on symptoms; high risk for readmission # CM has facilitated palliative care consult today Subjective: dysonea better today, but still some SKINNER Objective: Vital Signs Temp Pulse Resp BP Pulse Ox 36.8 C 70 18 139/64 H 93 11/28/17 08:00 11/28/17 08:26 11/28/17 08:00 11/28/17 08:26 11/28/17 08:00 Microbiology 11/27/17 15:35 Respiratory Panel (PCR) - Final Nasal, Sinus - [place] Viral Transport No Organism Detected Laboratory Results 11/28/17 04:02 11/28/17 04:02 11/27/17 11/28/17 11/29/17 05:59 05:59 05:59 Intake Total 289 1565 Output Total 500 Balance -211 1565 tele reviewed discussed with Leyla - Physical Exam Constitutional: no apparent distress, appears nourished Cardiovascular: regular rate and rhythym, diastolic murmur, No systolic murmur, No irregularly irregular, No tachycardia, No bradycardia Respiratory: no respiratory distress, expiratory wheeze, No clear to auscultation, No rhonchi Gastrointestinal: soft, non-tender abdomen, no palpable masses, No guarding, No rebound, No distension ICD10 Worksheet Patient Problems: Problems Problem Status Onset Anemia Acute Acute blood loss anemia Acute Mitral valve regurgitation Acute S/P CABG x 4 Acute ~06/06/17 CAD in [place] artery Acute chronic disease mgmt/transitional Care Acute Sinus tachycardia Acute Chest pain Acute Pre-syncope Acute Hypotension Acute Dyspnea Acute Transient hypotension Acute TIA (transient ischemic attack) Acute ALICIA (acute kidney injury) Acute Congestive heart failure Acute
[2017-11-28] MEDS: FUROSEMIDE 20 MG TAB PO SCH (13:35)
--- NOTE | 2017-11-28 14:48 | ASMTCMCOM ---
CM Note CM Note Notes: 11/28/2017 Case Management Note Met w/pt, , chemical checker and Juancarlos from Palliative Care. Please see palliative note for details. Pt requested palliative consult for both herself and her . Discussed arranging palliative after d/c for outpatient follow. Both in agreement but wanted to discuss with their children first. Requested case management hold off on referrals until family has had time to meet. Case Management provided information on palliative care to pt and to share with daughters. [facility] would be an appropriate referral for this pt. Case Management to follow up tomorrow. Date Signed: 11/28/2017 02:48 PM Electronically Signed By:Chayito Adams RN
--- NOTE | 2017-11-28 15:00 | ASMTLACE ---
VALEE Acuity / Level of Answers: Yes Care: Did the patient have an inpatient admission? Comorbidities - select Answers: Cerebrovascular disease all that apply (CVA, TIA, aneurysms, vasc ular dementia) Chronic pulmonary disease Congestive heart failure Coronary Artery Disease Other Notes: HTN; CABG # of Emergency department Answers: 3-4 visits in the last 6 months Score: 14 Date Signed: 11/28/2017 03:00 PM Electronically Signed By:Sonia Tay
[2017-11-28] MEDS: TIOTROPIUM INHALER 18 MCG/DOSE 5 DOSE/MDI IH SCH (15:43)
[2017-11-28] MEDS: MONTELUKAST SODIUM 10 MG TAB PO SCH (21:24)
[2017-11-28] MEDS: GABAPENTIN 400 MG CAP PO SCH (21:24)
[2017-11-28] MEDS: ATORVASTATIN CALCIUM 20 MG TAB PO SCH (21:25)
[2017-11-29] MEDS: SUCRALFATE 1 GM TAB PO SCH (08:36)
[2017-11-29] MEDS: predniSONE 20 MG TAB PO SCH (08:36)
[2017-11-29] MEDS: ASPIRIN EC 81 MG TAB PO SCH (08:36)
[2017-11-29] MEDS: GABAPENTIN 300 MG CAP PO SCH (08:36)
[2017-11-29] MEDS: PSYLLIUM METAMUCIL 1 PKT PO SCH (08:36)
[2017-11-29] MEDS: FUROSEMIDE 40 MG TAB PO SCH (08:36)
[2017-11-29] MEDS: POTASSIUM CL 20 MEQ TAB PO SCH (08:37)
[2017-11-29] MEDS: METOPROLOL TARTRATE 25 MG TAB PO SCH ×2 (08:37→11:04)
[2017-11-29] MEDS: PANTOPRAZOLE SODIUM 40 MG TAB PO SCH (08:38)
[2017-11-29] MEDS: TOPIRAMATE 25 MG TAB PO SCH (08:38)
[2017-11-29] MEDS: HYDROCODONE/APAP 5/325 TAB PO SCH (08:38)
[2017-11-29] MEDS: FLUTICASONE NASAL 120 SPRAYS/16 GM MDI EACHNARE SCH (08:54)
[2017-11-29] MEDS: BUDESONIDE/FORMOTEROL 160/4.5 60 PUFFS/MDI IH SCH (08:54)
--- NOTE | 2017-11-29 10:10 | PDDCSUM ---
Discharge Summary Discharge Summary: Dates of service 11/27-11/29/17 Consultations:cardiology, palliative care Procedures: none Hospital course by problem: 77F with severe MS (not amenable to treatment), CAD s/p CABG with second admission for dyspnea. # dyspnea - multifactorial; - suspect combination of MS with pulm edema, pleural effusions, lung disease # mitral stenosis - not a surgical candidate; Leyla will discuss with Dr Yessy chi and patient scheduled to f/u post discharge with them to discuss further # CAD s/p CABG - asa/statin/BB # dCHF - CXR with mild pulm edema - sp lasix and symptomaticallly improved # lung disease - combined reversible and non-reversible obstructive, as well as restrictive per Dr Evans's last note - cont inhalers, steroids # anemia, Fe defic s/p 2U PRBC - recent heme eval - likely chronic gastritis, possibly d/t hemolysis from valve # chronic gastritis - recent GI eval did not recommend a repeat endoscopy - recent GI eval - did not recommend repeat EGD/colonoscopy (last done 1.5 years ago) - cont carafate, protonix # THUY # dispo - dc home; high risk for readmission Patient discharged to home in fair condition > 60 min spent in dc more than half in face to face counseling of patient and her family with prolonged care time spent from 1230-130 with paraprofessional interpreter and palliative care team at patient bedside with present
--- NOTE | 2017-11-29 10:42 | ASMTDCNOTE ---
Case Management Discharge Discharge Order Complete? 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 At pt request spoke with daughter Ev [phone] to discuss palliative. All in agreement of benefits. Faxed referral to [facility]. [facility] follow outpatient. There are no d/c needs identified. Pt to d/c independent with resumption of cardiac outpatient rehab. Date Signed: 11/29/2017 10:42 AM Electronically Signed By:Chayito Adams RN
--- NOTE | 2017-11-29 10:48 | ASDISCHSUM ---
Discharge Information Plan Status:Home with No Needs Medically Cleared to Leave:11/29/2017 Discharge Date:11/29/2017 CM D/C Disposition:Home, Routine, Self-Care ADT D/C Disposition:Home, Routine, Self-Care Projected Discharge Date:11/29/2017 11:00 AM Transportation at D/C:Family Discharge Delay Reason: Follow-Up Date:11/29/2017 11:00 AM Discharge Slot: Final Diagnosis: Placement Information Referral Type:Palliative Care Referral ID:[id number] Provider Name:[facility] Address 1:[address] Phone Number: Address 2: Fax Number: City:[place] Selection Factors: State:[place] Patient Contact Information Contact Name:OKSANAJUNNIRMALA Relationship: Address:[address] Work Phone: [facility] Alternate Phone: State/[facility] Code:[place] [address] Email: Financial Information Financial Class:Medicare Primary Plan Desc:MEDICARE INPATIENT Primary Plan Number:[id number] Secondary Plan Desc:MED[place] Secondary Plan Number:[id number] Assessment Information LACE LACE Acuity / Level of Answers: Yes Care: Did the patient have an inpatient admission? Comorbidities - select Answers: Cerebrovascular disease all that apply (CVA, TIA, aneurysms, vasc ular dementia) Chronic pulmonary disease Congestive heart failure Coronary Artery Disease Other Notes: HTN; CABG # of Emergency department Answers: 3-4 visits in the last 6 months Score: 14 Date Signed: 11/28/2017 03:00 PM Electronically Signed By:Sonia Tay [facility] CM Progress Note CM Note CM Note Notes: 11/27/2017 Case Management Note Discussed pt during rounds this morning. Pt admitted for treatment of dyspnea and anemia. Met w/pt and spanish interpreter this afternoon to discuss d/c needs. Pt lives with her supportive . She has 2 daughters that help with her daily cares including showers. Me[employer] Whe[employer] provides lunch and members of her gnosticism provide additional meal support when needed. In the past pt has used [facility]. Pt is currently completing cardiac outpatient rehab and reports there are 2 visits left. There are no PT or OT evals ordered at this time. Discussed benefits of palliative care. Notified MD of pt interest. Attempting to find info in [place] on Palliative Care. Case Management d/c poc: anticipating independent with family support Case Management to follow. Date Signed: 11/27/2017 03:54 PM Electronically Signed By:Chayito Adams RN [facility] CM Progress Note CM Note CM Note Notes: 11/28/2017 Case Management Note Met w/pt, , spanish interpreter and Juancarlos from Palliative Care. Please see palliative note for details. Pt requested palliative consult for both herself and her . Discussed arranging palliative after d/c for outpatient follow. Both in agreement but wanted to discuss with their children first. Requested case management hold off on referrals until family has had time to meet. Case Management provided information on palliative care to pt and to share with daughters. [facility] would be an appropriate referral for this pt. Case Management to follow up tomorrow. Date Signed: 11/28/2017 02:48 PM Electronically Signed By:Chayito Adams RN Case Management Discharge Plan Note Case Management Discharge Discharge Order Complete? Answers: Yes Patient to Obtain Answers: via Family Medications Transportation Arranged Answers: Family/Friends Faxed Final Orders Answers: Yes Family Notified Answers: Yes Notes: in room Discharge Comments Notes: 11/29/2017 Case Management Note Met w/pt and and spanish interpreter to answer questions re: palliative this morning. At pt request spoke with daughter Ev [phone] to discuss palliative. All in agreement of benefits. Faxed referral to [facility]. [facility] to follow outpatient. There are no d/c needs identified. Pt to d/c independent with resumption of cardiac outpatient rehab. Date Signed: 11/29/2017 10:42 AM Electronically Signed By:Chayito Adams RN Intervention Information Intervention Type:*ROUSE-Signed Date of Service:11/27/2017 10:55 AM Patient Type:Observation Staff Member:Sonia Tay Hours: Discipline: Severity: Comment:
[2017-11-29] MEDS: FUROSEMIDE 20 MG TAB PO SCH (11:04)
[2017-11-29 11:05] VITALS: BP 131/68
[2017-11-29] MEDS: TIOTROPIUM INHALER 18 MCG/DOSE 5 DOSE/MDI IH SCH (11:05)
== END 2017-11-29 11:37 | disposition home or self-care (01) | DRG 812 ==
LOC: OBSVTOIN 11-27 00:49 → F2W 11-27 01:25
PROVIDERS: ADMIT Family Medicine; ATTEND Family Medicine
PROC: 30233N1 Transfusion of Nonautologous Red Blood Cells into Peripheral Vein, Percutaneous Approach (ICD-10-PCS; principal; 2017-11-27)
DX: D50.0 Iron deficiency anemia secondary to blood loss (chronic) (principal); I11.0 Hypertensive heart disease with heart failure; I50.32 Chronic diastolic (congestive) heart failure; I34.0 Nonrheumatic mitral (valve) insufficiency; K29.50 Unspecified chronic gastritis without bleeding; I25.10 Atherosclerotic heart disease of native coronary artery without angina pectoris; J44.9 Chronic obstructive pulmonary disease, unspecified; E66.9 Obesity, unspecified; G47.33 Obstructive sleep apnea (adult) (pediatric); Z95.1 Presence of aortocoronary bypass graft; Z87.891 Personal history of nicotine dependence
CPT/HCPCS: J1940; J7512; J7613; P9016

== ENCOUNTER → 2018-01-06 | Outpatient (CLI) | payer OTHER, MEDICAID ==
--- NOTE | 2018-01-06 14:09 | CPEKG ---
Heart Rate: 75 RR Interval: 800 P-R Interval: 188 QRSD Interval: 78 QT Interval: 432 QTC Interval: 483 P [place]: -45 QRS [place]: 17 T Wave [place]: 35 EKG Severity - OTHERWISE NORMAL ECG - EKG Impression: ECTOPIC ATRIAL RHYTHM EKG Impression: No significant change from November 15, 2017 Electronically Signed By: Sergey Brice 06-Jan-2018 16:40:26
== END ==
LOC: FPAT 11:43
PROVIDERS: ATTEND Internal Medicine Gastroenterology
DX: Z01.810 Encounter for preprocedural cardiovascular examination (principal)

== ENCOUNTER → 2018-01-30 | Outpatient (CLI) | payer OTHER, MEDICAID | LOC: CIMAGING 14:28 | PROVIDERS: ATTEND Family Medicine | DX: M25.561 Pain in right knee (principal) | CPT/HCPCS: 73562-PO ==

== ENCOUNTER → 2018-03-19 | Outpatient (CLI) | payer OTHER, MEDICAID | LOC: CIMAGING 10:08 | PROVIDERS: ATTEND Family Medicine | DX: Z12.31 Encounter for screening mammogram for malignant neoplasm of breast (principal) ==

== ENCOUNTER → 2018-05-20 | Outpatient (CLI) | payer OTHER, MEDICAID | LOC: BHFA 13:00 | PROVIDERS: ATTEND Internal Medicine Cardiovascular Disease | DX: I48.0 Paroxysmal atrial fibrillation (principal); I34.9 Nonrheumatic mitral valve disorder, unspecified; R06.02 Shortness of breath ==

== ENCOUNTER 2018-07-04 12:41 | Observation (INO) | payer OTHER, MEDICAID ==
--- NOTE | 2018-07-04 13:01 | EDPHY ---
HPI/HX/ROS/PE/MDM Narrative: CHIEF COMPLAINT: "I can't breathe well" HISTORY OF PRESENT ILLNESS: The patient is a Italian-speaking 77 y/o female with a history of CABG, and asthma arriving with her complaining of shortness of breath for the last 3 days. She has an associated cough and chills. Symptoms are worse with exertion and exertion also causes some chest heaviness that she does not describe as painful. She also mentions bilateral leg weakness, upper back pain, and a mild sore throat. She began using home O2 continuously 2 months ago at the recommendation of her pulp beater. With her current symptoms her SpO2 at home has been in the 65-70% and improves when increasing her O2. She used her inhalers today and also takes Lasix daily. She feels her symptoms are related to her mitral valve. She is not on anticoagulants and discontinued aspirin 3 months ago due to bleeding issues. She did receive a flu vaccination this season. No recently echocardiogram. No fever, chest pain, palpitations, vomiting, diarrhea, urinary complaints, headache, lightheadedness. History obtained via use of Italian assistant toddler teacher at bedside. REVIEW OF SYSTEMS: Aside from elements discussed in the HPI, a comprehensive 10-point review of systems was reviewed and is negative. PAST MEDICAL HISTORY: CABG x4 2018, mitral valve issue, asthma (albuterol, Symbicort), continuous home O2 use, chronic low back pain. SOCIAL HISTORY: at bedside. Italian-speaking. Memorial Counselor: Dr. Wilder. VITAL SIGNS: Reviewed by me. Pulse ox 92% on usual 2 l. GENERAL: Well-developed, well-nourished, resting comfortably, slightly tachypneic. HEENT: Atraumatic. Eyes: No icterus, no injection. Mouth: moist mucous membranes. No erythema or lesions. Neck: supple with no adenopathy. LUNGS: Clear to auscultation bilaterally, no wheezes, rhonchi or rales. CARDIAC: Distant heart sounds but regular rate and rhythm, no rubs, murmurs or gallops. ABDOMEN: Soft, nontender, nondistended, bowel sounds normal. BACK: No CVA tenderness. EXTREMITIES: No trauma. No edema. Range of motion is normal throughout. NEURO: Alert and oriented, grossly nonfocal. SKIN: Warm and dry, no rash. PSYCHIATRIC: Normal mentation, no agitation. Portions of this note were transcribed by a medical transcription radiology. I personally performed a history, physical exam, medical decision making, and confirmed accuracy of information the transcribed note. ED Course: This is a 77 y/o female with a history of CABG x4, asthma, and possible CHF who presents with a 3-day history of shortness of breath and hypoxemia as measured on her home pulse oximeter. She is well-appearing here with clear lungs on auscultation and no peripheral edema. Plan for IV, labs, EKG, chest x-ray. The 12 lead EKG was interpreted by myself. Sinus or atrial rhythm. No ischemic changes See hard copy and/or "tracemaster" electronic copy for interpretation. Chest x-ray: Mild fluid overload D-dimer elevated at 0.84. BNP 924. POC troponin normal. Chest CTA: no PE, mild fluid in the fissures, pleural and peribronchial thickening, new ground glass opacifications, possibly CHF vs. early pneumonia. 1615: Reassessed patient and discussed findings. Recommended admission for shortness of breath, potential worsening failure versus valvular dysfunction. Also history of coronary artery disease. Bypass x4 Spoke with hospitalist service. Dr. Manuel accepts admission. MDM: Differential diagnosis for the patient's shortness of breath was considered including but not limited to pulmonary infectious processes, COPD exacerbation, pulmonary emboli, pulmonary edema, congestive heart failure, and cardiac causes. - Data Points Imaging Results: Imaging Impressions Chest X-Ray 07/04/18 13:12 Impression: 1. Mild fluid overload/CHF suspected. 2. Postoperative changes from previous open heart surgery noted. 3. Pleural thickening left hemithorax versus effusion tracking along the lateral chest wall to the apex. Chest/Thorax CTA 07/04/18 14:21 Impression: 1. No evidence of thrombopulmonary embolic disease. 2. Extensive pleural parenchymal disease with prominent pleural thickening and calcifications bilaterally which can be seen with asbestos-related change. Asymmetry in the pleural thickening is seen at the left apex and stable and some pleural parenchymal scarring at the right apex which is stable 3. Mild interstitial prominence increased over the interval and some pleural fluid and major fissures and peribronchial wall thickening which could represent some underlying pulmonary edema and early congestive heart failure. An asymmetric area of ground-glass opacity is seen in the right lower lobe which could be asymmetric pulmonary edema or early infiltrate. 4. Mediastinal and hilar enlarged lymph nodes which are stable. With stability, this is most likely benign. 5. Postsurgical changes of open heart surgery, stable in appearance. Evidence of atherosclerotic disease in the coronary arteries. Stable cardiomegaly. 6. Other chronic findings as above. Results called and discussed with Claire Zaman MD, on 07/04/2018, 1550 hours. Imaging: Discussed imaging studies w/ ice rink attendant Radiologist, I viewed and interpreted images myself Laboratory Results: Laboratory Results 07/04/18 13:10 07/04/18 13:10 07/04/18 07/04/18 07/04/18 14:34 13:10 13:10 WBC RBC Hgb Hct MCV MCH MCHC RDW Plt Count MPV Neut % (Auto) Lymph % (Auto) Catron % (Auto) Eos % (Auto) Baso % (Auto) Nucleat RBC Rel Count Absolute Neuts (auto) Absolute Lymphs (auto) Absolute Monos (auto) Absolute Eos (auto) Absolute Basos (auto) Absolute Nucleated RBC Immature Gran % Immature Gran # PT 14.7 SEC SEC (12.0-15.0) INR 1.13 (0.83-1.16) D-Dimer 0.84 ug/mLFEU H ug/mLFEU (0.00-0.50) Sodium 141 mEq/L mEq/L (135-145) Potassium 3.8 mEq/L mEq/L (3.5-5.2) Chloride 112 mEq/L H mEq/L (97-110) Carbon Dioxide 24 mEq/l mEq/l (22-31) Anion Gap 5 mEq/L L mEq/L (6-14) BUN 11 mg/dL mg/dL (7-23) Creatinine 0.7 mg/dL mg/dL (0.6-1.0) Estimated GFR > 60 Glucose 97 mg/dL mg/dL (70-100) Calcium 9.0 mg/dL mg/dL (8.5-10.4) POC Troponin I 0.00 ng/mL ng/mL (0.00-0.08) NT-Pro-B Natriuret Pep 924 pg/mL H pg/mL (0-450) 07/04/18 13:10 WBC 11.96 10^3/uL H 10^3/uL (3.80-9.50) RBC 3.08 10^6/uL L 10^6/uL (4.18-5.33) Hgb 9.3 g/dL L g/dL (12.6-16.3) Hct 31.5 % L % (38.0-47.0) MCV 102.3 fL H fL (81.5-99.8) MCH 30.2 pg pg (27.9-34.1) MCHC 29.5 g/dL L g/dL (32.4-36.7) RDW 15.7 % H % (11.5-15.2) Plt Count 194 10^3/uL 10^3/uL (150-400) MPV 12.1 fL H fL (8.7-11.7) Neut % (Auto) 70.0 % % (39.3-74.2) Lymph % (Auto) 13.1 % L % (15.0-45.0) Catron % (Auto) 6.9 % % (4.5-13.0) Eos % (Auto) 9.1 % H % (0.6-7.6) Baso % (Auto) 0.5 % % (0.3-1.7) Nucleat RBC Rel Count 0.0 % % (0.0-0.2) Absolute Neuts (auto) 8.37 10^3/uL H 10^3/uL (1.70-6.50) Absolute Lymphs (auto) 1.57 10^3/uL 10^3/uL (1.00-3.00) Absolute Monos (auto) 0.82 10^3/uL H 10^3/uL (0.30-0.80) Absolute Eos (auto) 1.09 10^3/uL H 10^3/uL (0.03-0.40) Absolute Basos (auto) 0.06 10^3/uL 10^3/uL (0.02-0.10) Absolute Nucleated RBC 0.00 10^3/uL 10^3/uL (0-0.01) Immature Gran % 0.4 % % (0.0-1.1) Immature Gran # 0.05 10^3/uL 10^3/uL (0.00-0.10) PT INR D-Dimer Sodium Potassium Chloride Carbon Dioxide Anion Gap BUN Creatinine Estimated GFR Glucose Calcium POC Troponin I NT-Pro-B Natriuret Pep Point of Care Test Results: Chemistry 07/04/18 14:34 POC Troponin I 0.00 ng/mL ng/mL (0.00-0.08) General Time Seen by Provider: 07/04/18 12:58 Initial Vital Signs: Initial Vital Signs Temperature (C) 36.8 C 07/04/18 12:47 Heart Rate 86 07/04/18 12:47 Respiratory Rate 20 07/04/18 12:47 Blood Pressure 133/69 H 07/04/18 12:47 O2 Sat (%) 92 07/04/18 12:47 O2 Delivery Mode Nasal Cannula O2 (L/minute) 2.5 Allergies/Adverse Reactions: Penicillins Allergy (Verified 07/04/18 17:05) Swelling/neck,face,throat Home Medications: Medication Instructions Recorded Acyclovir 5% [Zovirax 5%] 1 clyde TP Q3H PRN 07/04/18 Albuterol [Proventil Inhaler HFA 1 - 2 puffs IH Q4H PRN 07/04/18 (*)] Albuterol [Proventil Neb] 3 ml IH QID PRN 07/04/18 Atorvastatin Calcium [Lipitor 20 20 mg PO HS 07/04/18 mg (*)] Budesonide/Formoterol 160/4.5 2 puffs IH BID 07/04/18 [Symbicort 160-4.5 Mcg Inh (*)] Diclofenac Sodium 1% [Voltaren Gel 2 gm TP QID PRN 07/04/18 (*)] Ergocalciferol [Vitamin D2 (*)] 50,000 unit PO SA 07/04/18 Fluticasone Nasal [Flonase Nasal 2 sprays NASAL BID 07/04/18 Wells (RX)] Gabapentin 800 mg PO BID 07/04/18 Hydrocodone/APAP 5/325 [[place] 1 each PO Q8H PRN 07/04/18 5/325 (*)] Ketorolac 0.5% [Acular 0.5% Opht 1 drops LEFTEYE DAILY PRN 07/04/18 Drops (*)] Lidocaine 5% [Lidoderm 5% Patch] 1 ea TD DAILY PRN 07/04/18 Metoprolol Tartrate [Lopressor 25 25 mg PO BID 07/04/18 mg (*)] Montelukast Sodium [Singulair 10 10 mg PO DAILY@1800 07/04/18 mg (*)] [place]-3 Fatty Acids [Fish Oil 1000 1,000 mg PO HS 07/04/18 mg (*)] Pantoprazole Sodium [Protonix 40mg 40 mg PO DAILY 07/04/18 (*)] Tiotropium Inhaler [Spiriva 18 mcg IH HS 07/04/18 Handihaler] Topiramate [Topamax 25MG (*)] 50 mg PO BID 07/04/18 Torsemide 20 mg PO DAILY@16 07/04/18 Torsemide 40 mg PO DAILY 07/04/18 carBAMazepine [Tegretol Xr] 200 mg PO HS 07/04/18 traMADol HCL [Tramadol HCl] 50 mg PO Q6H PRN 07/04/18 Departure - Departure Disposition: [facility] Acute Clinical Impression: Dyspnea Qualifiers: Dyspnea type: shortness of breath Qualified Code(s): R06.02 - Shortness of breath Condition: Fair Report Scribed for: Claire Zaman Report Scribed by: Chasity Decker Date of Report: 07/04/18 Time of Report: 13:01
--- NOTE | 2018-07-04 13:37 | CPEKG ---
Test Reason : OPEN Blood Pressure : / mmHG Vent. Rate : 089 BPM Atrial Rate : 089 BPM P-R Int : 183 ms QRS Dur : 083 ms QT Int : 388 ms P-R-T Axes : -46 017 063 degrees QTc Int : 473 ms Sinus or ectopic atrial rhythm Confirmed by Claire Zaman ([id number]) on 07/04/2018 1:37:06 PM Referred By: Claire Zaman Confirmed By:Claire Zaman
[2018-07-04 13:43] LABS: INR 1.13 (0.83-1.16); PROTIME(PATIENT) 14.7 SEC (12.0-15.0)
[2018-07-04 13:44] LABS: PLATELET COUNT 194 10^3/uL (150-400)
[2018-07-04] MEDS ORDERED: IOPAMIDOL (ISOVUE 370) 100 ML BTL IV ONE (14:34)
[2018-07-04] MEDS ORDERED: ACETAMINOPHEN 325 MG TAB PO ONE (16:42)
[2018-07-04] MEDS ORDERED: FUROSEMIDE 40 MG/4 ML VIAL IVP ONE (16:42)
[2018-07-04] MEDS ORDERED: ALBUTEROL 60 PUFFS/8 GM MDI IH PRN (17:23)
[2018-07-04] MEDS ORDERED: ACYCLOVIR 5% TP PRN (17:23)
[2018-07-04] MEDS ORDERED: ALBUTEROL 3 ML DEYVIAL IH PRN (17:23)
[2018-07-04] MEDS ORDERED: KETOROLAC 0.5% 5 ML OPHT.BTL LEFTEYE PRN (17:23)
[2018-07-04] MEDS ORDERED: DICLOFENAC SODIUM 1% 100 GM GEL TP PRN (17:23)
--- NOTE | 2018-07-04 17:53 | PDGENHP ---
History and Physical - Chief Complaint shortness of breath - History of Present Illness 77yo F with history of CAD s/p CABG, MR/MS, chronic diastolic CHF, HTN, COPD with chronic O2 dependence, SVT s/p ablation presents with 1 week of worsening shortness of breath. This has been associated with mild bilateral leg swelling. She is unable to lie flat but this is chronic. No chest pain/pressure. No cough , fevers/chills, or wheezing. She has been taking her diuretic (torsemide 20mg in AM, 40mg in PM) as directed. She noticed that her O2 levels were in the low 70s intermittently at home and went up on her oxygen from her baseline 2L up to 3L. In the ED, her oxygen saturations were above 90% on 2L. Her CXR showed mild fluid overload. A d-dimer was elevated so CTA chest was obtained which was negative for PE. She was given a dose of 40mg IV lasix and is being admitted for further management. Case discussed with ED physician Claire Zaamn. History Information - Allergies/Home Medication List Allergies/Adverse Reactions: Penicillins Allergy (Verified 07/04/18 17:05) Swelling/neck,face,throat Home Medications: Acyclovir 5% [Zovirax 5%] 1 clyde TP Q3H PRN 07/04/18 [Last Taken Unknown] Albuterol [Proventil Inhaler HFA (*)] 1 - 2 puffs IH Q4H PRN 07/04/18 [Last Taken Unknown] Albuterol [Proventil Neb] 3 ml IH QID PRN 07/04/18 [Last Taken 07/04/18] Atorvastatin Calcium [Lipitor 20 mg (*)] 20 mg PO HS 07/04/18 [Last Taken ] Budesonide/Formoterol 160/4.5 [Symbicort 160-4.5 Mcg Inh (*)] 2 puffs IH BID 06/21 [Last Taken 07/04/18] Diclofenac Sodium 1% [Voltaren Gel (*)] 2 gm TP QID PRN 07/04/18 [Last Taken Unknown] Ergocalciferol [Vitamin D2 (*)] 50,000 unit PO SA 07/04/18 [Last Taken 06/28/18] Fluticasone Nasal [Flonase Nasal [place] (RX)] 2 sprays NASAL BID 07/04/18 [Last Taken 07/04/18] Gabapentin 800 mg PO BID 07/04/18 [Last Taken 07/03/18 21:00] Hydrocodone/APAP 5/325 [[place] 5/325 (*)] 1 each PO Q8H PRN 07/04/18 [Last Taken Unknown] Ketorolac 0.5% [Acular 0.5% Opht Drops (*)] 1 drops LEFTEYE DAILY PRN 07/04/18 [ Last Taken Unknown] Lidocaine 5% [Lidoderm 5% Patch] 1 ea TD DAILY PRN 07/04/18 [Last Taken Unknown] Metoprolol Tartrate [Lopressor 25 mg (*)] 25 mg PO BID 07/04/18 [Last Taken ] Montelukast Sodium [Singulair 10 mg (*)] 10 mg PO DAILY@1800 07/04/18 [Last Taken 07/03/18] [place]-3 Fatty Acids [Fish Oil 1000 mg (*)] 1,000 mg PO HS 07/04/18 [Last Taken 07/03/18] Pantoprazole Sodium [Protonix 40mg (*)] 40 mg PO DAILY 07/04/18 [Last Taken ] Tiotropium Inhaler [Spiriva Handihaler] 18 mcg IH HS 07/04/18 [Last Taken ] Topiramate [Topamax 25MG (*)] 50 mg PO BID 07/04/18 [Last Taken 07/03/18] Torsemide 20 mg PO DAILY@16 07/04/18 [Last Taken 07/03/18] Torsemide 40 mg PO DAILY 07/04/18 [Last Taken 07/03/18] carBAMazepine [Tegretol Xr] 200 mg PO HS 07/04/18 [Last Taken 07/03/18] traMADol HCL [Tramadol HCl] 50 mg PO Q6H PRN 07/04/18 [Last Taken Unknown] I have personally reviewed and updated: family history, medical history, social history, surgical history - Past Medical History Additional medical history: chronic diastolic CHF, CAD s/p 4v CABG (06/2017), moderate MR and MS, carotid stenosis, COPD with chronic 2L O2 dependence, HTN, TIA (09/2015), THUY, SVT s/p ablation, chronic leukocytosis, chronic anemia, seizure disorder, GERD - Surgical History Additional surgical history: SVT ablation, CABG, RADHA closure, mitral annular debridement, appendectomy, hysterectomy - Family History Additional family history: mother - CVA in 70s - Social History Smoking Status: Former smoker (quit 30 years ago) Alcohol Use: None Drug Use: None Additional social history: Lives with her , has daughter who is active in her care, walks independently, independent in ADLs Review of Systems Review of Systems: ROS: 10pt was reviewed & negative except for what was stated in HPI & below Physical Exam Physical Exam: Temp Pulse Resp BP Pulse Ox 36.7 C 92 16 107/63 97 07/04/18 16:46 07/04/18 16:46 07/04/18 16:46 07/04/18 16:46 07/04/18 16:46 O2 (L/minute) 2 Constitutional: no apparent distress, appears nourished, not in pain Eyes: PERRL, anicteric sclera, EOMI Ears, Nose, Mouth, Throat: moist mucous membranes, hearing normal, ears appear normal, no oral mucosal ulcers Cardiovascular: regular rate and rhythym, systolic murmur, JVD (2cm above clavicle while at 45 degrees), edema (1+ BLE) Respiratory: no respiratory distress, reduced air movement, inspiratory crackles Gastrointestinal: normoactive bowel sounds, soft, non-tender abdomen, no palpable masses Genitourinary: no bladder fullness, no bladder tenderness Skin: warm, normal color, no rashes or abrasions, no fluctuance, no induration, No mottled Musculoskeletal: full muscle strength, no muscle tenderness, normal joint ROM, no joint effusions Neurologic: AAOx3 Psychiatric: interacting appropriately, not anxious, not encephalopathic, thought process linear Lab Data & Imaging Review 07/04/18 13:10 07/04/18 13:10 WBC 11.96 10^3/uL (3.80-9.50) H 07/04/18 13:10 RBC 3.08 10^6/uL (4.18-5.33) L 07/04/18 13:10 Hgb 9.3 g/dL (12.6-16.3) L 07/04/18 13:10 Hct 31.5 % (38.0-47.0) L 07/04/18 13:10 MCV 102.3 fL (81.5-99.8) H 07/04/18 13:10 MCH 30.2 pg (27.9-34.1) 07/04/18 13:10 MCHC 29.5 g/dL (32.4-36.7) L 07/04/18 13:10 RDW 15.7 % (11.5-15.2) H 07/04/18 13:10 Plt Count 194 10^3/uL (150-400) 07/04/18 13:10 MPV 12.1 fL (8.7-11.7) H 07/04/18 13:10 Neut % (Auto) 70.0 % (39.3-74.2) 07/04/18 13:10 Lymph % (Auto) 13.1 % (15.0-45.0) L 07/04/18 13:10 [place] % (Auto) 6.9 % (4.5-13.0) 07/04/18 13:10 Eos % (Auto) 9.1 % (0.6-7.6) H 07/04/18 13:10 Baso % (Auto) 0.5 % (0.3-1.7) 07/04/18 13:10 Nucleat RBC Rel Count 0.0 % (0.0-0.2) 07/04/18 13:10 Absolute Neuts (auto) 8.37 10^3/uL (1.70-6.50) H 07/04/18 13:10 Absolute Lymphs (auto) 1.57 10^3/uL (1.00-3.00) 07/04/18 13:10 Absolute Monos (auto) 0.82 10^3/uL (0.30-0.80) H 07/04/18 13:10 Absolute Eos (auto) 1.09 10^3/uL (0.03-0.40) H 07/04/18 13:10 Absolute Basos (auto) 0.06 10^3/uL (0.02-0.10) 07/04/18 13:10 Absolute Nucleated RBC 0.00 10^3/uL (0-0.01) 07/04/18 13:10 Immature Gran % 0.4 % (0.0-1.1) 07/04/18 13:10 Immature Gran # 0.05 10^3/uL (0.00-0.10) 07/04/18 13:10 PT 14.7 SEC (12.0-15.0) 07/04/18 13:10 INR 1.13 (0.83-1.16) 07/04/18 13:10 D-Dimer 0.84 ug/mLFEU (0.00-0.50) H 07/04/18 13:10 Sodium 141 mEq/L (135-145) 07/04/18 13:10 Potassium 3.8 mEq/L (3.5-5.2) 07/04/18 13:10 Chloride 112 mEq/L (97-110) H 07/04/18 13:10 Carbon Dioxide 24 mEq/l (22-31) 07/04/18 13:10 Anion Gap 5 mEq/L (6-14) L 07/04/18 13:10 BUN 11 mg/dL (7-23) 07/04/18 13:10 Creatinine 0.7 mg/dL (0.6-1.0) 07/04/18 13:10 Estimated GFR > 60 07/04/18 13:10 Glucose 97 mg/dL (70-100) 07/04/18 13:10 Calcium 9.0 mg/dL (8.5-10.4) 07/04/18 13:10 POC Troponin I 0.00 ng/mL (0.00-0.08) 07/04/18 14:34 NT-Pro-B Natriuret Pep 924 pg/mL (0-450) H 07/04/18 13:10 Visualized and Interpreted Chest x-ray results: Yes Visualized and Interpreted imaging results: Yes Interpretation: CXR: no focal infiltrate, mild pulmonary edema with some fluid in fissure on right, abnormal left hemidiaphragm (? effusion) Visualized and Interpreted EKG results: Yes EKG additional interpertation: ECG: NSR, good R wave progression, normal axis, no acute ST-T segment ischemic changes Assessment & Plan Assessment: 77yo F with history of CAD s/p CABG, MR/MS, chronic diastolic CHF, HTN, COPD with chronic O2 dependence, SVT s/p ablation presents with a week of worsening shortness of breath. Evaluation demonstrates mild fluid overload. Plan: 1. Dyspnea: Multifactorial from mild pulm edema, COPD, anemia. Recent holter without arrhythmias. Management per below. 2. Acute on chronic diastolic CHF: Mild exacerbation. - s/p lasix 40mg IV in ED. Re-dose in AM based on response and need for ongoing IV diuresis - TTE ordered (last done 08/2017) - Alert cardiology of admission in AM (followed by Leyla Bliss and Sangeetha Wilder) 2. Valvular heart disease: Moderate MR and MS on last echo. MS is not amenable to repair per cardiology notes. - Getting echo as above to eval interval change 3. Chronic respiratory failure: Stable at baseline 2L. 4. COPD: Not exacerbated. Continue home inhalers. 5. Pleural plaques: Noted on CT. Suspect chronic, likely related to remote exposure (? asbestos). Recommend outpatient pulm referral. 6. H/o SVT s/p ablation: Will keep on tele to eval for arrhythmias. 7. Chronic anemia: H/H at baseline. No e/o bleeding. 8. Chronic leukocytosis: Mildly elevated here. 9. Seizure disorder: Home meds. VTE ppx: LMWH Code: full Diet: low salt Dispo: Admit under observation, possibly dc tomorrow pending echo and response to diuresis
[2018-07-04] MEDS ORDERED: MONTELUKAST SODIUM 10 MG TAB PO SCH (18:00)
[2018-07-04] MEDS: TOPIRAMATE 25 MG TAB PO SCH (20:26)
[2018-07-04] MEDS: GABAPENTIN 400 MG CAP PO SCH (20:27)
[2018-07-04] MEDS: METOPROLOL TARTRATE 25 MG TAB PO SCH (20:27)
[2018-07-04] MEDS: HYDROCODONE/APAP 5/325 TAB PO PRN (20:27)
[2018-07-04] MEDS: BUDESONIDE/FORMOTEROL 160/4.5 60 PUFFS/MDI IH SCH (20:59)
[2018-07-04] MEDS ORDERED: carBAMazepine ER 200 MG TAB PO SCH (21:00)
[2018-07-04] MEDS ORDERED: TIOTROPIUM INHALER 18 MCG/DOSE 5 DOSE/MDI IH SCH (21:00)
[2018-07-04] MEDS ORDERED: ATORVASTATIN CALCIUM 20 MG TAB PO SCH (21:00)
[2018-07-04] MEDS: FLUTICASONE NASAL 120 SPRAYS/16 GM MDI EACHNARE SCH (21:48)
[2018-07-05 05:57] LABS: PLATELET COUNT 177 10^3/uL (150-400)
[2018-07-05] MEDS: BUDESONIDE/FORMOTEROL 160/4.5 60 PUFFS/MDI IH SCH (08:30)
[2018-07-05] MEDS ORDERED: PANTOPRAZOLE SODIUM 40 MG TAB PO SCH (09:00)
[2018-07-05] MEDS ORDERED: ENOXAPARIN 40 MG/0.4 ML SYR SC SCH (09:00)
[2018-07-05] MEDS ORDERED: FUROSEMIDE 40 MG/4 ML VIAL IVP ONE (09:47)
[2018-07-05] MEDS: TOPIRAMATE 25 MG TAB PO SCH (09:48)
[2018-07-05] MEDS: METOPROLOL TARTRATE 25 MG TAB PO SCH (09:49)
[2018-07-05] MEDS: GABAPENTIN 400 MG CAP PO SCH (09:49)
[2018-07-05] MEDS: FLUTICASONE NASAL 120 SPRAYS/16 GM MDI EACHNARE SCH (09:50)
[2018-07-05] MEDS: HYDROCODONE/APAP 5/325 TAB PO PRN (09:53)
--- NOTE | 2018-07-05 10:28 | ECHO ---
[email or web address] [address] Main: [phone] Fax: [email or web address] Echocardiogram Name: PEPPER VILCHIS MR#: [id number] Study Date: 07/05/2018 Study Time: 08:48 AM Date of : 1940 Age: 77 year(s) Height: 162.6 cm (64 in.) Weight: 74.84 kg (165 lb.) BSA: 1.8 m2 Gender: Female Examination: Echo Indication: BLE edema, dyspnea upon exertion, h/o CABG, MV debrivement Image Quality: Adequate Contrast: Requested by: Claire Zaman BP: 117 mmHg/55 mmHg Heart Rate: Rhythm: Indication: BLE edema, dyspnea upon exertion, h/o CABG, MV debrivement Procedure Staff [employer] Agent: Hillary Gorman [facility] Reading Physician: Chris Gutierrez MD Requesting Provider: Conclusions: Normal size left ventricle. Moderate concentric LV hypertrophy. EF is 71 %. No regional wall motion abnormality. Mild LVOT gradient, at rest 6mmHg and with valsalva 52mmHg. Normal RV function. The left atrium is severely dilated. Thickened mitral leaflets with severe mitral annular calcification. Mean gradient across the MV 13mmHg consistent with severe mitral stenosis. Moderate mitral regurgitation. . The aortic valve is tri-leaflet. No aortic valve stenosis is present. Mild tricuspid regurgitation is present. Right ventricular systolic pressure measures 41mmHg. Compared to echo of 11/2017, today's echo is unchanged. Measurements: Chambers Valvular Assessment AV/MV Valvular Assessment TV/PV Normal Normal Normal Name Value Range Name Value Range Name Value Range Ao Bianca (MM): 3.3 cm (2.2 cm-3.7 AV Vmax: 1.29 m/s (1 m/s-1.7 TR Vmax: 2.99 mm/s ( - ) cm) m/s) TR PGmax: 36 mmHg ( - ) IVSd (2D): 1.2 cm (0.6 cm-1.1 AV maxP mmHg ( - ) syst. PAP: 41 mmHg ( - ) cm) MV meanP mmHg ( - ) PV Vmax: 0.69 m/s (0.6 m/s-0.9 LVDd (2D): 3.7 cm (3.9 cm-5.3 MV PHT: 0.102 s ( - ) m/s) cm) MVA (Vmax): 0.8 m/s ( - ) PV PGmax: 2 mmHg ( - ) LVDs (2D): 2.1 cm (2.1 cm-4 MVA (PHT): 2.2 s ( - ) cm) LVPWd (2D): 1.2 cm ( - ) LVOTd 1.8 cm 1.8 cm mm Patient: PEPPER VILCHIS Study Date: 07/05/2018 Page 1 of 08:48 AM LVEF (BP): 71 % (>=55 %) RVDd(2D): 3.2 cm (1.9 cm-3.8 cmmm) Continued Measurements: Chambers Valvular Assessment AV/MV Valvular Assessment TV/PV Name Value Name Value Name Value LADs: 4.8 cm MV VTI: 79.80 cm CVP (est.): 5 mmHg LADs Lon.3 cm MR Vena Contracta: 0.5 cm LA Area: 26.2 cm2 LA Volume: 86 ml LA Volume Index: 47.8 ml/m2 RA Area: 14.7 cm2 Additional Vessels Name Value Ao Ascendin.8 cm Findings: Left Ventricle: Normal size left ventricle. Moderate concentric LV hypertrophy. Normal global systolic LV function. EF is 71 %. No regional wall motion abnormality. Unable to assess diastolic dysfunction. Mild LVOT gradient, at rest 6mmHg and with valsalva 52mmHg. Right Ventricle: Normal size right ventricle. Normal RV function. Left Atrium: The left atrium is severely dilated. Right Atrium: The right atrium is normal in size. Mitral Valve: Thickened mitral leaflets with severe mitral annular calcification. Mean gradient across the MV 13mmHg consistent with severe mitral stenosis. Moderate mitral regurgitation. . Aortic Valve: The aortic valve is tri-leaflet. Aortic sclerosis is present. Mild aortic valve regurgitation is present. No aortic valve stenosis is present. Tricuspid Valve: The tricuspid valve is normal in appearance and function. Mild tricuspid regurgitation is present. Right ventricular systolic pressure measures 41mmHg. The pulmonary artery pressure is mild to moderately increased. Pulmonic Valve: The pulmonic valve is normal in appearance. Mild pulmonic valve regurgitation is noted. Aorta: Normal size aortic root measuring 3.3 cm. Normal size ascending aorta measuring 2.8 cm. IVC: The IVC is mildly dilated. There is greater liz 50% respiratory excursion. Pericardium: No pericardial effusion. (No Signature Object) Patient: PEPPER VILCHIS Study Date: 07/05/2018 Page 2 of 2 08:48 AM [id number]
--- NOTE | 2018-07-05 10:51 | ASMTCMCOM ---
CM Note CM Note Notes: Pt has been admitted after reporting increased SOB and TITA over the past week. She has a hx of CAD, CHF, HTN, COPD, seizure d/o, O2 dependence, SVT s/p ablation, and CABG. Her current treatment plan is an echo and diuresis. She may d/c home tomorrow pending improvement of her sx. Pt lives with her in [place]. CM will follow for any d/c needs. D/C plan: anticipate d/c home independent if sx improve Date Signed: 07/05/2018 10:50 AM Electronically Signed By:LEMUEL Tomas
[2018-07-05 11:36] VITALS: BP 106/55
--- NOTE | 2018-07-05 13:01 | ASDISCHSUM ---
Discharge Information Plan Status:Home with No Needs Medically Cleared to Leave: Discharge Date: CM D/C Disposition:Home, Routine, Self-Care ADT D/C Disposition:Home, Routine, Self-Care Projected Discharge Date: Transportation at D/C:Family Discharge Delay Reason: Follow-Up Date: Discharge Slot: Final Diagnosis: Placement Information Patient Contact Information Contact Name:W[place] Relationship:Daughter Address: Work Phone: City: [place] Phone: State/[place] Code: Email: Financial Information Financial Class:Medicare Primary Plan Desc:MEDICARE OUTPATIENT Primary Plan Number:[id number] Secondary Plan Desc:MEDICAID HEALTH FIRST [place] OP Secondary Plan Number:[id number] Assessment Information LACE LACE Length of stay for Answers: Less than 1 day current admission Acuity / Level of Answers: No Care: Did the patient have an inpatient admission? Comorbidities - select Answers: Chronic pulmonary disease all that apply Congestive heart failure Other Notes: CABG, HTN, O2 dependence, seizure d/o # of Emergency department Answers: 1-2 visits in the last 6 months Score: 6 Date Signed: 07/05/2018 01:00 PM Electronically Signed By:Deisy Gray [facility] Progress Note CM Note CM Note Notes: Pt has been admitted after reporting increased SOB and TITA over the past week. She has a hx of CAD, CHF, HTN, COPD, seizure d/o, O2 dependence, SVT s/p ablation, and CABG. Her current treatment plan is an echo and diuresis. She may d/c home tomorrow pending improvement of her sx. Pt lives with her in [place]. CM will follow for any d/c needs. D/C plan: anticipate d/c home independent if sx improve Date Signed: 07/05/2018 10:50 AM Electronically Signed By:LEMUEL Tomas Intervention Information
--- NOTE | 2018-07-05 13:16 | GDS ---
[f rep st] DISCHARGE SUMMARY DISCHARGE DIAGNOSES: 1. Dyspnea. 2. Sjvlf-mt-tjghwkd diastolic heart failure. 3. Vcvbekoy-xv-eqppsg MS/MR. 4. Chronic respiratory failure on 2 liters. 5. Chronic obstructive pulmonary disease. 6. Pleural plaques. 7. Chronic anemia. 8. Chronic leukocytosis. 9. Seizure disorder. 10. History of supraventricular tachycardia. 11. Coronary artery disease status post coronary artery bypass graft. HISTORY OF PRESENT ILLNESS: 77-year-old female with history of CAD, status post CABG, MR/MS, chronic diastolic heart failure, presented with 1 week worsening of shortness of breath. She has had mild bilateral leg swelling. She is unable to lie flat, but this is chronic. No chest pain. She has noticed that she has gained greater than 3 pounds in the last day or two. She does drink a lot of water. She follows a vegan diet, no salt added. X-ray showed mild fluid overload, D-dimer was elevated, so a CTA was done, negative for PE. HOSPITAL COURSE BY PROBLEM: 1. Acutely decompensated diastolic heart failure: mild exacerbation from excessive fluids at home. Improved with IV Lasix. Echocardiogram is unchanged from prior showing severe MR/MS. Advised to check her weight daily. If she does gain greater 3 pounds in a day, she should increase her afternoon dose of torsemide to 40 mg, thus 40 mg b.i.d.. Follow a low-salt diet. FU with Dr. Wilder as an outpatient. Weight on discharge 74 kg. 2. Valvular heart disease: plan stated above. 3. Chronic hypoxemic respiratory failure: stable on 2 L. 4. Pleural plaques seen on CT. Suspect this is chronic. She is followed by Dr. Evans as an outpatient and can follow up with him. 5. History of SVT status post ablation. 6. Chronic anemia. H/H stable. 7. Seizure disorder: Home medications. DISPOSITION: The patient is stable for discharge home. Daughter was at bedside and questions were answered. DISCHARGE INSTRUCTIONS: 1. Follow up with Dr. Wilder. 2. Check daily weights. If increased in 3 pounds, increase torsemide to 40 mg b.i.d. PHYSICAL EXAMINATION: VITAL SIGNS: Today, temperature 36.8, blood pressure 106 /55, heart rate in the 80s, respiration 91% on 2 L. GENERAL: She is well appearing, younger than stated age. HEENT: PERRLA. Moist mucous membranes. CV: Murmur present. Trace lower extremity edema. LUNGS: No crackles or wheezing. ABDOMEN: Soft, nontender, nondistended. Positive bowel sounds. : No Rosario. MUSCULOSKELETAL: 5/5 upper and lower extremity strength. NEURO: 2 through 12 intact. PSYCH: Alert and oriented x3. TIME SPENT ON DISCHARGE: Greater than 30 minutes at bedside counseling on diet , fluid intake. Daughter bedside /[id number]/MODL MTDD
== END 2018-07-05 14:10 | disposition home or self-care (01) ==
LOC: MERGE 16:24 → F2W 17:09
PROVIDERS: ADMIT Internal Medicine; ATTEND Internal Medicine
DX: I50.33 Acute on chronic diastolic (congestive) heart failure (principal); I34.9 Nonrheumatic mitral valve disorder, unspecified; J44.9 Chronic obstructive pulmonary disease, unspecified; J96.11 Chronic respiratory failure with hypoxia; D64.9 Anemia, unspecified; D72.829 Elevated white blood cell count, unspecified; J92.9 Pleural plaque without asbestos; G40.909 Epilepsy, unspecified, not intractable, without status epilepticus; I25.10 Atherosclerotic heart disease of native coronary artery without angina pectoris; Z99.81 Dependence on supplemental oxygen; Z86.73 Personal history of transient ischemic attack (TIA), and cerebral infarction without residual deficits; Z87.891 Personal history of nicotine dependence; Z82.3 Family history of stroke; Z95.1 Presence of aortocoronary bypass graft; Z88.0 Allergy status to penicillin
CPT/HCPCS: 71046; 71275; 93005; 93308; 96372; 96374; 96375; 99285; G0378; J1650; J1940; Q9967; 84484-ER